=== PATIENT | female | born 1935 | race Caucasian/White ===

== ENCOUNTER 2016-04-20 13:21 | Emergency (ER) | payer MEDICARE ==
[~2016-04-20] VITALS: Ht 157.5 cm; Wt 62.3 kg
[~2016-04-20 13:21] MED LIST: ALLO300T2 PO; BIMA2.5D5 OD; CLOP75TA3 PO; FERR325C PO; FURO40TA4 PO; INSU100V7 SUBQ; LANS30CA PO; LEVO25TA5 PO; METO50TA3 PO; MULT1CAP33 PO; PRAV40TA PO; RES30 PO
--- NOTE | 2016-04-20 13:42 | ED.REPORT ---
HPI-General Illness Date of Service Apr 20, 2016 ED Provider: Julisa Dean MD Nursing Notes Stated Complaint: SOB Chief Complaint: Dysrhythmia/Cardiac Nursing Notes Reviewed: Yes Allergies: Coded Allergies: Argxdvw-Yvz-Pgm Reductase Inhibitor (Unverified Allergy, Unknown, 11/11/13) cilostazol (Unverified Allergy, Unknown, 11/11/13) rofecoxib (Verified Allergy, Unknown, 11/10/13) rosuvastatin (Verified Allergy, Unknown, 11/10/13) simvastatin (Unverified Allergy, Unknown, 11/11/13) Scheduled Allopurinol (Allopurinol) 300 Mg Tablet 300 MG PO DAILY Bimatoprost (Lumigan) 45 Drop/2.5 Ml Ophsoln 1 DROP OD HS Clopidogrel Bisulfate (Plavix) 75 Mg Tablet 75 MG PO DAILY Ferrous Sulfate (Iron) 325 Mg Capsule.er 325 MG PO DAILY Furosemide (Furosemide) 40 Mg Tablet 80 MG PO BID Lansoprazole (Lansoprazole) 30 Mg Capsule.dr 30 MG PO DAILY Levothyroxine (Levothyroxine) 25 Mcg Tablet 25 MCG PO AM Take on an empty stomach. Metoprolol Tartrate (Metoprolol Tartrate) 25 Mg Tablet 25 MG PO BID Multivitamin (Multivitamins) 1 Each Capsule 1 EACH PO DAILY Pravastatin (Pravastatin) 40 Mg Tablet 40 MG PO DAILY Scheduled PRN Temazepam (Temazepam) 30 Mg Cap 30 MG PO HS PRN PRN For Insomnia Miscellaneous Medications Tizanidine (Tizanidine) 2 Mg Tablet 1-2 MG PO General Time Seen by MD: 13:41 Chief Complaint Other (SOB) Hx Obtained From: Patient Arrived By: Walk-in Review of Systems Full Review of Systems Respiratory: Reports: Shortness of breath Complete sys rev & neg: except as marked. Physical Exam Vital Signs Vital Signs Date Time Temp Pulse Resp B/P Pulse Ox O2 Delivery O2 Flow Rate FiO2 04/20/16 13:51 36.7 65 24 177/72 95 Room Air Initial VS: Reviewed, Vital signs abnormal Interpretation & Diagnostics Lab Results Interpretation Result Diagram: 04/20/16 1419 04/20/16 1419 Test 04/20/16 14:19 White Blood Count 8.0th/mm3 (3.8-10.1) Red Blood Count 4.07mil/mm3 (3.90-5.20) Hemoglobin 12.7g/dL (12.0-15.6) Hematocrit 40.4% (35.0-46.0) Mean Corpuscular Volume 99.3fL (81-100) Mean Corpuscular Hemoglobin 31.2pg (27.0-35.0) Mean Corpuscular Hemoglobin Concent 31.4% (32.0-37.0) Red Cell Distribution Width 13.9% (12.3-15.4) Platelet Count 209bil/L (150-400) Neutrophils (%) (Auto) 64.5% (40-74) Lymphocytes (%) (Auto) 25.9% (14-46) Monocytes (%) (Auto) 7.2% (4-12) Eosinophils (%) (Auto) 2.0% (0-5) Basophils (%) (Auto) 0.2% (0-3) Sodium Level 139mEq/L (134-144) Potassium Level 3.8mEq/L (3.5-5.2) Chloride Level 98mEq/L (97-108) Carbon Dioxide Level 26mmol/L (18-29) Blood Urea Nitrogen 33mg/dL (8-27) Creatinine 1.05mg/dL (0.57-1.00) Estimat Glomerular Filtration Rate 72mL/min (>59) Glucose Level 186mg/dL (60-99) Calcium Level 9.6mg/dL (8.5-10.1) Magnesium Level 2.0mg/dL (1.6-2.6) Total Bilirubin 0.3mg/dL (0.0-1.2) Aspartate Amino Transf (AST/SGOT) 20U/L (0-50) Alanine Aminotransferase (ALT/SGPT) 10U/L (0-32) Alkaline Phosphatase 114U/L (25-165) Troponin T < 0.010ug/L (0.0-0.011) Pro-B-Type Natriuretic Peptide 3688pg/mL (0-738) Total Protein 8.5g/dL (6.4-8.4) Albumin 3.9g/dL (3.4-5.0) ECG Interpretation ECG Interpretation: Sinus rhythm rate 67 LVH Time: 14:55 Interpreted by: ED physician Re-Eval/Medical Decision Counseled Regarding: Diagnosis, Lab results Discharge & Departure Discharge Condition All VS Reviewed: Yes Condition: Stable Referrals: Wendy Vance MD (PCP) Sanjeev Attestation Portions of this note were transcribed by Davy Vanegas. I, Dr. Dean personally performed the history, physical exam and medical decision-making; I reviewed and confirmed the accuracy of the information in the transcribed note. Signed by Sanjeev Lawrence, 04/20/16 - [id number] copies to: Wendy Vance MD, Shawna L MD Apr 20, 2016 13:42 DAVY VANEGAS Apr 20, 2016 13:43
[2016-04-20 13:51] VITALS: BP 177/72; PULSE 65; RESP 24; O2SAT 95
[2016-04-20] MEDS ORDERED: METO25TA6 PO (14:22)
[2016-04-20] MEDS ORDERED: TIZA2TAB3 PO (14:22)
[2016-04-20 14:23] LABS: BASOPHILS % (AUTO) 0.2 % (0-3); MONOCYTES % (AUTO) 7.2 % (4-12); Mean Corpuscular Hemoglobin 31.2 pg (27.0-35.0); Mean Corpuscular Volume 99.3 fL (81-100); NEUTROPHILS % (AUTO) 64.5 % (40-74); Platelet Count 209 bil/L (150-400)
[2016-04-20 14:59] LABS: TROPONIN T < 0.010 ug/L (0.0-0.011)
--- NOTE | 2016-04-20 15:06 | ED.REPORT ---
HPI-Chest Pain 40 and Over Date of Service Apr 20, 2016 ED Provider: Steve Nuñez MD Patient is a 81 year old female with a history of diastolic congestive heart failure, coronary artery disease with prior myocardial infarction, CABG 4x, diabetes mellitus, chronic kidney disease, and hypertension who presents to the ED after she had a pre-syncopal episode and heart palpitations at 10pm last night. The patient states that she was getting ready for bed when she developing a racing heart beat, dizziness, double vision, and that she felt unsteady on her feet. She describes her dizziness as a weakness, with the room titling, as if she were about to pass out. She denies the room spinning. She admits to feeling increasingly weak prior to this episode with dyspnea on exertion. The patient denies noting an irregular heart beat and she did not formally take her pulse. Patient states that these symptoms lasted for some time and it took her longer than usual to fall asleep last night. She admits to waking up throughout the night, experiencing similar dizziness and double vision. She states that the double vision was side by side. Patient denies any lateralization of her weakness. Patient states that this morning she continued to feel weak and that she was unable to do her daily tasks. This worsened throughout the day, so she therefore went to Urgent Care. Patient reports having an episode several weeks ago of similar character with palpitations, dyspnea on exertion, and generalized weakness. Patient also reports having an ND 3 years ago, with her symptoms beginning with double vision. Her symptoms then progressed to generalized weakness, however she never had any chest pain. She also admits to a headache but denies diaphoresis, nausea, vomiting, fever, or abdominal pain. She admits to increased swelling in her legs, but states that she has been ambulating less recently. Patient is on Plavix for blood thinning medication. She denies a history of atrial fibrillation or an abnormal heart beat. The patient has an appointment with her heat and frost insulator helper, Dr. Cid, on 04/22. PCP: Dr. Vance Nursing Notes Stated Complaint: SOB Chief Complaint: Dysrhythmia/Cardiac Nursing Notes Reviewed: Yes Allergies: Coded Allergies: Dqnelwx-Pye-Pef Reductase Inhibitor (Unverified Allergy, Unknown, 11/11/13) cilostazol (Unverified Allergy, Unknown, 11/11/13) rofecoxib (Verified Allergy, Unknown, 11/10/13) rosuvastatin (Verified Allergy, Unknown, 11/10/13) simvastatin (Unverified Allergy, Unknown, 11/11/13) Scheduled Allopurinol (Allopurinol) 300 Mg Tablet 300 MG PO DAILY Bimatoprost (Lumigan) 45 Drop/2.5 Ml Ophsoln 1 DROP OD HS Clopidogrel Bisulfate (Plavix) 75 Mg Tablet 75 MG PO DAILY Ferrous Sulfate (Iron) 325 Mg Capsule.er 325 MG PO DAILY Furosemide (Furosemide) 40 Mg Tablet 80 MG PO BID Lansoprazole (Lansoprazole) 30 Mg Capsule.dr 30 MG PO DAILY Levothyroxine (Levothyroxine) 25 Mcg Tablet 25 MCG PO AM Take on an empty stomach. Metoprolol Tartrate (Metoprolol Tartrate) 25 Mg Tablet 25 MG PO BID Multivitamin (Multivitamins) 1 Each Capsule 1 EACH PO DAILY Pravastatin (Pravastatin) 40 Mg Tablet 40 MG PO DAILY Scheduled PRN Temazepam (Temazepam) 30 Mg Cap 30 MG PO HS PRN PRN For Insomnia Miscellaneous Medications Tizanidine (Tizanidine) 2 Mg Tablet 1-2 MG PO General Time Seen by MD: 15:01 Chief Complaint Other (presyncopal episode) Hx Obtained From: Patient Arrived By: Walk-in Sudden in Onset?: Yes Onset Occurred: 17 - 20 hours ago Symptom Duration: Since onset Severity: Current: No pain currently Severity: Maximum: No pain Recent Healthcare: No recent doctor visit, No recent hospitalization Similar Sx Previous: Yes Past Medical History Past Medical History Notes: PCP: Dr. Vance Hydrochloric Acid Operator: Dr. Cid Past Medical History 1. Coronary artery disease, with history of myocardial infarction and bypass grafting 2001. 2. Peripheral vascular disease, status post multiple stenting and angioplasty procedures. 3. Congestive heart failure, diastolic 4. Chronic kidney disease 5. Hypertension. 6. Chronically elevated troponin. 7. Hyperlipidemia. 8. Diabetes mellitus type 2, insulin requiring. 9. Gastroesophageal reflux disease with Schaefer's esophagus. 10. Glaucoma. 11. Carotid stenosis. 12. Gout. 13. Hypothyroidism. 14. Chronic insomnia, on chronic benzodiazepines. 15. Moderate to severe mitral regurgitation by echo February 2013. 16. Bilateral renal artery stenosis. 17. History of peptic ulcer disease. 18. Anemia. 19. prior DVT Reports: Coronary artery disease Past Surgical History glaucoma surgery. Reports: CABG, Cataract surgery, Hysterectomy Smoking History Former Smoker Social History Other Social History: Good social support, Local resident Ambulatory Status Independent Review of Systems Constitutional: Denies: Chills, Fever Respiratory: Reports: Dyspnea on exertion, Shortness of breath Cardiovascular: Reports: Dyspnea on exertion, Palpitations, Denies: Chest pain GI: Denies: Abdominal pain, Nausea, Vomiting Musculoskeletal: Reports: Extremity swelling Skin: Denies Diaphoresis, Denies Rash Neurologic: Reports: Dizziness, Weakness Complete sys rev & neg: except as marked. Eyes: Reports: Diplopia, Denies: Visual loss bilateral Physical Exam Initial Vital Signs Vital Signs (First) Date Time Temp Pulse Resp B/P Pulse Ox O2 Delivery O2 Flow Rate FiO2 04/20/16 13:51 36.7 65 24 177/72 95 Room Air Initial VS: Reviewed Head / Eyes: Atraumatic, Normocephalic, PERRL ENT: Conjunctiva normal, No scleral icterus Neck: Supple, Full range of motion Skin: Warm, Dry Neurologic: Alert, Oriented, Nonfocal Psychiatric: Mood/affect normal, Behavior normal, Normal thought content General/Constitutional: Awake, Alert, No acute distress Respiratory / Chest: Breath sounds NL, Breath sounds = bilat, No respiratory distress, No rales, No rhonchi, No wheezing Cardiovascular: Heart rate NL, Regular rhythm, Heart sounds NL, No gallop, No murmurs, No rubs midline thoracotomy scar Abdomen: Soft, Non-tender, BS normoactive Lower Extremity / Pelvis / MS: Non-tender, No deformity, Neurologic intact, Vascular intact trace edema bilateral lower extremities Interpretation & Diagnostics Lab Results Interpretation Result Diagram: 04/20/16 1419 04/20/16 1419 Test 04/20/16 14:19 White Blood Count 8.0th/mm3 (3.8-10.1) Red Blood Count 4.07mil/mm3 (3.90-5.20) Hemoglobin 12.7g/dL (12.0-15.6) Hematocrit 40.4% (35.0-46.0) Mean Corpuscular Volume 99.3fL (81-100) Mean Corpuscular Hemoglobin 31.2pg (27.0-35.0) Mean Corpuscular Hemoglobin Concent 31.4% (32.0-37.0) Red Cell Distribution Width 13.9% (12.3-15.4) Platelet Count 209bil/L (150-400) Neutrophils (%) (Auto) 64.5% (40-74) Lymphocytes (%) (Auto) 25.9% (14-46) Monocytes (%) (Auto) 7.2% (4-12) Eosinophils (%) (Auto) 2.0% (0-5) Basophils (%) (Auto) 0.2% (0-3) Sodium Level 139mEq/L (134-144) Potassium Level 3.8mEq/L (3.5-5.2) Chloride Level 98mEq/L (97-108) Carbon Dioxide Level 26mmol/L (18-29) Blood Urea Nitrogen 33mg/dL (8-27) Creatinine 1.05mg/dL (0.57-1.00) Estimat Glomerular Filtration Rate 72mL/min (>59) Glucose Level 186mg/dL (60-99) Calcium Level 9.6mg/dL (8.5-10.1) Magnesium Level 2.0mg/dL (1.6-2.6) Total Bilirubin 0.3mg/dL (0.0-1.2) Aspartate Amino Transf (AST/SGOT) 20U/L (0-50) Alanine Aminotransferase (ALT/SGPT) 10U/L (0-32) Alkaline Phosphatase 114U/L (25-165) Troponin T < 0.010ug/L (0.0-0.011) Pro-B-Type Natriuretic Peptide 3688pg/mL (0-738) Total Protein 8.5g/dL (6.4-8.4) Albumin 3.9g/dL (3.4-5.0) Thyroid Stimulating Hormone (TSH) 3.890uIU/mL (0.450-4.500) ECG Interpretation ECG Interpretation: Sinus rhythm, rate 67 Lateral ventricular hypertrophy lateral ST depression and T wave inversion Time: 15:08 Interpreted by: ED physician X-Ray Chest Interpretation Chest Xray Interpretation: IMPRESSION: No acute cardiopulmonary disease process. Dictated by: Ivon Garcia MD, PhD on 04/20/2016 at 15:17 Approved by: Ivon Garcia MD, PhD on 04/20/2016 at 15:17 View: Portable Interpretation / Wet Read by: Interpret - Radiologist Re-Eval/Medical Decision Med Decision/Clinical Course 81 year old female with palpitations last night. Today still feels weak, no chest pain has baseline ZUNIGA. VS reassuring. will not trend trop given prolonged time between symptoms and presentatiion. Ambulates using walker without difficulty. Has cardiology appointment coming up. Pro-BNP today is 3688, lower than values noted in 2014 Source of Hx: Old records Time of Eval: 16:15 Patient Status: Condition improved Re-Evaluation/Progress Note: Rechecked the patient. She reports feeling improved and is no longer dizzy. She admits to feeling weak when she stands up. Informed the patient of the results of her EKG, labs, and chest x-ray. Patient understands and agrees with the plan to be discharged home. Discharge instructions and follow-up with cardiology discussed. All questions were addressed. Return to the ED warnings given. Time of Eval: 17:50 Re-Evaluation/Progress Note: Patient's daughter now present in the ED. Updated her on the results of the work-up today and the follow-up plan. All questions were addressed. Counseled Regarding: Diagnosis, Lab results, Need for follow-up, When/why to return to ED Discharge & Departure Primary Impression: Heart palpitations Disposition: Home Discharge Condition All VS Reviewed: Yes Condition: Stable Patient Instructions: Palpitations (ED) Additional Instructions: Emergency department evaluation today included review, examination, labs, ECG and chest x-ray, review of past records. Today examination and vital signs are reassuring and heart rhythm is normal. We note some mild dehydration. Continue previous medications and get adequate fluids. Follow-up with Dr. Cid in 2 days as already scheduled.. Discuss this event with him at that time. Call 911 if you have recurrent symptoms. Do not wait. Referrals: Wendy Vance MD (PCP) Ney Cid MD Attestation Portions of this note were transcribed by Lia Mckeon. I, Dr. Nuñez personally performed the history, physical exam and medical decision-making; I reviewed and confirmed the accuracy of the information in the transcribed note. Signed by: Sanjeev Hester, 04/20/2016 [id number] copies to: Ney Cid MD; RajivWendy hernandez MD, Donald L MD Apr 20, 2016 15:06 Lia Mckeon Apr 20, 2016 15:27
--- NOTE | 2016-04-20 15:19 | DRSVH ---
PROCEDURE: X-RAY CHEST ONE VIEW, PORTABLE ([id number]) INDICATIONS: weakness and cough TECHNIQUE: One view of the chest was acquired. COMPARISON: [facility], , CHEST 1VW (PORTABLE), 03/09/2013, 8:35. [facility], CHEST 2VW, 03/13/2013, 8:02. [facility], CHEST 1VW (PORTABLE), 11/10/2013, 2 2:54. FINDINGS: Surgical changes and devices: Median sternotomy wires Lungs and pleura: No pleural effusions or pneumothorax. Lungs are clear. Mediastinum: Mediastinal contours appear normal. Heart size is normal. Bones and chest wall: No suspicious bony lesions. Overlying soft tissues appear unremarkable. IMPRESSION: No acute cardiopulmonary disease process. Dictated by: Ivon Garcia MD, PhD on 04/20/2016 at 15:17 Approved by: Ivon Garcia MD, PhD on 04/20/2016 at 15:17
[2016-04-20] MEDS ORDERED: 0.9% Sodium Chloride 500 ML IV ONE (15:30)
[2016-04-20 15:35] VITALS: BP_SYST 148; BP_SYST 179; BP_DIAS 74; BP_DIAS 94
[2016-04-20 15:40] VITALS: BP 179/94; PULSE 69; RESP 18; O2SAT 98
[2016-04-20 16:22] VITALS: BP 155/71; PULSE 67; RESP 19; O2SAT 95
[2016-04-20 16:51] VITALS: BP 162/71; PULSE 71; RESP 20; O2SAT 98
== END 2016-04-20 16:50 | disposition home or self-care (01) ==
LOC: SED 13:21 → EDBD 13:21 → SED 16:50
DX: R00.2 Palpitations (principal); I12.9 Hypertensive chronic kidney disease with stage 1 through stage 4 chronic kidney disease, or unspecified chronic kidney disease; N18.9 Chronic kidney disease, unspecified; E11.9 Type 2 diabetes mellitus without complications; I25.2 Old myocardial infarction; I25.10 Atherosclerotic heart disease of native coronary artery without angina pectoris; G47.09 Other insomnia; Z95.1 Presence of aortocoronary bypass graft; Z98.62 Peripheral vascular angioplasty status; Z87.891 Personal history of nicotine dependence; Z86.39 Personal history of other endocrine, nutritional and metabolic disease; Z86.79 Personal history of other diseases of the circulatory system; Z87.19 Personal history of other diseases of the digestive system; Z79.01 Long term (current) use of anticoagulants; Z88.8 Allergy status to other drugs, medicaments and biological substances; Z79.4 Long term (current) use of insulin
CPT/HCPCS: 36415; 71010; 80053; 83735; 83880; 84443; 84484; 85025; 93005; 99285; A4300; G0463; J7040

== ENCOUNTER 2016-10-20 10:52 | Inpatient (IN) | payer MEDICARE ==
[~2016-10-20] VITALS: Ht 157.5 cm; Wt 58.1 kg
[2016-10-20] VITALS (14 sets, daily range): BP systolic 59–130; BP diastolic 31–100; PULSE 70–83; RESP 16–24; O2SAT 93–99
[~2016-10-20 10:52] MED LIST changes: +BIMA2.5D5 BOTH_EYES; -BIMA2.5D5 OD; -INSU100V7 SUBQ; +METO25TA6 PO; -METO50TA3 PO; +TIZA2TAB3 PO
--- NOTE | 2016-10-20 11:02 | ED.REPORT ---
HPI-General Illness Date of Service Oct 20, 2016 ED Provider: Romeo Wood DO The patient is an 81 year old male with history of coronary artery disease s/p CABG, chronically elevated troponin, peripheral vascular disease s/p multiple stenting and angioplasty procedures, congestive heart failure, prior DVT, chronic kidney disease, carotid stenosis, bilateral renal artery stenosis, hypertension, hypothyroidism, hyperlipidemia, diabetes mellitus type II, GERD, and peptic ulcer disease, who presents to the emergency department by EMS complaining of chest pain that has been intermittent over the last few months. Her symptoms were worse this morning. Her pain radiated into her shoulder and she was too weak to walk. She denies nausea, vomiting, abdominal pain, fever, chills, cough or shortness of breath. She was seen by her circle cutting saw operator, Dr. Cid yesterday and was told her symptoms may be caused be low potassium. The patient reports a few episodes black stools last week but this has resolved. She has had similar symptoms in the past that were attributed to bleeding ulcers. She did not have any pain at that time. Nursing Notes Stated Complaint: CHEST PAIN Nursing Notes Reviewed: Yes Allergies: Coded Allergies: Rdwoemf-Sdm-Mcb Reductase Inhibitor (Unverified Allergy, Unknown, 10/20/16) cilostazol (Unverified Allergy, Unknown, 10/20/16) rofecoxib (Verified Allergy, Unknown, 10/20/16) rosuvastatin (Verified Allergy, Unknown, 10/20/16) simvastatin (Unverified Allergy, Unknown, 10/20/16) Scheduled Allopurinol (Allopurinol) 300 Mg Tablet 300 MG PO DAILY Bimatoprost (Lumigan) 45 Drop/2.5 Ml Ophsoln 1 DROP OD HS Clopidogrel Bisulfate (Plavix) 75 Mg Tablet 75 MG PO DAILY Ferrous Sulfate (Iron) 325 Mg Capsule.er 325 MG PO DAILY Furosemide (Furosemide) 40 Mg Tablet 80 MG PO BID Lansoprazole (Lansoprazole) 30 Mg Capsule.dr 30 MG PO DAILY Levothyroxine (Levothyroxine) 25 Mcg Tablet 25 MCG PO AM Take on an empty stomach. Metoprolol Tartrate (Metoprolol Tartrate) 25 Mg Tablet 25 MG PO BID Multivitamin (Multivitamins) 1 Each Capsule 1 EACH PO DAILY Pravastatin (Pravastatin) 40 Mg Tablet 40 MG PO DAILY Scheduled PRN Temazepam (Temazepam) 30 Mg Cap 30 MG PO HS PRN PRN For Insomnia Miscellaneous Medications Tizanidine (Tizanidine) 2 Mg Tablet 1-2 MG PO General Time Seen by MD: 11:01 Chief Complaint Chest pain Hx Obtained From: Patient, EMS Arrived By: Ambulance Sudden in Onset?: No Onset Occurred: More than a week ago... Symptom Duration: Intermittent Location: : Chest Quality: Painful Radiation: : Shoulder Severity: Current: Moderate Severity: Maximum: Severe Recent Healthcare: No recent hospitalization, Recent doctor visit Similar Sx Previous: Yes Past Medical History Past Medical History Notes: PCP: Dr. Vance Ip Litigation Associate: Dr. Cid Past Medical History 1. Coronary artery disease, with history of myocardial infarction and bypass grafting 2001. 2. Peripheral vascular disease, status post multiple stenting and angioplasty procedures. 3. Congestive heart failure, diastolic 4. Chronic kidney disease 5. Hypertension. 6. Chronically elevated troponin. 7. Hyperlipidemia. 8. Diabetes mellitus type 2, insulin requiring. 9. Gastroesophageal reflux disease with Schaefer's esophagus. 10. Glaucoma. 11. Carotid stenosis. 12. Gout. 13. Hypothyroidism. 14. Chronic insomnia, on chronic benzodiazepines. 15. Moderate to severe mitral regurgitation by echo February 2013. 16. Bilateral renal artery stenosis. 17. History of peptic ulcer disease. 18. Anemia. 19. prior DVT Past Surgical History Glaucoma surgery. Multiple stents and angioplasty for peripheral vascular disease Reports: CABG, Cataract surgery, Hysterectomy Family History Noncontributory Smoking History Former Smoker Social History Other Social History: Good social support, Local resident Ambulatory Status Independent Review of Systems Full Review of Systems Constitutional: Reports: Weakness - generalized, Denies: Chills, Fever Respiratory: Denies: Non-productive cough, Shortness of breath Cardiovascular: Reports: Chest pain GI: Reports: Bloody/tarry stool, Denies: Abdominal pain, Diarrhea, Nausea, Vomiting Neurologic: Reports: Weakness Complete sys rev & neg: except as marked. Physical Exam Vital Signs Vital Signs Date Time Temp Pulse Resp B/P Pulse Ox O2 Delivery O2 Flow Rate FiO2 10/20/16 12:57 74 16 92/47 98 Nasal Cannula 2 10/20/16 12:10 74 16 65/31 99 Nasal Cannula 2 10/20/16 11:34 76 17 73/32 97 Nasal Cannula 2 10/20/16 11:34 75 17 96/49 93 Room Air 10/20/16 11:06 36.2 78 17 98/45 97 Room Air Initial VS: Reviewed Head / Eyes: Atraumatic, Normocephalic, PERRL ENT: Mucous membranes moist, Conjunctiva normal, No scleral icterus Extremities: Vascular intact, Neuro intact, No swelling, No tenderness Skin: Warm, Dry, No cyanosis Neurologic: Alert, Oriented, Nonfocal Psychiatric: Mood/affect normal, Behavior normal, Normal thought content General/Constitutional: Awake, Alert Appearance / Presentation: Positive: Pale Neck: Atraumatic, Supple, No meningismus, Full range of motion, No adenopathy, No swelling, Non-tender, No midline vertebral tend, No JVD Respiratory / Chest: Atraumatic, Breath sounds NL, Breath sounds = bilat, No respiratory distress, No rales, No rhonchi, No wheezing, No retractions Cardiovascular: Heart rate NL, Regular rhythm Heart Sounds / Murmur: Positive: Systolic murmur present.. (II/, at the apex) Abdomen: Atraumatic, Soft, Non-tender, No guarding, No rebound, BS normoactive , No distention Lower Extremity / Pelvis / MS: Neurologic intact, Vascular intact, No edema Rectal for Blood: Positive: Blood - occult heme +, Negative: Melena present Brown stool Interpretation & Diagnostics Lab Results Interpretation Result Diagram: 10/20/16 1120 10/20/16 1120 Test 10/20/16 11:20 10/20/16 12:57 White Blood Count 12.8th/mm3 (3.8-10.1) Red Blood Count 2.73mil/mm3 (3.90-5.20) Hemoglobin 8.6g/dL (12.0-15.6) Hematocrit 27.6% (35.0-46.0) Mean Corpuscular Volume 101.1fL (81-100) Mean Corpuscular Hemoglobin 31.5pg (27.0-35.0) Mean Corpuscular Hemoglobin Concent 31.2% (32.0-37.0) Red Cell Distribution Width 15.5% (12.3-15.4) Platelet Count 219bil/L (150-400) Neutrophils (%) (Auto) 71.6% (40-74) Lymphocytes (%) (Auto) 20.4% (14-46) Monocytes (%) (Auto) 6.5% (4-12) Eosinophils (%) (Auto) 0.9% (0-5) Basophils (%) (Auto) 0.2% (0-3) Prothrombin Time 10.7sec (8.1-12.5) Prothromb Time International Ratio 1.00ratio Sodium Level 136mEq/L (134-144) Potassium Level 4.8mEq/L (3.5-5.2) Chloride Level 100mEq/L (97-108) Carbon Dioxide Level 22mmol/L (18-29) Blood Urea Nitrogen 49mg/dL (8-27) Creatinine 1.25mg/dL (0.57-1.00) Estimat Glomerular Filtration Rate 59mL/min (>59) Glucose Level 243mg/dL (60-99) Calcium Level 8.9mg/dL (8.5-10.1) Magnesium Level 2.0mg/dL (1.6-2.6) Total Bilirubin 0.2mg/dL (0.0-1.2) Aspartate Amino Transf (AST/SGOT) 16U/L (0-50) Alanine Aminotransferase (ALT/SGPT) 8U/L (0-32) Alkaline Phosphatase 93U/L (25-165) Troponin T 0.010ug/L (0.0-0.011) Pro-B-Type Natriuretic Peptide 3414pg/mL (0-738) Total Protein 7.0g/dL (6.4-8.4) Albumin 3.3g/dL (3.4-5.0) ECG Interpretation ECG Interpretation: Sinus rhythm with a rate of 78 LVH Time: 11:11 Interpreted by: ED physician X-Ray Chest Interpretation Chest Xray Interpretation: IMPRESSION: No radiographic evidence of acute cardiopulmonary pathology. Dictated by: Fito Umaña M.D. on 10/20/2016 at 11:50 Interpretation / Wet Read by: Interpret - Radiologist Re-Eval/Medical Decision Med Decision/Clinical Course Hypotensive likely multifactorial due to upper GI bleeding and symptomatic anemia, probable over diuresis, and also UTI. Patient was bolused 1 L of normal saline. She will be transfused 1 unit of PRBCs. 2 g Rocephin are given after blood cultures. She will be admitted to intensive care. Source of Hx: Old records, EMS Time of Eval: 12:22 Re-Evaluation/Progress Note: Discussed plan for admission. The patient wants to be a full code. She states, "If I were to be a vegetable, leave it up to the doctor." Consultation #1: Referral / Consult Name: Herberth Alonso MD Consulted With: Cardiology Call Returned at: 12:15 Electrochemist: Agrees with eval, Agrees with plan Note: He agrees with plan for transfusion and he recommends to decrease Plavix every other day. Consultation #2: Referral / Consult Name: Kaylie Khanna DO Consulted With: Hospitalist Call Returned at: 12:47 Electrochemist: Will see patient, Agrees with eval, Agrees with plan, Accepts admit Consultation #3: Referral / Consult Name: Mei Rudd MD Electrochemist: Agrees with eval, Agrees with plan Counseled Regarding: Diagnosis, Lab results, Need for admission Discharge & Departure Primary Impression: Upper GI bleed Additional Impressions: Symptomatic anemia Urinary tract infection Urinary tract infection type: site unspecified Disposition: ADMITTED TO HOSPITAL Discharge Condition All VS Reviewed: Yes Condition: Stable Referrals: Wendy Vance MD (PCP) Crit Care Except Billable Proc Time Spent: 30-74 minutes Services Performed: Patient management by me, Time spent at bedside, Reviewing test results Critical Care Notes: See MDM Scribe Attestation Portions of this note were transcribed by Flower Hammond. I, Dr. Wood personally performed the history, physical exam and medical decision-making; I reviewed and confirmed the accuracy of the information in the transcribed note. Signed by: Sanjeev Lou, 10/20/16 at 1330. copies to: Wendy Vance MD, Timothy S DO Oct 20, 2016 11:02 Flower Hammond Oct 20, 2016 11:06
[2016-10-20] MEDS ORDERED: Ondansetron 2 mg/mL 2 mL Inj ONE (11:19)
[2016-10-20 11:23] LABS: BASOPHILS % (AUTO) 0.2 % (0-3); EOSINOPHILS % (AUTO) 0.9 % (0-5); MONOCYTES % (AUTO) 6.5 % (4-12); Mean Corpuscular Hemoglobin 31.5 pg (27.0-35.0); Mean Corpuscular Volume 101.1 fL (81-100); NEUTROPHILS % (AUTO) 71.6 % (40-74); Platelet Count 219 bil/L (150-400)
[2016-10-20] MEDS ORDERED: 0.9% Sodium Chloride 500 ML IV ONE ×2 (11:40→18:35)
[2016-10-20] MEDS ORDERED: Pantoprazole 4 mg/mL 10 mL Inj IVPUSH ONE (11:40)
[2016-10-20] MEDS ORDERED: 0.9% Sodium Chloride 1,000 ML IV SCH (11:40)
[2016-10-20 11:47] LABS: TROPONIN T 0.01 ug/L (0.0-0.011)
--- NOTE | 2016-10-20 11:53 | DRSVH ---
PROCEDURE: X-RAY CHEST ONE VIEW, PORTABLE ([id number]) INDICATIONS: SHORTNESS OF BREATH TECHNIQUE: One view of the chest was acquired. COMPARISON: [facility], CR, XR CHEST 1VW (PORTABLE), 04/20/2016, 14:23. FINDINGS: Surgical changes and devices: Sternotomy with mediastinal postoperative changes. Lungs and pleura: No pleural effusions or pneumothorax. Interstitial pulmonary opacities greatest in the lung bases most consistent with scarring or atelectasis. No lobar consolidation. Mediastinum: Mediastinal contours appear normal. Heart size is normal. Right upper mediastinal fariba nt and Bones and chest wall: No suspicious bony lesions. Overlying soft tissues appear unremarkable. Vasc ular calcifications. IMPRESSION: No radiographic evidence of acute cardiopulmonary pathology. Dictated by: Fito Umaña M.D. on 10/20/2016 at 11:50 Approved by: Fito Umaña M.D. on 10/20/2016 at 11:51
[2016-10-20] MEDS ORDERED: Pantoprazole Inj 80 MG, Pharmacy To Mix 1 EA in 0.9% Sodium Chloride 80 ML IV ONE ×2 (12:20)
[2016-10-20] MEDS ORDERED: Ondansetron 2 mg/mL 2 mL Inj IVPUSH PRN (12:55)
[2016-10-20] MEDS ORDERED: cefTRIAXone Inj 2,000 MG in Dextrose 5% Minibag Plus 50 ML IV ONE (12:55)
[2016-10-20] MEDS ORDERED: Alum-Mag Hydrox-Simeth 30 mL Suspension PO PRN ×2 (12:55→13:45)
[2016-10-20 13:17] LABS: APPEARANCE,URINE CLOUDY (CLEAR,HAZY); COLOR,URINE STRAW (YELLOW); OCCULT BLOOD,URINE MODERATE (NEGATIVE); PH,URINE 5.5 (5.0-8.0); UROBILINOGEN,URINE NORMAL (NORMAL)
[2016-10-20] MEDS ORDERED: Polyethylene Glycol (PEG) 17 Gm Powder PO PRN (13:45)
[2016-10-20] MEDS ORDERED: METO25TA6 PO (14:44)
[2016-10-20] MEDS ORDERED: FRSM80T PO (14:44)
[2016-10-20] MEDS ORDERED: POTA-62 PO (14:46)
[2016-10-20] MEDS: Ondansetron 2 mg/mL 2 mL Inj IVPUSH PRN ×2 (15:01→18:24)
--- NOTE | 2016-10-20 16:54 | PCM.HPMED ---
Subjective Date of Service Oct 20, 2016 Primary Provider: Admitting Physician: Kaylie Khanna DO Primary Care Physician: Wendy Vance MD Attending Physician: Kaylie Khanna DO Chief Complaint: Chest Pain, Shortness of breath, dizziness History of Present Illness: Mrs. Priest is an 81 year old female with past medical history significant for CAD with 5 vessel CABG, HTN, HLD, DM2, CHF, PVD, CKD, GERD and PUD that presented to the Emergency Department on 10/20/2016 with complaints of worsening chest pain and dizziness. The patient states the chest pain has been intermittent for the past couple months but it got worse today and started radiating to her shoulder. She was globally weak, felt short of breath, and was dizzy. She also mentions having black tarry stools last week that have since seemed to be resolving over the last couple of days however today the black tarry stools have returned. She's been evaluated before for black tarry stools and was told she had bleeding ulcers. She is unsure of her medication regimen and does not take them as prescribed or even regularly sometimes. The patient does admit to the fact that she is supposed be taking 80 mg of Lasix daily and sometimes she will take 1-1/2-2 times the normal scheduled dose which she has been doing for the last few days. She denies any fever/chills, nausea/vomiting, abdominal pain, cough, shortness of breath, cori hematochezia or hematuria. Review of Systems: A comprehensive review of systems was conducted with the patient and found to be negative except as above in the History of Present Illness. Allergies Coded Allergies: Eeqltso-Hhn-Kvj Reductase Inhibitor (Verified Allergy, Mild, sore shoulders, 10/20/16) can tolerate pravastatin rosuvastatin (Verified Allergy, Mild, sore shoulders, 10/20/16) cilostazol (Unverified Allergy, Unknown, 10/20/16) rofecoxib (Verified Allergy, Unknown, 10/20/16) simvastatin (Unverified Allergy, Unknown, sore shoulders, 10/20/16) Home Medications Scheduled Allopurinol (Allopurinol) 300 Mg Tablet 300 MG PO DAILY Bimatoprost (Lumigan) 45 Drop/2.5 Ml Ophsoln 1 DROP OD HS Clopidogrel Bisulfate (Plavix) 75 Mg Tablet 75 MG PO DAILY Ferrous Sulfate (Iron) 325 Mg Capsule.er 325 MG PO DAILY Furosemide (Furosemide) 40 Mg Tablet 80 MG PO BID Lansoprazole (Lansoprazole) 30 Mg Capsule.dr 30 MG PO DAILY Levothyroxine (Levothyroxine) 25 Mcg Tablet 25 MCG PO AM Metoprolol Tartrate (Metoprolol Tartrate) 25 Mg Tablet 25 MG PO BID Multivitamin (Multivitamins) 1 Each Capsule 1 EACH PO DAILY Pravastatin (Pravastatin) 40 Mg Tablet 40 MG PO DAILY Scheduled PRN Temazepam (Temazepam) 30 Mg Cap 30 MG PO HS PRN PRN For Insomnia PMH Coronary artery disease, with history of myocardial infarction x2 and CABG in 2001. Peripheral vascular disease Congestive heart failure, diastolic Chronic kidney disease Hypertension. Chronically elevated troponin. Hyperlipidemia. Diabetes mellitus type 2, insulin requiring. GERD with PUD and Schaefer's esophagus. Glaucoma. Carotid stenosis. Gout. Hypothyroidism. Chronic insomnia Bilateral renal artery stenosis.. Anemia. Prior DVT Surgical History Glaucoma surgery Multiple stents and angioplasty for peripheral vascular disease CABG, 5 vessel in 2001 Family History Father: CAD with multiple [place] Mother: CAD Social History Hx Alcohol Use: Yes (1-2/week) Hx Substance Use: No Hx Tobacco Use: Yes (50 years of 1/2 to 1 ppd) Smoking Status: Former Smoker Living Arrangement: with Family Alone Exam Vital Signs Vital Sign - Last Date Time Temp Pulse Resp B/P Pulse Ox O2 Delivery O2 Flow Rate FiO2 10/20/16 15:08 73 17 81/46 96 Nasal Cannula 2 10/20/16 13:56 36.5 Exam General: Pale, elderly woman laying in bed in NAD. Appropriately interactive. HEENT: NCAT, PERRLA, EOMI. Pale conjunctiva. Mucous membranes pink but dry. Lips flaking. Neck: Supple with full ROM. No lymphadenopathy, no JVD. CV: RRR, with 3/6 systolic murmur, no rubs/gallops Pulm: CTA bilaterally without wheezing/rales/rhonchi. Normal effort without accessory muscle use. Abd: Soft, nontender, nondistended. Bowel sounds present. No rebound, guarding. Extremities: Distal pulses intact bilaterally. No cyanosis, clubbing, edema. Neuro: A&Ox3. CN 2-12 intact. Normal muscle strength, no focal deficits. Psych: Normal mood and affect. Lab and Diagnostics Result Diagram: 7/13/17 1120 10/20/16 1120 Microbiology Blood cultures pending Urine culture pending X-Rays, CTs and MRIs CXR 10/20 IMPRESSION: No radiographic evidence of acute cardiopulmonary pathology. Dictated by: Fito Umaña M.D. on 10/20/2016 at 11:50 Approved by: Fito Umaña M.D. on 10/20/2016 at 11:51 Assessment & Plan Mrs. Priest is an 81 year old female with past medical history significant for CAD with 5 vessel CABG, HTN, HLD, DM2, CHF, PVD, CKD, GERD and PUD that presented to the Emergency Department on 10/20/2016 with complaints of worsening chest pain and dizziness. The patient states the chest pain has been intermittent for the past couple months but it got worse today and started radiating to her shoulder. She was globally weak, felt short of breath, and was dizzy. She also mentions having black tarry stools last week that have since resolved. She's been evaluated before and was told she had bleeding ulcers. Acute blood loss Anemia secondary to GI bleed, present on admission. Ongoing. - H/H 8.6 and 22.6 on admission, MCV 101; admission in April 2016 she was not anemic - History significant for ongoing GI bleeds, GERD/PUD, recent melena - Patient received [address] Jeffers in the ED - B12 and folate ordered - GI consulted, appreciate their input - Plavix dose changed to every other day per Dr. Jeffers - Trend H/H in pediatric tubes - Consider further transfusion if she is symptomatic or Hgb < 7 Urinary Tract Infection, present on admission. Acute. Ongoing. - Patient globally weak, dysuric, WBC elevated - UA +nitrite, +Leuk esterase, +blood, packed WBC - Urine culture pending - Empiric Ceftriaxone started in ED, will continue Dehydration, present on admission. Acute. Ongoing. - Patient reports low oral intake as well as excessive diuretic use - Extreme skin tenting, dry membranes and lips on exam - Fluids as above - Replete electrolytes as necessary Hypotension, present on admission. Acute. Ongoing. - Likely due to dehydration, excessive diuretic use - Hold home Lasix and Metoprolol - Fluids as above - Watch fluid status due to systolic CHF with LVEF 35% Acute on Chronic Kidney Injury, present on admission. Ongoing. - Patient has had poor oral intake and ongoing increased diuretic use - BUN49, Creatinine 1.25 on admission; baseline ~1 in April 2016 - Patient received 1L NS in the ED, continue NS at 100mls/hr - Avoid nephrotoxic agents Chronic GERD with PUD and GI bleeds, present on admission. Ongoing. - Patient reports off/on history of GI bleeds, melena - Transfused 1 unit PRBC's in the ED - Protonix drip started - GI consulted, appreciate their input - Plavix changed to every other day dosing per Dr. Jeffers Diabetes mellitus type 2, insulin requiring, present on admission. Ongoing. - Patient reports she was diabetic but hasn't been on medications for awhile - Blood glucose 243 on admission - A1C ordered Systolic Congestive Heart Failure, present on admission. Chronic. Stable. - Patient saw Dr. Cid 10/19, was not taking her Lasix as prescribed - CXR negative for fluid overload - 1L NS plus maintenance fluid at 100mls/hr - Echo on 06/24 showed a LVEF 35% with severely dilated left and right atrium - Consider ordering updated Echo if problematic - Monitor for fluid overload Hypertension - Holding Metoprolol, Lasix Hyperlipidemia - Continue Pravastatin Glaucoma - Continue Bimatoprost Gout - Continue Allopurinol Hypothyroidism - Continue Levothyroxine Chronic insomnia - Continue Temazepam Acetaminophen for mild pain when necessary. Bowel regimen Senna and MiraLAX scheduled as necessary. Zofran when necessary for nausea and vomiting. SubQ heparin held for possible GI bleed. SCDs in place. Patient Status: The patient was admitted to the inpatient due to likely stay > 2 midnights due to the severity of presenting symptoms, multiple medical conditions and complex medical work up and treatment plan. GI Prophylaxis: Proton Pump Inhibitor VTE Mechanical Devices: Intermittant Pneumatic CD Resuscitation Status: CPR: Attempt Resuscitation Attending Statement The patient was seen and examined together with Dr. Romero on 10/20/16 and I have added additional information to the note above. Henrry Romero DO Oct 20, 2016 16:54 Kaylie Khanna DO Oct 21, 2016 12:16
--- NOTE | 2016-10-20 17:52 | NUR ---
P: Alteration in hemodynamics I: Pt admitted from ED. NS 100cc/hr infusing. Protonix gtt 10cc/hr.2L/NC with sats stable. PRBC's completed at arrival from ED and VSS done. Turns self in bed. Up to BSC with one assist. Voided Qs. One medium formed burgundy stool. Pt denies SOB and pain. NPO. Oriented to room. Call light and TV control. Pt knows to call to get up on BSC. E: Stable S:Alert and oriented. Uses call light appropriately. Frequent rounding.
--- NOTE | 2016-10-20 19:51 | NUR ---
IV RE START Pt declined IV restart when offered.
[2016-10-20] MEDS: cefTRIAXone Inj 2,000 MG in Dextrose 5% Minibag Plus 50 ML IV SCH (20:06)
[2016-10-20] MEDS: 0.9% Sodium Chloride 1,000 ML IV SCH (20:06)
[2016-10-20] MEDS ORDERED: Potassium Chloride 20 mEq SR Tablet PO SCH (20:30)
[2016-10-20] MEDS: Pantoprazole Inj 80 MG in 0.9% Sodium Chloride 80 ML IV SCH (21:05)
[2016-10-20] MEDS ORDERED: 0.9% Sodium Chloride 250 ML IV PRN (21:15)
[2016-10-21] VITALS (8 sets, daily range): BP systolic 95–132; BP diastolic 57–81; PULSE 78–110; RESP 18–20; O2SAT 94–100
[2016-10-21 02:49] LABS: BASOPHILS % (AUTO) 0.2 % (0-3); EOSINOPHILS % (AUTO) 1.2 % (0-5); MONOCYTES % (AUTO) 9.7 % (4-12); Mean Corpuscular Hemoglobin 29.5 pg (27.0-35.0); Mean Corpuscular Volume 91.3 fL (81-100); NEUTROPHILS % (AUTO) 63.4 % (40-74); Platelet Count 178 bil/L (150-400)
[2016-10-21] MEDS: 0.9% Sodium Chloride 1,000 ML IV SCH ×2 (03:49→20:13)
--- NOTE | 2016-10-21 05:44 | NUR ---
PRBCs/Sleep/NPO Pt received 1 Unit of PRBCs with one unit on hold down in the blood bank. Pt didn't sleep well last night. She states that she is dependant on her sleeping aid to sleep. MD made aware. Pt remains strict NPO at this time. Protonix gtt remains on at 10. Pt received 1L of NS at 80ml/hour throughout the majority of the night and is now saline locked per MD's instructions.
[2016-10-21] MEDS ORDERED: Lansoprazole 30 mg ODTablet PO SCH (07:30)
[2016-10-21] MEDS: Pantoprazole Inj 80 MG in 0.9% Sodium Chloride 80 ML IV SCH ×3 (07:57→20:14)
--- NOTE | 2016-10-21 11:41 | PCM.PNMED ---
Subjective Date of Service Oct 21, 2016 Subjective Overnight there were no acute events. Ms. Priest tells me that she did not sleep last evening but is otherwise feeling less weak than yesterday. She does report some black stools with accompanying bright red blood, denies any fever/chills, chest pain, palpitations, nausea/ vomiting. Exam Vital Signs Vital Sign - Last Date Time Temp Pulse Resp B/P Pulse Ox O2 Delivery O2 Flow Rate FiO2 10/21/16 11:04 36.6 97 20 129/57 97 Nasal Cannula 1.00 Intake and Output 10/20/16 10/20/16 10/21/16 Cumulative From/Thru 15:00 23:00 07:00 10/20/16 11:06 - 10/21/16 07:00 Intake Total 1600 ml 688 ml 1054 ml 3342 ml Output Total 450 ml 950 ml 2500 ml 3900 ml Balance 1150 ml -262 ml -1446 ml -558 ml Intake Oral 0 ml 0 ml IV Total 1600 ml 688 ml 754 ml 3042 ml Packed Cells 300 ml 300 ml Output Urine Total 450 ml 950 ml 1900 ml 3300 ml Stool Total 300 ml 300 ml Urine/Stool Mix 300 ml 300 ml # Voids 2 2 # Bowel Movements 1 1 Exam General: Frail elderly woman laying in bed in NAD. She appears less pale than yesterday. Appropriately interactive. HEENT: NCAT, PERRLA, EOMI. Conjunctival pallor resolving. Mucous membranes pink but still dry. Neck: Supple with full ROM. No lymphadenopathy, no JVD. CV: RRR, with 3/6 systolic murmur, no rubs/gallops Pulm: CTA bilaterally without wheezing/rales/rhonchi. Normal effort without accessory muscle use. Abd: Soft, nontender, nondistended. Bowel sounds present. No rebound, guarding. Extremities: Distal pulses intact bilaterally. No cyanosis, clubbing, edema. Neuro: A&Ox3. CN 2-12 intact. Normal muscle strength, no focal deficits. Psych: Normal mood and affect. IVs and Medications Medications Reviewed: Medications were reviewed in detail Lab and Diagnostics Result Diagram: 10/21/16 0832 10/21/16 0240 Microbiology Blood cultures pending Urine culture pending X-Rays, CTs and MRIs CXR 10/20 IMPRESSION: No radiographic evidence of acute cardiopulmonary pathology. Dictated by: Fito Umaña M.D. on 10/20/2016 at 11:50 Approved by: Fito Umaña M.D. on 10/20/2016 at 11:51 Assessment & Plan Mrs. Priest is an 81 year old female with past medical history significant for CAD with 5 vessel CABG, HTN, HLD, DM2, CHF, PVD, CKD, GERD and PUD that presented to the Emergency Department on 10/20/2016 with complaints of worsening chest pain and dizziness. The patient states the chest pain has been intermittent for the past couple months but it got worse today and started radiating to her shoulder. She was globally weak, felt short of breath, and was dizzy. She also mentions having black tarry stools last week that have since resolved. She's been evaluated before and was told she had bleeding ulcers. Acute Anemia, present on admission. Ongoing. - H/H 8.6 and 22.6 on admission, MCV 101; admission in April 2016 she was not anemic - H/H currently trending up - History significant for ongoing GI bleeds, GERD/PUD, recent melena - Patient received 1 unit PRBC's - B12 and folate pending - Plavix dose changed to every other day - Consider further transfusion if she is symptomatic or Hgb < 7 - Case discussed with GI (Dr. Stein, Dr. Buchanan), appreciate their expertise Urinary Tract Infection, present on admission. Acute. Improving. - UA +nitrite, +Leuk esterase, +blood, packed WBC - WBC normalized, no reported dysuria or hematuria - Urine culture reveals gram negative walker, sensitivities pending - Continue Ceftriaxone Dehydration, present on admission. Acute. Improving. - Patient reports low oral intake as well as excessive diuretic use - NS at 80ml/hr currently, watch for fluid overload - Replete electrolytes as necessary Hypotension, present on admission. Acute. Resolved. - Likely due to dehydration, excessive diuretic use - Continue to hold home Lasix and Metoprolol - Fluids as above - Watch fluid status due to systolic CHF with LVEF 35% Acute on Chronic Kidney Injury, present on admission. Ongoing. - Patient has had poor oral intake and ongoing diuretic use - BUN49, Creatinine 1.36; baseline ~1 in April 2016 - Fluids as above - Avoid nephrotoxic agents Chronic GERD with PUD and GI bleeds, present on admission. Ongoing. - Transfused 1 unit PRBC's in the ED - Continue Protonix drip - Plavix changed to every other day dosing - GI consulted as above Diabetes mellitus type 2, insulin requiring, present on admission. Ongoing. - Patient reported she was diabetic but hasn't been on medications for awhile - Blood glucose 183 today; monitor as she is NPO for now - A1C pending Systolic Congestive Heart Failure, present on admission. Chronic. Stable. - Patient saw Dr. Cid 10/19, was not taking her Lasix as prescribed - Fluids as above; monitor for overload - Echo in 06/24 showed a LVEF 35% with severely dilated left and right atrium Hypertension - Holding Metoprolol, Lasix Hyperlipidemia - Continue Pravastatin Glaucoma - Continue Bimatoprost Gout - Continue Allopurinol Hypothyroidism - Continue Levothyroxine Chronic insomnia - Continue Temazepam Acetaminophen for mild pain when necessary. Bowel regimen Senna and MiraLAX scheduled as necessary. Zofran when necessary for nausea and vomiting. SubQ heparin held for possible GI bleed. SCDs in place. Disposition: The patient will likely be here throughout the weekend depending on her continued improvement, complex work up, and overall medical stability. GI Prophylaxis: Proton Pump Inhibitor VTE Mechanical Devices: Intermittant Pneumatic CD Resuscitation Status: CPR: Attempt Resuscitation Attending Statement The patient was seen and examined together with Dr. Romero on 10/21/16 and I have added additional information to the note above. Henrry Romero DO Oct 21, 2016 11:41 Kaylie Khanna DO Oct 21, 2016 12:24 Hernry Romero DO Oct 21, 2016 11:41
--- NOTE | 2016-10-21 13:03 | NUR ---
P: Alteration in fluid balance. I: Pt still having burgundy stools, but H&H staying stable. EGD scheduled for 1644 today. Pt strict NPO. Status changed to PCU tele. Up to BSC with one assist and tolerating it well. NSR/ST. BP stable. Turns self. Protonix gtt infusing without redness or swelling at the site. Saline lock patent. Voiding qs. Daughter and pt updated on plan of care. 1L/NC with sats stable. Room air sat 90%. E: Stable S: Alert and oriented. Uses call light appropriately. Frequent rounding.
--- NOTE | 2016-10-21 13:30 | NUR ---
Social Work: Initial Assessment/Multidisciplinary Rounds D: Per EMR review, pt is an 81 year old female admitted for Upper GI Bleed, Symptamatic Anemia. Pt is [employer] with no LTC or VA benefits. PCP is Wendy Vance MD. NOK is Iris Dinero, dtr, . AD information declined from DIORAMIST. Readmit score is high, 3/8. Pt discussed in am rounds. GI is consulting. DIORAMIST met with the pt at bedside to discuss discharge plan; sw role explained, dc checklist providing and contact information provided. Pt lives at [facility], alone. Pt is I with ADLs, uses a FWW and is I with self care. pt continues to drive, has never had HH or skilled rehab. Pt occasionally hires help from [employer] for chores. Pt reports no concerns about discharge home and is eager to get home. Pt declined the need for supportive resources from HH or skilled rehab as discharge options. A: Pt who is I at baseline. P: Evolving; Anticipate discharge home via POV once medically stable; DIORAMIST to continue to follow to assess for discharge needs. DORIAN Rangel Addendum: 10/21/16 at 1340 by FOSTER MEDLEY Amended: Links added.
--- NOTE | 2016-10-21 14:05 | NUR ---
NUTRITION ASSESSMENT: ASSESS:81 YO female admitted with worsening chest pain and dizziness. The patient states the chest pain has been intermittent for the past couple months but it got worse day of admission and started radiating to her shoulder. She was globally weak, felt short of breath, and was dizzy. She also mentions having black tarry stools past week. Today she does report some black stools with accompanying bright red blood. GI consult pending. Pt. transferred from CCU to PCU this afternoon. PMHx:CAD, PVD, CHF, CKD, HTN, HLD, type 2 diabetes, GERD, Schaefer's esophagus, carotid stenosis, gout, hypothyroid, bilateral renal artery stenosis, anemia, DVT. DIET:NPO x 1 D. LABS: Reviewed. BUN 79, Cr 1.39, Glu 182, A1c pending, Alb 3.1. MEDICATIONS: Reviewed. Synthroid. NUTRITION FOCUSED PHYSICAL ASSESSMENT: GI symptoms / stool: BM x 1 (10/20).[place]: 19. Skin Integrity: No issues reported. ANTHROPOMETRICS: Current Wt: 61.8 kgBMI: 24.0 kg/m2. IBW: 50.0 kg (123.6% IBW) ESTIMATED NEEDS: Calories: 1545 - 1854 kcal (25 - 30 kcal / kg BW) Protein: 62 - 74 g protein (1.0 - 1.2 g / kg BW) NUTRITION DIAGNOSIS: 1)Altered GI function related to GI bleed, as evidenced by NPO status, pending GI consult. INTERVENTION: 1) No intervention at this time. MONITOR/EVALUATE: Diet advance / tolerance, PO intake, labs, GI/nutrition status. Follow up per moderate nutrition risk guidelines.
[2016-10-21] MEDS ORDERED: Ketamine 10 mg/mL 20 mL Inj ONE (14:38)
[2016-10-21] MEDS ORDERED: Propofol 10,000 mCg/mL 20 mL Inj ONE (14:38)
[2016-10-21] MEDS ORDERED: Glycopyrrolate 0.2 MG/ML 1mL Inj ONE (14:38)
--- NOTE | 2016-10-21 17:23 | NUR ---
P: Bloody stool. I: Report given to Mark in endo. Pt awaiting there arrival.
--- NOTE | 2016-10-21 18:18 | PCM.HPANE ---
Patient Data Date of Service: Oct 21, 2016 Surgeon Admitting Provider:Kaylie Khanna DO Attending Provider:Kaylie Khanna DO Primary Care Physician:Wendy Vance MD Other Provider: Reason for Visit Upper Gi Bleed,Symptamatic Anemia Ht/WT & BMI Height (Feet): 5 Height (Inches): 2.00 Weight (Kilograms): 61.800 Body Mass Index 25.00 Allergies Coded Allergies: Mmxhfyo-Vbx-Hyw Reductase Inhibitor (Verified Allergy, Mild, sore shoulders, 10/20/16) can tolerate pravastatin rosuvastatin (Verified Allergy, Mild, sore shoulders, 10/20/16) cilostazol (Unverified Allergy, Unknown, 10/20/16) rofecoxib (Verified Allergy, Unknown, 10/20/16) simvastatin (Unverified Allergy, Unknown, sore shoulders, 10/20/16) Past Anesthesia History Anesthesia History: Denies:: Anesthesia Reactions, Fam Anesthesia Reaction, Fam Malignant Hypertherm, Malignant Hyperthermia Diabetes History Hx Diabetes?: Yes Type of Diabetes: Type II Glycemic Control: Diet Controlled MRSA MRSA: No Medications Blood Thinner: Plavix Hypertension Medication: Yes Home Meds Incl Beta Qiana: Yes Previous Beta Qiana Dose >24: Dose Not Given, Contraindicated Beta Qiana Contraindicated: Pulse <70 bpm, Systolic BP <110 mmHg, Symptoms of CHF Present, Other (hypotension from GIB & dehydration) Reported Medications Potassium Chloride ER 20 Meq Tablet.er20 Meq PO BID Ref 0 TAKE WITH FOOD 10/20/16 Metoprolol Tartrate 25 Mg Vobnfa45 Mg PO QAM 30 Days Ref 0 10/20/16 Furosemide 80 Mg Nmz178 Mg PO DAILY 10/20/16 Tizanidine 2 Mg Tablet1-2 Mg PO DAILY PRN For Spasm 04/20/16 Metoprolol Tartrate 25 Mg Mgdmpk42 Mg PO HS 30 Days Ref 0 04/20/16 Temazepam 30 Mg Cap30 Mg PO HS PRN For Insomnia 30 Days Ref 0 11/11/13 Pravastatin 40 Mg Vlephf37 Mg PO DAILY 30 Days Ref 0 11/11/13 Clopidogrel Bisulfate (Plavix)75 Mg Czhgln55 Mg PO DAILY 30 Days Ref 0 11/11/13 Multivitamin (Multivitamins)1 Each Capsule1 Each PO DAILY 11/11/13 Bimatoprost (Lumigan)45 Drop/2.5 Ml Ophsoln1 Drop OD HS #1 BOTTLE each eye 11/11/13 Levothyroxine 25 Mcg Ylwipv99 Mcg PO AM 30 Days Ref 0 Take on an empty stomach. 11/11/13 Lansoprazole 30 Mg Capsule.dr30 Mg PO DAILY #30 CAPSULE Ref 0 11/11/13 Allopurinol 300 Mg Dwpbki650 Mg PO DAILY #30 TABLET Ref 0 11/11/13 Discontinued Reported Medications Ferrous Sulfate (Iron)325 Mg Capsule.er325 Mg PO DAILY 11/11/13 Furosemide 40 Mg Vralgd93 Mg PO BID 30 Days 11/11/13 History History of ENT Problems?: Yes HEENT History: Positive for:: Cataracts Denies:: Dysphagia Glaucoma Sinus Problem Denture Type: Full- Upper Full- Lower Teeth Condition: No Teeth Hx of Heart Problems?: Yes Cardiovascular History: Positive for:: Cardiac Surgery (05/2001) Congestive Heart Failure Coronary Artery Disease Edema Heart Murmur Hypertension Irregular Heartbeat Denies:: Chest Pain Pacemaker Thrombophlebitis Other Cardiac History: h/o DVT Hx of Respiratory Problem?: Yes Respiratory History: Positive for:: COPD Dyspnea Pneumonia Denies:: Asthma Chest Surgery Emphysema Hemoptysis Tuberculosis Hx Neurologic Problems?: Yes Neurological History: Positive for:: CVA (DURING CABG) Denies:: Alzheimer's Disease Dementia Dizziness Headaches Parkinson's Disease Seizures Hx of GI Problems?: Yes Gastrointestinal History: Positive for:: Gastroesphageal Reflux Gastrointestinal Bleeding Hx of Problems?: Yes Genitourinary History: Positive for:: Urinary Tract Infection Denies:: HX of Hemodialysis Kidney Stones HX of Peritoneal Dialysis: No Female Hx: Denies:: Currently Endometriosis Pelvic Inflammatory Problems with Breasts? Skin History: Denies:: History Skin Disorders? Pressure Ulcers Hx Musculoskeletal Problems?: Yes Musculoskeletal History: Positive for:: Back Injury (low back pain, occasionally) Musculoskeletal Trauma (RT LEG CAUGHT IN HEAVY DOOR 2010) Denies:: Joint Replacement Hx of Psycho/Social Problems?: No Psycho Social History: Positive for:: Anxiety (sometimes with health problems) Denies:: Bipolar Disorder Hx Depression Hx Surgeries?: Yes (See H&P) Hx Any Other Health Problems?: Yes Other History: Positive for:: Endocrine Disease Hospitalization (see H&P) Thyroid Disease Denies:: Cancer History Blood Transfusions: Positive for:: Accept Blood Products? Blood Transfusions (s/p 1U PRBC) Denies:: Blood Transfuse Reaction Hx Alcohol Use: Yes (1-2/week)Hx Substance Use: No Smoking Status: Former Smoker Have You Smoked inLast 12 mo: No (Quit many years ago) Stop/Bang Treated for Sleep Apnea?: No Do You Have a CPAP Machine?: No S-Snoring: Do You Snore Loudly: No T-Tired: feel tired, fatigued: No O-Obsered: Observed not breath: No P-Blood Pressure: treated: Yes B- Body Mass Index > 35 kg/m2: No A- Age over 50: Yes N- Neck Large Circumference: No G- Gender Male: No ALAN Total Score: 2 ALAN Risk Assessment: Low Risk, <3 Yes Risk Assessment Category Category 1A: Patient has history of documented sleep apnea, and HAS NOT received any narcotic, sedative or anesthesia administration during this stay. Category 1B: Patient has history of documented sleep apnea, and HAS received any narcotic , sedative or anesthesia administration during this stay Category 2: Patient has SUSPECTED Obstructive Sleep Apnea, and HAS received any narcotic , sedative or anesthesia administration during this stay. Category 3: Patient has SUSPECTED Obstructive Sleep Apnea and HAS NOT received narcotic, sedative or anesthesia administration during this stay. Category 4: Outpatient in Procedural Areas with known sleep apnea or who screen positive for High Risk via the STOP/BANG questionnaire. Exam Exam Vital Signs Vital Signs Date Time Temp Pulse Resp B/P Pulse Ox O2 Delivery O2 Flow Rate FiO2 10/21/16 15:40 36.6 78 18 132/69 100 Nasal Cannula 1.00 10/21/16 13:15 95 10/21/16 11:04 36.6 97 20 129/57 97 Nasal Cannula 1.00 General Appearance: Alert, Oriented X3, Cooperative, No Acute Distress HEENT/AIRWAY: MP 3, Neck Movement (FROM), Mouth Opening (3), Other (TMD3) Lungs: Diminished Heart: Normal S1, Normal S2, No Murmurs/Rubs/Gallops, Other (TACHYCARDIC) Meds/Labs/Diagnostics Admission Meds Current Medications Latanoprost 1 drop 1 drop HS BOTH_EYES Last administered on 10/20/16t 20:08; Start 10/20/16 at 21:00 Ceftriaxone Sodium 2000 mg/ Dextrose/Water 50 ml @ 100 mls/hr Q24H IV Last administered on 10/20/16 20:06; Start 10/20/16 at 18:20 Sodium Chloride 1,000 ml @ 80 mls/hr [id number] IV Last administered on 03:49; Start 10/20/16 at 18:40 Pantoprazole/ Sodium Chloride (Protonix Inj/ Normal Saline) 100 ml @ 10 mls/hr Q10H IV Last administered on 10/21/16 07:57; Start 10/20/16 at 20:45 Labs Test 10/20/16 11:20 10/20/16 12:57 10/21/16 02:40 10/21/16 08:32 Prothrombin Time 10.7sec (8.1-12.5) Prothromb Time International Ratio 1.00ratio Magnesium Level 2.0mg/dL (1.6-2.6) Pro-B-Type Natriuretic Peptide 3414pg/mL (0-738) Urine Color Straw (YELLOW) Urine Appearance Cloudy (CLEAR,HAZY) Urine pH 5.5 (5.0-8.0) Urine Specific [place] 1.010 (1.003-1.035) Urine Protein 30mg/dL (NEG,TRACE) Urine Glucose (UA) Negativemg/dL (NEGATIVE) Urine Ketones Negativemg/dL (NEGATIVE) Urine Occult Blood Moderate (NEGATIVE) Urine Nitrite Positive (NEGATIVE) Urine Bilirubin Negative (NEGATIVE) Urine Urobilinogen Normalmg/dL (NORMAL) Urine Leukocyte Esterase Large (NEGATIVE) Urine RBC 0-2/hpf (0-2) Urine WBC Packed/hpf (0-5) Urine Epithelial Cells Occasional/hpf (NONE-MOD) Urine Crystals None seen (NONE SEEN) Urine Bacteria Moderate/hpf (NONE-FEW) Urine Hyaline Casts None/lpf (NONE) Urine Granular Casts None seen (NONE SEEN) Urine Waxy Casts None seen (NONE SEEN) Urine Red Blood Cell Casts None seen (NONE SEEN) Urine White Blood Cell Casts None seen (NONE SEEN) Urine Mucus None seen (None Seen) Urine Trichomonas None seen (NONE SEEN) Urine Yeast None (NONE SEEN) Urinalysis Comment None Urine Culture Reflexed Indicated White Blood Count 8.6th/mm3 (3.8-10.1) Red Blood Count 3.12mil/mm3 (3.90-5.20) Mean Corpuscular Volume 91.3fL (81-100) Mean Corpuscular Hemoglobin 29.5pg (27.0-35.0) Mean Corpuscular Hemoglobin Concent 32.3% (32.0-37.0) Red Cell Distribution Width 19.3% (12.3-15.4) Platelet Count 178bil/L (150-400) Neutrophils (%) (Auto) 63.4% (40-74) Lymphocytes (%) (Auto) 25.0% (14-46) Monocytes (%) (Auto) 9.7% (4-12) Eosinophils (%) (Auto) 1.2% (0-5) Basophils (%) (Auto) 0.2% (0-3) Sodium Level 141mEq/L (134-144) Potassium Level 4.6mEq/L (3.5-5.2) Chloride Level 105mEq/L (97-108) Carbon Dioxide Level 24mmol/L (18-29) Blood Urea Nitrogen 79mg/dL (8-27) Creatinine 1.39mg/dL (0.57-1.00) Estimat Glomerular Filtration Rate 52mL/min (>59) Glucose Level 182mg/dL (60-99) Calcium Level 8.9mg/dL (8.5-10.1) Total Bilirubin 0.2mg/dL (0.0-1.2) Aspartate Amino Transf (AST/SGOT) 16U/L (0-50) Alanine Aminotransferase (ALT/SGPT) 7U/L (0-32) Alkaline Phosphatase 76U/L (25-165) Total Protein 6.7g/dL (6.4-8.4) Albumin 3.1g/dL (3.4-5.0) Hemoglobin 9.3g/dL (12.0-15.6) Hematocrit 29.0% (35.0-46.0) Test 10/21/16 12:25 10/21/16 16:30 Troponin T < 0.010ug/L (0.0-0.011) Hold [place] Top Tube Received (Received) Plan Impression Patient chart reviewed, patient interviewed and anesthestic plan with risks, benefits, and alternatives discussed, and informed consent obtained. NPO per Anesth. Guidelines: Yes ASA Physical Status: ASA4 Plus Emergency Anesthetic Plan: TIVA Bene/Risks/Altern/Consents: Yes HP Complete Prior to Induction: Yes Philip Muñoz MD Oct 21, 2016 18:18
--- NOTE | 2016-10-21 18:37 | PCM.ADCARE ---
Advance Care Planning Note Purpose of Encounter: Date of encounter 10/20/16 Plan: Purpose of encounter: Goals of care Parties in attendance: Patient, her daughter, Dr. Romero, Dr. Khanna Diagnosis: Acute blood loss anemia GI bleed Dehydration UTI Acute kidney injury Type II diabetes GERD Decisional capacity: Good Plan: The patient is aware of the current diagnosis and would like to continue to be full code. The patient understands that this means for chest compressions , intubation, pressors, and all measures involved with CPR. CODE STATUS: Full code Time spent with advanced care planning: Greater than 16 minutes Kaylie Khanna DO Oct 21, 2016 18:37
--- NOTE | 2016-10-21 19:30 | PCM.CHPMED ---
Subjective Date of Service: Oct 21, 2016 Provider requesting consult: Romeo Wood DO Primary Physician: Admitting Physician: Kaylie Khanna DO Primary Care Physician: Wendy Vance MD Attending Physician: Kaylie Khanna DO Chief Complaint: Chief Complaint: Melena History of Present Illness: 81-year-old female with history of peptic ulcer disease, GERD, coronary artery disease status post CABG 5 in 2001, and multiple PCI with angioplasty. Approximately 2 weeks ago she had some melena that had resolved. The day of admission she began feeling weak and shaky, and upon prompting from her daughter called 911. In the emergency department she was evaluated for chest pain, she is hypotensive. Since that time she has developed dark stools that are now mixed with red stool and have become mostly blood. She is quite dehydrated on admission and continues to feel dizzy with standing and shaky. She is weak. She does have some shortness of breath and ongoing over the last few months she has some nausea and generalized abdominal pain but no vomiting. She is not experiencing any chest pain. In 2003 she had peptic ulcer disease with bleeding ulcers that were cauterized. At that time she also had colonoscopy. She lives alone, she has a son in [place], she has one daughter that lives in [place] and one out of [facility]. Review of Systems: A comprehensive review of systems was conducted with the patient and found to be negative except as above in the History of Present Illness. PMH Past Medical History History of peptic ulcer disease in 2001 GERD Coronary artery disease with history of CO 2 and 5 vessel CABG in 2001 Peripheral vascular disease Congestive heart failure Chronic kidney disease Hypertension Hyperlipidemia Diabetes mellitus type II Glaucoma Carotid stenosis Hypothyroidism Chronic insomnia Bilateral renal artery stenosis Anemia Prior. DVT Surgical History EGD and colonoscopy by Dr. Thornton in 2003 Allergies: Coded Allergies: Aczuzdu-Ixu-Seb Reductase Inhibitor (Verified Allergy, Mild, sore shoulders, 10/20/16) can tolerate pravastatin rosuvastatin (Verified Allergy, Mild, sore shoulders, 10/20/16) cilostazol (Unverified Allergy, Unknown, 10/20/16) rofecoxib (Verified Allergy, Unknown, 10/20/16) simvastatin (Unverified Allergy, Unknown, sore shoulders, 10/20/16) Family History Family History Patient reports compliance with lansoprazole 30 mg daily Social History Hx Alcohol Use: Yes (1-2/week)Hx Substance Use: NoHx Tobacco Use: Yes (50 years of 1/2 to 1 ppd) Smoking Status: Former Smoker Living Arrangement: with Family Alone Exam Vital Signs Vital Sign - Last Date Time Temp Pulse Resp B/P Pulse Ox O2 Delivery O2 Flow Rate FiO2 10/21/16 13:15 95 10/21/16 11:04 36.6 20 129/57 97 Nasal Cannula 1.00 Intake and Output 10/20/16 10/20/16 10/21/16 Cumulative From/Thru 15:00 23:00 07:00 10/20/16 11:06 - 10/21/16 07:00 Intake Total 1600 ml 688 ml 1054 ml 3342 ml Output Total 450 ml 950 ml 2500 ml 3900 ml Balance 1150 ml -262 ml -1446 ml -558 ml Intake Oral 0 ml 0 ml IV Total 1600 ml 688 ml 754 ml 3042 ml Packed Cells 300 ml 300 ml Output Urine Total 450 ml 950 ml 1900 ml 3300 ml Stool Total 300 ml 300 ml Urine/Stool Mix 300 ml 300 ml # Voids 2 2 # Bowel Movements 1 1 General: Alert, Oriented X3 Head: Normal Eyes: PERRLA Mouth: Mucous Membranes Dry Neck: Supple, No Thyromegaly Chest & Lungs: Auscultation (clear bilaterally) Cardiovascular: Regular Rate/Rhythm, Murmur (3/6 systolic) Abdomen: Non-tender, Non-distended Extremities: No cyanosis/clubbing/edma bilat Neurological: Grossly Neurologically Intact Lab and Diagnostics Result Diagram: 10/21/16 0832 10/21/16 0240 Assessment & Plan Assessment 81-year-old female with history of peptic ulcer disease, GERD, coronary artery disease status post CABG 5 in 2001, and multiple PCI with angioplasty presents with dizziness, lightheadedness, and black stools progressively worsening to bloody stools since admission. Hemoglobin level dropped to 7.8 she received 1 unit of packed red blood cells. Her hemoglobin returned to 9.2 and has been stable since that time. Recommendations 1. EGD this afternoon revealed no source of bleeding. 2. Discontinue IV Protonix 3. Colonoscopy tomorrow scheduled for 10 AM. 4. Colyte prep Tonight at 9 PM, the other half at 5 AM. Patient may have clears until that time. 5. Patient should be kept nothing by mouth once she has completed her prep in the morning until colonoscopy. Thank you for this interesting consult, we will continue to follow. Problems: GI Prophylaxis: Proton Pump Inhibitor VTE Mechanical Devices: Intermittant Pneumatic CD Resuscitation Status: CPR: Attempt Resuscitation Attending Statement Patient seen and examined with Dr. Stein Agree with her assessment and plan as above copies to: Mei Rudd MD, Erika R DO Oct 21, 2016 15:23 Mei Rudd MD Oct 26, 2016 13:34
[2016-10-21] MEDS: cefTRIAXone Inj 2,000 MG in Dextrose 5% Minibag Plus 50 ML IV SCH (19:37)
[2016-10-21] MEDS ORDERED: PEG/Electrolytes 4,000 mL Solution PO ONE (21:00)
[2016-10-21] MEDS: Pantoprazole 40 mg ER24 Tablet PO SCH (21:05)
[2016-10-22] VITALS (9 sets, daily range): BP systolic 65–133; BP diastolic 45–75; PULSE 76–111; RESP 18–22; O2SAT 92–99
[2016-10-22 03:46] LABS: BASOPHILS % (AUTO) 0.3 % (0-3); EOSINOPHILS % (AUTO) 1.3 % (0-5); MONOCYTES % (AUTO) 7.4 % (4-12); Mean Corpuscular Hemoglobin 29.7 pg (27.0-35.0); Platelet Count 177 bil/L (150-400)
--- NOTE | 2016-10-22 06:11 | NUR ---
Bowel Prep / Tremors Pt initiated on bowel preparation at 2100 last HS; completed half and second half initiated this AM at 0500. Stools still dark at this time. NPO as of 0500 this AM. Pt reported sudden onset of "twitching" to R side of body at approx. 0300; stated she felt it was from the Flexeril. MD aware, consulted with pt, tremors decreased with therapeutic conversation. Pt reported feeling better after consulting with this RN and MD. States "I'm scared because I've got a cardiac history and my arteries aren't very good, so I'm afraid I might be having a stroke." Tremors subsided spontaneously, no further incident this shift. Pt reports feeling stressed and fatigued due to not sleeping in two days. VSS. Tele ST 100s-110s.
--- NOTE | 2016-10-22 07:43 | PCM.ANEP1 ---
Post Anesthesia PACU Phase 1 Assessment Date of Service: Oct 21, 2016 (2230) Vital Signs Vital Signs Date Time Temp Pulse Resp B/P Pulse Ox O2 Delivery O2 Flow Rate FiO2 10/22/16 06:01 111 10/22/16 03:25 36.5 104 22 133/70 99 Nasal Cannula 2.00 10/21/16 23:52 36.5 78 18 95/68 99 Nasal Cannula 2.00 Anesthetic Administered: TIVA Level of Alertness: Awake, talking CARL's with Equal Strength: Yes Pain: No Pain Scale Score: 0 Nausea or Vomiting: No CV Function & Hydration Stable: Yes Airway Device: none Oxygen Delivery: Nasal Cannula Lungs: Diminished Summary 10/21/16 23:52 36.5 78 18 95/68 99 Nasal Cannula 2.00 PACU Phase 2 Assessment Complications: No Follow up Care: N/A Patient Instructions Provided: N/A Philip Muñoz MD Oct 22, 2016 07:43
[2016-10-22] MEDS: 0.9% Sodium Chloride 1,000 ML IV SCH ×4 (08:10→22:56)
--- NOTE | 2016-10-22 09:38 | PCM.HPANE ---
Patient Data Surgeon Admitting Provider:Kaylie Khanna DO Attending Provider:Kaylie Khanna DO Primary Care Physician:Wendy Vance MD Other Provider: Reason for Visit Upper Gi Bleed,Symptamatic Anemia Ht/WT & BMI Height (Feet): 5 Height (Inches): 2.00 Weight (Kilograms): 61.800 Body Mass Index 25.00 Allergies Coded Allergies: Tbqqonf-Dtu-Hpm Reductase Inhibitor (Verified Allergy, Mild, sore shoulders, 10/20/16) can tolerate pravastatin rosuvastatin (Verified Allergy, Mild, sore shoulders, 10/20/16) cilostazol (Unverified Allergy, Unknown, 10/20/16) rofecoxib (Verified Allergy, Unknown, 10/20/16) simvastatin (Unverified Allergy, Unknown, sore shoulders, 10/20/16) Past Anesthesia History Anesthesia History: Denies:: Abnormal Airway, Anesthesia Reactions, Difficult Intubation, Fam Anesthesia Reaction, Fam Malignant Hypertherm, Malignant Hyperthermia Diabetes History Hx Diabetes?: Yes Type of Diabetes: Type II Glycemic Control: Diet Controlled MRSA MRSA: No Medications Blood Thinner: Plavix Hypertension Medication: Yes Home Meds Incl Beta Qiana: Yes Previous Beta Qiana Dose >24: Dose Not Given, Contraindicated Beta Qiana Contraindicated: Pulse <70 bpm, Systolic BP <110 mmHg, Symptoms of CHF Present, Other (hypotension from GIB & dehydration) Reported Medications Potassium Chloride ER 20 Meq Tablet.er20 Meq PO BID Ref 0 TAKE WITH FOOD 10/20/16 Metoprolol Tartrate 25 Mg Oyiyrv15 Mg PO QAM 30 Days Ref 0 10/20/16 Furosemide 80 Mg Ape308 Mg PO DAILY 10/20/16 Tizanidine 2 Mg Tablet1-2 Mg PO DAILY PRN For Spasm 04/20/16 Metoprolol Tartrate 25 Mg Fjiokj57 Mg PO HS 30 Days Ref 0 04/20/16 Temazepam 30 Mg Cap30 Mg PO HS PRN For Insomnia 30 Days Ref 0 11/11/13 Pravastatin 40 Mg Wqxgfl99 Mg PO DAILY 30 Days Ref 0 11/11/13 Clopidogrel Bisulfate (Plavix)75 Mg Cobcfc97 Mg PO DAILY 30 Days Ref 0 11/11/13 Multivitamin (Multivitamins)1 Each Capsule1 Each PO DAILY 11/11/13 Bimatoprost (Lumigan)45 Drop/2.5 Ml Ophsoln1 Drop OD HS #1 BOTTLE each eye 11/11/13 Levothyroxine 25 Mcg Xlqwcn77 Mcg PO AM 30 Days Ref 0 Take on an empty stomach. 11/11/13 Lansoprazole 30 Mg Capsule.dr30 Mg PO DAILY #30 CAPSULE Ref 0 11/11/13 Allopurinol 300 Mg Bjhqzb455 Mg PO DAILY #30 TABLET Ref 0 11/11/13 Discontinued Reported Medications Ferrous Sulfate (Iron)325 Mg Capsule.er325 Mg PO DAILY 11/11/13 Furosemide 40 Mg Qbchgg34 Mg PO BID 30 Days 11/11/13 History History of ENT Problems?: Yes HEENT History: Positive for:: Cataracts Denies:: Dysphagia Glaucoma Sinus Problem Denture Type: Full- Upper Full- Lower Teeth Condition: No Teeth Hx of Heart Problems?: Yes Cardiovascular History: Positive for:: Cardiac Surgery (05/2001) Congestive Heart Failure Coronary Artery Disease Edema Heart Murmur Hypertension Irregular Heartbeat Denies:: Chest Pain Pacemaker Thrombophlebitis Other Cardiac History: h/o DVT Hx of Respiratory Problem?: Yes Respiratory History: Positive for:: COPD Dyspnea Pneumonia Denies:: Asthma Chest Surgery Emphysema Hemoptysis Tuberculosis Hx Neurologic Problems?: Yes Neurological History: Positive for:: CVA (DURING CABG) Denies:: Alzheimer's Disease Dementia Dizziness Headaches Parkinson's Disease Seizures Hx of GI Problems?: Yes Hx of Problems?: Yes Genitourinary History: Positive for:: Urinary Tract Infection Denies:: HX of Hemodialysis Kidney Stones HX of Peritoneal Dialysis: No Female Hx: Denies:: Currently Endometriosis Pelvic Inflammatory Problems with Breasts? Skin History: Denies:: History Skin Disorders? Pressure Ulcers Hx Musculoskeletal Problems?: Yes Musculoskeletal History: Positive for:: Back Injury (low back pain, occasionally) Musculoskeletal Trauma (RT LEG CAUGHT IN HEAVY DOOR 2010) Denies:: Joint Replacement Hx of Psycho/Social Problems?: No Psycho Social History: Positive for:: Anxiety (sometimes with health problems) Denies:: Bipolar Disorder Hx Depression Hx Surgeries?: Yes (See H&P) Hx Any Other Health Problems?: Yes Other History: Positive for:: Endocrine Disease Hospitalization (see H&P) Thyroid Disease Denies:: Cancer History Blood Transfusions: Positive for:: Accept Blood Products? Blood Transfusions (s/p 1U PRBC) Denies:: Blood Transfuse Reaction Hx Diabetes: Yes Hx Alcohol Use: Yes (1-2/week)Hx Substance Use: No Smoking Status: Former Smoker Have You Smoked inLast 12 mo: No (Quit many years ago) Stop/Bang Treated for Sleep Apnea?: No Do You Have a CPAP Machine?: No S-Snoring: Do You Snore Loudly: No T-Tired: feel tired, fatigued: No O-Obsered: Observed not breath: No P-Blood Pressure: treated: Yes B- Body Mass Index > 35 kg/m2: No A- Age over 50: Yes N- Neck Large Circumference: No G- Gender Male: No ALAN Total Score: 2 ALAN Risk Assessment: Low Risk, <3 Yes Risk Assessment Category Category 1A: Patient has history of documented sleep apnea, and HAS NOT received any narcotic, sedative or anesthesia administration during this stay. Category 1B: Patient has history of documented sleep apnea, and HAS received any narcotic , sedative or anesthesia administration during this stay Category 2: Patient has SUSPECTED Obstructive Sleep Apnea, and HAS received any narcotic , sedative or anesthesia administration during this stay. Category 3: Patient has SUSPECTED Obstructive Sleep Apnea and HAS NOT received narcotic, sedative or anesthesia administration during this stay. Category 4: Outpatient in Procedural Areas with known sleep apnea or who screen positive for High Risk via the STOP/BANG questionnaire. Low Risk, <3 Yes Exam Exam Vital Signs Vital Signs Date Time Temp Pulse Resp B/P Pulse Ox O2 Delivery O2 Flow Rate FiO2 10/22/16 08:24 36.6 101 122/75 96 Nasal Cannula 2.00 10/22/16 07:43 Nasal Cannula 10/22/16 06:01 111 10/22/16 03:25 36.5 104 22 133/70 99 Nasal Cannula 2.00 General Appearance: Alert, Oriented X3 HEENT/AIRWAY: MP 3, Neck Movement (FROM), Mouth Opening (3), Other (TMD3) Lungs: Diminished Heart: Normal S1, Normal S2, No Murmurs/Rubs/Gallops, Other (TACHYCARDIC) Meds/Labs/Diagnostics Admission Meds Current Medications Clopidogrel Bisulfate (Plavix) 75 mg Q48 PO Last administered on 10/21/16 20: 13; Start 10/21/16 at 20:30 Polyethylene Glycol/ Electrolytes (Colyte) 4,000 ml ONCE ONCE PO Last administered on 7/15/17at 00:22; Start 10/21/16 at 21:00; Stop 10/21/16 at 21:01 ; Status DC Labs Test 10/20/16 11:20 10/20/16 12:57 10/21/16 02:40 10/21/16 12:25 Prothrombin Time 10.7sec (8.1-12.5) Prothromb Time International Ratio 1.00ratio Magnesium Level 2.0mg/dL (1.6-2.6) Pro-B-Type Natriuretic Peptide 3414pg/mL (0-738) Urine Color Straw (YELLOW) Urine Appearance Cloudy (CLEAR,HAZY) Urine pH 5.5 (5.0-8.0) Urine Specific [place] 1.010 (1.003-1.035) Urine Protein 30mg/dL (NEG,TRACE) Urine Glucose (UA) Negativemg/dL (NEGATIVE) Urine Ketones Negativemg/dL (NEGATIVE) Urine Occult Blood Moderate (NEGATIVE) Urine Nitrite Positive (NEGATIVE) Urine Bilirubin Negative (NEGATIVE) Urine Urobilinogen Normalmg/dL (NORMAL) Urine Leukocyte Esterase Large (NEGATIVE) Urine RBC 0-2/hpf (0-2) Urine WBC Packed/hpf (0-5) Urine Epithelial Cells Occasional/hpf (NONE-MOD) Urine Crystals None seen (NONE SEEN) Urine Bacteria Moderate/hpf (NONE-FEW) Urine Hyaline Casts None/lpf (NONE) Urine Granular Casts None seen (NONE SEEN) Urine Waxy Casts None seen (NONE SEEN) Urine Red Blood Cell Casts None seen (NONE SEEN) Urine White Blood Cell Casts None seen (NONE SEEN) Urine Mucus None seen (None Seen) Urine Trichomonas None seen (NONE SEEN) Urine Yeast None (NONE SEEN) Urinalysis Comment None Urine Culture Reflexed Indicated Troponin T < 0.010ug/L (0.0-0.011) Test 10/21/16 16:30 10/22/16 03:35 Hold [place] Top Tube Received (Received) White Blood Count 12.0th/mm3 (3.8-10.1) Red Blood Count 3.00mil/mm3 (3.90-5.20) Hemoglobin 8.9g/dL (12.0-15.6) Hematocrit 28.2% (35.0-46.0) Mean Corpuscular Volume 94.0fL (81-100) Mean Corpuscular Hemoglobin 29.7pg (27.0-35.0) Mean Corpuscular Hemoglobin Concent 31.6% (32.0-37.0) Red Cell Distribution Width 19.6% (12.3-15.4) Platelet Count 177bil/L (150-400) Neutrophils (%) (Auto) 69.0% (40-74) Lymphocytes (%) (Auto) 21.0% (14-46) Monocytes (%) (Auto) 7.4% (4-12) Eosinophils (%) (Auto) 1.3% (0-5) Basophils (%) (Auto) 0.3% (0-3) Sodium Level 143mEq/L (134-144) Potassium Level 4.1mEq/L (3.5-5.2) Chloride Level 106mEq/L (97-108) Carbon Dioxide Level 22mmol/L (18-29) Blood Urea Nitrogen 43mg/dL (8-27) Creatinine 1.24mg/dL (0.57-1.00) Estimat Glomerular Filtration Rate 59mL/min (>59) Glucose Level 141mg/dL (60-99) Calcium Level 8.6mg/dL (8.5-10.1) Total Bilirubin 0.2mg/dL (0.0-1.2) Aspartate Amino Transf (AST/SGOT) 24U/L (0-50) Alanine Aminotransferase (ALT/SGPT) 9U/L (0-32) Alkaline Phosphatase 76U/L (25-165) Total Protein 6.8g/dL (6.4-8.4) Albumin 3.2g/dL (3.4-5.0) Procalcitonin 0.20ng/mL (0.00-0.08) Plan Impression Patient chart reviewed, patient interviewed and anesthestic plan with risks, benefits, and alternatives discussed, and informed consent obtained. NPO per Anesth. Guidelines: Yes ASA Physical Status: ASA2 Mod Systemic Disease Anesthetic Plan: GA Bene/Risks/Altern/Consents: Yes HP Complete Prior to Induction: Yes Torres Fiore MD Oct 22, 2016 09:38
[2016-10-22] MEDS ORDERED: MetoCLOpramide 5 mg/mL 2 mL Inj IVPUSH PRN (10:00)
[2016-10-22] MEDS ORDERED: Ondansetron 2 mg/mL 2 mL Inj IVPUSH PRN (10:00)
[2016-10-22] MEDS ORDERED: Lactated Ringer's 1,000 ML IV SCH (10:00)
[2016-10-22] MEDS: Lactated Ringer's 1,000 ML IV ONE ×2 (10:03→10:22)
--- NOTE | 2016-10-22 10:53 | PCM.PNMED ---
Subjective Date of Service Oct 22, 2016 Subjective Overnight the patient reports not sleeping well due to the colon prep. Otherwise Ms. Priest has no complaints. She expressed understanding of the need for a lower GI scope. She states she was still having bloody stools but otherwise no fever/chills, nausea/vomiting, chest pain, increasing SOB, or bleeding elsewhere. Exam Vital Signs Vital Sign - Last Date Time Temp Pulse Resp B/P Pulse Ox O2 Delivery O2 Flow Rate FiO2 10/22/16 08:24 36.6 101 122/75 96 Nasal Cannula 2.00 10/22/16 03:25 22 Intake and Output 10/21/16 10/21/16 10/22/16 Cumulative From/Thru 15:00 23:00 07:00 10/20/16 11:06 - 10/22/16 06:10 Intake Total 112 ml 2038 ml 5492 ml Output Total 800 ml 3500 ml 8200 ml Balance -688 ml -1462 ml -2708 ml Intake Oral 0 ml 1250 ml 1250 ml IV Total 112 ml 788 ml 3942 ml Packed Cells 300 ml Output Urine Total 800 ml 900 ml 5000 ml Stool Total 2200 ml 2500 ml Urine/Stool Mix 400 ml 700 ml # Voids 2 # Bowel Movements 2 3 Exam General: Frail elderly woman laying in bed in NAD. Interacting appropriately. HEENT: NCAT, PERRLA, EOMI. Mucous membranes pink, moist. Neck: Supple with full ROM. No lymphadenopathy, no JVD. CV: RRR, with 3/6 systolic murmur, no rubs/gallops Pulm: CTA bilaterally without wheezing/rales/rhonchi. Normal effort without accessory muscle use. Abd: Soft, nontender, nondistended. Bowel sounds present. No rebound, guarding. Extremities: Distal pulses intact bilaterally. No cyanosis, clubbing, edema. Neuro: A&Ox3. CN 2-12 intact. Normal muscle strength, no focal deficits. Psych: Normal mood and affect. IVs and Medications Medications Reviewed: Medications were reviewed in detail Lab and Diagnostics Result Diagram: 10/22/1633410/22/16334 Microbiology URINE CULTURE 1. ESCHERICHIA COLI M.I.C Interp --------- ------ * AMOXICILLIN/CLAVULATE <=2 S * AMPICILLIN <=2 S * CEFAZOLIN (CEPHALOSPORIN) UTI 4 S * CEFEPIME <=1 S * CEFTRIAXONE <=1 S * CEFUROXIME SODIUM 4 S * CIPROFLOXACIN <=0.25 S * ERTAPENEM <=0.5 S * GENTAMICIN <=1 S * IMIPENEM <=1 S * LEVOFLOXACIN <=0.12 S * NITROFURANTOIN <=16 S * TETRACYCLINE <=1 S * TOBRAMYCIN <=1 S * TRIMETHOPRIM/SULFAMETHOXAZOLE <=20 S Blood cultures negative x48h X-Rays, CTs and MRIs CXR 10/20 IMPRESSION: No radiographic evidence of acute cardiopulmonary pathology. Dictated by: Fito Umaña M.D. on 10/20/2016 at 11:50 Approved by: Fito Umaña M.D. on 10/20/2016 at 11:51 Assessment & Plan Mrs. Priest is an 81 year old female with past medical history significant for CAD with 5 vessel CABG, HTN, HLD, DM2, CHF, PVD, CKD, GERD and PUD that presented to the Emergency Department on 10/20/2016 with complaints of worsening chest pain and dizziness. The patient states the chest pain has been intermittent for the past couple months but it got worse today and started radiating to her shoulder. She was globally weak, felt short of breath, and was dizzy. She also mentions having black tarry stools last week that have since resolved. She's been evaluated before and was told she had bleeding ulcers. Acute Anemia, present on admission. Ongoing. - History significant for ongoing GI bleeds, GERD/PUD, recent melena - Patient received 1 unit PRBC's - H/H dropped from 9.3/29 to 8.9/28.2 - B12 and folate still pending (MCV was > 100 on admission) - Holding home iron at this time - Plavix dose changed to every other day - Consider further transfusion if she is symptomatic or Hgb < 8 - Colonoscopy scheduled 10/22 at 1000 Urinary Tract Infection, present on admission. Acute. Improving. - UA +nitrite, +Leuk esterase, +blood, packed WBC - WBC normalized, no reported dysuria or hematuria - Urine culture results as above; stapleton sensitive E. coli - Continue Ceftriaxone with plan to transition to oral when discharged Dehydration, present on admission. Acute. Improving. - Patient reports low oral intake as well as excessive diuretic use - NS at 80ml/hr currently; will reassess post-colonoscopy to encourage PO intake - Replete electrolytes as necessary Hypotension, present on admission. Acute. Resolved. - Likely due to dehydration, excessive diuretic use - Will restart home Metoprolol as pressures are stable and HR is increasing - Continue to hold home Lasix - Fluids as above - Watch fluid status due to systolic CHF with LVEF 35% Acute on Chronic Kidney Injury, present on admission. Improving. - Renal function continues to improve with BUN 43, Creatinine 1.24; baseline ~1 in April 2016 - Fluids as above - Avoid nephrotoxic agents Chronic GERD with PUD and GI bleeds, present on admission. Ongoing. - Transfused 1 unit PRBC's in the ED; transfusion parameters as above - Protonix drip stopped per GI (Dr. Buchanan/Dr. Stein) recommendations - Plavix changed to every other day dosing - EGD 10/21 was unremarkable Diabetes mellitus type 2, insulin requiring, present on admission. Ongoing. - Patient reported she was diabetic but hasn't been on medications for awhile - Blood glucose 141 today; monitor as she has been NPO for the EGD and colonoscopy - A1C still pending Systolic Congestive Heart Failure, present on admission. Chronic. Stable. - Echo in 06/24 showed a LVEF 35% with severely dilated left and right atrium - Fluids as above; monitor for overload - Metoprolol restarted as above Hypertension - Holding Lasix at this time - Metoprolol restarted as above Hyperlipidemia - Continue Pravastatin Glaucoma - Continue Bimatoprost Gout - Continue Allopurinol Hypothyroidism - Continue Levothyroxine Chronic insomnia - Continue Temazepam Acetaminophen for mild pain when necessary. Bowel regimen Senna and MiraLAX scheduled as necessary. Zofran when necessary for nausea and vomiting. SubQ heparin held for possible GI bleed. SCDs in place. Disposition: The patient will likely be here throughout the weekend depending on her continued improvement, complex work up, and overall medical stability. GI Prophylaxis: Proton Pump Inhibitor VTE Mechanical Devices: Intermittant Pneumatic CD Resuscitation Status: CPR: Attempt Resuscitation Attending Statement The patient was seen and examined together with Dr. Romero on 10/22/2016 and I have added additional information to the note above. Henrry Romero DO Oct 22, 2016 10:53 Kaylie Khanna DO Oct 22, 2016 13:30
--- NOTE | 2016-10-22 11:09 | PCM.ANEP1 ---
Post Anesthesia PACU Phase 1 Assessment Vital Signs Vital Signs Date Time Temp Pulse Resp B/P Pulse Ox O2 Delivery O2 Flow Rate FiO2 10/22/16 08:24 36.6 101 122/75 96 Nasal Cannula 2.00 10/22/16 07:43 Nasal Cannula 10/22/16 06:01 111 10/22/16 03:25 36.5 104 22 133/70 99 Nasal Cannula 2.00 Anesthetic Administered: GA, TIVA Level of Alertness: Awake, talking CARL's with Equal Strength: Yes Pain: No Pain Scale Score: 0 Nausea or Vomiting: No CV Function & Hydration Stable: Yes Airway Device: none Oxygen Delivery: Nasal Cannula Lungs: Normal Air Movement PACU Phase 2 Assessment Complications: No Follow up Care: No Patient Instructions Provided: N/A Torres Fiore MD Oct 22, 2016 11:09
--- NOTE | 2016-10-22 11:25 | ENDO ---
[address] [address] ENDOSCOPY PROCEDURE PATIENT: MONTEZ WAKEFIELD : 1935 MR#: [id number] ADMIT: 10/20/2016 JOB ID: [id number] DATE: 10/22/2016 PROCEDURE: Colonoscopy. INDICATION: Rectal bleeding. Please see Dr. Julio Cesar Fiore anesthesia report for details regarding ASA classification, Mallampati score and medications. INSTRUMENT USED: PCF H 180 AL. PREPARATION QUALITY: Was good. PROCEDURE DETAILS: After informed consent was obtained, the patient was brought into the GI suite, where she was placed on oxygen via nasal cannula and monitored with continuous pulse oximeter, telemetry and blood pressure monitoring. A time-out was performed. Then, she was placed in the left lateral decubitus position and medications were administered for sedation. Digital rectal examination was performed, which was unremarkable. The colonoscope was then inserted into the rectum and advanced under direct visualization to the terminal ileum which was identified by the presence of the ileocecal valve and villous appearing mucosa of the terminal ileum. Once the terminal ileum was reached, the colonoscope was withdrawn back into the rectum as the mucosa and lumen were examined. In the rectum, retroflexion was performed. Following retroflexion, remaining air in the rectum was suctioned, and the procedure was completed. FINDINGS: 1. Normal appearing terminal ileum. No old or fresh blood was seen in the terminal ileum. 2. Scattered diverticula were seen throughout the entire colon. 3. No old or fresh blood was seen in the colon. 4. Retroflexed views in the rectum were unremarkable. IMPRESSION: Zhu diverticulosis. Otherwise normal examination from rectum to terminal ileum. RECOMMENDATIONS: 1. Continue to follow clinically for bleeding. 2. Follow hemoglobin and hematocrit. 3. Start clear liquid diet. 4. Could consider restarting anticoagulation if over the next 48 hours there is no further melena or rectal bleeding. COMPLICATIONS: None. ESTIMATED BLOOD LOSS: 0.
[2016-10-22] MEDS: Pantoprazole 40 mg ER24 Tablet PO SCH ×2 (11:37→17:06)
[2016-10-22] MEDS ORDERED: Propofol 10,000 mCg/mL 20 mL Inj ONE (13:41)
[2016-10-22] MEDS ORDERED: EPHEDrine/NS 5 mg/mL 5 mL Syringe ONE (13:41)
--- NOTE | 2016-10-22 14:24 | NUR ---
Bowel Prep/Colonoscopy/Diet/Tremors Pt completed bowel prep at 0800. She was transported to Endoscopy at 1030 for colonoscopy. Per endo RN report, pt tolerated procedure well. No active bleeds were revealed. Pt transported back to room at 1130 and advanced to clear liquids. Pt tolerated clear liquids well with no signs/symptoms of nausea/vomiting. Pt upgraded diet as tolerated to general and was able to eat some of her lunch with no s/s of nausea/vomiting. Pt continues to have some tremors, but states they are reduced from before her procedure. Care continues
[2016-10-22 15:43] LABS: Vitamin B12 621 pg/mL (211-946)
--- NOTE | 2016-10-22 16:43 | NUR ---
Social Work: Multidisciplinary Rounds Pt discussed in am rounds. Sw status remains unchanged. Anticipate discharge home when ready. LEGAL RECRUITER to continue to follow to assess for needs DORIAN Rangel
--- NOTE | 2016-10-22 16:43 | NUR ---
[facility] Signed
[2016-10-22] MEDS: cefTRIAXone Inj 2,000 MG in Dextrose 5% Minibag Plus 50 ML IV SCH (18:38)
[2016-10-22] MEDS: Albuterol-Ipratropium 3 mL Inhalation Solution NEB PRN (22:44)
[2016-10-23] VITALS (14 sets, daily range): BP systolic 86–132; BP diastolic 41–70; PULSE 71–125; RESP 18–30; O2SAT 91–98
[2016-10-23] MEDS: Albuterol 2.5 mg/3 mL Inhalation Solution NEB PRN (01:25)
[2016-10-23] MEDS ORDERED: Furosemide 10 mg/mL 2 mL Inj IVPUSH ONE ×3 (01:50→19:30)
[2016-10-23 03:55] LABS: BASOPHILS % (AUTO) 0.1 % (0-3); EOSINOPHILS % (AUTO) 0.1 % (0-5); MONOCYTES % (AUTO) 3.9 % (4-12); Mean Corpuscular Hemoglobin 29.9 pg (27.0-35.0); Mean Corpuscular Volume 96.2 fL (81-100); NEUTROPHILS % (AUTO) 88.6 % (40-74); Platelet Count 187 bil/L (150-400)
[2016-10-23] MEDS: 0.9% Sodium Chloride 1,000 ML IV SCH ×3 (05:51→12:19)
--- NOTE | 2016-10-23 06:19 | NUR ---
Hypotension / Respiratory Upon attempting to take vital signs at HS, BP could not be accurately assessed with vitals machine. Manual blood pressure cuff auscultation revealed systolic BP in 50s. Doppler retrieved and utilized, demonstrated SBP of 62. Pt asymptomatic, though states she feels weak. MD rdz, consulted with pt; orders for STAT H/H obtained and one time 250ml wide open bolus given and administered. Upon reassessment, SBP increased to approx. 72, with slight increase in coarse crackles all throughout anterior and posterior lungs. Order for additional 250ml bolus given; after approx. 200mls of infusion, pt reported respiratory distress, stating her chest felt tight and she was not able to breathe adequately. Bolus stopped, lungs wheezy with a marked increase in coarse crackles to all lung swenson. Pt SpO2 84-85% on 2L NC; oxygen increased to 5L NC with increase in SpO2 to approx. 91%. RT consulted; nebulizer treatment recommended and oxygen switched to oxymask; able to wean to 3L with SpO2 94-97% due to mouth breathing. MD rdz, orders for nebulizer given and administered with significant relief upon reassessment. Approx. 1hr post nebulizer treatment, pt reports sudden onset wheezes and ongoing respiratory distress; states she is unable to lie down without feeling dyspneic and sitting up provides only minimal relief. aware; STAT CXR obtained and orders to monitor until results from 0100 H/H draw returned. Upon return of labs, H/H stable, blood pressure spontaneously increased to 108 SBP, and orders for 20mg IVP lasix given. VSS upon reassessments, tele SR 80s.
--- NOTE | 2016-10-23 08:39 | DRSVH ---
PROCEDURE: X-RAY CHEST ONE VIEW, PORTABLE ([id number]) INDICATIONS: Shortness of breath TECHNIQUE: One view of the chest was acquired. COMPARISON: [facility], CR, XR CHEST 1VW (PORTABLE), 10/20/2016, 11:21. FINDINGS: Surgical changes and devices: Sternal wires are present. Lungs and pleura: Marked interval progression of bilateral pulmonary opacities within the right hemit horax and predominantly a consolidative opacity within the left base. Increased pulmonary vascularity is present. Mediastinum: Mediastinal contours appear normal. Heart size is normal. Bones and chest wall: No suspicious bony lesions. Overlying soft tissues appear unremarkable. IMPRESSION: Marked interval increase in bilateral pulmonary opacities appearing consolidation within the left base. Findings are suggestive of pneumonia with underlying areas of edema and/or atelectasis are likely also present. Dictated by: Fatuma Sharma M.D. on 10/23/2016 at 8:35 Approved by: Fatuma Sharma M.D. on 10/23/2016 at 8:37
[2016-10-23] MEDS: Pantoprazole 40 mg ER24 Tablet PO SCH ×2 (08:52→16:52)
[2016-10-23] MEDS: Ondansetron 2 mg/mL 2 mL Inj IVPUSH PRN (12:18)
--- NOTE | 2016-10-23 15:15 | NUR ---
Hypotension: P: @ 1420 patient became nauseated, BP 71/44 (50) I: Patient appeared pale, cyanotic and weak. SpO2 dropped to high 70's on 3L NC. No significant changes to telemetry per satellite project site monitor. Patient reported 10/10 muscle spasm pain to her neck. Patient was in chair and was assisted back to bed at this time. MD was notified. Assessed patient and patient was placed in trendelenburg position. Reglan 10mg IVP was administered for nausea. E: patient states she is now feeling better current BP 88/54 (57). Nausea has resolved. Continues to report muscle spasms to neck and legs. Will keep patient bedrest for safety. Patient continues to be closely monitored.
--- NOTE | 2016-10-23 16:14 | DRSVH ---
PROCEDURE: X-RAY CHEST ONE VIEW, PORTABLE ([id number]) INDICATIONS: shortness of breath TECHNIQUE: One view of the chest was acquired. COMPARISON: [facility], CR, XR CHEST 1VW (PORTABLE), 10/23/2016, 0:33. FINDINGS: Surgical changes and devices: Sternal wires. Lungs and pleura: Persistent bilateral pulmonary increased vascularity and patchy areas of more focal prominence are again identified most notably in the left base. Minimal bilateral pleural effusions a re present. Overall there has been no significant appreciable interval change. Mediastinum: Mediastinal contours appear normal. Heart size is normal. Bones and chest wall: No suspicious bony lesions. Overlying soft tissues appear unremarkable. IMPRESSION: Persistent widespread pulmonary edema with potential areas of superimposed atelectasis an d/or pneumonia with minimal effusions. No appreciable interval change. Dictated by: Fatuma Sharma M.D. on 10/23/2016 at 16:11 Approved by: Fatuma Sharma M.D. on 10/23/2016 at 16:12
--- NOTE | 2016-10-23 16:27 | NUR ---
Social Work: Multidisciplinary Rounds Pt discussed in am rounds. Pt is not medically stable for discharge at this time. Sw status remains unchanged; anticipate discharge home. Per MD pt will not require HH at discharge. [employer] to continue to follow to assess for needs. Genesis Conklin MSW
[2016-10-23] MEDS: cefTRIAXone Inj 2,000 MG in Dextrose 5% Minibag Plus 50 ML IV SCH (18:35)
--- NOTE | 2016-10-23 18:41 | NUR ---
Bowels: Patient had 2 small bowel movements, green/grown in color. No signs of GI bleed.
--- NOTE | 2016-10-23 18:50 | PCM.PNMED ---
Subjective Date of Service Oct 23, 2016 Subjective Overnight events: none. Otherwise Ms. Priest has no complaints. She reports feeling slightly short of breath, but denies fever/chills, nausea/vomiting, chest pain, increasing SOB, or bleeding elsewhere. Exam Vital Signs Vital Sign - Last Date Time Temp Pulse Resp B/P Pulse Ox O2 Delivery O2 Flow Rate FiO2 10/23/16 12:44 83 10/23/16 11:56 37.0 20 91/51 98 Nasal Cannula 4.00 Intake and Output 10/22/16 10/22/16 10/23/16 Cumulative From/Thru 15:00 23:00 07:00 10/20/16 11:06 - 10/23/16 06:36 Intake Total 200 ml 985 ml 899 ml 7576 ml Output Total 175 ml 800 ml 9175 ml Balance 200 ml 810 ml 99 ml -1599 ml Intake Oral 750 ml 200 ml 2200 ml IV Total 200 ml 235 ml 699 ml 5076 ml Packed Cells 300 ml Output Urine Total 175 ml 800 ml 5975 ml Stool Total 2500 ml Urine/Stool Mix 700 ml # Voids 1 3 # Bowel Movements 3 0 6 Exam General: Frail elderly woman laying in bed in NAD. Interacting appropriately. HEENT: NCAT, PERRLA, EOMI. Mucous membranes pink, moist. Neck: Supple with full ROM. No lymphadenopathy, no JVD. CV: RRR, with 3/6 systolic murmur, no rubs/gallops Pulm: +crackles in the bases bilaterally without wheezing/rales/rhonchi. Normal effort without accessory muscle use. Abd: Soft, nontender, nondistended. Bowel sounds present. No rebound, guarding. Extremities: Distal pulses intact bilaterally. No cyanosis, clubbing, edema. Neuro: A&Ox3. CN 2-12 intact. Normal muscle strength, no focal deficits. Psych: Normal mood and affect. IVs and Medications Medications Reviewed: Medications were reviewed in detail Lab and Diagnostics Result Diagram: 10/23/1633410/23/16334 Microbiology URINE CULTURE 1. ESCHERICHIA COLI M.I.C Interp --------- ------ * AMOXICILLIN/CLAVULATE <=2 S * AMPICILLIN <=2 S * CEFAZOLIN (CEPHALOSPORIN) UTI 4 S * CEFEPIME <=1 S * CEFTRIAXONE <=1 S * CEFUROXIME SODIUM 4 S * CIPROFLOXACIN <=0.25 S * ERTAPENEM <=0.5 S * GENTAMICIN <=1 S * IMIPENEM <=1 S * LEVOFLOXACIN <=0.12 S * NITROFURANTOIN <=16 S * TETRACYCLINE <=1 S * TOBRAMYCIN <=1 S * TRIMETHOPRIM/SULFAMETHOXAZOLE <=20 S Blood cultures negative x48h X-Rays, CTs and MRIs CXR 10/20 IMPRESSION: No radiographic evidence of acute cardiopulmonary pathology. Dictated by: Fito Umaña M.D. on 10/20/2016 at 11:50 Approved by: Fito Umaña M.D. on 10/20/2016 at 11:51 X-RAY CHEST ONE VIEW, PORTABLE IMPRESSION: Persistent widespread pulmonary edema with potential areas of superimposed atelectasis and/or pneumonia with minimal effusions. No appreciable interval change. Approved by: Fatuma Sharma M.D. on 10/23/2016 at 16:12 Additional Diagnostics Colonoscopy. IMPRESSION: Stapleton diverticulosis. Otherwise normal examination from rectum to terminal ileum. Mei Rudd MD 10/22/16 1028 Assessment & Plan Mrs. Priest is an 81 year old female with past medical history significant for CAD with 5 vessel CABG, HTN, HLD, DM2, CHF, PVD, CKD, GERD and PUD who was admitted for intermittent chest pain and black tarry stools. Acute Respiratory failure, not present on admission. Active. - 2nd to Pulmonary Edema and fluid overload - Not on Home O2. - Currently requiring 2-4L for sats of 92-95%. - CXR as above. - Patients BP is tenuous averaging 90's/50's however this is patient's baseline , giving IV lasix cautiously. Acute Anemia, present on admission. Stable. - History significant for ongoing GI bleeds, GERD/PUD, recent melena. - B12 and folate wnl. - Holding home iron at this time. - Plavix dose changed to every other day. - Consider further transfusion if she is symptomatic or Hgb < 8. - Colonoscopy 10/22 Start Clear liquid diet. Urinary Tract Infection, present on admission. Acute. Improving. - UA +nitrite, +Leuk esterase, +blood, packed WBC - WBC normalized, no reported dysuria or hematuria - Urine culture results as above; stapleton sensitive E. coli - Continue Ceftriaxone with plan to transition to oral when discharged Dehydration, present on admission. Acute. Improving. - Patient reports low oral intake as well as excessive diuretic use - NS at 80ml/hr currently; will reassess post-colonoscopy to encourage PO intake - Replete electrolytes as necessary Hypotension, present on admission. Acute. Resolved. - Likely due to dehydration, excessive diuretic use - Will restart home Metoprolol as pressures are stable and HR is increasing - Restart Lasix usage cautiously - Watch fluid status due to systolic CHF with LVEF 35% Acute on Chronic Kidney Injury, present on admission. Improving. - Renal function continues to improve with BUN 43, Creatinine 1.24; baseline ~1 in April 2016 - Fluids as above - Avoid nephrotoxic agents Chronic GERD with PUD and GI bleeds, present on admission. Ongoing. - Transfused 1 unit PRBC's in the ED; transfusion parameters as above - Protonix drip stopped per GI (Dr. Buchanan/Dr. Stein) recommendations - Plavix changed to every other day dosing - EGD 10/21 was unremarkable Diabetes mellitus type 2, insulin requiring, present on admission. Ongoing. - Patient reported she was diabetic but hasn't been on medications for awhile - Blood glucose 141 today; monitor as she has been NPO for the EGD and colonoscopy - A1C 7.0 Systolic Congestive Heart Failure, present on admission. Chronic. Stable. - Echo in 06/24 showed a LVEF 35% with severely dilated left and right atrium - Insert mcgowan cath - 40mg IV lasix one time dose - Metoprolol restarted as above Hypertension - Metoprolol restarted as above Hyperlipidemia - Continue Pravastatin Glaucoma - Continue Bimatoprost Gout - Continue Allopurinol Hypothyroidism - Continue Levothyroxine Chronic insomnia - Continue Temazepam Acetaminophen for mild pain when necessary. Bowel regimen Senna and MiraLAX scheduled as necessary. Zofran when necessary for nausea and vomiting. SubQ heparin held for possible GI bleed. SCDs in place. Disposition: The patient will likely be here throughout the weekend depending on her continued improvement, complex work up, and overall medical stability. Pain Evaluation: Adequate Pain Control GI Prophylaxis: Proton Pump Inhibitor VTE Mechanical Devices: Intermittant Pneumatic CD Resuscitation Status: CPR: Attempt Resuscitation Attending Statement The patient was seen and examined together with Dr. Nichols on 10/23/16 and I have added additional information to the note above. NORM NICHOLS DO Oct 23, 2016 14:43 Kaylie Khanna DO Oct 23, 2016 22:21 NORM NICHOLS DO Oct 23, 2016 14:43 Kaylie Khanna DO Oct 23, 2016 22:21
--- NOTE | 2016-10-23 19:01 | PCM.PNMED ---
Subjective Date of Service Oct 23, 2016 Subjective patient denies bowel movements since colonoscopy tolerating diet denies abdominal pain, nausea or vomiting events of this morning noted Exam Vital Signs Vital Sign - Last Date Time Temp Pulse Resp B/P Pulse Ox O2 Delivery O2 Flow Rate FiO2 10/23/16 16:42 Supplement Oxygen 10/23/16 16:09 36.8 89 25 95/54 93 3.00 Intake and Output 10/22/16 10/22/16 10/23/16 Cumulative From/Thru 15:00 23:00 07:00 10/20/16 11:06 - 10/23/16 06:36 Intake Total 200 ml 985 ml 899 ml 7576 ml Output Total 175 ml 800 ml 9175 ml Balance 200 ml 810 ml 99 ml -1599 ml Intake Oral 750 ml 200 ml 2200 ml IV Total 200 ml 235 ml 699 ml 5076 ml Packed Cells 300 ml Output Urine Total 175 ml 800 ml 5975 ml Stool Total 2500 ml Urine/Stool Mix 700 ml # Voids 1 3 # Bowel Movements 3 0 6 Exam Gen- oriented and appropriate, sitting in bedside chair Heent- mild pallor, PERRLA resp-crackles in bilateral bases cvs- RRR abdomen-benign Lab and Diagnostics Result Diagram: 10/23/16 0335 10/23/16 033 Microbiology URINE CULTURE 1. ESCHERICHIA COLI M.I.C Interp --------- ------ * AMOXICILLIN/CLAVULATE <=2 S * AMPICILLIN <=2 S * CEFAZOLIN (CEPHALOSPORIN) UTI 4 S * CEFEPIME <=1 S * CEFTRIAXONE <=1 S * CEFUROXIME SODIUM 4 S * CIPROFLOXACIN <=0.25 S * ERTAPENEM <=0.5 S * GENTAMICIN <=1 S * IMIPENEM <=1 S * LEVOFLOXACIN <=0.12 S * NITROFURANTOIN <=16 S * TETRACYCLINE <=1 S * TOBRAMYCIN <=1 S * TRIMETHOPRIM/SULFAMETHOXAZOLE <=20 S Blood cultures negative x48h X-Rays, CTs and MRIs CXR 10/20 IMPRESSION: No radiographic evidence of acute cardiopulmonary pathology. Dictated by: Fito Umaña M.D. on 10/20/2016 at 11:50 Approved by: Fito Umaña M.D. on 10/20/2016 at 11:51 Assessment & Plan Acute anemia/GI bleed -no etiology seen on EGD for bleeding, colonoscopy revealed stapleton diverticulosis right sided diverticulosis could present as melena. if rebleeding would recommend tagged RBC scan -recommend following H/H -advance diet and if no further bleeding and H/H stable could consider discharging home -would recommend close follow up if antiplatelet agents are going to be restarted daily GI Prophylaxis: Proton Pump Inhibitor VTE Mechanical Devices: Intermittant Pneumatic CD Resuscitation Status: CPR: Attempt Resuscitation Mei Rudd MD Oct 23, 2016 19:01
[2016-10-23] MEDS ORDERED: Furosemide 10 mg/mL 4 mL Inj IVPUSH ONE (19:45)
[2016-10-24] VITALS (11 sets, daily range): BP systolic 102–128; BP diastolic 54–67; PULSE 102–115; RESP 16–25; O2SAT 91–100
[2016-10-24] MEDS: Albuterol-Ipratropium 3 mL Inhalation Solution NEB PRN (03:11)
[2016-10-24] MEDS ORDERED: Furosemide 10 mg/mL 2 mL Inj IVPUSH ONE (04:15)
[2016-10-24 06:00] LABS: BASOPHILS % (AUTO) 0.1 % (0-3); EOSINOPHILS % (AUTO) 0.7 % (0-5); MONOCYTES % (AUTO) 7.7 % (4-12); Mean Corpuscular Hemoglobin 30.1 pg (27.0-35.0); Mean Corpuscular Volume 96.1 fL (81-100); Platelet Count 179 bil/L (150-400)
[2016-10-24] MEDS: Pantoprazole 40 mg ER24 Tablet PO SCH ×2 (07:54→16:45)
--- NOTE | 2016-10-24 08:00 | NUR ---
Respiratory/VTach SBP 100s most of night, tolerated 40mg IV Lasix at start of shift, mcgowan placed per orders. Breathing seemed improved until later in shift when pt sound more course and wheezy, overall appearing more labored. Pt denied SOB but look like she could not lay down comfortably, Neb treatment done which pt stated was helpful. notified and came to assess pt. Order for 20mg Lasix given. Pt currently on 4.5 L, was on oxymask overnight but did well on NC while awake. ecological technical officer reported 12 beats VTach, pt denied symptoms other than some SOB. Stated she was actually sleeping well at the time. notified.
[2016-10-24] MEDS ORDERED: Furosemide 10 mg/mL 4 mL Inj IVPUSH ONE ×2 (09:45→15:05)
--- NOTE | 2016-10-24 10:48 | NUR ---
Social Work: Multidisciplinary Rounds Pt was discussed in AM Rounds, per MD pt is not medically ready for discharge at this time. Pt still experiencing SOB. PT evaluation is pending. SW to follow up with pt post PT evaluation pending recommendations and MD orders. SW to continue to follow. DORIAN Carrion
--- NOTE | 2016-10-24 13:19 | NUR ---
Evaluation completed. Please go to "Notes" then click on "Assessments and Notes" (bottom left corner of screen). Then select appropriate discipline tab on top of screen.
--- NOTE | 2016-10-24 13:28 | PCM.PNMED ---
Subjective Date of Service Oct 24, 2016 Subjective Overnight there were no acute events. Ms. Priest is feeling better this morning, reporting that she is breathing better and feeling somewhat stronger. She denies any chest pain, palpitations, productive cough, abdominal pain, fever/chills. Exam Vital Signs Vital Sign - Last Date Time Temp Pulse Resp B/P Pulse Ox O2 Delivery O2 Flow Rate FiO2 10/24/16 10:45 105 10/24/16 08:08 16 98 Nasal Cannula 5.00 10/24/16 07:27 36.9 114/55 Intake and Output 10/23/16 10/23/16 10/24/16 Cumulative From/Thru 15:00 23:00 07:00 10/20/16 11:06 - 10/24/16 06:08 Intake Total 800 ml 400 ml 8776 ml Output Total 1000 ml 1000 ml 65992 ml Balance -200 ml -600 ml -2399 ml Intake Oral 800 ml 400 ml 3400 ml IV Total 0 ml 5076 ml Packed Cells 300 ml Output Urine Total 1000 ml 1000 ml 7975 ml Stool Total 2500 ml Urine/Stool Mix 700 ml # Voids 3 6 # Bowel Movements 2 8 Exam General: Elderly woman laying in bed in NAD. Interacting appropriately. HEENT: NCAT, PERRLA, EOMI. Mucous membranes pink, moist. Neck: Supple with full ROM. No lymphadenopathy, no JVD. CV: RRR, with 3/6 systolic murmur, no rubs/gallops Pulm: Coarse breath sounds throughout but no overt crackles/wheezing. Normal effort without accessory muscle use. Abd: Soft, nontender, nondistended. Bowel sounds present. No rebound, guarding. Extremities: Distal pulses intact bilaterally. No cyanosis, clubbing, edema. Neuro: A&Ox3. CN 2-12 intact. Normal muscle strength, no focal deficits. Psych: Normal mood and affect. IVs and Medications Medications Reviewed: Medications were reviewed in detail Lab and Diagnostics Result Diagram: 10/24/1643910/24/16439 Microbiology URINE CULTURE 1. ESCHERICHIA COLI M.I.C Interp --------- ------ * AMOXICILLIN/CLAVULATE <=2 S * AMPICILLIN <=2 S * CEFAZOLIN (CEPHALOSPORIN) UTI 4 S * CEFEPIME <=1 S * CEFTRIAXONE <=1 S * CEFUROXIME SODIUM 4 S * CIPROFLOXACIN <=0.25 S * ERTAPENEM <=0.5 S * GENTAMICIN <=1 S * IMIPENEM <=1 S * LEVOFLOXACIN <=0.12 S * NITROFURANTOIN <=16 S * TETRACYCLINE <=1 S * TOBRAMYCIN <=1 S * TRIMETHOPRIM/SULFAMETHOXAZOLE <=20 S Blood cultures negative x48h X-Rays, CTs and MRIs CXR 10/20 IMPRESSION: No radiographic evidence of acute cardiopulmonary pathology. Dictated by: Fito Umaña M.D. on 10/20/2016 at 11:50 Approved by: Fito Umaña M.D. on 10/20/2016 at 11:51 X-RAY CHEST ONE VIEW, PORTABLE IMPRESSION: Persistent widespread pulmonary edema with potential areas of superimposed atelectasis and/or pneumonia with minimal effusions. No appreciable interval change. Approved by: Fatuma Sharma M.D. on 10/23/2016 at 16:12 Additional Diagnostics Colonoscopy. IMPRESSION: Stapleton diverticulosis. Otherwise normal examination from rectum to terminal ileum. Mei Rudd MD 10/22/16 1028 Assessment & Plan Mrs. Priest is an 81 year old female with past medical history significant for CAD with 5 vessel CABG, HTN, HLD, DM2, CHF, PVD, CKD, GERD and PUD that presented to the Emergency Department on 10/20/2016 with complaints of worsening chest pain and dizziness. The patient states the chest pain has been intermittent for the past couple months but it got worse today and started radiating to her shoulder. She was globally weak, felt short of breath, and was dizzy. She also mentions having black tarry stools last week that have since resolved. She's been evaluated before and was told she had bleeding ulcers. Acute Hypoxic Respiratory failure, not present on admission. Improving. - Likely secondary to Pulmonary Edema and fluid overload - Not on Home O2 - Currently requiring 2-4L for sats of 92-95%. - Repeat CXR to assess fluid status - Lasix IV 40mg x 1, will give another if her pressures maintain Acute on chronic systolic Congestive Heart Failure, present on admission. Chronic. Stable. - Echo in 06/24 showed a LVEF 35% with severely dilated left and right atrium - Bellamy DC'd - IV Lasix 40mg x1, will do another if pressures premit - Metoprolol reheld as pressures were not stable Acute Anemia, present on admission. Stable. - History significant for ongoing GI bleeds, GERD/PUD, recent melena. - B12/Folate normal - Holding home iron at this time. - continue Plavix q48 hours - Stable H/H at this time, tarry/bloody stools have ceased - Consider further transfusion if she is symptomatic or Hgb < 8 Urinary Tract Infection, present on admission. Acute. Resolved. - UA +nitrite, +Leuk esterase, +blood, packed WBC - WBC normalized, no reported dysuria or hematuria - Urine culture results as above; stapleton sensitive E. coli - Continue Ceftriaxone for 1 more day (5d total) Dehydration, present on admission. Acute. Improving. - Patient reports low oral intake as well as excessive diuretic use - Replete electrolytes as necessary - Fluids stopped as patient became fluid overloaded Hypotension, present on admission. Acute. Resolved. - Likely due to dehydration, excessive diuretic use - Hold home Metoprolol while we diurese - Hold home Lasix - Watch fluid status due to systolic CHF with LVEF 35% Acute on Chronic Kidney Injury, present on admission. Stable. - Renal function is stable with BUN 28, Creatinine 1.26; baseline ~1 in April 2016 - Stopped fluids as above - Avoid nephrotoxic agents Chronic GERD with PUD and GI bleeds, present on admission. Resolved. - Transfused 1 unit PRBC's in the ED; transfusion parameters as above - Plavix as above - EGD and colonoscopy were not definitive Diabetes mellitus type 2, insulin requiring, present on admission. Ongoing. - Patient reported she was diabetic but hasn't been on medications for awhile - A1C 7 - Blood glucose hovering around 180-220 now that patient is not NPO - Will add medium dose correctional at this time for better control Hypertension - Metoprolol reheld as above Hyperlipidemia - Continue Pravastatin Glaucoma - Continue Bimatoprost Gout - Continue Allopurinol Hypothyroidism - Continue Levothyroxine Chronic insomnia - Continue Temazepam Acetaminophen for mild pain when necessary. Bowel regimen Senna and MiraLAX scheduled as necessary. Zofran when necessary for nausea and vomiting. SubQ heparin held for possible GI bleed. SCDs in place. Disposition: The patient will likely be here 1-2 more days depending on the stability of her bleeding and continued improvement of her respiratory status GI Prophylaxis: Proton Pump Inhibitor VTE Mechanical Devices: Intermittant Pneumatic CD Resuscitation Status: CPR: Attempt Resuscitation Attending Statement The patient was seen and examined together with Dr. Romero on 10/24/2016 and I agree with the history, exam and plan as outlined in the note above. . Henrry Romero DO Oct 24, 2016 11:36 Александр Howard MD Oct 29, 2016 16:55
[2016-10-24] MEDS ORDERED: Glucose 40% Oral Gel 15 Gm Tube PO PRN (14:25)
--- NOTE | 2016-10-24 16:21 | DRSVH ---
PROCEDURE: X-RAY CHEST ONE VIEW ([id number]) INDICATIONS: fluid overload, pulm edema, sob TECHNIQUE: One view of the chest was acquired. COMPARISON: [facility], CR, XR CHEST 1VW (PORTABLE), 10/23/2016, 14:39. FINDINGS: Surgical changes and devices: Median sternotomy wires. Lungs and pleura: Trace bilateral pleural fluid collections noted. Patchy opacities in the lungs bila terally. Interstitial prominence noted suspicious of pulmonary edema.. Mediastinum: Mediastinal contours appear normal. Heart size is normal. Bones and chest wall: No suspicious bony lesions. Overlying soft tissues appear unremarkable. IMPRESSION: 1. Patchy airspace opacities in lungs bilaterally suspicious for pneumonia. 2. Pulmonary edema. Dictated by: Ivon Garcia MD, PhD on 10/24/2016 at 16:17 Approved by: Ivon Garcia MD, PhD on 10/24/2016 at 16:19
--- NOTE | 2016-10-24 16:38 | NUR ---
Urinary pt given lasix as ordered by md. noted minimal effective urinary output after dosing. MD informed. pt bladder scanned. MD informed of bladder scan volume. pt voided after scan, voided about 300ml. Further informed MD of situation. Instructed to continue to try to empty bladder. hold mcgowan insertion at this time. continue to monitor.
[2016-10-24] MEDS: Insulin LISPRO 300 Unit/3 mL Inj SUBQ SCH ×2 (18:16→21:32)
[2016-10-24] MEDS: cefTRIAXone Inj 2,000 MG in Dextrose 5% Minibag Plus 50 ML IV SCH (18:16)
--- NOTE | 2016-10-24 18:54 | PCM.PNMED ---
Subjective Date of Service Oct 24, 2016 Subjective Patient has not tachycardia overnight and has had decreased appetite. She has had a bowel movement without any black or bloody. She has been having some nausea but no vomiting. She has shortness of breath that has improved this morning. Exam Vital Signs Vital Sign - Last Date Time Temp Pulse Resp B/P Pulse Ox O2 Delivery O2 Flow Rate FiO2 10/24/16 08:08 102 16 98 Nasal Cannula 5.00 10/24/16 07:27 36.9 114/55 Intake and Output 10/23/16 10/23/16 10/24/16 Cumulative From/Thru 15:00 23:00 07:00 10/20/16 11:06 - 10/24/16 06:08 Intake Total 800 ml 400 ml 8776 ml Output Total 1000 ml 1000 ml 28362 ml Balance -200 ml -600 ml -2399 ml Intake Oral 800 ml 400 ml 3400 ml IV Total 0 ml 5076 ml Packed Cells 300 ml Output Urine Total 1000 ml 1000 ml 7975 ml Stool Total 2500 ml Urine/Stool Mix 700 ml # Voids 3 6 # Bowel Movements 2 8 Exam General: No acute distress, elderly, appropriately interactive HEENT: Normocephalic, atraumatic. External ears without defect. Anicteric sclerae, moist conjunctivae, and no lid lag. Oropharynx free of erythema and cobble stoning with moist mucosa. Neck: Supple with full range of motion. No lymphadenopathy or thyromegaly. Cardiovascular: Regular rate and rhythm III/ with no rubs, or gallops appreciated Pulmonary: Clear to auscultation bilaterally with no crackles, wheezes, or rhonchi. Normal respiratory effort with no use of accessory muscles. Abdomen: Bowel tones present. Soft, nontender, nondistended. No hepatosplenomegaly or masses appreciated. Extremities: No clubbing, cyanosis, edema, or lymphadenopathy appreciated. Skin: Normal temperature, turgor, and texture; no rash, ulcers, or subcutaneous nodules appreciated. Neurological: Cranial nerves grossly intact. Psychiatric: Normal mood and affect. Alert and oriented to person, place, and time. Lab and Diagnostics Result Diagram: 10/24/16 0440 10/24/16 0440 Microbiology URINE CULTURE ESCHERICHIA COLI that is stapleton sensitive Blood cultures negative x48h X-Rays, CTs and MRIs CXR 10/20 IMPRESSION: No radiographic evidence of acute cardiopulmonary pathology. Dictated by: Fito Umaña M.D. on 10/20/2016 at 11:50 Approved by: Fito Umaña M.D. on 10/20/2016 at 11:51 X-RAY CHEST ONE VIEW, PORTABLE IMPRESSION: Persistent widespread pulmonary edema with potential areas of superimposed atelectasis and/or pneumonia with minimal effusions. No appreciable interval change. Approved by: Fatuma Sharma M.D. on 10/23/2016 at 16:12 X-RAY CHEST ONE VIEW IMPRESSION: 1. Patchy airspace opacities in lungs bilaterally suspicious for pneumonia. 2. Pulmonary edema. Dictated by: Ivon Garcia MD, PhD on 10/24/2016 at 16:17 Additional Diagnostics Colonoscopy. IMPRESSION: Stapleton diverticulosis. Otherwise normal examination from rectum to terminal ileum. Mei Rudd MD 10/22/16 1028 Assessment & Plan Mrs. Priest is an 81 year old female with past medical history significant for CAD with 5 vessel CABG, HTN, HLD, DM2, CHF, PVD, CKD, GERD and PUD that presented to the Emergency Department on 10/20/2016 with complaints of worsening chest pain and dizziness. The patient states the chest pain has been intermittent for the past couple months but it got worse today and started radiating to her shoulder. She was globally weak, felt short of breath, and was dizzy. She also mentions having black tarry stools last week that have since resolved. She's been evaluated before and was told she had bleeding ulcers. Acute anemia/GI bleed -no etiology seen on EGD for bleeding, colonoscopy revealed stapleton diverticulosis right sided diverticulosis could present as melena. If rebleeding would recommend tagged RBC scan -recommend following H/H while in hospital. -advance diet and if no further bleeding and H/H stable consider discharging home once medically stable -would recommend close follow up if antiplatelet agents are going to be restarted. We will sign off at this time, if patient overt signs of bleeding again or if you have further questions please let us know. Pain Evaluation: Adequate Pain Control GI Prophylaxis: Proton Pump Inhibitor VTE Mechanical Devices: Intermittant Pneumatic CD Resuscitation Status: CPR: Attempt Resuscitation Attending Statement Patient seen and examined with Dr. Stein Agree with her note and plan as above We will sign off if she should have recurrence of her bleeding please do not hesitate to contact us copies to: Mei Rudd MD; Wendy Vance MD, Erika R DO Oct 24, 2016 08:46 Mei Rudd MD Oct 26, 2016 13:37
[2016-10-25] VITALS (13 sets, daily range): BP systolic 90–117; BP diastolic 50–64; PULSE 67–116; RESP 16–20; O2SAT 93–96
[2016-10-25 02:40] LABS: BASOPHILS % (AUTO) 0.2 % (0-3); EOSINOPHILS % (AUTO) 1.3 % (0-5); MONOCYTES % (AUTO) 7.7 % (4-12); Mean Corpuscular Hemoglobin 30.2 pg (27.0-35.0); Mean Corpuscular Volume 93.3 fL (81-100); NEUTROPHILS % (AUTO) 81.3 % (40-74); Platelet Count 162 bil/L (150-400)
[2016-10-25] MEDS ORDERED: Magnesium Sulf 2 Gm/50mL Water 2 GM in IV Premix 1 EACH IV ONE (06:35)
[2016-10-25] MEDS ORDERED: Potassium Chloride Inj 30 MEQ in Dextrose 5% 500 ML IV ONE (06:35)
[2016-10-25] MEDS ORDERED: Potassium Chloride 20 mEq SR Tablet PO ONE (06:35)
[2016-10-25] MEDS: Pantoprazole 40 mg ER24 Tablet PO SCH ×2 (07:56→16:52)
[2016-10-25] MEDS: Insulin LISPRO 300 Unit/3 mL Inj SUBQ SCH ×4 (08:02→22:00)
--- NOTE | 2016-10-25 08:09 | NUR ---
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 BP stable, see vitals. Embossing Clerk reported 7 seconds of SVT in 160s, pt denied symptoms, MD notified. Potassium slightly low and Mag not checked. notified and ordered Mag lab, no potassium replacement order given at that time. Pt urinating in BSC, PVR checked twice and was under 300mL both times, pt denied any bladder discomfort.
[2016-10-25] MEDS ORDERED: Furosemide 10 mg/mL 4 mL Inj IVPUSH ONE (08:10)
[2016-10-25] MEDS ORDERED: 0.9% Sodium Chloride 250 ML IV PRN (11:05)
[2016-10-25] MEDS: Amoxicillin-Clav 875-125 mg Tablet PO SCH ×2 (15:00→20:37)
--- NOTE | 2016-10-25 15:28 | PCM.PNMED ---
Subjective Date of Service Oct 25, 2016 Subjective Overnight there were no acute events. Ms. Priest says that her breathing is better but she still gets short of breath when exerting herself. She denies any fevers/chills, nausea/vomiting, fatigue, chest pain or further episodes of bleeding. Exam Vital Signs Vital Sign - Last Date Time Temp Pulse Resp B/P Pulse Ox O2 Delivery O2 Flow Rate FiO2 10/25/16 13:28 36.7 67 16 98/60 10/25/16 12:00 96 Nasal Cannula 4.00 Intake and Output 10/24/16 10/24/16 10/25/16 Cumulative From/Thru 15:00 23:00 07:00 10/20/16 11:06 - 10/25/16 06:56 Intake Total 90 ml 400 ml 380 ml 9646 ml Output Total 750 ml 1350 ml 1100 ml 08984 ml Balance -660 ml -950 ml -720 ml -4729 ml Intake Oral 400 ml 300 ml 4100 ml IV Total 90 ml 80 ml 5246 ml Packed Cells 300 ml Output Urine Total 750 ml 1350 ml 1100 ml 90802 ml Stool Total 2500 ml Urine/Stool Mix 700 ml # Voids 7 7 20 # Bowel Movements 1 9 Exam General: Elderly woman laying in bed in NAD. Interacting appropriately. HEENT: NCAT, PERRLA, EOMI. Mucous membranes pink, moist. Neck: Supple with full ROM. No lymphadenopathy, no JVD. CV: RRR, with 3/6 systolic murmur, no rubs/gallops Pulm: Breath sounds continue to be coarse without crackles/wheezing. Normal effort without accessory muscle use. Abd: Soft, nontender, nondistended. Bowel sounds present. No rebound, guarding. Extremities: Distal pulses intact bilaterally. No cyanosis, clubbing, edema. Neuro: A&Ox3. CN 2-12 intact. Normal muscle strength, no focal deficits. Psych: Normal mood and affect. IVs and Medications Medications Reviewed: Medications were reviewed in detail Lab and Diagnostics Result Diagram: 10/25/1622410/25/16224 Microbiology URINE CULTURE ESCHERICHIA COLI that is stapleton sensitive Blood cultures negative x48h X-Rays, CTs and MRIs CXR 10/24 IMPRESSION: 1. Patchy airspace opacities in lungs bilaterally suspicious for pneumonia. 2. Pulmonary edema. Dictated by: Ivon Garcia MD, PhD on 10/24/2016 at 16:17 Approved by: Ivon Garcia MD, PhD on 10/24/2016 at 16:19 CXR 10/20 IMPRESSION: No radiographic evidence of acute cardiopulmonary pathology. Dictated by: Ftio Umaña M.D. on 10/20/2016 at 11:50 Approved by: Fito Umaña M.D. on 10/20/2016 at 11:51 X-RAY CHEST ONE VIEW, PORTABLE IMPRESSION: Persistent widespread pulmonary edema with potential areas of superimposed atelectasis and/or pneumonia with minimal effusions. No appreciable interval change. Approved by: Fatuma Sharma M.D. on 10/23/2016 at 16:12 X-RAY CHEST ONE VIEW IMPRESSION: 1. Patchy airspace opacities in lungs bilaterally suspicious for pneumonia. 2. Pulmonary edema. Dictated by: Ivon Garcia MD, PhD on 10/24/2016 at 16:17 Additional Diagnostics Colonoscopy. IMPRESSION: Stapleton diverticulosis. Otherwise normal examination from rectum to terminal ileum. Mei Rudd MD 10/22/16 1028 Assessment & Plan Mrs. Priest is an 81 year old female with past medical history significant for CAD with 5 vessel CABG, HTN, HLD, DM2, CHF, PVD, CKD, GERD and PUD that presented to the Emergency Department on 10/20/2016 with complaints of worsening chest pain and dizziness. The patient states the chest pain has been intermittent for the past couple months but it got worse today and started radiating to her shoulder. She was globally weak, felt short of breath, and was dizzy. She also mentions having black tarry stools last week that have since resolved. She's been evaluated before and was told she had bleeding ulcers. Acute Hypoxic Respiratory failure, not present on admission. Improving. - Likely secondary to Pulmonary Edema and fluid overload - Not on Home O2 - Currently requiring 2-4L for sats of 92-95%. - Repeat CXR as above - Gave 40mg IV Lasix followed by 40mg PO Torsemide to encourage further diuresis - Consider transitioning to her home Lasix dose, 80mg twice daily when oxygen requirement is less Acute on chronic Systolic Congestive Heart Failure, present on admission. Stable. - Echo in 06/24 showed a LVEF 35% with severely dilated left and right atrium - Metoprolol reheld as pressures were not stable - Continue diuresis; IV Lasix followed by Torsemide as above Acute Anemia, present on admission. Stable. - History significant for ongoing GI bleeds, GERD/PUD, recent melena. - B12/Folate normal - Consider restarting home iron - continue Plavix q48 hours - Stable H/H at this time, tarry/bloody stools have ceased - Transfused 1 unit PRBC's as her Hgb < 8 Acute on Chronic Kidney Injury, present on admission. Stable. - Renal function is stable with BUN 23, Creatinine around her baseline now at 1.07 - Avoid nephrotoxic agents Acute cystitis, present on admission. Resolved. - UA +nitrite, +Leuk esterase, +blood, packed WBC - WBC normalized, no reported dysuria or hematuria - Urine culture results as above; stapleton sensitive E. coli - Ceftriaxone transitioned to Augmentin 875 PO BID Dehydration, present on admission. Acute. Resolved. - Patient reports low oral intake as well as excessive diuretic use - Replete electrolytes as necessary Hypotension, present on admission. Acute. Resolved. - Likely due to dehydration, excessive diuretic use - Hold home Metoprolol while we diurese - Watch fluid status due to systolic CHF with LVEF 35% Chronic GERD with PUD and GI bleeds, present on admission. Resolved. - Transfused 1 unit PRBC's in the ED; transfusion parameters as above - Plavix as above - EGD and colonoscopy did not show active bleed Diabetes mellitus type 2, insulin requiring, present on admission. Ongoing. - Patient reported she was diabetic but hasn't been on medications for awhile - A1C 7 - Blood glucose hovering on the high end of normal; continue to watch as her appetite is coming back - Will add medium dose correctional at this time for better control Hypertension - Metoprolol reheld as above Hyperlipidemia - Continue Pravastatin Glaucoma - Continue Bimatoprost Gout - Continue Allopurinol Hypothyroidism - Continue Levothyroxine Chronic insomnia - Continue Temazepam Acetaminophen for mild pain when necessary. Bowel regimen Senna and MiraLAX scheduled as necessary. Zofran when necessary for nausea and vomiting. SubQ heparin continues to be held. SCDs in place. Disposition: The patient will likely be here 1-2 more days depending on the stability of her H/H and continued improvement of her respiratory status GI Prophylaxis: Proton Pump Inhibitor VTE Mechanical Devices: Intermittant Pneumatic CD Resuscitation Status: CPR: Attempt Resuscitation Attending Statement The patient was seen and examined together with Dr. Romero on 10/25/2016 and I agree with the history, exam and plan as outlined in the note above. . Henrry Romero DO Oct 25, 2016 15:28 Александр Howard MD Oct 29, 2016 16:57
--- NOTE | 2016-10-25 16:19 | NUR ---
Social work Note: Multidisciplinary Rounds Pt was discussed in AM rounds, per MD pt is not medically ready for discharge at this time. PT is recommending SNF. SW requested MD order, MD order not placed at this time. PT to continue to evaluate pt for needs and recommendations. SW to follow up with pt regarding D/C Plan pending order. DORIAN Carrion
--- NOTE | 2016-10-25 17:14 | NUR ---
Mentation Patient alert but confused and disoriented at times, forgetting where she is and referring to me as "mother". Patient VSS, cooperative with care, uses call light appropriately for help with cares.
--- NOTE | 2016-10-25 17:17 | NUR ---
Blood Patient had low Hgb of 7.7. One unit PRBCs ordered and given. Patient tolerated blood well, no adverse effects noted. VSS. Patient resting call light within reach.
[2016-10-26] VITALS (7 sets, daily range): BP systolic 9–135; BP diastolic 53–76; PULSE 80–102; RESP 16–20; O2SAT 90–96
--- NOTE | 2016-10-26 01:26 | NUR ---
Mentation/mcgowan Pt voided 300, with post void residual of 400ml. Mcgowan placed per orders and patient tolerated this well. Has been somewhat confused this evening. Thinks she is at home, and has been on the call light several times an hour thinking the staff are workmen in her home. When she takes off her oxygen, sats drop to low-mid-80's. On 4 liters nasal cannula, sats are in mid-90's. Pt is on continuous pulse oximetry. Given melatonin and tylenol and will monitor effectiveness.
[2016-10-26 04:59] LABS: BASOPHILS % (AUTO) 0.2 % (0-3); MONOCYTES % (AUTO) 7.4 % (4-12); Mean Corpuscular Hemoglobin 29.8 pg (27.0-35.0); Mean Corpuscular Volume 92.8 fL (81-100); NEUTROPHILS % (AUTO) 77.1 % (40-74); Platelet Count 168 bil/L (150-400)
[2016-10-26] MEDS: Amoxicillin-Clav 875-125 mg Tablet PO SCH ×2 (09:22→20:28)
[2016-10-26] MEDS: Pantoprazole 40 mg ER24 Tablet PO SCH ×2 (09:22→17:43)
[2016-10-26] MEDS: Insulin LISPRO 300 Unit/3 mL Inj SUBQ SCH ×4 (09:26→20:38)
--- NOTE | 2016-10-26 09:34 | NUR ---
Mentation/O2 Pt AOx3, states feeling better this am. Pt SPO2 90% 3 L NC, pt states feeling SOB. Educated pt to keep NC in nose. Care continues.
--- NOTE | 2016-10-26 10:38 | NUR ---
Ambulation Pt ambulated to sink and back to bed, pt stated SOB, SPO2 83%. Increased pt O2 to 4L SPO2 90%. Pt sitting at side of bed. Educated pt to use call light for OOB, pt acknowledged and understood. Care continues.
--- NOTE | 2016-10-26 11:09 | DRSVH ---
PROCEDURE: X-RAY CHEST ONE VIEW ([id number]) INDICATIONS: shortness of breath, edema TECHNIQUE: One view of the chest was acquired. COMPARISON: [facility], CR, XR CHEST 1VW, 10/24/2016, 15:20. FINDINGS: Surgical changes and devices: Sternotomy with mediastinal postoperative changes. Lungs and pleura: Interstitial pulmonary opacities throughout both lungs with relative sparing of the apices. Mild/moderate left pleural effusion. Mediastinum: Enlarged cardiac mediastinal silhouette. Enlarged pulmonary venous vascularity. Bones and chest wall: No suspicious bony lesions. Overlying soft tissues appear unremarkable. Vasc ular calcifications. IMPRESSION: Persistent bilateral pulmonary opacities with mild/moderate left-sided pleural effusion. Findings may represent infection and/or fluid imbalance. Dictated by: Fito Umaña M.D. on 10/26/2016 at 9:54 Approved by: Fito Umaña M.D. on 10/26/2016 at 9:56
--- NOTE | 2016-10-26 11:53 | NUR ---
Palliative care note D/A: Palliative care referral kindly received 10/26/[address] Howard. Pt is a 81 yof who resides at [facility] where she lives alone. Her PCP is Roxanna Vance. She is admitted with a history of CAD, peripheral vascular disease and chronic kidney disease. Pt noted upon admission that she will sometimes give a stronger dose of her medications, unclear if there are concerns about her understanding. She has a dtr who [facility] [phone] or [phone]. She has a son Livan Priest who lives in [facility] and can be reached at [phone]. She has an addt'l dtr in [place], name and phone number unknown. P: Palliative care to follow. Karine DELGADO, CCM
--- NOTE | 2016-10-26 12:04 | NUR ---
Discharge Pt discharged at approximately 1155 to home with . Pt given educational material for [employer], highlighted followup care with [facility] for allergy testing for possible allergic reaction to nitrates in hot dogs per . IV DC with catheter intact. Pt acknowledged and understood all information. Escorted by NAHUN in wheelchair to door. Addendum: 10/26/16 at 1636 by ROSALIO JUAREZ RN WRONG PATIENT
--- NOTE | 2016-10-26 12:59 | NUR ---
NUTRITION FOLLOW-UP: ASSESS: 81 YO female admitted with worsening chest pain and dizziness. She has been experiencing some AMS but this has been better today. She is on a Diabetic Diet with variable PO of bites-100%, likely based on mentation. Wt has been stable throughout stay. PMHx: CAD, PVD, CHF, CKD, HTN, HLD, type 2 diabetes, GERD, Schaefer's esophagus, carotid stenosis, gout, hypothyroid, bilateral renal artery stenosis, anemia, DVT. DIET: Diabetic, PO 0-100% LABS: Reviewed. 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 Synthroid. GI: BMx1 10/26/16 Skin: no major issues ANTHROPOMETRICS: Current Wt: 61 kg BMI: 24.6 kg/m2. IBW: 50.0 kg (123.6% IBW) ESTIMATED NEEDS: Calories:1545 - 1854 kcal (25 - 30 kcal / kg BW) Protein: 65 - 75 g protein (1.0 - 1.2 g / kg BW) NUTRITION DIAGNOSIS: 1) Altered GI function related to GI bleed, as evidenced by NPO status, pending GI consult.--IMPROVING 2) Variable PO intake related to AMS as evidence by PO varying from 0-100% INTERVENTION: 1) Will add Glucerna on L tray to supplement PO intake MONITOR/EVALUATE: Diet tolerance, PO intake, labs, GI/nutrition status. Follow up per moderate nutrition risk guidelines.
--- NOTE | 2016-10-26 13:17 | NUR ---
Lunch Pt working with Physical Therapy, select lunch tray outside room, lunch tray removed by aid. Ordered lunch tray did not arrive. This RN ordered new lunch tray for pt. Pt up to chair for lunch. Care continues.
--- NOTE | 2016-10-26 15:48 | PCM.CONPAL ---
Date of Service Oct 26, 2016 Date of Hospital Admission: Oct 20, 2016 at 13:17 Date of Palliative Consult: Oct 26, 2016 Requesting Provider: Александр Howard MD Reason Palliative Care Consult: Goals of Care Discussion Hospital Unit @time of consult: Progressive Care Palliative Care Recommendation 81-year-old female with multiple chronic medical problems, admitted with acute on chronic anemia, progressive weakness, dyspnea, etc. Palliative medicine consulted to assist patient in determination of goals of care. Summary of palliative recommendations: -Symptom management (Pain/other)- comfortable and in no significant distress at this time. Continued management per medical team -DPOA/Advanced Directives/POLST- patient thinks that her daughter Iris is her medical power of graphic production artist. She notes that Iris's is her financial POA. She has never completed an advanced directive or living will and refuses to do so- she says that if such a thing becomes necessary, either she will decide what to do or her family members can decide after consulting with the physician. She said in 2001 when she had her heart attack, stroke, emergency bypass surgery, etc. everybody told her family that she would never survive- she did, however, and so shewants to have all possible resuscitation efforts made for the time being. -Family/emotional support- good support from her children. She notes that her daughter Hilda who lives in [place] would be willing to come and live with her to help her [id number], but she (the patient) has lived alone for long time and is quite sure that she is ready for that Patient Goals: 1. Patient wants to be told the truth about her illness, even if it is unpleasant. 2. Patient would like to be told prognosis when it can be predicted, to better guide treatment decisions. 3. Patient would choose quality of life over quantity of life, and defines quality as living independently and comfortably Additional Medical Diagnoses with primary management by Hospitalist team include : Acute Hypoxic Respiratory failure, not present on admission. Improving. Acute Anemia, present on admission. Stable. Urinary Tract Infection, present on admission. Acute. Resolved. Dehydration, present on admission. Acute. Resolved. Hypotension, present on admission. Acute. Resolved. Acute on Chronic Kidney Injury, present on admission. Stable. Chronic GERD with PUD and GI bleeds, present on admission. Resolved. Diabetes mellitus type 2, insulin requiring, present on admission. Ongoing. Systolic Congestive Heart Failure, present on admission. Chronic. Stable. Hypertension Hyperlipidemia Glaucoma Gout Hypothyroidism Chronic insomnia Problems: End of Life Preferences Full code Goals of Care Recovery and return home Disposition Home versus SNF Resuscitation Status Resuscitation Status: CPR: Attempt Resuscitation POLST Updates/Changes Previous POLST?: No . Advanced Care Planning Address: Durable Power of Completion Supervisor Symptom management: Dyspnea Pt History History of Present Illness Per admission H&P: Mrs. Priest is an 81 year old female with past medical history significant for CAD with 5 vessel CABG, HTN, HLD, DM2, CHF, PVD, CKD, GERD and PUD that presented to the Emergency Department on 10/20/2016 with complaints of worsening chest pain and dizziness. The patient states the chest pain has been intermittent for the past couple months but it got worse today and started radiating to her shoulder. She was globally weak, felt short of breath, and was dizzy. She also mentions having black tarry stools last week that have since seemed to be resolving over the last couple of days however today the black tarry stools have returned. She's been evaluated before for black tarry stools and was told she had bleeding ulcers. She is unsure of her medication regimen and does not take them as prescribed or even regularly sometimes. The patient does admit to the fact that she is supposed be taking 80 mg of Lasix daily and sometimes she will take 1-1/2-2 times the normal scheduled dose which she has been doing for the last few days. Since admission, she has been extensively evaluatedwithout evidence of active GI bleeding. Medications have been adjusted for her chronic cardiac and pulmonary conditions. She is receiving antibiotics for UTI. She continues to be quite weak, requiring nasal cannula oxygen and may require SNF placement. Palliative medicine was consulted to assist patient in determining goals of care. Prior to visiting, reviewed her records in the EMR in detail for both this admission as well as her previous admissions over the last several years. On my arrival, she is resting in bed. She is unhappy because she is tied down by so many monitor and IV lines. She is alert and appropriate and oriented. She says that she is feeling well enough that she like to get out of the hospital soon- she does realize that she is not as strong as she needs to be though and is willing to consider temporary SNF placement if needed. She lives alone at [facility] where she is quite independent. She still drives, walks around with the assistance of a FWW, still does light housekeeping ( though she has someone come in twice a month to do more heavy housekeeping and cleaning). She says she does not socialize much anymore because most of her friends have . She used to enjoy bingobut says there are not any good games available anymore. She does enjoy reading. She has a son Livan who lives in [place] ([phone])and a daughter Iris in [place] ([phone]) who are her primary contacts.she also has another daughter, Hilda, who lives in [place] and who she says has expressed willingness to come and live with the patient if she would need more ongoing care. Interestingly, she notes that her symptoms began developing after her last visit at the rodding anode worker's office ( Dr. Cid) and she wonders if medication changes undertaken at that time have contributed to her problems. She says that in 2001 she had a heart attack and a stroke and had to undergo emergency heart surgery- her family was told that she would never survive but she did and has done well since. She overall feels that her quality of life is good and she does not think that she is nearing end-of-life. Past Medical History Significant PMH Noted: Coronary artery disease, with history of myocardial infarction x2 and CABG in 2001. Peripheral vascular disease Congestive heart failure, diastolic Chronic kidney disease Hypertension. Chronically elevated troponin. Hyperlipidemia. Diabetes mellitus type 2, insulin requiring. GERD with PUD and Schaefer's esophagus. Glaucoma. Carotid stenosis. Gout. Hypothyroidism. Chronic insomnia Bilateral renal artery stenosis.. Anemia. Prior DVT Surgical History Glaucoma surgery Multiple stents and angioplasty for peripheral vascular disease CABG, 5 vessel in 2001 Social History Occupation: Retired, Social Support: Good support from her children Living Situation: Lives at [facility]; independent with ADLs; still drives occasionally; uses a front wheel walker most of the time Has been driving less as she has become concerned about her occasional dizziness and progressive dyspnea Her daughter Hilda presently lives in [place] has suggested she would be willing to come here and move in with the patient, but the patient is unsure if she is ready to have someone 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 with 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 [facility] SUBQ Last administered on 10/26/16 12:44; Admin Dose 3 UNIT; Start 10/24/16 at 17:30 Sodium Chloride 250 ml @ 10 mls/hr Q24H PRN IV; Start 10/25/16 at 11:05 Amoxicillin/ Clavulanate Potassium 1 tab BID PO Last administered on 10/26/16 09:22; Admin Dose 1 TAB; Start 10/25/16 at 15:00 Quetiapine Fumarate 25 mg HS PO Last administered on 10/25/16 20:54; Admin Dose 25 MG; Start 10/25/16 at 21:00 Torsemide 40 mg DAILY PO Last administered on 10/26/16 12:45; Admin Dose 40 MG ; Start 10/26/16 at 09:45 Scheduled Allopurinol (Allopurinol) 300 Mg Tablet 300 MG PO DAILY Bimatoprost (Lumigan) 45 Drop/2.5 Ml Ophsoln 1 DROP OD HS each eye Clopidogrel Bisulfate (Plavix) 75 Mg Tablet 75 MG PO DAILY Furosemide (Furosemide) 80 Mg Tab 160 MG PO DAILY Lansoprazole (Lansoprazole) 30 Mg Capsule.dr 30 MG PO DAILY Levothyroxine (Levothyroxine) 25 Mcg Tablet 25 MCG PO AM Take on an empty stomach. Metoprolol Tartrate (Metoprolol Tartrate) 25 Mg Tablet 25 MG PO HS Metoprolol Tartrate (Metoprolol Tartrate) 25 Mg Tablet 50 MG PO QAM Multivitamin (Multivitamins) 1 Each Capsule 1 EACH PO DAILY Potassium Chloride ER (Potassium Chloride ER) 20 Meq Tablet.er 20 MEQ PO BID TAKE WITH FOOD Pravastatin (Pravastatin) 40 Mg Tablet 40 MG PO DAILY Scheduled PRN Temazepam (Temazepam) 30 Mg Cap 30 MG PO HS PRN PRN For Insomnia Tizanidine (Tizanidine) 2 Mg Tablet 1-2 MG PO DAILY PRN PRN For Spasm Current Treatments Oxygen: Yes Antibiotics: Yes Telemetry: Yes Objective Findings Exam Vital Sign - Last Date Time Temp Pulse Resp B/P Pulse Ox O2 Delivery O2 Flow Rate FiO2 10/26/16 13:35 Nasal Cannula 4.00 10/26/16 12:22 36.6 80 18 9/58 94 Intake and Output 10/25/16 10/25/16 10/26/16 Cumulative From/Thru 15:00 23:00 07:00 10/20/16 11:06 - 10/26/16 06:07 Intake Total 970 ml 200 ml 86754 ml Output Total 300 ml 900 ml 60053 ml Balance 670 ml -700 ml -4759 ml Intake Oral 500 ml 200 ml 4800 ml IV Total 470 ml 5716 ml Packed Cells 300 ml Output Urine Total 300 ml 900 ml 95119 ml Stool Total 2500 ml Urine/Stool Mix 700 ml # Voids 20 # Bowel Movements 1 1 11 Objective Pleasant elderly lady resting in bed. Oriented and appropriate. Vital signs noted. Telemetry shows atrial fibrillation with variable ventricular response. Skin is pale, warm and dry. Head and neck exam without acute focal findings. Lungs with bibasilar crackles posteriorly and more prominent bilateral anterior crackles. Heart sounds rapid and regular. Abdomen soft and nontender ; no peritoneal signs. Extremities with +2 pitting edema bilaterally. Neurologic grossly intact throughout. Lab/Diagnostics Lab and Imaging results reviewed in detail in EMR. Time spent Total time 60 minutes; >50% face to face with patient, providing counselling regarding plans and recommendations, and in care coordination with her medical teams. of the above total time, 10 minutes counseling for advanced care planning with the patient, reviewing her documentation and wishes regarding end-of-life care Nitin Jay MD Oct 26, 2016 15:48
--- NOTE | 2016-10-26 16:10 | NUR ---
Social Work Note/Continued Discharge Planning/Multidisciplinary Rounds Data& Assessment: Pt was discussed in AM rounds today, per MD, MD is hopeful pt will be able to return home to senior apartments with home health services. Pt walked 30 ft with PT today. SW received Home Health Order, but MD and PT to see how pt ambulates tomorrow. SW met with pt at bedside to check in and assess for any unmet needs. Pt is open to home health services if needed but she is interested to see how she does with PT tomorrow when she is feeling better. SW to continue to follow to r.o Home health vs. SNF. Pt is not medically ready for discharge at this time. SW to continue to follow. Plan: Anticipated discharge home via POV with home health vs. SNF pending MD orders and insurance authorization. SW to continue to follow to r.o Home health vs. SNF. DORIAN Carrion
[2016-10-26] MEDS ORDERED: Potassium Chloride 20 mEq SR Tablet PO ONE (16:25)
[2016-10-26] MEDS ORDERED: Magnesium Sulf 2 Gm/50mL Water 2 GM in IV Premix 1 EACH IV ONE (16:25)
--- NOTE | 2016-10-26 16:25 | PCM.PNMED ---
Subjective Date of Service Oct 26, 2016 Subjective Overnight Alive got confused, believing she was at home and that construction workers were working around her house. This morning she reports feeling somewhat better but scared due to the episode of confusion last night. She feels stronger and thinks she is breathing better. She denies any fever/chills, nausea/vomiting, chest pain, palpitations, abdominal pain. Exam Vital Signs Vital Sign - Last Date Time Temp Pulse Resp B/P Pulse Ox O2 Delivery O2 Flow Rate FiO2 10/26/16 13:35 Nasal Cannula 4.00 10/26/16 12:22 36.6 80 18 9/58 94 Intake and Output 10/25/16 10/25/16 10/26/16 Cumulative From/Thru 15:00 23:00 07:00 10/20/16 11:06 - 10/26/16 06:07 Intake Total 970 ml 200 ml 86011 ml Output Total 300 ml 900 ml 33916 ml Balance 670 ml -700 ml -4759 ml Intake Oral 500 ml 200 ml 4800 ml IV Total 470 ml 5716 ml Packed Cells 300 ml Output Urine Total 300 ml 900 ml 80921 ml Stool Total 2500 ml Urine/Stool Mix 700 ml # Voids 20 # Bowel Movements 1 1 11 Exam General: Elderly woman laying in bed in NAD. Interacting appropriately. HEENT: NCAT, PERRLA, EOMI. Mucous membranes pink, moist. Neck: Supple with full ROM. No lymphadenopathy, moderate JVD CV: RRR, with 3/6 systolic murmur, no rubs/gallops Pulm: Breath sounds continue to be coarse at the bases without crackles/ wheezing. Normal effort without accessory muscle use. Abd: Soft, nontender, nondistended. Bowel sounds present. No rebound, guarding. Extremities: Distal pulses intact bilaterally. No cyanosis, clubbing, edema. Neuro: A&Ox3. CN 2-12 intact. Normal muscle strength, no focal deficits. Psych: Normal mood and affect. IVs and Medications Medications Reviewed: Medications were reviewed in detail Lab and Diagnostics Result Diagram: 10/26/16 0440 10/26/16 0440 Microbiology URINE CULTURE ESCHERICHIA COLI that is stapleton sensitive Blood cultures negative x48h X-Rays, CTs and MRIs CXR 10/26 IMPRESSION: Persistent bilateral pulmonary opacities with mild/moderate left- sided pleural effusion. Findings may represent infection and/or fluid imbalance. Dictated by: Fito Umaña M.D. on 10/26/2016 at 9:54 Approved by: Fito Umaña M.D. on 10/26/2016 at 9:56 CXR 10/24 IMPRESSION: 1. Patchy airspace opacities in lungs bilaterally suspicious for pneumonia. 2. Pulmonary edema. Dictated by: Ivon Garcia MD, PhD on 10/24/2016 at 16:17 Approved by: Ivon Garcia MD, PhD on 10/24/2016 at 16:19 CXR 10/20 IMPRESSION: No radiographic evidence of acute cardiopulmonary pathology. Dictated by: Fito Umaña M.D. on 10/20/2016 at 11:50 Approved by: Fito Umaña M.D. on 10/20/2016 at 11:51 X-RAY CHEST ONE VIEW, PORTABLE IMPRESSION: Persistent widespread pulmonary edema with potential areas of superimposed atelectasis and/or pneumonia with minimal effusions. No appreciable interval change. Approved by: Fatuma Sharma M.D. on 10/23/2016 at 16:12 X-RAY CHEST ONE VIEW IMPRESSION: 1. Patchy airspace opacities in lungs bilaterally suspicious for pneumonia. 2. Pulmonary edema. Dictated by: Ivon Garcia MD, PhD on 10/24/2016 at 16:17 Additional Diagnostics Colonoscopy. IMPRESSION: Stapleton diverticulosis. Otherwise normal examination from rectum to terminal ileum. Mei Rudd MD 10/22/16 1028 Assessment & Plan Mrs. Priest is an 81 year old female with past medical history significant for CAD with 5 vessel CABG, HTN, HLD, DM2, CHF, PVD, CKD, GERD and PUD that presented to the Emergency Department on 10/20/2016 with complaints of worsening chest pain and dizziness. The patient states the chest pain has been intermittent for the past couple months but it got worse today and started radiating to her shoulder. She was globally weak, felt short of breath, and was dizzy. She also mentions having black tarry stools last week that have since resolved. She's been evaluated before and was told she had bleeding ulcers. Acute Hypoxic Respiratory failure, not present on admission. Improving. - Likely secondary to Pulmonary Edema and fluid overload - Not on Home O2 but currently on oxygen at ~3L and titrating down as able - Torsemide 40mg PO daily - Consider increasing Torsemide dose if responding appropriately Acute on chronic Systolic Congestive Heart Failure, present on admission. Stable. - Echo in 06/24 showed a LVEF 35% with severely dilated left and right atrium - Metoprolol reheld as pressures were not stable - Continue diuresis; IV Lasix followed by Torsemide as above - Palliative consulted for goals of care conversation Chronic Anemia, present on admission. Stable. - History significant for ongoing GI bleeds, GERD/PUD, recent melena. - Restart daily plavix rather than q48 - Stable H/H at this time, no further tarry/bloody stools Acute cystitis, present on admission. Resolved. - UA +nitrite, +Leuk esterase, +blood, packed WBC - WBC normalized, no reported dysuria or hematuria - Urine culture results as above; stapleton sensitive E. coli - Ceftriaxone transitioned to Augmentin 875 PO BID Dehydration, present on admission. Acute. Resolved. - Patient reports low oral intake as well as excessive diuretic use - Replete electrolytes as necessary Hypotension, present on admission. Acute. Resolved. - Likely due to dehydration, excessive diuretic use - Hold home Metoprolol while we diurese - Watch fluid status due to systolic CHF with LVEF 35% Acute on Chronic Kidney Injury, present on admission. Stable. - Renal function bumped with BUN 31, Creatinine around her baseline now at 1.32 - Avoid nephrotoxic agents Chronic GERD with PUD and GI bleeds, present on admission. Resolved. - Transfused 1 unit PRBC's in the ED; transfusion parameters as above - Plavix as above - EGD and colonoscopy did not show active bleed Diabetes mellitus type 2, insulin requiring, present on admission. Ongoing. - Patient reported she was diabetic but hasn't been on medications for awhile - A1C 7 - Blood glucose hovering on the high end of normal; continue to watch as her appetite is coming back - Will add medium dose correctional at this time for better control Hypertension - Metoprolol reheld as above Hyperlipidemia - Continue Pravastatin Glaucoma - Continue Bimatoprost Gout - Continue Allopurinol Hypothyroidism - Continue Levothyroxine Chronic insomnia - Continue Temazepam Acetaminophen for mild pain when necessary. Bowel regimen Senna and MiraLAX scheduled as necessary. Zofran when necessary for nausea and vomiting. SubQ heparin continues to be held. SCDs in place. Disposition: The patient will likely be here 1-2 more days depending on the stability of her H/H and continued improvement of her respiratory status GI Prophylaxis: Proton Pump Inhibitor VTE Mechanical Devices: Intermittant Pneumatic CD Resuscitation Status: CPR: Attempt Resuscitation Attending Statement The patient was seen and examined together with Dr. Romero on 10/26/2016 and I agree with the history, exam and plan as outlined in the note above. . Henrry Romero DO Oct 26, 2016 15:16 Александр Howard MD Oct 29, 2016 17:00
[2016-10-26] MEDS: Potassium Chloride 20 mEq/15 mL 15mL Oral Soln PO SCH (17:45)
--- NOTE | 2016-10-26 18:32 | NUR ---
SPO2 Pt up to chair from 1000 to 1830. Pt continues to increase and decrease SPO2 while sitting and moving. Pt currently on 3 L NC SPO2 94%. Pt denies SOB. Pt sitting up to chair eating dinner. Care continues.
[2016-10-27] VITALS (7 sets, daily range): BP systolic 102–125; BP diastolic 63–77; PULSE 90–103; RESP 18–22; O2SAT 91–96
[2016-10-27 02:43] LABS: BASOPHILS % (AUTO) 0.3 % (0-3); EOSINOPHILS % (AUTO) 2.7 % (0-5); MONOCYTES % (AUTO) 8.5 % (4-12); Mean Corpuscular Hemoglobin 30.2 pg (27.0-35.0); Mean Corpuscular Volume 93.1 fL (81-100); NEUTROPHILS % (AUTO) 79.2 % (40-74); Platelet Count 228 bil/L (150-400)
--- NOTE | 2016-10-27 06:27 | NUR ---
Confusion Pt rotated 90 degrees to the side with legs outside of bed. Confused, denies pain. VSS, reorientated, and oxygen turned up to 5L via NC to keep SP02 at 93%.
[2016-10-27] MEDS: Potassium Chloride 20 mEq/15 mL 15mL Oral Soln PO SCH ×4 (08:14→17:58)
[2016-10-27] MEDS: Insulin LISPRO 300 Unit/3 mL Inj SUBQ SCH ×4 (08:14→20:55)
[2016-10-27] MEDS: Pantoprazole 40 mg ER24 Tablet PO SCH ×2 (08:14→17:58)
[2016-10-27] MEDS: Amoxicillin-Clav 875-125 mg Tablet PO SCH (08:15)
--- NOTE | 2016-10-27 10:23 | DRSVH ---
PROCEDURE: X-RAY CHEST, TWO VIEWS ([id number]) INDICATIONS: shortness of breath, new o2 req TECHNIQUE: 2 views of the chest were acquired. COMPARISON: [facility], , CHEST 2VW, 03/13/2013, 8:02. FINDINGS: Surgical changes and devices: Sternotomy with mediastinal postoperative changes. Lungs and pleura: Mild/moderate left-sided pleural effusion with dense left basilar volume loss. Trac e right-sided pleural effusion. Diffuse interstitial pulmonary opacities throughout the remaining tori gs. Hyperinflation consistent with edema. Mediastinum: Enlarged cardiac mediastinal silhouette. Bones and chest wall: No suspicious bony abnormalities. Soft tissues appear unremarkable. Vascular calcifications. Stable mid thoracic vertebral body compression fracture. IMPRESSION: Enlarged cardiac mediastinal silhouette with interstitial pulmonary opacities and pleural effusions left greater than right may represent congestive heart failure exacerbation. Superimposed infection is possible. Recommend radiographic followup to resolution to exclude underlying mass lesio n. If findings do not resolve chest CT with contrast will be needed. Dictated by: Fito Umaña M.D. on 10/27/2016 at 10:17 Approved by: Fito Umaña M.D. on 10/27/2016 at 10:21
--- NOTE | 2016-10-27 10:42 | PCM.PNMED ---
Subjective Date of Service Oct 27, 2016 Subjective Overnight Nyla got slightly confused again and refused to interact with her nurse or aids. Ms. Priest says she remembers being confused and thinks it is because she was moved to a new room and did not know anyone familiar. She is still having issues breathing but otherwise denies any chest pain, palpitations, fever/chills , nausea/vomiting, increased edema. Exam Vital Signs Vital Sign - Last Date Time Temp Pulse Resp B/P Pulse Ox O2 Delivery O2 Flow Rate FiO2 10/27/16 07:57 36.8 95 21 121/77 93 Nasal Cannula 4.00 Intake and Output 10/26/16 10/26/16 10/27/16 Cumulative From/Thru 15:00 23:00 07:00 10/20/16 11:06 - 10/27/16 06:23 Intake Total 1300 ml 400 ml 87984 ml Output Total 1600 ml 400 ml 16789 ml Balance -300 ml 0 ml -5059 ml Intake Oral 1300 ml 400 ml 6500 ml IV Total 5716 ml Packed Cells 300 ml Output Urine Total 1600 ml 400 ml 26720 ml Stool Total 2500 ml Urine/Stool Mix 700 ml # Voids 20 # Bowel Movements 1 12 Exam General: Elderly woman laying in bed in NAD. Interacting appropriately. HEENT: NCAT, PERRLA, EOMI. Mucous membranes pink, moist. Neck: Supple with full ROM. No lymphadenopathy, moderate JVD CV: RRR, with 3/6 systolic murmur, no rubs/gallops Pulm: Breath sounds continue to be coarse at the bases without overt crackles/ wheezing. Normal effort without accessory muscle use. Abd: Soft, nontender, nondistended. Bowel sounds present. No rebound, guarding. Extremities: Distal pulses intact bilaterally. No cyanosis, clubbing, edema. Neuro: A&Ox3. CN 2-12 intact. Normal muscle strength, no focal deficits. Psych: Normal mood and affect. IVs and Medications Medications Reviewed: Medications were reviewed in detail Lab and Diagnostics Result Diagram: 10/27/16 0230 10/27/16 0230 Microbiology URINE CULTURE ESCHERICHIA COLI that is stapleton sensitive Blood cultures negative x48h X-Rays, CTs and MRIs CXR 10/27 IMPRESSION: Enlarged cardiac mediastinal silhouette with interstitial pulmonary opacities and pleural effusions left greater than right may represent congestive heart failure exacerbation. Superimposed infection is possible. Recommend radiographic followup to resolution to exclude underlying mass lesion. If findings do not resolve chest CT with contrast will be needed. Dictated by: Fito Umaña M.D. on 10/27/2016 at 10:17 Approved by: Fito Umaña M.D. on 10/27/2016 at 10:21 CXR 10/26 IMPRESSION: Persistent bilateral pulmonary opacities with mild/moderate left- sided pleural effusion. Findings may represent infection and/or fluid imbalance. Dictated by: Fito Umaña M.D. on 10/26/2016 at 9:54 Approved by: Fito Umaña M.D. on 10/26/2016 at 9:56 CXR 10/24 IMPRESSION: 1. Patchy airspace opacities in lungs bilaterally suspicious for pneumonia. 2. Pulmonary edema. Dictated by: Ivon Garcia MD, PhD on 10/24/2016 at 16:17 Approved by: Ivon Garcia MD, PhD on 10/24/2016 at 16:19 CXR 10/20 IMPRESSION: No radiographic evidence of acute cardiopulmonary pathology. Dictated by: Fito Umaña M.D. on 10/20/2016 at 11:50 Approved by: Fito Umaña M.D. on 10/20/2016 at 11:51 X-RAY CHEST ONE VIEW, PORTABLE IMPRESSION: Persistent widespread pulmonary edema with potential areas of superimposed atelectasis and/or pneumonia with minimal effusions. No appreciable interval change. Approved by: Fatuma Sharma M.D. on 10/23/2016 at 16:12 X-RAY CHEST ONE VIEW IMPRESSION: 1. Patchy airspace opacities in lungs bilaterally suspicious for pneumonia. 2. Pulmonary edema. Dictated by: Ivon Garcia MD, PhD on 10/24/2016 at 16:17 Additional Diagnostics Colonoscopy. IMPRESSION: Stapleton diverticulosis. Otherwise normal examination from rectum to terminal ileum. Mei Rudd MD 10/22/16 1028 Assessment & Plan Mrs. Priest is an 81 year old female with past medical history significant for CAD with 5 vessel CABG, HTN, HLD, DM2, CHF, PVD, CKD, GERD and PUD that presented to the Emergency Department on 10/20/2016 with complaints of worsening chest pain and dizziness. The patient states the chest pain has been intermittent for the past couple months but it got worse today and started radiating to her shoulder. She was globally weak, felt short of breath, and was dizzy. She also mentions having black tarry stools last week that have since resolved. She's been evaluated before and was told she had bleeding ulcers. Acute Hypoxic Respiratory failure, not present on admission. Improving. - Likely secondary to Pulmonary Edema and fluid overload - Not on Home O2 at baseline and has needed increasing amounts this morning ( from 3L to 4-4.5L) - Lasix and Torsemide held due to bump in kidney function - CXR as above - Cardiology (Dr. Centeno) consulted as her diuresis was started as an outpatient with Dr. Cid increasing her diuretic and we are not making progress Acute on chronic Systolic Congestive Heart Failure, present on admission. Stable. - Echo in 06/24 showed a LVEF 35% with severely dilated left and right atrium - Metoprolol restarted due to BP stability - Hold diuresis as her kidney function has slightly declined - Palliative consulted for goals of care conversation Acute on Chronic Kidney Injury, present on admission. Stable. - Renal function bumped with BUN 32, Creatinine around her baseline now at 1.36 - Avoid nephrotoxic agents - Hold diuresis for Cardiology recommendations Acute Anemia, present on admission. Stable. - History significant for ongoing GI bleeds, GERD/PUD, recent melena. - Restart daily plavix rather than q48 - Stable H/H at this time, no further tarry/bloody stools Acute cystitis, present on admission. Resolved. - UA +nitrite, +Leuk esterase, +blood, packed WBC - WBC normalized, no reported dysuria or hematuria - Urine culture results as above; stapleton sensitive E. coli - Continue Augmentin 875 PO BID Dehydration, present on admission. Acute. Resolved. - Patient reports low oral intake as well as excessive diuretic use - Replete electrolytes as necessary Hypotension, present on admission. Acute. Resolved. - Likely due to dehydration, excessive diuretic use - Restarted Metoprolol as above - Watch fluid status due to systolic CHF with LVEF 35% Chronic GERD with PUD and GI bleeds, present on admission. Resolved. - Transfused 1 unit PRBC's in the ED; transfusion parameters as above - Plavix as above - EGD and colonoscopy did not show active bleed Diabetes mellitus type 2, insulin requiring, present on admission. Ongoing. - Patient reported she was diabetic but hasn't been on medications for awhile - A1C 7 - Blood glucose hovering on the high end of normal; continue to watch as her appetite is coming back Hypertension - Metoprolol restarted as above Hyperlipidemia - Continue Pravastatin Glaucoma - Continue Bimatoprost Gout - Continue Allopurinol Hypothyroidism - Continue Levothyroxine Chronic insomnia - Continue Temazepam Acetaminophen for mild pain when necessary. Bowel regimen Senna and MiraLAX scheduled as necessary. Zofran when necessary for nausea and vomiting. SubQ heparin continues to be held. SCDs in place. Disposition: The patient will likely be here 1-2 more days depending on the continued stability of her H/H and continued improvement of her respiratory status GI Prophylaxis: Proton Pump Inhibitor VTE Mechanical Devices: Intermittant Pneumatic CD Resuscitation Status: CPR: Attempt Resuscitation Attending Statement The patient was seen and examined together with Dr. Romero on 10/27/2016 and I agree with the history, exam and plan as outlined in the note above. . Henrry Romero DO Oct 27, 2016 10:42 Александр Howard MD Oct 29, 2016 17:06
--- NOTE | 2016-10-27 12:15 | PCM.CHPCAR ---
Consult Subjective Date of service Oct 27, 2016 Date of admit Oct 20, 2016 at 13:17 Provider Requesting Consult Primary Care Physician Primary Care Physician: Wendy Vance MD Chief Complaint dyspnea, UGI bleeding History of Present Illness 81-year-old woman history of peripheral artery disease, coronary artery disease , and systolic heart failure from ischemic cardiomyopathy, hypertension, hyperlipidemia, and diabetes admitted with acute GI bleed. As part of her resuscitation, she received fluids and blood products. EGD and colonoscopy did not show any active bleeding. Over the course of her hospitalization, she has continued to feel dyspneic despite diuresis, which by the way was reduced from her home dose. Over the past 2 days, patient has received furosemide IV 40 mg 3 times and has had reasonable urine output but has developed an acute kidney injury. Cardiology consult at for heart failure management. On history today, patient states that she continues to have dyspnea but it is better than when she came in. She is quite frail and gets around very short distances with walker. He also reports having some lightheadedness with exertion but denies syncope or chest pain. She reports no recurrence of her melena since admission. Review of Systems Review of Systems Per history of present illness and otherwise unremarkable PMH Past Medical History # HFrEF suspected ischemic cardiomyopathy with EF 35% on Echo 06/2016 # CAD with suspected prior HI # Peripheral artery disease in both iliac and femoral arteries along with subclavian vessels # Diabetes # HTN # HLD Bedside Blood Glucose: 190 Scheduled Allopurinol (Allopurinol) 300 Mg Tablet 300 MG PO DAILY (Reported) Bimatoprost (Lumigan) 45 Drop/2.5 Ml Ophsoln 1 DROP OD HS (Reported) each eye Clopidogrel Bisulfate (Plavix) 75 Mg Tablet 75 MG PO DAILY (Reported) Furosemide (Furosemide) 80 Mg Tab 160 MG PO DAILY (Reported) Lansoprazole (Lansoprazole) 30 Mg Capsule.dr 30 MG PO DAILY (Reported) Levothyroxine (Levothyroxine) 25 Mcg Tablet 25 MCG PO AM (Reported) Take on an empty stomach. Metoprolol Tartrate (Metoprolol Tartrate) 25 Mg Tablet 25 MG PO HS (Reported) Metoprolol Tartrate (Metoprolol Tartrate) 25 Mg Tablet 50 MG PO QAM (Reported) Multivitamin (Multivitamins) 1 Each Capsule 1 EACH PO DAILY (Reported) Potassium Chloride ER (Potassium Chloride ER) 20 Meq Tablet.er 20 MEQ PO BID ( Reported) TAKE WITH FOOD Pravastatin (Pravastatin) 40 Mg Tablet 40 MG PO DAILY (Reported) Scheduled PRN Temazepam (Temazepam) 30 Mg Cap 30 MG PO HS PRN PRN For Insomnia (Reported) Tizanidine (Tizanidine) 2 Mg Tablet 1-2 MG PO DAILY PRN PRN For Spasm (Reported ) Discontinued Medications Ferrous Sulfate (Iron) 325 Mg Capsule.er 325 MG PO DAILY (Reported) Furosemide (Furosemide) 40 Mg Tablet 80 MG PO BID (Reported) Current Inpatient Medications Current Medications Amoxicillin/ Clavulanate Potassium 1 tab BID PO Last administered on 10/27/16 08:15; Admin Dose 1 TAB; Start 10/25/16 at 15:00 Quetiapine Fumarate 25 mg HS PO Last administered on 10/25/16 20:54; Admin Dose 25 MG; Start 10/25/16 at 21:00; Stop 10/26/16 at 17:15; Status DC Torsemide 40 mg DAILY PO Last administered on 10/27/16 08:15; Admin Dose 40 MG ; Start 10/26/16 at 09:45; Stop 10/27/16 at 10:46; Status DC Potassium Chloride 20 meq TIDWM PO Last administered on 10/27/16 08:14; Admin Dose 20 MEQ; Start 10/26/16 at 17:30 Quetiapine Fumarate 25 mg DAILY PRN PO Last administered on 10/27/16 02:08; Admin Dose 25 MG; Start 10/26/16 at 17:15 Clopidogrel Bisulfate 75 mg DAILY PO Last administered on 10/27/16 08:14; Admin Dose 75 MG; Start 10/27/16 at 08:30 Allergies: Coded Allergies: Mmkdecg-Djf-Mzm Reductase Inhibitor (Verified Allergy, Mild, sore shoulders, 10/20/16) can tolerate pravastatin rosuvastatin (Verified Allergy, Mild, sore shoulders, 10/20/16) cilostazol (Unverified Allergy, Unknown, 10/20/16) rofecoxib (Verified Allergy, Unknown, 10/20/16) simvastatin (Unverified Allergy, Unknown, sore shoulders, 10/20/16) Family History Family History Kids are healthy. No family history of early heart disease. Social History Hx Alcohol Use: Yes (1-2/week)Hx Substance Use: NoHx Tobacco Use: Yes (50 years of 1/2 to 1 ppd) Smoking Status: Former Smoker Living Arrangement: with Family Alone Exam Vital Signs Vital Sign - Last Date Time Temp Pulse Resp B/P Pulse Ox O2 Delivery O2 Flow Rate FiO2 10/27/16 07:57 36.8 95 21 121/77 93 Nasal Cannula 4.00 Intake and Output 10/26/16 10/26/16 10/27/16 Cumulative From/Thru 15:00 23:00 07:00 10/20/16 11:06 - 10/27/16 06:23 Intake Total 1300 ml 400 ml 28366 ml Output Total 1600 ml 400 ml 10857 ml Balance -300 ml 0 ml -5059 ml Intake Oral 1300 ml 400 ml 6500 ml IV Total 5716 ml Packed Cells 300 ml Output Urine Total 1600 ml 400 ml 56726 ml Stool Total 2500 ml Urine/Stool Mix 700 ml # Voids 20 # Bowel Movements 1 12 Objective General appearance: No apparent distress, frail, elderly, pleasant, cooperative HEET: Normocephalic atraumatic, no scleral icterus, tongue midline, mucous membranes moist Neck: supple Cardiovascular: RRR, normal S1 and soft S2, no murmur, rubs, or gallops, JVP elevated at 12 cm of water Respiratory: Fair aeration, coarse bilaterally, 3-4 word conversational dyspnea Abdomen: Soft, nontender, nondistended, + bowel sounds Neuro: Alert, no facial droop, tongue midline, no gross motor deficits Psych: flat affect Skin: no rashes on face, neck, and lower extremities Lab and Diagnostics Result Diagram: 10/27/16 0230 10/27/16 0230 X-Rays, CTs and MRIs Chest x-ray today shows pulmonary edema and bilateral pleural effusions 12-lead ECG EKG on admission shows sinus rhythm with LVH strain pattern Assessment & Plan Assessment 81-year-old woman history of peripheral artery disease, coronary artery disease , and systolic heart failure from ischemic cardiomyopathy, hypertension, hyperlipidemia, and diabetes admitted with acute GI bleed. Cardiology consulted for heart failure management. # Dyspnea on exertion from acute on chronic systolic heart failure: Based on patient's clinical history, physical exam, and chest x-ray findings, patient clearly has hypervolemia from acute on chronic systolic heart failure. She feels better with diuresis but continues to be hypervolemic. Her NYHA class is 4, ACC stage C. Recommendations as below: - Switch from metoprolol tartrate to metoprolol succinate 75 mg at bedtime - Given furosemide 40 mg IV twice daily to be goal net negtative at -1.5 L - Give hydralazine 25 mg by mouth 3 times a day for afterload reduction, hold if SBP < 100 - BRANDON inhibitor or ARBs when running baseline # CAD/PAD: stable. No symptoms of acute ischemia. Troponins negative on admission. Continue to monitor. # Hypertension: Management as above # Hyperlipidemia: she has statin intolerance. Given cardiomyopathy, patient is unlikely to benefit from statin therapy even though she had ischemic heart disease (MONROE trial). I will defer management to primary transportation supervisor as outpatient. # Diabetes: Patient having [id number] hyperglycemia in the hospital. We will defer management to primary team. Pain Evaluation: Adequate Pain Control VTE Mechanical Devices: Intermittant Pneumatic CD Resuscitation Status: CPR: Attempt Resuscitation Cornelio Centeno MD Oct 27, 2016 12:15
--- NOTE | 2016-10-27 15:02 | PCM.PALLBR ---
Palliative Care Recommendation 81-year-old female with multiple chronic medical problems, admitted with acute on chronic anemia, progressive weakness, dyspnea, etc. Palliative medicine consulted to assist patient in determination of goals of care. As patient is stable at this time and has clearly expressed her care wishes (as documented below) palliative medicine will sign off at this time. Please contact us if we may be of further assistance. Summary of palliative recommendations: -Symptom management (Pain/other)- comfortable and in no significant distress at this time. Continued management per medical team -DPOA/Advanced Directives/POLST- patient thinks that her daughter Iris is her medical power of trial attorney. She notes that Iris's is her financial POA. She has never completed an advanced directive or living will and refuses to do so- she says that if such a thing becomes necessary, either she will decide what to do or her family members can decide after consulting with the physician. She said in 2001 when she had her heart attack, stroke, emergency bypass surgery, etc. everybody told her family that she would never survive- she did, however, and so shewants to have all possible resuscitation efforts made for the time being. -Family/emotional support- good support from her children. She notes that her daughter Hilda who lives in [place] would be willing to come and live with her to help her [id number], but she (the patient) has lived alone for long time and is quite sure that she is ready for that Patient Goals: 1. Patient wants to be told the truth about her illness, even if it is unpleasant. 2. Patient would like to be told prognosis when it can be predicted, to better guide treatment decisions. 3. Patient would choose quality of life over quantity of life, and defines quality as living independently and comfortably Additional Medical Diagnoses with primary management by Hospitalist team include : Acute Hypoxic Respiratory failure, not present on admission. Improving. Acute Anemia, present on admission. Stable. Urinary Tract Infection, present on admission. Acute. Resolved. Dehydration, present on admission. Acute. Resolved. Hypotension, present on admission. Acute. Resolved. Acute on Chronic Kidney Injury, present on admission. Stable. Chronic GERD with PUD and GI bleeds, present on admission. Resolved. Diabetes mellitus type 2, insulin requiring, present on admission. Ongoing. Systolic Congestive Heart Failure, present on admission. Chronic. Stable. Hypertension Hyperlipidemia Glaucoma Gout Hypothyroidism Chronic insomnia Problems: End of Life Preferences Full code Goals of Care Recovery and return home Disposition Home versus SNF Resuscitation Status Resuscitation Status: CPR: Attempt Resuscitation POLST Updates/Changes Previous POLST?: No . Pain: None Symptom management: Dyspnea Total time 25 minutes; >50% face to face with patient , providing counselling regarding plans and recommendations, and in care coordination with her medical teams. Palliative Brief Note Date of Service Oct 27, 2016 . Returned to reevaluate patient. Prior to positioning, reviewed her updated records in the EMR. Spoke with bedside nurse reported that patient had some confusion earlier but now seemed to be stabilized. Also spoke later with members of her hospitalist team and reviewed plans with them. Cardiology consultation results/recommendations reviewed. When I arrived, patient was called up on her side sleeping but awakened easily. She admitted that she had felt funny earlier in the morning but felt better now. Occasional nonproductive cough. She said she hoped she might go home today or tomorrow. Denied any significant pain. On exam, frail elderly woman lying in bed. Vital signs noted. Skin is pale, warm and dry. Head and neck exam without acute findings. Lungs with persistent dependent crackles but no wheezes. Heart sounds regular. Abdomen soft and nontender. Ankles with +1 pitting edema. Laboratory studies reviewed in detail. Nitin Jay MD Oct 27, 2016 15:02
--- NOTE | 2016-10-27 16:02 | NUR ---
Social Work: Multidisciplinary Rounds Pt discussed in am rounds; sw status remains unchanged. Anticipate discharge to SNF when medically stable. CUSHION GUM APPLICATOR attempted to meet with the patient today however was unable to do so due to high census. CUSHION GUM APPLICATOR will attempt to see patient tomorrow to follow up with SNF preference. DORIAN Rangel
[2016-10-27] MEDS: Furosemide 10 mg/mL 4 mL Inj IVPUSH SCH (17:58)
--- NOTE | 2016-10-27 19:43 | NUR ---
Change in Mentation 0734 - Paged Dr. Romero as she was very confused, was trying to get out of bed on her own, and wasn't verbally responding to questions. personal service workers said she had become confused around 0600. 744 - Dr. Romero came by and he was given a verbal update on her condition. He went into to assess her and although she was still somewhat confused she was able to talk with him. She continued to improve since then and became A&Ox4, while only making an occasional confused comment. 830 - Spoke to Dr. Jay and gave him an update on her care. 929 - Discussed her care with Dr. George, Dr. Howard, and the rest of the multidisciplinary care team during morning rounds. 944 - She left [facility] 2003 to get a two-view x-ray. She returned about 1000. Care continues.
[2016-10-27] MEDS ORDERED: MeTOProlol XL 25 mg ER24 Tablet PO SCH (21:00)
[2016-10-28] VITALS (7 sets, daily range): BP systolic 116–135; BP diastolic 57–76; PULSE 71–99; RESP 20–27; O2SAT 90–97
--- NOTE | 2016-10-28 04:10 | NUR ---
Confusion Pt making statements about plane crashes, strangers in her room, and walking to her kitchen. Able to reorientate, pt accepting reorientation.
[2016-10-28 08:03] LABS: BASOPHILS % (AUTO) 0.3 % (0-3); EOSINOPHILS % (AUTO) 3.4 % (0-5); MONOCYTES % (AUTO) 9.3 % (4-12); Mean Corpuscular Hemoglobin 29.9 pg (27.0-35.0); Mean Corpuscular Volume 93.9 fL (81-100); NEUTROPHILS % (AUTO) 70.6 % (40-74); Platelet Count 227 bil/L (150-400)
[2016-10-28] MEDS: Albuterol-Ipratropium 3 mL Inhalation Solution NEB PRN (08:39)
[2016-10-28] MEDS: Insulin LISPRO 300 Unit/3 mL Inj SUBQ SCH ×4 (08:44→22:00)
[2016-10-28] MEDS: Furosemide 10 mg/mL 4 mL Inj IVPUSH SCH ×2 (08:44→16:06)
[2016-10-28] MEDS: Pantoprazole 40 mg ER24 Tablet PO SCH ×2 (08:44→16:06)
[2016-10-28] MEDS: Potassium Chloride 20 mEq/15 mL 15mL Oral Soln PO SCH (08:45)
[2016-10-28] MEDS: Albuterol 2.5 mg/3 mL Inhalation Solution NEB PRN (08:52)
[2016-10-28] MEDS: Potassium Chloride 20 mEq SR Tablet PO SCH ×3 (09:33→18:27)
--- NOTE | 2016-10-28 11:31 | PCM.PNCARD ---
Subjective Date of service Oct 28, 2016 Chief Complaint Shortness of breath/GI bleed History of Present Illness This is a pleasant 81-year-old female with history of ischemic heart myopathy. The patient was started on IV diuretics and has made a moderate improvement in regards with a urine output. However her weight has been steady. She does not notice a significant improvement of her breathing. When asked her to move up a little but higher in the bed she was dyspneic. She appears to be quite comfortable laying flat on her back though. Constitutional: Reports: Weakness, Denies: Fever Eyes: Denies: Blurred Vision Cardiovascular: Reports: SOB on Exertion, Denies: Chest Pain, SOB while laying flat Respiratory: Reports: SOB with Exertion, Shortness of Breath, Denies: Wake up SOB Gastrointestinal: Reports: Black tarry stools, Blood in stool (red), Denies: Abdominal Pain Musculoskeletal: Reports: Back Pain Neurological: Reports: Confusion Endocrine: Reports: Blood Glucose Review Exam Vital Signs Vital Sign - Last Date Time Temp Pulse Resp B/P Pulse Ox O2 Delivery O2 Flow Rate FiO2 10/28/16 11:07 80 10/28/16 08:52 22 97 Nasal Cannula 4.00 10/28/16 08:29 36.5 122/68 Intake and Output 10/27/16 10/27/16 10/28/16 Cumulative From/Thru 15:00 23:00 07:00 10/20/16 11:06 - 10/28/16 04:08 Intake Total 55234 ml Output Total 250 ml 81997 ml Balance -250 ml -5309 ml Intake Oral 6500 ml IV Total 5716 ml Packed Cells 300 ml Output Urine Total 250 ml 69362 ml Stool Total 2500 ml Urine/Stool Mix 700 ml # Voids 4 24 # Bowel Movements 2 14 Additional Information: GENERAL: Well-appearing, well-nourished and in no acute distress. HEAD: Atraumatic, normocephalic. EYES: Pupils equal round and reactive to light, extraocular movements intact, sclera anicteric, conjunctiva are normal. ENT: TMs normal, nares patent, oropharynx clear without exudates. Moist mucous membranes. NECK: JVP is severely elevated LUNGS: Diffuse crackles HEART: Regular rate and rhythm without murmurs, rubs or gallops. ABDOMEN: Soft, nontender, normoactive bowel sounds. No guarding, no rebound. No masses appreciated. EXTREMITIES: Normal range of motion, no pitting or edema. No clubbing or cyanosis. NEUROLOGICAL: Cranial nerves II through XII grossly intact. Normal speech PSYCH: Normal mood, normal affect. SKIN: Warm, Dry, normal turgor, no rashes or lesions noted. Lab and Diagnostics Result Diagram: 10/28/16 0755 10/28/16 0755 Assessment & Plan Problems: (1) Combined systolic and diastolic congestive heart failure, NYHA class 4 Plan: Patient continues to be volume overloaded after more aggressive IV diuretics. Given this I think she will need to have dobutamine or some form of other inotropic support to promote more diuresing. Her lab work shows that she is developing some degree of prerenal azotemia even though her examination and other studies indicate that she still fluid overloaded. Will start off at 2.5 mcg/kg/m and then consider titrating to 5 mcg/kg/m if she is able to tolerate it. I have lowered her metoprolol succinate to 25 mg once a day since she still has congestive heart failure. Have added additional afterload reducing agent such as Isordil and we will continue with hydralazine. At one point we can consider switching her to an BRANDON inhibitor or Entresto. I will continue to monitor this patient closely over the weekend to see how she responds. Status: Acute ICD Code: I50.40 (2) Upper GI bleed Status: Acute ICD Code: K92.2 (3) Ischemic cardiomyopathy Status: Acute ICD Code: I25.5 Pain Evaluation: Adequate Pain Control GI Prophylaxis: Proton Pump Inhibitor VTE Mechanical Devices: Intermittant Pneumatic CD Resuscitation Status: CPR: Attempt Resuscitation Time spent 30 minutes Fei Holder MD Oct 28, 2016 11:31
[2016-10-28] MEDS: DOBUTamine 500 mg/250 D5W 500,000 MCG in IV Premix 1 EACH IV SCH (12:14)
--- NOTE | 2016-10-28 14:15 | PCM.PNMED ---
Subjective Date of Service Oct 28, 2016 Subjective Overnight the patient got slightly confused but was easily redirected. Ms. Priest continues to feel much the same. Her breathing is not improving and she gets SOB during conversation. She denies any fever/chills, nausea/vomiting, chest pain, abdominal pain. Exam Vital Signs Vital Sign - Last Date Time Temp Pulse Resp B/P Pulse Ox O2 Delivery O2 Flow Rate FiO2 10/28/16 12:58 Nasal Cannula 4.00 10/28/16 12:13 85 21 129/69 94 10/28/16 08:29 36.5 Intake and Output 10/27/16 10/27/16 10/28/16 Cumulative From/Thru 15:00 23:00 07:00 10/20/16 11:06 - 10/28/16 04:08 Intake Total 24907 ml Output Total 250 ml 37653 ml Balance -250 ml -5309 ml Intake Oral 6500 ml IV Total 5716 ml Packed Cells 300 ml Output Urine Total 250 ml 71421 ml Stool Total 2500 ml Urine/Stool Mix 700 ml # Voids 4 24 # Bowel Movements 2 14 Exam General: Elderly woman laying in bed in NAD. Interacting appropriately. HEENT: NCAT, PERRLA, EOMI. Mucous membranes pink, moist. Neck: Supple with full ROM. No lymphadenopathy, still has moderate JVD CV: RRR, with 3/6 systolic murmur, no rubs/gallops Pulm: Breath sounds continue to be coarse at the bases without overt crackles/ wheezing. Normal effort without accessory muscle use. Abd: Soft, nontender, nondistended. Bowel sounds present. No rebound, guarding. Extremities: Distal pulses intact bilaterally. No cyanosis, clubbing, edema. Neuro: A&Ox3. CN 2-12 intact. Normal muscle strength, no focal deficits. Psych: Anxious IVs and Medications Medications Reviewed: Medications were reviewed in detail Lab and Diagnostics Result Diagram: 10/28/16 0755 10/28/16 0755 Microbiology URINE CULTURE ESCHERICHIA COLI that is stapleton sensitive Blood cultures negative x48h X-Rays, CTs and MRIs CXR 10/27 IMPRESSION: Enlarged cardiac mediastinal silhouette with interstitial pulmonary opacities and pleural effusions left greater than right may represent congestive heart failure exacerbation. Superimposed infection is possible. Recommend radiographic followup to resolution to exclude underlying mass lesion. If findings do not resolve chest CT with contrast will be needed. Dictated by: Fito Umaña M.D. on 10/27/2016 at 10:17 Approved by: Fito Umaña M.D. on 10/27/2016 at 10:21 CXR 10/26 IMPRESSION: Persistent bilateral pulmonary opacities with mild/moderate left- sided pleural effusion. Findings may represent infection and/or fluid imbalance. Dictated by: Fito Umaña M.D. on 10/26/2016 at 9:54 Approved by: Fito Umaña M.D. on 10/26/2016 at 9:56 CXR 10/24 IMPRESSION: 1. Patchy airspace opacities in lungs bilaterally suspicious for pneumonia. 2. Pulmonary edema. Dictated by: Ivon Garcia MD, PhD on 10/24/2016 at 16:17 Approved by: Ivon Garcia MD, PhD on 10/24/2016 at 16:19 CXR 10/20 IMPRESSION: No radiographic evidence of acute cardiopulmonary pathology. Dictated by: Fito Umaña M.D. on 10/20/2016 at 11:50 Approved by: Fito Umaña M.D. on 10/20/2016 at 11:51 X-RAY CHEST ONE VIEW, PORTABLE IMPRESSION: Persistent widespread pulmonary edema with potential areas of superimposed atelectasis and/or pneumonia with minimal effusions. No appreciable interval change. Approved by: Fatuma Sharma M.D. on 10/23/2016 at 16:12 X-RAY CHEST ONE VIEW IMPRESSION: 1. Patchy airspace opacities in lungs bilaterally suspicious for pneumonia. 2. Pulmonary edema. Dictated by: Ivon Garcia MD, PhD on 10/24/2016 at 16:17 Additional Diagnostics Colonoscopy. IMPRESSION: Stapleton diverticulosis. Otherwise normal examination from rectum to terminal ileum. Mei Rudd MD 10/22/16 1028 Assessment & Plan Mrs. Priest is an 81 year old female with past medical history significant for CAD with 5 vessel CABG, HTN, HLD, DM2, CHF, PVD, CKD, GERD and PUD that presented to the Emergency Department on 10/20/2016 with complaints of worsening chest pain and dizziness. The patient states the chest pain has been intermittent for the past couple months but it got worse today and started radiating to her shoulder. She was globally weak, felt short of breath, and was dizzy. She also mentions having black tarry stools last week that have since resolved. She's been evaluated before and was told she had bleeding ulcers. Acute Hypoxic Respiratory failure, not present on admission. Ongoing. - Likely secondary to Pulmonary Edema and fluid overload - Not on Home O2 at baseline and has needed increasing amounts this morning ( from 3L to 4-4.5L) - Cardiology recommendations per Dr. Holder: Dobutamine drip 2.5mcg with titration to 5 if tolerable (through 20g peripheral; consider PICC if half-way) Metoprolol Succinate decreased to 25mg Continue Hydralazine 25mg TID Consider Isordil Acute on chronic Systolic Congestive Heart Failure, present on admission. Stable. - Echo in 06/24 showed a LVEF 35% with severely dilated left and right atrium - Metoprolol adjusted as above - Palliative consulted for goals of care conversation, she would like to continue living alone as her goal - Cardiology recommendations as above Acute on Chronic Kidney Injury, present on admission. Stable. - Creatinine stable ~1.3 - Avoid nephrotoxic agents - Cardiology recommendations above will likely improve renal perfusion Delirium, not present on admission, acute. Ongoing. - Patient has been confused at nights, likely due to sundowning as patient clears during waking hours - [facility] care, no lab draws prior to 6am to allow patient to sleep - Will schedule melatonin; seroquel PRN if patient is unable to be redirected Acute Anemia, present on admission. Stable. - History significant for ongoing GI bleeds, GERD/PUD, recent melena. - Stable H/H at this time, trend daily in pediatric tubes Acute cystitis, present on admission. Resolved. - UA +nitrite, +Leuk esterase, +blood, packed WBC - Urine culture results as above; stapleton sensitive E. coli - Discontinue Amoxicillin at this time Dehydration, present on admission. Acute. Resolved. - Patient reports low oral intake as well as excessive diuretic use - Replete electrolytes as necessary Hypotension, present on admission. Acute. Resolved. - Likely due to dehydration, excessive diuretic use - Metoprolol decreased as above - Watch fluid status due to systolic CHF with LVEF 35% Chronic GERD with PUD and GI bleeds, present on admission. Resolved. - Plavix returned to daily use instead of q48h - EGD and colonoscopy did not show active bleed Diabetes mellitus type 2, insulin requiring, present on admission. Ongoing. - Patient reported she was diabetic but hasn't been on medications for awhile - A1C 7 - Blood glucose has been difficult to manage as her appetite has been highly variable; continue to monitor Hypertension - Metoprolol as above Hyperlipidemia - Continue Pravastatin Glaucoma - Continue Bimatoprost Gout - Continue Allopurinol Hypothyroidism - Continue Levothyroxine Chronic insomnia - Continue Temazepam Acetaminophen for mild pain when necessary. Bowel regimen Senna and MiraLAX scheduled as necessary. Zofran when necessary for nausea and vomiting. SubQ heparin continues to be held. SCDs in place. Disposition: The patient will likely be here throughout the weekend depending on her continued response to diuresis and the medicine changes put in place by Cardiology as well as her overall stability. GI Prophylaxis: Proton Pump Inhibitor VTE Mechanical Devices: Intermittant Pneumatic CD Resuscitation Status: CPR: Attempt Resuscitation Henrry Romero DO Oct 28, 2016 14:15 Александр Howard MD Oct 29, 2016 17:07
--- NOTE | 2016-10-28 14:53 | NUR ---
Social Work: Continued Discharge Planning/Multidisciplinary Rounds D: Pt discussed in am rounds. Pt is not medically stable for discharge at this time. Pt's d/c needs are unknown at this time as pt does not appear to be improving. PT continues to recommend SNF for the patient, however pt may require hospice information if clinical course does not improve. Pt ambulating 30 feet with PT today, MAURO, currently on 4L02. FIELD TRAINER attempted to meet with the patient at bedside. Pt is resting comfortably at this time. Further discussion about dcp will be had once pt's clinical course and d/c needs are more apparent. Pt has [employer] Medicare and will require SNF authorization. A: Pt who may require skilled rehab for discharge P: Evolving; sharebroker to continue to follow to assess for d/c needs. Anticipate possible SNF discharge pending [employer] Auth. DORIAN Rangel
[2016-10-28] MEDS ORDERED: Sodium Chloride LOK Flush 10 mL Syringe IVFLUSH PRN ×2 (17:25)
--- NOTE | 2016-10-28 19:27 | NUR ---
Dobutamine 0820 - Called Respiratory Therapist Madhav to get her some nebulizer treatments as she was wheezing, short of breath, and couldn't stop coughing. She was given a couple of nebulizer treatments and was able to breath much better afterwards. Called Pharmacist Gianni and asked if her liquid Potassium could be changed to tablet form per patient preference. It was changed and was administered to her. 0930 - Discussed her care with Dr. George, Dr. Howard, and the rest of the multidisciplinary care team during morning rounds. Discussed possibly transferring her to another floor as she seemed to be doing well. Also, pointed out that her blood glucose checks had been running in the high 100s and low 200s and that she may need her correctional insulin increased. They said they would look into all this. 1115 - Spoke to Dr. Holder who said he changed a few of her medications and wanted her to be started on a Dobutamine IV drip at 2.5 mcg/kg/min. He said he would stop by later and may have her drip increased to 5 mcg/kg/min. 1133 - She only had a [address] which was not the right size for the Dobutamine drip protocol. Attempted to place a 20 gauge IV, but was unsuccessful. Called IV therapy who was able to place one. Her drip was started around 1225 after getting her set up on an MP30 monitor and obtaining vitals. 1326 - Per Insulation Power Unit Tender she had 5 beats of V-tach. Notified Dr. Romero about 1328. She was asymptomatic at that time. 1431 - Paged Dr. Holder as she was having more ventricular beats. Also, notified him about the 5 beats of V-tach. He said to keep her at her current rate and to not increase it tonight. Call if she became symptomatic and to continue the current diuresing regimen. Notified the Charge Nurse Desiree Langley RN on the plan of care. She has continued to have a few PVCs the rest of the day, but is doing well otherwise. Care continues.
[2016-10-28] MEDS: MeTOProlol XL 25 mg ER24 Tablet PO SCH (19:57)
[2016-10-29] VITALS (10 sets, daily range): BP systolic 111–130; BP diastolic 52–70; PULSE 91–104; RESP 17–33; O2SAT 92–96
[2016-10-29 03:00] LABS: BASOPHILS % (AUTO) 0.2 % (0-3); EOSINOPHILS % (AUTO) 2.7 % (0-5); MONOCYTES % (AUTO) 9.5 % (4-12); Mean Corpuscular Hemoglobin 29.5 pg (27.0-35.0); NEUTROPHILS % (AUTO) 70.5 % (40-74); Platelet Count 252 bil/L (150-400)
[2016-10-29 03:17] LABS: Magnesium 1.9 mg/dL (1.6-2.6)
--- NOTE | 2016-10-29 06:12 | NUR ---
Tele/Dobutamine/Rest Patient continues to be in sinus rhythm with occasional PVCs. Dobutamine gtt unchanged at 2.5 mcg/kg/hour. Patient sleeping well overnight. Continue to monitor.
[2016-10-29] MEDS: Albuterol-Ipratropium 3 mL Inhalation Solution NEB PRN (07:06)
[2016-10-29] MEDS: Furosemide 10 mg/mL 4 mL Inj IVPUSH SCH ×2 (08:24→16:51)
[2016-10-29] MEDS: Pantoprazole 40 mg ER24 Tablet PO SCH ×2 (08:25→16:51)
[2016-10-29] MEDS: Potassium Chloride 20 mEq SR Tablet PO SCH ×3 (08:25→17:53)
[2016-10-29] MEDS: Insulin LISPRO 300 Unit/3 mL Inj SUBQ SCH ×4 (08:41→21:57)
[2016-10-29] MEDS: DOBUTamine 500 mg/250 D5W 500,000 MCG in IV Premix 1 EACH IV SCH (11:36)
--- NOTE | 2016-10-29 15:50 | NUR ---
ROXANE signed. Deanne Neely SIGNALING PROJECT ENGINEER
--- NOTE | 2016-10-29 16:34 | PCM.PNMED ---
Subjective Date of Service Oct 29, 2016 Subjective Overnight the patient had another episode of confusion but is easily redirected. Ms. Priest is feeling better but she still has episodes of desaturations where she can't catch her breath. She denies fever/chills, chest pain, palpitations, nausea/vomiting. Exam Vital Signs Vital Sign - Last Date Time Temp Pulse Resp B/P Pulse Ox O2 Delivery O2 Flow Rate FiO2 10/29/16 12:56 Nasal Cannula 4.00 10/29/16 11:55 37.0 96 17 120/59 95 Intake and Output 10/28/16 10/28/16 10/29/16 Cumulative From/Thru 15:00 23:00 07:00 10/20/16 11:06 - 10/29/16 06:17 Intake Total 305 ml 22 ml 293 ml 42716 ml Output Total 1150 ml 65595 ml Balance 305 ml 22 ml -857 ml -5839 ml Intake Oral 300 ml 240 ml 7040 ml IV Total 5 ml 22 ml 53 ml 5796 ml Packed Cells 300 ml Output Urine Total 1150 ml 44913 ml Stool Total 2500 ml Urine/Stool Mix 700 ml # Voids 4 28 # Bowel Movements 2 2 18 Exam General: Elderly woman laying in bed in NAD. Interacting appropriately. HEENT: NCAT, PERRLA, EOMI. Mucous membranes pink, moist. Neck: Supple with full ROM. No lymphadenopathy, still has moderate JVD CV: RRR, with 3/6 systolic murmur, no rubs/gallops Pulm: Breath sounds continue to be coarse at the bases without overt crackles/ wheezing. Normal effort without accessory muscle use. Abd: Soft, nontender, nondistended. Bowel sounds present. No rebound, guarding. Extremities: Distal pulses intact bilaterally. No cyanosis, clubbing, edema. Neuro: A&Ox3. CN 2-12 intact. Normal muscle strength, no focal deficits. Psych: Anxious IVs and Medications Medications Reviewed: Medications were reviewed in detail Lab and Diagnostics Result Diagram: 10/29/1621410/29/16214 Microbiology URINE CULTURE ESCHERICHIA COLI that is stapleton sensitive Blood cultures negative x48h X-Rays, CTs and MRIs CXR 10/27 IMPRESSION: Enlarged cardiac mediastinal silhouette with interstitial pulmonary opacities and pleural effusions left greater than right may represent congestive heart failure exacerbation. Superimposed infection is possible. Recommend radiographic followup to resolution to exclude underlying mass lesion. If findings do not resolve chest CT with contrast will be needed. Dictated by: Fito Umaña M.D. on 10/27/2016 at 10:17 Approved by: Fito Umaña M.D. on 10/27/2016 at 10:21 CXR 10/26 IMPRESSION: Persistent bilateral pulmonary opacities with mild/moderate left- sided pleural effusion. Findings may represent infection and/or fluid imbalance. Dictated by: Fito Umaña M.D. on 10/26/2016 at 9:54 Approved by: Fito Umaña M.D. on 10/26/2016 at 9:56 CXR 10/24 IMPRESSION: 1. Patchy airspace opacities in lungs bilaterally suspicious for pneumonia. 2. Pulmonary edema. Dictated by: Ivon Garcia MD, PhD on 10/24/2016 at 16:17 Approved by: Ivon Garcia MD, PhD on 10/24/2016 at 16:19 CXR 10/20 IMPRESSION: No radiographic evidence of acute cardiopulmonary pathology. Dictated by: Fito Umaña M.D. on 10/20/2016 at 11:50 Approved by: Fito Umaña M.D. on 10/20/2016 at 11:51 X-RAY CHEST ONE VIEW, PORTABLE IMPRESSION: Persistent widespread pulmonary edema with potential areas of superimposed atelectasis and/or pneumonia with minimal effusions. No appreciable interval change. Approved by: Fatuma Sharma M.D. on 10/23/2016 at 16:12 X-RAY CHEST ONE VIEW IMPRESSION: 1. Patchy airspace opacities in lungs bilaterally suspicious for pneumonia. 2. Pulmonary edema. Dictated by: Ivon Garcia MD, PhD on 10/24/2016 at 16:17 Additional Diagnostics Colonoscopy. IMPRESSION: Stapleton diverticulosis. Otherwise normal examination from rectum to terminal ileum. Mei Rudd MD 10/22/16 1028 Assessment & Plan Mrs. Priest is an 81 year old female with past medical history significant for CAD with 5 vessel CABG, HTN, HLD, DM2, CHF, PVD, CKD, GERD and PUD that presented to the Emergency Department on 10/20/2016 with complaints of worsening chest pain and dizziness. The patient states the chest pain has been intermittent for the past couple months but it got worse today and started radiating to her shoulder. She was globally weak, felt short of breath, and was dizzy. She also mentions having black tarry stools last week that have since resolved. She's been evaluated before and was told she had bleeding ulcers. Acute Hypoxic Respiratory failure, not present on admission. Ongoing. - Likely secondary to Pulmonary Edema and fluid overload - Not on Home O2 at baseline and is still desaturating on 4L with exertion - Discussed the case with Dr. Holder again today; he will continue her Dobutamine at 2.5mcg due to effectiveness and reassess 10/30 AM Acute on chronic Systolic Congestive Heart Failure, present on admission. Stable. - Echo in 06/24 showed a LVEF 35% with severely dilated left and right atrium - Continue Metoprolol succinate 25mg daily - Palliative consulted for goals of care conversation, she would like to continue living alone as her goal Acute on Chronic Kidney Injury, present on admission. Improving. - Creatinine slightly improved, fell to 1.24 - Avoid nephrotoxic agents - Continue Dobutamine as above Delirium, not present on admission, acute. Ongoing. - Patient has been confused at nights but is easily redirected, likely due to sundowning as patient clears during waking hours - [facility]ustered care, no lab draws prior to 6am to allow patient to sleep - Will schedule melatonin; seroquel PRN if patient is unable to be redirected Acute Anemia, present on admission. Stable. - History significant for ongoing GI bleeds, GERD/PUD, recent melena. - Hgb fell to 8.8 from 9.3; no signs of ongoing bleeding - Continue to trend in pediatric tubes Acute cystitis, present on admission. Resolved. - UA +nitrite, +Leuk esterase, +blood, packed WBC on admission - Urine culture results as above; stapleton sensitive E. coli - Patient received a course Ceftriaxone transitioned to Amoxicillin based on cultures - Patient asymptomatic at this time; continue to monitor for ample urine output Dehydration, present on admission. Acute. Resolved. - Patient reports low oral intake as well as excessive diuretic use - Replete electrolytes as necessary Hypotension, present on admission. Acute. Resolved. - Likely due to dehydration, excessive diuretic use Chronic GERD with PUD and GI bleeds, present on admission. Resolved. - EGD and colonoscopy did not show active bleed - Continue Protonix 40mg BID Diabetes mellitus type 2, insulin requiring, present on admission. Ongoing. - Patient reported she was diabetic but hasn't been on medications for awhile - A1C 7 - Blood glucose on high edge of acceptable; watch as her appetite returns Hypertension - Metoprolol as above Hyperlipidemia - Continue Pravastatin Glaucoma - Continue Bimatoprost Gout - Continue Allopurinol Hypothyroidism - Continue Levothyroxine Chronic insomnia - Melatonin scheduled Acetaminophen for mild pain when necessary. Bowel regimen Senna and MiraLAX scheduled as necessary. Zofran when necessary for nausea and vomiting. SubQ heparin started. SCDs in place. Disposition: The patient will likely be here throughout the weekend depending on her continued response to diuresis, complexity of treatment plan, and overall medical stability. GI Prophylaxis: Proton Pump Inhibitor VTE Prophylaxis: Sub-Q Heparin (Unfractionated) VTE Mechanical Devices: Intermittant Pneumatic CD Resuscitation Status: CPR: Attempt Resuscitation Henrry Romero DO Oct 29, 2016 13:41 Александр Howard MD Oct 29, 2016 17:08
--- NOTE | 2016-10-29 19:28 | NUR ---
Diuresis Pt receiving IV lasix pushes and on dobutamine gtt at 2.5mcg/kg/hr, Pt reported breathing to improve as the am progressed, Pt urinating frequently with a UOP of ~2000mL and PO intake of ~1600mL this shift.
[2016-10-29] MEDS: MeTOProlol XL 25 mg ER24 Tablet PO SCH (19:48)
[2016-10-29] MEDS: Heparin 5,000 Unit/mL Inj SUBQ SCH (19:49)
[2016-10-30] VITALS (11 sets, daily range): BP systolic 97–118; BP diastolic 49–60; PULSE 82–115; RESP 17–24; O2SAT 89–98
[2016-10-30 02:40] LABS: BASOPHILS % (AUTO) 0.2 % (0-3); EOSINOPHILS % (AUTO) 2.9 % (0-5); MONOCYTES % (AUTO) 9.8 % (4-12); Mean Corpuscular Volume 95.6 fL (81-100); NEUTROPHILS % (AUTO) 69.7 % (40-74); Platelet Count 256 bil/L (150-400)
--- NOTE | 2016-10-30 06:07 | NUR ---
Diuresis Patient continues on dobutamine gtt at 2.5 mcg/kg/hour. Two runs (6 and 9 beats) of v-tach noted on the monitor. Patient up several times to the bedside commode with 750ml total urine output overnight.
[2016-10-30] MEDS: Heparin 5,000 Unit/mL Inj SUBQ SCH ×2 (08:06→19:56)
[2016-10-30] MEDS: Furosemide 10 mg/mL 4 mL Inj IVPUSH SCH ×2 (08:06→17:58)
[2016-10-30] MEDS: Pantoprazole 40 mg ER24 Tablet PO SCH ×2 (08:06→17:58)
[2016-10-30] MEDS: Potassium Chloride 20 mEq SR Tablet PO SCH ×3 (08:06→17:58)
[2016-10-30] MEDS: Insulin LISPRO 300 Unit/3 mL Inj SUBQ SCH ×4 (08:21→22:00)
--- NOTE | 2016-10-30 08:47 | PCM.PNCARD ---
Subjective Date of service Oct 29, 2016 Chief Complaint Shortness of breath/GI bleed History of Present Illness This is a pleasant 81-year-old female with history of ischemic heart myopathy. The patient was started on IV diuretics and has made a moderate improvement in regards with a urine output. However her weight has been steady. She does not notice a significant improvement of her breathing. When asked her to move up a little but higher in the bed she was dyspneic. She appears to be quite comfortable laying flat on her back though. I started her on Dobutamine 2.5 mcg/ kg/min and she did develop some ventricular arrhythmia so I haven't increased it since yesterday. She is making more urine though. Her renal function looks better but she has dropped her H/H/ since yesterday. Constitutional: Reports: Weakness Cardiovascular: Denies: Chest Pain, Irregular Heart Rate, Palpitations Respiratory: Reports: SOB with Exertion Genitourinary: Denies: Hematuria Neurological: Reports: Confusion, Difficulty Walking Endocrine: Reports: Urinating Frequently Exam Vital Signs Vital Sign - Last Date Time Temp Pulse Resp B/P Pulse Ox O2 Delivery O2 Flow Rate FiO2 10/29/16 08:53 100 10/29/16 08:18 36.5 22 125/52 92 Nasal Cannula 4.00 Intake and Output 10/28/16 10/28/16 10/29/16 Cumulative From/Thru 15:00 23:00 07:00 10/20/16 11:06 - 10/29/16 06:17 Intake Total 305 ml 22 ml 293 ml 88098 ml Output Total 1150 ml 42773 ml Balance 305 ml 22 ml -857 ml -5839 ml Intake Oral 300 ml 240 ml 7040 ml IV Total 5 ml 22 ml 53 ml 5796 ml Packed Cells 300 ml Output Urine Total 1150 ml 63924 ml Stool Total 2500 ml Urine/Stool Mix 700 ml # Voids 4 28 # Bowel Movements 2 2 18 General: Pleasant Cooperative Skin: Warm & dry to touch Head: Normocephalic Neck: JVP elevated Chest: Rales Cardiac: Regular rhythm Occasional premature beats Extremities: Warm Neurological: Alert & oriented Lab and Diagnostics Labs CBC Test 10/29/16 02:15 White Blood Count 8.2th/mm3 (3.8-10.1) Red Blood Count 2.98mil/mm3 (3.90-5.20) Hemoglobin 8.8g/dL (12.0-15.6) Hematocrit 28.3% (35.0-46.0) Mean Corpuscular Volume 95.0fL (81-100) Mean Corpuscular Hemoglobin 29.5pg (27.0-35.0) Mean Corpuscular Hemoglobin Concent 31.1% (32.0-37.0) Red Cell Distribution Width 17.3% (12.3-15.4) Platelet Count 252bil/L (150-400) Neutrophils (%) (Auto) 70.5% (40-74) Lymphocytes (%) (Auto) 16.7% (14-46) Monocytes (%) (Auto) 9.5% (4-12) Eosinophils (%) (Auto) 2.7% (0-5) Basophils (%) (Auto) 0.2% (0-3) CMP Test 10/20/16 11:20 10/21/16 02:40 10/21/16 12:25 10/21/16 16:30 Pro-B-Type Natriuretic Peptide 3414pg/mL Hemoglobin A1c 7.0% Vitamin B12 Level 621pg/mL Folate > 19.9ng/mL Troponin T < 0.010ug/L Hold [place] Top Tube Received Test 10/22/16 03:35 10/29/16 02:15 Procalcitonin 0.20ng/mL Hold [place] Top Tube Received Sodium Level 135mEq/L Potassium Level 4.9mEq/L Chloride Level 93mEq/L Carbon Dioxide Level 28mmol/L Blood Urea Nitrogen 32mg/dL Creatinine 1.24mg/dL Estimat Glomerular Filtration Rate 59mL/min Glucose Level 182mg/dL Calcium Level 8.6mg/dL Magnesium Level 1.9mg/dL Total Bilirubin 0.4mg/dL Aspartate Amino Transf (AST/SGOT) 24U/L Alanine Aminotransferase (ALT/SGPT) 20U/L Alkaline Phosphatase 90U/L Total Protein 6.2g/dL Albumin 3.0g/dL Result Diagram: 10/29/1621410/29/16214 Assessment & Plan Problems: (1) Combined systolic and diastolic congestive heart failure, NYHA class 4 Plan: Patient continues to be volume overloaded after more aggressive IV diuretics. Given this I started on her dobutamine and she has some minimal improvement but appears to be making more urine this morning. I would simply leave her on Dobutamine for another 24 hours and see what kind of response she has . Her lab work shows less prerenal azotemia which would indicate she has more renal perfusion secondary to increase cardiac output.I have lowered her metoprolol succinate to 25 mg once a day since she still has congestive heart failure. I have added additional afterload reducing agent such as Isordil and we will continue with hydralazine. At one point we can consider switching her to an BRANDON inhibitor or Entresto. I will continue to monitor this patient closely over the weekend to see how she responds. Status: Acute ICD Code: I50.40 (2) Upper GI bleed Status: Acute ICD Code: K92.2 (3) Ischemic cardiomyopathy Status: Acute ICD Code: I25.5 Pain Evaluation: Adequate Pain Control GI Prophylaxis: Proton Pump Inhibitor VTE Mechanical Devices: Intermittant Pneumatic CD Resuscitation Status: CPR: Attempt Resuscitation Time spent 20 minutes Fie Holder MD Oct 29, 2016 09:27
[2016-10-30] MEDS ORDERED: Magnesium Sulf 2 Gm/50mL Water 2 GM in IV Premix 1 EACH IV ONE (11:00)
--- NOTE | 2016-10-30 11:44 | PCM.PNCARD ---
Subjective Date of service Oct 30, 2016 Chief Complaint Shortness of breath/GI bleed History of Present Illness Over the past 24 hours the patient has had fairly good urine output that is picked up since starting on dobutamine. Patient is currently complaining of finger cramping in both hands. Her magnesium is a little bit on the low side but still within normal limits. She says that her breathing has improved quite a bit since yesterday morning. The patient will require physical therapy either today or tomorrow. Hopefully by tomorrow we can consider switching her to oral Lasix and stop her dobutamine infusion. Constitutional: Reports: Weakness, Denies: Fever Cardiovascular: Denies: Chest Pain, SOB while laying flat Gastrointestinal: Denies: Abdominal Pain, Vomiting Genitourinary: Reports: Change in Frequency, Denies: Hematuria Musculoskeletal: Reports: Other (finger cramping bilaterally) Neurological: Reports: Confusion Exam Vital Signs Vital Sign - Last Date Time Temp Pulse Resp B/P Pulse Ox O2 Delivery O2 Flow Rate FiO2 10/30/16 09:15 92 10/30/16 08:15 93 Nasal Cannula 2.00 10/30/16 08:01 36.9 22 118/55 Intake and Output 10/29/16 10/29/16 10/30/16 Cumulative From/Thru 15:00 23:00 07:00 10/20/16 11:06 - 10/30/16 06:06 Intake Total 1645 ml 365 ml 44822 ml Output Total 2000 ml 750 ml 99735 ml Balance -355 ml -385 ml -6579 ml Intake Oral 1590 ml 300 ml 8930 ml IV Total 55 ml 65 ml 5916 ml Packed Cells 300 ml Output Urine Total 2000 ml 750 ml 54101 ml Stool Total 2500 ml Urine/Stool Mix 700 ml # Voids 28 # Bowel Movements 3 0 21 General: Pleasant Cooperative Skin: Warm & dry to touch Neck: JVP elevated Chest: Rales (decrease since yesterday.) Cardiac: Regular rhythm Extremities: Warm Neurological: Alert & oriented Psychological: Reduced memory Lab and Diagnostics Result Diagram: 10/30/16 0200 10/30/16 0200 Assessment & Plan Problems: (1) Combined systolic and diastolic congestive heart failure, NYHA class 4 Plan: Patient has finally made some improvement in regards with her breathing and her weight. I will continue dobutamine for another 24 hours and then we will consider titrating it off and start her on oral Lasix. We also may consider starting her on low-dose spironolactone for additional diuretic therapy. The patient will most likely will have underlying renal sufficiency with more aggressive diuretic therapy but given the severity of her congestive heart failure, I think we should be willing to compromise some renal function in order to improve his cardiac status. Once she is more euvolemic then I would increase her metoprolol succinate back up to 50 mg once a day and consider adding spironolactone 12.5 mg once a day and switch her furosemide from Lasix to Torsemide 40 mg BID. She will need a referral to CHF clinic which I have made. I have messaged Dr. Cid's MA to schedule a close follow up as well. I would also continue with Isordil 20 mg/Hydralazine 25 mg TID as well. Please do not switch Isordil (isosorbide dinitrate) for Imdur (isosorbide mononitrate) since Imdur is not FDA approved for CHF. Status: Acute ICD Code: I50.40 (2) Upper GI bleed Status: Resolved ICD Code: K92.2 (3) Ischemic cardiomyopathy Status: Chronic ICD Code: I25.5 Pain Evaluation: Adequate Pain Control GI Prophylaxis: Proton Pump Inhibitor VTE Prophylaxis: Sub-Q Heparin (Unfractionated) VTE Mechanical Devices: Intermittant Pneumatic CD Resuscitation Status: CPR: Attempt Resuscitation Time spent 30 minutes Fei Holder MD Oct 30, 2016 11:44
[2016-10-30] MEDS: DOBUTamine 500 mg/250 D5W 500,000 MCG in IV Premix 1 EACH IV SCH (13:11)
--- NOTE | 2016-10-30 16:03 | NUR ---
O2 Pt's SPO2 sats in the upper 90s on 4L via nasal cannula, Pt's O2 decreased to 2L at this time with SPO2 sats in the low 90s, Pt denied increase in SOB. Later in the shift, Pt trialed on RA, SPO2 sats 89-91% and Pt reported feeling weak, Pt placed back on 2L via nasal cannula and Pt's sats returned to the low 90s.
--- NOTE | 2016-10-30 16:34 | NUR ---
Social Work- Multidisciplinary Rounds Pt discussed in rounds. Pt's oxygen needs continue to be 2L NC. Pt is likely to remain here for 1-2 more days. SW will follow for SNF vs. HH needs at discharge. SW unable to see pt today due to high census. SW will continue to follow. DORIAN Bautista
--- NOTE | 2016-10-30 18:00 | NUR ---
Mentation pt had episode this afternoon of complete confusion, unaware of name and location. pt reoriented easily. cooperative. pt appeared concerned regarding situation. assurance given and accepted well. pt mentation cleared quickly. pt reported continued concern about confusion episode. care continues.
--- NOTE | 2016-10-30 18:56 | PCM.PNMED ---
Subjective Date of Service Oct 30, 2016 Subjective Overnight Events. No acute events overnight. Patient is resting in bed comfortably and in no acute distress. The patient reports feeling better than the day prior. The patient denies headache, dizziness, sore throat, cough, chest pain, abdominal pain, nausea, vomiting, constipation, and diarrhea. The patient is voiding and eliminating without difficulty. The patient is ambulating well and requiring 2 L. Exam Vital Signs Vital Sign - Last Date Time Temp Pulse Resp B/P Pulse Ox O2 Delivery O2 Flow Rate FiO2 10/30/16 05:36 82 10/30/16 03:44 36.8 19 97/50 98 Nasal Cannula 4.00 Intake and Output 10/29/16 10/29/16 10/30/16 Cumulative From/Thru 15:00 23:00 07:00 10/20/16 11:06 - 10/30/16 06:06 Intake Total 1645 ml 365 ml 31193 ml Output Total 2000 ml 750 ml 50039 ml Balance -355 ml -385 ml -6579 ml Intake Oral 1590 ml 300 ml 8930 ml IV Total 55 ml 65 ml 5916 ml Packed Cells 300 ml Output Urine Total 2000 ml 750 ml 57498 ml Stool Total 2500 ml Urine/Stool Mix 700 ml # Voids 28 # Bowel Movements 3 0 21 Exam General: No acute distress, well-developed, well-nourished, appropriately interactive HEENT: Normocephalic, atraumatic. External ears without defect. Pupils equal, round, and reactive to light and accommodation. Anicteric sclerae, moist conjunctivae, and no lid lag. Oropharynx free of erythema and cobble stoning with moist mucosa. Neck: Supple with full range of motion. No jugular venous distension. No bruits. No lymphadenopathy or thyromegaly. Cardiovascular: Regular rate and rhythm with no murmurs, rubs, or gallops appreciated Pulmonary: Clear to auscultation bilaterally with no crackles, wheezes, or rhonchi. Normal respiratory effort with no use of accessory muscles. Abdomen: Bowel tones present. Soft, nontender, nondistended. No hepatosplenomegaly or masses appreciated. Extremities: No clubbing, cyanosis, edema, or lymphadenopathy appreciated. Skin: Normal temperature, turgor, and texture; no rash, ulcers, or subcutaneous nodules appreciated. Neurological: Cranial nerves grossly intact. Normal muscle strength, tone, and bulk. Reflexes, coordination, and sensory function within normal limits. No known gait impairment. Psychiatric: Normal mood and affect. Alert and oriented to person, place, and time. IVs and Medications Medications Reviewed: Medications were reviewed in detail Lab and Diagnostics Result Diagram: 10/30/16 0200 10/30/16 0200 Microbiology URINE CULTURE ESCHERICHIA COLI that is stapleton sensitive Blood cultures negative x48h X-Rays, CTs and MRIs CXR 10/27 IMPRESSION: Enlarged cardiac mediastinal silhouette with interstitial pulmonary opacities and pleural effusions left greater than right may represent congestive heart failure exacerbation. Superimposed infection is possible. Recommend radiographic followup to resolution to exclude underlying mass lesion. If findings do not resolve chest CT with contrast will be needed. Dictated by: Fito Umaña M.D. on 10/27/2016 at 10:17 Approved by: Fito Umaña M.D. on 10/27/2016 at 10:21 CXR 10/26 IMPRESSION: Persistent bilateral pulmonary opacities with mild/moderate left- sided pleural effusion. Findings may represent infection and/or fluid imbalance. Dictated by: Fito Umaña M.D. on 10/26/2016 at 9:54 Approved by: Fito Umaña M.D. on 10/26/2016 at 9:56 CXR 10/24 IMPRESSION: 1. Patchy airspace opacities in lungs bilaterally suspicious for pneumonia. 2. Pulmonary edema. Dictated by: Ivon Garcia MD, PhD on 10/24/2016 at 16:17 Approved by: Ivon Garcia MD, PhD on 10/24/2016 at 16:19 CXR 10/20 IMPRESSION: No radiographic evidence of acute cardiopulmonary pathology. Dictated by: Fito Umaña M.D. on 10/20/2016 at 11:50 Approved by: Fito Umaña M.D. on 10/20/2016 at 11:51 X-RAY CHEST ONE VIEW, PORTABLE IMPRESSION: Persistent widespread pulmonary edema with potential areas of superimposed atelectasis and/or pneumonia with minimal effusions. No appreciable interval change. Approved by: Fatuma Sharma M.D. on 10/23/2016 at 16:12 X-RAY CHEST ONE VIEW IMPRESSION: 1. Patchy airspace opacities in lungs bilaterally suspicious for pneumonia. 2. Pulmonary edema. Dictated by: Ivon Garcia MD, PhD on 10/24/2016 at 16:17 Additional Diagnostics Colonoscopy. IMPRESSION: Stapleton diverticulosis. Otherwise normal examination from rectum to terminal ileum. Mei Rudd MD 10/22/16 1022 Assessment & Plan Mrs. Priest is an 81 year old female with past medical history significant for CAD with 5 vessel CABG, HTN, HLD, DM2, CHF, PVD, CKD, GERD and PUD that presented to the Emergency Department on 10/20/2016 with complaints of worsening chest pain and dizziness. The patient states the chest pain has been intermittent for the past couple months but it got worse today and started radiating to her shoulder. She was globally weak, felt short of breath, and was dizzy. She also mentions having black tarry stools last week that have since resolved. She's been evaluated before and was told she had bleeding ulcers. Acute Hypoxic Respiratory failure, not present on admission. Improving. - Likely secondary to Pulmonary Edema and fluid overload - Not on Home O2 at baseline and is still desaturating on 2L with exertion . - Discussed the case with Dr. Holder again today; he will continue her Dobutamine at 2.5mcg due to effectiveness and reassess 7 AM Acute on chronic Systolic Congestive Heart Failure, present on admission. Stable. - Echo in 06/24 showed a LVEF 35% with severely dilated left and right atrium - Continue Metoprolol succinate 25mg daily - Palliative consulted for goals of care conversation, she would like to continue living alone as her goal Acute on Chronic Kidney Injury, present on admission. Improving. - Creatinine slightly improved, fell to 1.24 - Avoid nephrotoxic agents - Continue Dobutamine as above Delirium, not present on admission, acute. Ongoing. - Patient has been confused at nights but is easily redirected, likely due to owning as patient clears during waking hours - Clustered care, no lab draws prior to 6am to allow patient to sleep - Will schedule melatonin; seroquel PRN if patient is unable to be redirected Acute Anemia, present on admission. Stable. - History significant for ongoing GI bleeds, GERD/PUD, recent melena. - Hgb fell to 8.8 from 9.3; no signs of ongoing bleeding - Continue to trend in pediatric tubes Acute cystitis, present on admission. Resolved. - UA +nitrite, +Leuk esterase, +blood, packed WBC on admission - Urine culture results as above; stapleton sensitive E. coli - Patient received a course Ceftriaxone transitioned to Amoxicillin based on cultures - Patient asymptomatic at this time; continue to monitor for ample urine output Dehydration, present on admission. Acute. Resolved. - Patient reports low oral intake as well as excessive diuretic use - Replete electrolytes as necessary Hypotension, present on admission. Acute. Resolved. - Likely due to dehydration, excessive diuretic use Chronic GERD with PUD and GI bleeds, present on admission. Resolved. - EGD and colonoscopy did not show active bleed - Continue Protonix 40mg BID Diabetes mellitus type 2, insulin requiring, present on admission. Ongoing. - Patient reported she was diabetic but hasn't been on medications for awhile - A1C 7 - Blood glucose on high edge of acceptable; watch as her appetite returns Hypertension - Metoprolol as above Hyperlipidemia - Continue Pravastatin Glaucoma - Continue Bimatoprost Gout - Continue Allopurinol Hypothyroidism - Continue Levothyroxine Chronic insomnia - Melatonin scheduled Acetaminophen for mild pain when necessary. Bowel regimen Senna and MiraLAX scheduled as necessary. Zofran when necessary for nausea and vomiting. SubQ heparin started. SCDs in place. Disposition: The patient will likely be here throughout the weekend depending on her continued response to diuresis, complexity of treatment plan, and overall medical stability. Pain Evaluation: Adequate Pain Control GI Prophylaxis: Proton Pump Inhibitor VTE Prophylaxis: Sub-Q Heparin (Unfractionated) VTE Mechanical Devices: Intermittant Pneumatic CD Resuscitation Status: CPR: Attempt Resuscitation Attending Statement The patient was seen and examined together with Dr. Nichols on 10/30/2016 and I agree with the history, exam and plan as outlined in the note above. . NORM NICHOLS DO Oct 30, 2016 07:24 Александр Howard MD Nov 01, 2016 09:58
[2016-10-30] MEDS: MeTOProlol XL 25 mg ER24 Tablet PO SCH (19:55)
[2016-10-31] VITALS (23 sets, daily range): BP systolic 75–123; BP diastolic 41–77; PULSE 72–119; RESP 14–25; O2SAT 93–98
--- NOTE | 2016-10-31 05:11 | NUR ---
Mentation Patient woke from sleep confused. Unable to identify place, time, or situation. Attempted to reorient patient; patient able to retain that she is in a hospital, but then asked "if the baby has been born yet?" Again attempted to reorient patient with minimal success. Reassured patient that she is in a safe place and that her needs are being looked after. Patient calm and cooperative with care. Continue to monitor.
--- NOTE | 2016-10-31 08:18 | NUR ---
NUTRITION FOLLOW-UP: ASSESS: 81 YO F admitted with worsening chest pain and dizziness. Respiratory failure improving per notes. Pt continues to be confused at times per notes. Pt is on a carb consistent diet with fair PO intake. PO may be variable based on mental status. PMHx: CAD, PVD, CHF, CKD, HTN, HLD, type 2 diabetes, GERD, Schaefer's esophagus, carotid stenosis, gout, hypothyroid, bilateral renal artery stenosis, anemia, DVT. DIET: Consistent Carb, PO 25-75% LABS: Reviewed. (10/30): Cr 1.31, Glu 171, Alb 3.0 MEDICATIONS: Reviewed. Pressor, Lasix, Reglan. GI: BM X 5 (10/29) SKIN: no major issues ANTHROPOMETRICS: Current Wt: 59.8 kg, BMI: 24.1 kg/m2, IBW: 50.0 kg (123.6% IBW) ESTIMATED NEEDS: Calories: 1381-6032 kcal/day (25-30 kcal/kg BW) Protein: 65-75 g/day (1.0-1.2 g/kg BW) NUTRITION DIAGNOSIS: 1) Altered GI function related to GI bleed, as evidenced by NPO status, pending GI consult.--IMPROVING 2) Variable PO intake related to AMS as evidence by PO varying from 0-100%---PERSISTS. INTERVENTION: 1) Continue current diet and supplements as ordered. MONITOR/EVALUATE: Diet tolerance, PO intake, labs, GI/nutrition status. Follow per moderate nutrition risk guidelines.
[2016-10-31] MEDS: Pantoprazole 40 mg ER24 Tablet PO SCH ×2 (08:24→17:45)
[2016-10-31] MEDS: Potassium Chloride 20 mEq SR Tablet PO SCH ×2 (08:25→17:19)
[2016-10-31] MEDS: Heparin 5,000 Unit/mL Inj SUBQ SCH ×2 (08:29→20:16)
[2016-10-31] MEDS: Insulin LISPRO 300 Unit/3 mL Inj SUBQ SCH ×4 (08:36→20:28)
[2016-10-31] MEDS: Furosemide 10 mg/mL 4 mL Inj IVPUSH SCH (08:39)
--- NOTE | 2016-10-31 10:41 | NUR ---
Social Work Note: Multidisciplinary Rounds Pt was discussed in AM rounds today, per MD pt is not medically ready for discharge at this time but is medically improving. Pt currently on drip. Pt consistently ambulating 25-30ft with PT daily, PT continues to recommend SNF. Per MD in morning rounds, they would like to see how pt does in the next 1-2 days and discuss pt discharge care plan with pt prior to putting in SW order for SNF vs. HH. SW to continue to follow for MD orders. Anticipated discharge home with home health vs. SNF pending MD orders. DORIAN Carrion
[2016-10-31] MEDS: DOBUTamine 500 mg/250 D5W 500,000 MCG in IV Premix 1 EACH IV SCH (10:55)
[2016-10-31 13:25] LABS: BASOPHILS % (AUTO) 0.5 % (0-3); EOSINOPHILS % (AUTO) 1.1 % (0-5); MONOCYTES % (AUTO) 6.8 % (4-12); Mean Corpuscular Hemoglobin 29.3 pg (27.0-35.0); Mean Corpuscular Volume 95.8 fL (81-100); NEUTROPHILS % (AUTO) 69.6 % (40-74); Platelet Count 259 bil/L (150-400)
--- NOTE | 2016-10-31 14:02 | PCM.PNMED ---
Subjective Date of Service Oct 31, 2016 Subjective No acute events overnight. Patient seen and examined at bedside. Laying comfortably in bed. Patient makes out of place statements like "did the bottling room worker bring me my medications yet.", However this only lasts for short time and later she is alert and oriented to person, place, and year. Denies any SOB, CP, ABD pain, or headache. ROS negative unless otherwise noted above. Exam Vital Signs Vital Sign - Last Date Time Temp Pulse Resp B/P Pulse Ox O2 Delivery O2 Flow Rate FiO2 10/31/16 13:00 72 109/62 10/31/16 12:07 36.6 22 94 Nasal Cannula 1.50 Intake and Output 10/30/16 10/30/16 10/31/16 Cumulative From/Thru 15:00 23:00 07:00 10/20/16 11:06 - 10/31/16 05:28 Intake Total 112 ml 502 ml 25927 ml Output Total 950 ml 54558 ml Balance 112 ml -448 ml -6915 ml Intake Oral 450 ml 9380 ml IV Total 112 ml 52 ml 6080 ml Packed Cells 300 ml Output Urine Total 950 ml 97893 ml Stool Total 2500 ml Urine/Stool Mix 700 ml # Voids 28 # Bowel Movements 21 Exam Constitutional: Alert and Awake. No acute distress. Heart: Regular Rate and Rhythm, no murmurs. No edema. Lungs: Clear to auscultation bilaterally ABD: Soft, NT, bowel sounds present Skin: warm, dry, pale Neuro: CN II-XII intact, no focal deficits noted. Psych: Appropriate mood and affect. IVs and Medications IV Fluids 2 units PRBCs transfused. Medications Reviewed: Medications were reviewed in detail Medications Dobutamine HCl/Dextrose 500,000 mcg 4.57mls/hr - day 4 Lab and Diagnostics Item Value Date Time Red Blood Count 2.39 mil/mm3 L 10/31/16 1315 Mean Corpuscular Volume 95.8 fL 10/31/16 1315 Mean Corpuscular Hemoglobin 29.3 pg 10/31/16 1315 Mean Corpuscular Hemoglobin Concent 30.6 % L 10/31/16 1315 Red Cell Distribution Width 16.9 % H 10/31/16 1315 Neutrophils (%) (Auto) 69.6 % 10/31/16 1315 Lymphocytes (%) (Auto) 21.2 % 10/31/16 1315 Monocytes (%) (Auto) 6.8 % 10/31/16 1315 Eosinophils (%) (Auto) 1.1 % 10/31/16 1315 Basophils (%) (Auto) 0.5 % 10/31/16 1315 Sodium Level 136 mEq/L 10/31/16 1315 Estimat Glomerular Filtration Rate 52 mL/min 10/31/16 1315 Calcium Level 8.8 mg/dL 10/31/16 1315 Total Bilirubin 0.3 mg/dL 10/31/16 1315 Aspartate Amino Transf (AST/SGOT) 17 U/L 10/31/16 1315 Alanine Aminotransferase (ALT/SGPT) 14 U/L 10/31/16 1315 Alkaline Phosphatase 72 U/L 10/31/16 1315 Total Protein 5.9 g/dL L 10/31/16 1315 Albumin 2.8 g/dL L 10/31/16 1315 Result Diagram: 10/31/16 1315 10/30/16 0200 Microbiology URINE CULTURE ESCHERICHIA COLI that is stapelton sensitive Blood cultures negative x48h X-Rays, CTs and MRIs CXR 10/27 IMPRESSION: Enlarged cardiac mediastinal silhouette with interstitial pulmonary opacities and pleural effusions left greater than right may represent congestive heart failure exacerbation. Superimposed infection is possible. Recommend radiographic followup to resolution to exclude underlying mass lesion. If findings do not resolve chest CT with contrast will be needed. Dictated by: Fito Umaña M.D. on 10/27/2016 at 10:17 Approved by: Fito Umaña M.D. on 10/27/2016 at 10:21 CXR 10/26 IMPRESSION: Persistent bilateral pulmonary opacities with mild/moderate left- sided pleural effusion. Findings may represent infection and/or fluid imbalance. Dictated by: Fito Umaña M.D. on 10/26/2016 at 9:54 Approved by: Fito Umaña M.D. on 10/26/2016 at 9:56 CXR 10/24 IMPRESSION: 1. Patchy airspace opacities in lungs bilaterally suspicious for pneumonia. 2. Pulmonary edema. Dictated by: Ivon Garcia MD, PhD on 10/24/2016 at 16:17 Approved by: Ivon Garcia MD, PhD on 10/24/2016 at 16:19 CXR 10/20 IMPRESSION: No radiographic evidence of acute cardiopulmonary pathology. Dictated by: Fito Umaña M.D. on 10/20/2016 at 11:50 Approved by: Fito Umaña M.D. on 10/20/2016 at 11:51 X-RAY CHEST ONE VIEW, PORTABLE IMPRESSION: Persistent widespread pulmonary edema with potential areas of superimposed atelectasis and/or pneumonia with minimal effusions. No appreciable interval change. Approved by: Fatuma Sharma M.D. on 10/23/2016 at 16:12 X-RAY CHEST ONE VIEW IMPRESSION: 1. Patchy airspace opacities in lungs bilaterally suspicious for pneumonia. 2. Pulmonary edema. Dictated by: Ivon Garcia MD, PhD on 10/24/2016 at 16:17 Additional Diagnostics Colonoscopy. IMPRESSION: Stapleton diverticulosis. Otherwise normal examination from rectum to terminal ileum. Mei Rudd MD 10/22/16 1028 Assessment & Plan Mrs. Priest is an 81 year old female with past medical history significant for CAD with 5 vessel CABG, HTN, HLD, DM2, CHF, PVD, CKD, GERD and PUD that presented to the Emergency Department on 10/20/2016 with complaints of worsening chest pain and dizziness. The patient states the chest pain has been intermittent for the past couple months but it got worse today and started radiating to her shoulder. She was globally weak, felt short of breath, and was dizzy. She also mentions having black tarry stools last week that have since resolved. She's been evaluated before and was told she had bleeding ulcers. Acute Hypoxic Respiratory failure, not present on admission. Improving. - Likely secondary to Pulmonary Edema and fluid overload - Not on Home O2 at baseline and is still desaturating on 2L with exertion . - Discussed the case with Dr. Holder again today; while patient requiring transfusions, will keep on Dobutamine drip with plan to transition to PO meds once tolerated. He plans for close follow up in CHF clinic following dispo. Acute on chronic Systolic Congestive Heart Failure, present on admission. Stable. - Echo in 06/24 showed a LVEF 35% with severely dilated left and right atrium - Continue Metoprolol succinate 25mg daily - Palliative consulted for goals of care conversation, she is open to transitioning to a SNF would prefer to stay home as long as possible. Acute on Chronic Kidney Injury, present on admission. Improving. - Creatinine slightly improved, fell to 1.24 - Avoid nephrotoxic agents - Continue Dobutamine as above Delirium, not present on admission, acute. Ongoing. - Patient has been confused at nights but is easily redirected, likely due to sundowning as patient clears during waking hours - [facility] care, no lab draws prior to 6am to allow patient to sleep - Will schedule melatonin; seroquel PRN if patient is unable to be redirected Acute Blood Loss Anemia, present on admission. Stable. - History significant for ongoing GI bleeds, GERD/PUD, recent melena. - Patient became weak and pale; stat CBC showed Hgb 7.0 - will discuss with Dr. Holder whether to transfuse or not; nurse noted overt blood in most recent bowel movement - consulting GI - Transfusing 2U PRBCs with Lasix 40mg dosed in between each unit of blood. - Continue to trend in pediatric tubes - AM CBC and CMP Acute cystitis, present on admission. Resolved. - Urine culture results; stapleton sensitive E. coli - Continue Amoxicillin 500mg BID - Abx day 4 - Patient asymptomatic at this time; continue to monitor for ample urine output Dehydration, present on admission. Acute. Resolved. - Patient reports low oral intake as well as excessive diuretic use - Replete electrolytes as necessary Hypotension, present on admission. Acute. Resolved. - Likely due to dehydration, excessive diuretic use Chronic GERD with PUD and GI bleeds, present on admission. Ongoing. - EGD and colonoscopy did not show active bleed - Continue Protonix 40mg BID - Pt had bloody bowel movement today. Discussed with Dr. Rudd in GI, suggested tagged RBC scan, will plan for tomorrow morning scan. Diabetes mellitus type 2, insulin requiring, present on admission. Ongoing. - Patient reported she was diabetic but hasn't been on medications for awhile - A1C 7 - Blood glucose on high edge of acceptable; watch as her appetite returns Hypertension - Hold blood pressure medications as blood pressure dropped to 79/50 - Continue to monitor overnight, avoid IVF as patient has CHF with LVEF of 35% Hyperlipidemia - Continue Pravastatin Glaucoma - Continue Bimatoprost Gout - Continue Allopurinol Hypothyroidism - Continue Levothyroxine Chronic insomnia - Melatonin scheduled Acetaminophen for mild pain when necessary. Bowel regimen Senna and MiraLAX scheduled as necessary. Zofran when necessary for nausea and vomiting. SubQ heparin started. SCDs in place. Disposition: Given the need for transfusions and further GI workup, likely patient will be discharged closer to the end of the week. Patient reports that her daughter is coming out from [facility] to help take care of her at home. GI Prophylaxis: Proton Pump Inhibitor VTE Prophylaxis: Sub-Q Heparin (Unfractionated) VTE Mechanical Devices: Intermittant Pneumatic CD Resuscitation Status: CPR: Attempt Resuscitation Attending Statement The patient was seen and examined together with Dr. Joshi on 10/31/2016 and I have added additional information to the note above. Heriberto Joshi DO Oct 31, 2016 14:02 Kaylie Khanna DO Nov 03, 2016 17:44
[2016-10-31] MEDS ORDERED: 0.9% Sodium Chloride 250 ML IV ONE (14:15)
--- NOTE | 2016-10-31 17:21 | PCM.PNMED ---
Subjective Date of Service Oct 31, 2016 Subjective aske to see Itzel today for episode of melena with associated drop in H/H. She states she was not aware she had melena, she was notified by the nurse. No complaints of abdominal pain, no vomiting, has nausea when she takes her medications but not with food. Exam Vital Signs Vital Sign - Last Date Time Temp Pulse Resp B/P Pulse Ox O2 Delivery O2 Flow Rate FiO2 10/31/16 15:00 99/51 10/31/16 13:00 72 10/31/16 12:07 36.6 22 94 Nasal Cannula 1.50 Intake and Output 10/30/16 10/30/16 10/31/16 Cumulative From/Thru 15:00 23:00 07:00 10/20/16 11:06 - 10/31/16 05:28 Intake Total 112 ml 502 ml 95551 ml Output Total 950 ml 31658 ml Balance 112 ml -448 ml -6915 ml Intake Oral 450 ml 9380 ml IV Total 112 ml 52 ml 6080 ml Packed Cells 300 ml Output Urine Total 950 ml 90998 ml Stool Total 2500 ml Urine/Stool Mix 700 ml # Voids 28 # Bowel Movements 21 Exam Gen - no apparent distress, appropriate HEENT- pallor Rep- crackles in bases CVS-RRR abdomen- benign Lab and Diagnostics Result Diagram: 10/31/16 1315 10/31/16 1315 Microbiology URINE CULTURE ESCHERICHIA COLI that is stapleton sensitive Blood cultures negative x48h X-Rays, CTs and MRIs CXR 10/27 IMPRESSION: Enlarged cardiac mediastinal silhouette with interstitial pulmonary opacities and pleural effusions left greater than right may represent congestive heart failure exacerbation. Superimposed infection is possible. Recommend radiographic followup to resolution to exclude underlying mass lesion. If findings do not resolve chest CT with contrast will be needed. Dictated by: Fito Umaña M.D. on 10/27/2016 at 10:17 Approved by: Fito Umaña M.D. on 10/27/2016 at 10:21 CXR 10/26 IMPRESSION: Persistent bilateral pulmonary opacities with mild/moderate left- sided pleural effusion. Findings may represent infection and/or fluid imbalance. Dictated by: Fito Umaña M.D. on 10/26/2016 at 9:54 Approved by: Fito Umaña M.D. on 10/26/2016 at 9:56 CXR 10/24 IMPRESSION: 1. Patchy airspace opacities in lungs bilaterally suspicious for pneumonia. 2. Pulmonary edema. Dictated by: Ivon Garcia MD, PhD on 10/24/2016 at 16:17 Approved by: Ivon Garcia MD, PhD on 10/24/2016 at 16:19 CXR 10/20 IMPRESSION: No radiographic evidence of acute cardiopulmonary pathology. Dictated by: Fito Umaña M.D. on 10/20/2016 at 11:50 Approved by: Fito Umaña M.D. on 10/20/2016 at 11:51 X-RAY CHEST ONE VIEW, PORTABLE IMPRESSION: Persistent widespread pulmonary edema with potential areas of superimposed atelectasis and/or pneumonia with minimal effusions. No appreciable interval change. Approved by: Fatuma Sharma M.D. on 10/23/2016 at 16:12 X-RAY CHEST ONE VIEW IMPRESSION: 1. Patchy airspace opacities in lungs bilaterally suspicious for pneumonia. 2. Pulmonary edema. Dictated by: Ivon Garcia MD, PhD on 10/24/2016 at 16:17 Additional Diagnostics Colonoscopy. IMPRESSION: Stapleton diverticulosis. Otherwise normal examination from rectum to terminal ileum. Mei Rudd MD 10/22/16 1028 Assessment & Plan Melena with associated drop in H/H - transfuse blood products as needed -recommend Tagged RBC scan and if positive consult interventional radiology for angiogram with embolization. -if tagged RBC scan negative , then will plan for capsule endoscopy as inpatient GI Prophylaxis: Proton Pump Inhibitor VTE Prophylaxis: Sub-Q Heparin (Unfractionated) VTE Mechanical Devices: Intermittant Pneumatic CD Resuscitation Status: CPR: Attempt Resuscitation Mei Rudd MD Oct 31, 2016 17:21 - Not on Home O2 at baseline and is still desaturating on 2L with exertion . - Discussed the case with Dr. Holder again today; while patient requiring transfusions, will keep on Dobutamine drip with plan to transition to PO meds once tolerated. He plans for close follow up in CHF clinic following dispo. Acute on chronic Systolic Congestive Heart Failure, present on admission. Stable. - Echo in 06/24 showed a LVEF 35% with severely dilated left and right atrium - Continue Metoprolol succinate 25mg daily - Palliative consulted for goals of care conversation, she is open to transitioning to a SNF. Acute on Chronic Kidney Injury, present on admission. Improving. - Creatinine slightly improved, fell to 1.24 - Avoid nephrotoxic agents - Continue Dobutamine as above Delirium, not present on admission, acute. Ongoing. - Patient has been confused at nights but is easily redirected, likely due to owning as patient clears during waking hours - [facility]ust[facility] care, no lab draws prior to 6am to allow patient to sleep - Will schedule melatonin; seroquel PRN if patient is unable to be redirected Acute Anemia, present on admission. Stable. - History significant for ongoing GI bleeds, GERD/PUD, recent melena. - Patient became weak and pale; stat CBC showed Hgb 7.0 - will discuss with Dr. Holder whether to transfuse or not; nurse noted overt blood in most recent bowel movement - consulting GI - Transfusing 2U PRBCs with Lasix 40mg dosed in between each unit of blood. - Continue to trend in pediatric tubes Acute cystitis, present on admission. Resolved. - UA +nitrite, +Leuk esterase, +blood, packed WBC on admission - Urine culture results as above; stapleton sensitive E. coli - Continue Amoxicillin 500mg BID - Abx day 4 - Patient asymptomatic at this time; continue to monitor for ample urine output Dehydration, present on admission. Acute. Resolved. - Patient reports low oral intake as well as excessive diuretic use - Replete electrolytes as necessary Hypotension, present on admission. Acute. Resolved. - Likely due to dehydration, excessive diuretic use Chronic GERD with PUD and GI bleeds, present on admission. Ongoing. - EGD and colonoscopy did not show active bleed - Continue Protonix 40mg BID - Pt had bloody bowel movement today. Dr. Rudd called, suggested tagged RBC scan, will plan for tomorrow morning scan. Diabetes mellitus type 2, insulin requiring, present on admission. Ongoing. - Patient reported she was diabetic but hasn't been on medications for awhile - A1C 7 - Blood glucose on high edge of acceptable; watch as her appetite returns Hypertension - Hold blood pressure medications as blood pressure dropped to 79/50 Hyperlipidemia - Continue Pravastatin Glaucoma - Continue Bimatoprost Gout - Continue Allopurinol Hypothyroidism - Continue Levothyroxine Chronic insomnia - Melatonin scheduled Acetaminophen for mild pain when necessary. Bowel regimen Senna and MiraLAX scheduled as necessary. Zofran when necessary for nausea and vomiting. SubQ heparin started. SCDs in place. Disposition: Given the need for transfusions and further GI workup, likely patient will be discharged closer to the end of the week. Patient reports that her daughter is coming out from [facility] to help take care of her at home. GI Prophylaxis: Proton Pump Inhibitor VTE Prophylaxis: Sub-Q Heparin (Unfractionated) VTE Mechanical Devices: Intermittant Pneumatic CD Resuscitation Status: CPR: Attempt Resuscitation Mei Rudd MD Oct 31, 2016 17:21
--- NOTE | 2016-10-31 17:34 | PCM.PNCARD ---
Subjective Date of service Oct 31, 2016 Chief Complaint Shortness of breath/GI bleed History of Present Illness This morning so the patient she was doing rather well. Her breathing has improved. The plan was to taper off her dobutamine this early afternoon and switch her to oral torsemide in addition to spironolactone. Unfortunately recently the patient had a bowel movement which had melena. A repeat CBC showed a significant drop of her hemoglobin. Case was discussed with the hospitalist and we both agree the patient should be transfused 2 units of pack red blood cells. Myocardia perspective issues doing rather well and appeared to be quite euvolemic. Constitutional: Reports: Weakness Cardiovascular: Denies: Chest Pain, Irregular Heart Rate Respiratory: Denies: SOB with Exertion, Wake up SOB Gastrointestinal: Reports: Black tarry stools, Denies: Abdominal Pain Neurological: Reports: Confusion Exam Vital Signs Vital Sign - Last Date Time Temp Pulse Resp B/P Pulse Ox O2 Delivery O2 Flow Rate FiO2 10/31/16 15:00 99/51 10/31/16 13:00 72 10/31/16 12:07 36.6 22 94 Nasal Cannula 1.50 Intake and Output 10/30/16 10/30/16 10/31/16 Cumulative From/Thru 15:00 23:00 07:00 10/20/16 11:06 - 10/31/16 05:28 Intake Total 112 ml 502 ml 86484 ml Output Total 950 ml 55950 ml Balance 112 ml -448 ml -6915 ml Intake Oral 450 ml 9380 ml IV Total 112 ml 52 ml 6080 ml Packed Cells 300 ml Output Urine Total 950 ml 93908 ml Stool Total 2500 ml Urine/Stool Mix 700 ml # Voids 28 # Bowel Movements 21 Additional Information: GENERAL: Well-appearing, well-nourished and in no acute distress. HEAD: Atraumatic, normocephalic. EYES: Pupils equal round and reactive to light, extraocular movements intact, sclera anicteric, conjunctiva are normal. ENT: TMs normal, nares patent, oropharynx clear without exudates. Moist mucous membranes. NECK: Normal range of motion, supple without lymphadenopathy or overt JVD. LUNGS: Breath sounds clear except for very mild by basilar rales HEART: Regular rate and rhythm ABDOMEN: Soft, nontender, normoactive bowel sounds. No guarding, no rebound. No masses appreciated. EXTREMITIES: Normal range of motion, no pitting or edema. No clubbing or cyanosis. NEUROLOGICAL: Cranial nerves II through XII grossly intact. Normal speech, normal gait. PSYCH: Normal mood, normal affect. Lab and Diagnostics Result Diagram: 10/31/16 1315 10/31/16 1315 Assessment & Plan Problems: (1) Combined systolic and diastolic congestive heart failure, NYHA class 4 Plan: Patient appeared to be near euvolemic state. At this time with her recurrent GI bleed we will continue with dobutamine a little bit longer and give one-time dose of IV Lasix between 2 units of packed blood cells. When she has completed transfusion then later on tonight we will taper off her dobutamine. By tomorrow I would certainly consider putting her back on oral diuretics to try to prevent a repeat acute CHF. Her blood pressure remains low then consider holding her metoprolol, hydralazine, and Isordil. Once her blood pressure has improved slowly reintroduce her metoprolol and then subsequent hydralazine/Isordil. I would also stop her Plavix until the source of bleed is known. For now cardiology will follow from a distance but if you need any further assistance with her care my associate Dr. Fabio Milligan will be on- call for the cardiology service the rest of the week. Status: Acute ICD Code: I50.40 (2) Upper GI bleed Status: Resolved ICD Code: K92.2 (3) Ischemic cardiomyopathy Status: Chronic ICD Code: I25.5 Pain Evaluation: Adequate Pain Control GI Prophylaxis: Proton Pump Inhibitor VTE Prophylaxis: Sub-Q Heparin (Unfractionated) VTE Mechanical Devices: Intermittant Pneumatic CD Resuscitation Status: CPR: Attempt Resuscitation Time spent 20 minutes Fei Holder MD Oct 31, 2016 17:34
--- NOTE | 2016-10-31 19:40 | NUR ---
Hypotension 929 Discussed her care with Dr. Khanna, Dr. Alves, and the rest of the multidisciplinary care team during morning rounds. Notified them that she was still experiencing confusion. 944 Dr. Joshi said that he was just assessing her and she was complaining of nausea and asked that she get some Zofran. Assessed her and she said she was feeling much better and declined any medication. Dr. Joshi notified in passing. 954 Dr. Holder stopped by to assess her and said to stop her Dobutamine drip at 1400, that he would change around some of her cardiac medications, he would like her to follow up with the CHF clinic after discharge, and get home health assistance at home. [address] Joshi as her blood pressure was 83/46, she was looking pale, and was complaining of dizziness. Dr. Joshi did not call back and so Dr. Alves was contacted. He said he would order an H/H check. Her blood pressure was in the 70s/40s by that point. [address] Joshi and notified him that his blood pressures were in the 80s/40s now. He said he would contact Dr. Holder. 1327 Dr. Joshi talked to Dr. Holder who said to hold all his BP lower medications, dont give any fluid boluses, and to still stop the Dobutamin drip at 1400. 1408 Her H/H results came back at 10/29.9. Spoke to Dr. Joshi who said to give two units of Packed Red Blood Cells (PRBCs), but to give the 40 mg of IV Lasix in between. Noted she had a black, loose bowel movement. Dr. Joshi said to get a guaiac which was obtained. She had another black stool later in the day. 1420 Discontinued her Dobutamine drip. 1510 Called the Blood bank to check on the progress of her blood. They said the type and cross still needed to be obtained. Called lab who said they were on her way. 1526 Nuclear Medicine called and wondered if the test could be performed today. Spoke to Dr. Alves and Dr. Joshi who said she needed her PRBCs tonight and that the test could be performed tomorrow. Called Nuclear Medicine back and left a phone message. 1642 Dr. Rudd stopped by to see her and was given a verbal report. 1712 Called the Blood bank who said they were still working on getting her 2 units of PRBCs ready. 1720 Held her by mouth dose of potassium this evening as her potassium was 5.1 at the [address] Alves stopped by for safety rounds and was updated on her care/condition. [address] Joshi about her IV Lasix as it had been discontinued from her eMAR. He consulted with his Physician team and said her blood pressure was not expected to rise significantly with the 2 units of PRBCs so she did not need to receive the Lasix. 1814 The Blood bank called to say her blood was ready. manager emergency department notified so it could be started. Care continues.
--- NOTE | 2016-10-31 21:44 | ENDO ---
[address] [address] ENDOSCOPY PROCEDURE PATIENT: MONTEZ WAKEFIELD : 1935 MR#: [id number] ADMIT: 10/20/2016 JOB ID: [id number] DATE OF SERVICE: 10/21/2016 PROCEDURE: Esophagogastroduodenoscopy. INDICATIONS: Anemia with melena. Please see Dr. Muñoz's anesthesia report for details regarding ASA classification, Mallampati score, and medications. INSTRUMENT USED: GIF H 180 J. PROCEDURE DETAILS: After informed consent was obtained, the patient was brought into the GI suite where she was placed on oxygen via nasal cannula and monitored with continuous pulse oximeter, telemetry, and blood pressure monitoring. A time-out was performed. Then, she was placed in the left lateral decubitus position and medications were administered for sedation. A bite block was placed. The standard EGD scope was inserted through the bite block and advanced under direct visualization to the second portion of the duodenum. FINDINGS: 1. Normal-appearing duodenal bulb, first and second portion. Mild bile-stained mucosa was noted throughout the exam portion of duodenum. 2. Normal-appearing pylorus, antrum and gastric body. 3. Retroflexed views in the gastric body revealed a normal-appearing cardia and fundus. 4. No old or fresh blood was seen in the examined portions of the duodenum or stomach. 5. Normal-appearing GE junction with a regular Z-line. 6. Normal-appearing esophagus. IMPRESSION: Normal esophagogastroduodenoscopy exam to second portion of duodenum. No findings to explain anemia and melena. RECOMMENDATIONS: 1. Prep for colonoscopy. 2. Follow H and H closely. COMPLICATIONS: None. ESTIMATED BLOOD LOSS: 0. MTDD
[2016-11-01] VITALS (17 sets, daily range): BP systolic 91–161; BP diastolic 53–73; PULSE 89–111; RESP 15–23; O2SAT 92–95
[2016-11-01 04:10] LABS: BASOPHILS % (AUTO) 0.4 % (0-3); MONOCYTES % (AUTO) 7.8 % (4-12); Mean Corpuscular Hemoglobin 31.1 pg (27.0-35.0); Mean Corpuscular Volume 93.9 fL (81-100); NEUTROPHILS % (AUTO) 70.8 % (40-74); Platelet Count 247 bil/L (150-400)
--- NOTE | 2016-11-01 06:00 | NUR ---
GI / Blood Products 2 units PRBCs administered to pt throughout shift supervisor, beginning at approx. 2010 and ending at 0300 for two units total. No adverse incidents throughout transfusions. Ongoing black/burgundy loose stools throughout shift. VSS, tele SR/ST 90s-100s. Pt SBA to BSC, tolerating well. Unable to rest throughout shift. AOx3, though intermittent confusion, with statements such as ""I can't believe I'm still here after coming in an hour ago." at HS. [place] alarm in place for safety, but no impulsivity noted this shift.
[2016-11-01] MEDS: Pantoprazole 40 mg ER24 Tablet PO SCH ×2 (07:58→18:23)
[2016-11-01] MEDS: Potassium Chloride 20 mEq SR Tablet PO SCH ×2 (07:59→18:23)
[2016-11-01] MEDS: Heparin 5,000 Unit/mL Inj SUBQ SCH (08:09)
[2016-11-01] MEDS: Insulin LISPRO 300 Unit/3 mL Inj SUBQ SCH ×4 (08:15→21:04)
--- NOTE | 2016-11-01 09:14 | PCM.PNMED ---
Subjective Date of Service Nov 01, 2016 Subjective Gastroenterology Progress Note Patient is sitting at bedside eating breakfast this morning. She denies any nausea, vomiting, or pain. Overnight she had several dark tarry stools with some red blood mixed in as well reported by both patient and nursing staff. Tagged RBC scan scheduled for this afternoon. Exam Vital Signs Vital Sign - Last Date Time Temp Pulse Resp B/P Pulse Ox O2 Delivery O2 Flow Rate FiO2 11/01/16 08:19 Supplement Oxygen 11/01/16 08:16 37.4 93 20 117/65 95 1.50 Intake and Output 10/31/16 10/31/16 11/01/16 Cumulative From/Thru 15:00 23:00 07:00 10/20/16 11:06 - 11/01/16 06:58 Intake Total 43 ml 530 ml 1130 ml 90023 ml Output Total 1050 ml 1100 ml 63716 ml Balance 43 ml -520 ml 30 ml -7362 ml Intake Oral 530 ml 300 ml 25077 ml IV Total 43 ml 130 ml 6253 ml Packed Cells 700 ml 1000 ml Output Urine Total 1050 ml 200 ml 54430 ml Stool Total 400 ml 2900 ml Urine/Stool Mix 500 ml 1200 ml # Voids 2 30 # Bowel Movements 2 23 Exam General - no apparent distress, appropriate HEENT- Moist oral mucosa Respiratory - Faint crackles in bases right greater than left. No accessory muscle use. Cardiac - Regular rate and rhythm. Abdomen - Normoactive bowel tones, soft, nondistended. Extremities - Trace lower extremity edema. Neuro - Cranial nerves II-XII grossly intact. Psych - Alert and Oriented x 3 Lab and Diagnostics Result Diagram: 11/01/16 0330 11/01/16 0330 Microbiology URINE CULTURE ESCHERICHIA COLI that is stapleton sensitive Blood cultures negative x48h X-Rays, CTs and MRIs CXR 10/27 IMPRESSION: Enlarged cardiac mediastinal silhouette with interstitial pulmonary opacities and pleural effusions left greater than right may represent congestive heart failure exacerbation. Superimposed infection is possible. Recommend radiographic followup to resolution to exclude underlying mass lesion. If findings do not resolve chest CT with contrast will be needed. Dictated by: Fito Umaña M.D. on 10/27/2016 at 10:17 Approved by: Fito Umaña M.D. on 10/27/2016 at 10:21 CXR 10/26 IMPRESSION: Persistent bilateral pulmonary opacities with mild/moderate left- sided pleural effusion. Findings may represent infection and/or fluid imbalance. Dictated by: Fito Umaña M.D. on 10/26/2016 at 9:54 Approved by: Fito Umaña M.D. on 10/26/2016 at 9:56 CXR 10/24 IMPRESSION: 1. Patchy airspace opacities in lungs bilaterally suspicious for pneumonia. 2. Pulmonary edema. Dictated by: Ivon Garcia MD, PhD on 10/24/2016 at 16:17 Approved by: Ivon Garcia MD, PhD on 10/24/2016 at 16:19 CXR 10/20 IMPRESSION: No radiographic evidence of acute cardiopulmonary pathology. Dictated by: Fito Umaña M.D. on 10/20/2016 at 11:50 Approved by: Fito Umaña M.D. on 10/20/2016 at 11:51 X-RAY CHEST ONE VIEW, PORTABLE IMPRESSION: Persistent widespread pulmonary edema with potential areas of superimposed atelectasis and/or pneumonia with minimal effusions. No appreciable interval change. Approved by: Fatuma Sharma M.D. on 10/23/2016 at 16:12 X-RAY CHEST ONE VIEW IMPRESSION: 1. Patchy airspace opacities in lungs bilaterally suspicious for pneumonia. 2. Pulmonary edema. Dictated by: Ivon Garcia MD, PhD on 10/24/2016 at 16:17 Additional Diagnostics Colonoscopy. IMPRESSION: Stapleton diverticulosis. Otherwise normal examination from rectum to terminal ileum. Mei Rudd MD 10/22/16 1028 Assessment & Plan Nyla Priest is an 81 year old female with past medical history significant for CAD with 5 vessel CABG, HTN, HLD, DM2, CHF, PVD, CKD, GERD and PUD who has now developed black tarry stools. Melena with associated drop in H/H - Overnight patient recieved 2 units PRBCs and H/H improved appropriately on morning labs. - Continue to closely monitor H/H. - Tagged RBC scan planned for today. Recommend consulting interventional radiology for angiogram with embolization if positive. - If Tagged RBC scan is negative we will then plan for capsule endoscopy as inpatient. Thank you for involving us in the patient's care. GI Prophylaxis: Proton Pump Inhibitor VTE Prophylaxis: Sub-Q Heparin (Unfractionated) VTE Mechanical Devices: Intermittant Pneumatic CD Resuscitation Status: CPR: Attempt Resuscitation Attending Statement pt seen and examined, agree with Dr Ochoa's note above. tagged rbc scan negative recommend capsule endoscopy. discussed with patient and her daughter Iris and they are agreeable to proceed with capsule endoscopy tomorrow. Risk and benefits discussed in detail and consent obtained. recommend holding heparinn, follow cbc and transfuse blood products as needed. Dr Bedolla will be covering the service tomorrow, please contact him with any questions or concerns should they arise tomorrow. I will return on to resume care. HEATHER OCHOA DO Nov 01, 2016 09:14 Mei Rudd MD Nov 01, 2016 18:22
--- NOTE | 2016-11-01 14:46 | PCM.PNMED ---
Subjective Date of Service Nov 01, 2016 Subjective Nursing reports patient had another episode of dark stools overnight. 2 units of PRBCs transfused overnight. Night team reported patient had a short run of ventricular tachycardia during the night while being transfused, but spontaneously converted back to normal sinus rhythm. No further interventions were needed at that time. Blood pressure and heart rate responded well to transfusion. vitals @ 0800 were pulse: 93 and blood pressure 117/65. Patient sitting up in bed when I spoke with her. Patient complains of fatigue. Denies any chest pain, shortness of breath, Headache, N/V/D,or abdominal pain. ROS reviewed and negative unless otherwise noted above. Exam Vital Signs Vital Sign - Last Date Time Temp Pulse Resp B/P Pulse Ox O2 Delivery O2 Flow Rate FiO2 11/01/16 12:39 36.6 98 134/65 93 Nasal Cannula 1.00 11/01/16 08:16 20 Intake and Output 10/31/16 10/31/16 11/01/16 Cumulative From/Thru 15:00 23:00 07:00 10/20/16 11:06 - 11/01/16 06:58 Intake Total 43 ml 530 ml 1130 ml 73801 ml Output Total 1050 ml 1100 ml 08289 ml Balance 43 ml -520 ml 30 ml -7362 ml Intake Oral 530 ml 300 ml 23398 ml IV Total 43 ml 130 ml 6253 ml Packed Cells 700 ml 1000 ml Output Urine Total 1050 ml 200 ml 48588 ml Stool Total 400 ml 2900 ml Urine/Stool Mix 500 ml 1200 ml # Voids 2 30 # Bowel Movements 2 23 Exam Constitutional: Alert and oriented x3. Conversive. Frail appearing, but in no acute distress Head: Normocephalic and atraumatic Eyes: pupils equal round and reactive. EOMI Heart: Regular rate. 2/6 systolic murmur on the right sternal chest border radiating into the carotids. No peripheral edema. capillary refill <2 seconds Lungs: clear to auscultation, no wheeze, rhonchi, or rales ABD: soft, and nontender. bowel sounds present throughout Musculoskeletal: Moves all four extremities appropriately, transitioning from bed to wheelchair Skin; pale, warm, dry Neuro: CN II-XII intact, no focal deficits Psych: appropriate mood and affect. IVs and Medications IV Fluids 2 Units of PRBCs Medications Reviewed: Medications were reviewed in detail Lab and Diagnostics Item Value Date Time Red Blood Count 3.28 mil/mm3 L 11/01/16 033 Mean Corpuscular Volume 93.9 fL 11/01/16329 Mean Corpuscular Hemoglobin 31.1 pg 11/01/16329 Mean Corpuscular Hemoglobin Concent 33.1 % 11/01/16 033 Red Cell Distribution Width 15.8 % H 11/01/16 033 Neutrophils (%) (Auto) 70.8 % 11/01/16 033 Lymphocytes (%) (Auto) 18.4 % 11/01/16 033 Monocytes (%) (Auto) 7.8 % 11/01/16 033 Eosinophils (%) (Auto) 2.0 % 11/01/16 033 Basophils (%) (Auto) 0.4 % 11/01/16 033 Procalcitonin 0.45 ng/mL H 11/01/16 033 Albumin 3.1 g/dL L 11/01/16 033 Total Protein 6.2 g/dL L 11/01/16 033 Alkaline Phosphatase 78 U/L 11/01/16 0330 Alanine Aminotransferase (ALT/SGPT) 15 U/L 11/01/16 0330 Aspartate Amino Transf (AST/SGOT) 23 U/L 11/01/16 033 Total Bilirubin 0.7 mg/dL 11/01/16 033 Calcium Level 8.5 mg/dL 11/01/16 033 Estimat Glomerular Filtration Rate 53 mL/min 11/01/16 033 Result Diagram: 11/01/16 03311/01/16 033 Microbiology URINE CULTURE ESCHERICHIA COLI that is stapleton sensitive Blood cultures negative x48h X-Rays, CTs and MRIs CXR 10/27 IMPRESSION: Enlarged cardiac mediastinal silhouette with interstitial pulmonary opacities and pleural effusions left greater than right may represent congestive heart failure exacerbation. Superimposed infection is possible. Recommend radiographic followup to resolution to exclude underlying mass lesion. If findings do not resolve chest CT with contrast will be needed. Dictated by: Fito Umaña M.D. on 10/27/2016 at 10:17 Approved by: Fito Umaña M.D. on 10/27/2016 at 10:21 CXR 10/26 IMPRESSION: Persistent bilateral pulmonary opacities with mild/moderate left- sided pleural effusion. Findings may represent infection and/or fluid imbalance. Dictated by: Fito Umaña M.D. on 10/26/2016 at 9:54 Approved by: Fito Umaña M.D. on 10/26/2016 at 9:56 CXR 10/24 IMPRESSION: 1. Patchy airspace opacities in lungs bilaterally suspicious for pneumonia. 2. Pulmonary edema. Dictated by: Ivon Garcia MD, PhD on 10/24/2016 at 16:17 Approved by: Ivon Garcia MD, PhD on 10/24/2016 at 16:19 CXR 10/20 IMPRESSION: No radiographic evidence of acute cardiopulmonary pathology. Dictated by: Fito Umaña M.D. on 10/20/2016 at 11:50 Approved by: Fito Umaña M.D. on 10/20/2016 at 11:51 X-RAY CHEST ONE VIEW, PORTABLE IMPRESSION: Persistent widespread pulmonary edema with potential areas of superimposed atelectasis and/or pneumonia with minimal effusions. No appreciable interval change. Approved by: Fatuma Sharma M.D. on 10/23/2016 at 16:12 X-RAY CHEST ONE VIEW IMPRESSION: 1. Patchy airspace opacities in lungs bilaterally suspicious for pneumonia. 2. Pulmonary edema. Dictated by: Ivon Garcia MD, PhD on 10/24/2016 at 16:17 Additional Diagnostics Colonoscopy. IMPRESSION: Stapleton diverticulosis. Otherwise normal examination from rectum to terminal ileum. Mei Rudd MD 10/22/16 1028 Assessment & Plan Nyla Priest is an 81 year old female with past medical history significant for CAD with 5 vessel CABG, HTN, HLD, DM2, CHF, PVD, CKD, GERD and PUD who has now developed black tarry stools. Melena with associated drop in H/H - Overnight patient recieved 2 units PRBCs and H/H improved appropriately on morning labs. - Continue to closely monitor H/H. - Tagged RBC scan planned for today. Recommend consulting interventional radiology for angiogram with embolization if positive. - If Tagged RBC scan is negative we will then plan for capsule endoscopy as inpatient. Acute Hypoxic Respiratory failure, not present on admission. Improving. - Likely secondary to Pulmonary Edema and fluid overload - Reduce O2 to .5L NC. Desaturation was likely from acute drop in H/H. - Discussed the case with Dr. Holder again today; while patient requiring transfusions, will keep on Dobutamine drip with plan to transition to PO meds once tolerated. He plans for close follow up in CHF clinic following dispo. Acute on chronic Systolic Congestive Heart Failure, present on admission. Stable. - Echo in 06/24 showed a LVEF 35% with severely dilated left and right atrium - Continue Metoprolol succinate 25mg daily, hold if patient becomes hypotensive. - Palliative consulted for goals of care conversation, she is open to transitioning to a SNF. - Dr. Holder following. Acute on Chronic Kidney Injury, present on admission. Improving. - Creatinine slightly improved, fell to 1.24 - Avoid nephrotoxic agents - Continue Dobutamine as above Delirium, not present on admission, acute. Ongoing. - Patient has been confused at nights but is easily redirected, likely due to owning as patient clears during waking hours - [facility] care, no lab draws prior to 6am to allow patient to sleep - Will schedule melatonin; seroquel PRN if patient is unable to be redirected Acute Blood Loss Anemia, present on admission. Stable. - History significant for ongoing GI bleeds, GERD/PUD, recent melena. - Patient became weak and pale; stat CBC showed Hgb 7.0. Patient transfused and 11/01 Hgb was 10. - Transfused 2U PRBCs. (06/03) Patient tolerated well. - Continue to trend in pediatric tubes - AM CBC and CMP Acute cystitis, present on admission. Resolved. - Urine culture results; stapleton sensitive E. coli - Stop Amoxicillin 500mg BID - (11/01) - Patient asymptomatic at this time; continue to monitor for ample urine output Dehydration, present on admission. Acute. Resolved. - Patient reports low oral intake as well as excessive diuretic use - Replete electrolytes as necessary Hypotension, present on admission. Acute. Resolved. - Likely due to dehydration, excessive diuretic use Chronic GERD with PUD and GI bleeds, present on admission. Ongoing. - EGD and colonoscopy did not show active bleed - Continue Protonix 40mg BID - Pt had bloody bowel movement today. - Discussed with Dr. Rudd following. Awaiting tRBC scan. Diabetes mellitus type 2, insulin requiring, present on admission. Ongoing. - Patient reported she was diabetic but hasn't been on medications for awhile - A1C 7 - Blood glucose on high edge of acceptable; watch as her appetite returns Hypertension - Hold blood pressure medications until after tRBCs scan and if patient still hypotensive. - Continue to monitor overnight, avoid IVF as patient has CHF with LVEF of 35% Hyperlipidemia - Continue Pravastatin Glaucoma - Continue Bimatoprost Gout - Continue Allopurinol Hypothyroidism - Continue Levothyroxine Chronic insomnia - Melatonin scheduled Thank you for involving us in the patient's care. GI Prophylaxis: Proton Pump Inhibitor VTE Prophylaxis: Sub-Q Heparin (Unfractionated) VTE Mechanical Devices: Intermittant Pneumatic CD Resuscitation Status: CPR: Attempt Resuscitation Attending Statement The patient was seen and examined together with Dr. Joshi on 11/01/16 and I agree with the history, exam and plan as outlined in the note above. Heriberto Joshi DO Nov 01, 2016 14:46 Kaylie Khanna DO Nov 04, 2016 18:15
--- NOTE | 2016-11-01 15:03 | DRSVH ---
PROCEDURE: NM ACUTE GASTROINTESTINAL BLOOD LOSS (51776) RADIOPHARMACEUTICAL: 23.6 mCi Tc-99m in vitro labeled autologous red cells IV. INDICATIONS: OVERT GI BLEED REQUIRING TRANSFUSION TECHNIQUE: Following intravenous administration of Tc-99m in vitro labeled autologous red cells, sequential ante rior abdominal images were obtained of the abdomen. COMPARISON: None. FINDINGS: There is no extravasation of labeled red cells in the abdomen or pelvis to suggest active gastrointestinal bleeding. IMPRESSION: This is a negative scan for active bleeding at this time. No abnormal scintigraphic foci are seen. No appearing or disappearing foci of scintigraphic activity. Dictated by: Yusuf Hoskins M.D. on 11/01/2016 at 14:46 Approved by: Yusuf Hoskins M.D. on 11/01/2016 at 15:01
[2016-11-01] MEDS ORDERED: PEG/Electrolytes 4,000 mL Solution PO ONE ×2 (18:10→21:00)
--- NOTE | 2016-11-01 19:07 | NUR ---
Multidisciplinary Communication 0815 - Spoke to Dr. Joshi about her diet as she was NPO. He said she could eat food. 919 - She was taken via wheelchair to Nuclear medicine for her tagged RBC scan. 929 - Discussed her care with Dr. Khanna, Dr. Alves, and the rest of the multidisciplinary care team during morning rounds. Informed them that she had two episodes that morning of 3 PVCs in a row per [employer]. No new orders. 1050 - She returned to [facility] and Uvaldo gave report. He said she had trouble holding still and may need medication for future tests to help her relax. Decreased her O2 to 0.5L via nasal cannula per Dr. Khanna request. She tolerated it well and her SpO2 remained 88-95%. About 1300 - She sat up at the edge of the bed and did some exercises on her own. 1530 - Physical Therapy saw her and said she walked about 30 feet and did well on her 0.5L of O2. Her blood pressure seemed to drop once she laid back down in bed (see vitals charting). PT notified Dr. Khanna. 1541 - Dr. Khanna ordered a stat Troponin as she said she was concerned about her heart. 1650 - Her Troponin was 0. 055. Notified Dr. Khanna. No new orders. 1700 - Dr. Rudd stopped by and said the tagged RBC scan was negative. He said she would be eligible for a capsule endoscopy. Per the patient's request he called the daughter, Iris, and got her telephone consent with this nurse to have the procedure competed tomorrow. 1714 - The consent was signed by this nurse. Dr. Rudd came back later and signed it as well. Dr. Alves came by for safety rounds and was updated on her care. 1800 - Dr. Rudd spoke to this nurse and said that she would have bowel prep tonight starting at 2100, be on clear liquid diet starting now, be NPO at 0500 in the morning, and then to call Endoscopy tomorrow in the morning when she would be available to swallow the camera. Their extension is [phone]. Care continues.
[2016-11-02] VITALS (12 sets, daily range): BP systolic 87–126; BP diastolic 54–80; PULSE 87–117; RESP 15–22; O2SAT 90–94
[2016-11-02 02:17] LABS: BASOPHILS % (AUTO) 0.3 % (0-3); MONOCYTES % (AUTO) 7.7 % (4-12); Mean Corpuscular Hemoglobin 31.1 pg (27.0-35.0); Mean Corpuscular Volume 95.4 fL (81-100); NEUTROPHILS % (AUTO) 70.8 % (40-74); Platelet Count 252 bil/L (150-400)
--- NOTE | 2016-11-02 05:52 | NUR ---
Bowel Prep 2 liters of Colyte prep initiated at 2100 per MD order; pt finished at approx. 2300. Bowel movements throughout shift gradually lightened to a greenish-clear fluid this AM with occasional dark flecks. VSS throughout shift, tele SR 90s. Pt able to rest intermittently. At HS, received phone call from pt's daughter; request made to consult with MD regarding sleeping aid for pt, as patient has not been able to rest effectively during hospital stay per report from daughter and patient. MD paged, no orders changed or sleep aid administered throughout this shift due to bowel prep initiation and increase in fall risk associated with administering sleep aids while pt would be ambulating to BSC. Per MD, sleep aid recommended for tomorrow's HS for improvement in sleep hygiene.
--- NOTE | 2016-11-02 06:21 | PCM.PNMED ---
Subjective Date of Service Nov 02, 2016 Subjective Nursing reports bowel prep started at 2100. No acute events overnight. Patient NPO starting at 0600 today (11/02) for a scheduled pill endoscopy Exam Vital Signs Vital Sign - Last Date Time Temp Pulse Resp B/P Pulse Ox O2 Delivery O2 Flow Rate FiO2 11/02/16 06:01 87 11/02/16 02:04 36.7 17 119/61 93 Nasal Cannula 0.50 Intake and Output 11/01/16 11/01/16 11/02/16 Cumulative From/Thru 15:00 23:00 07:00 10/20/16 11:06 - 11/02/16 05:52 Intake Total 880 ml 2400 ml 25970 ml Output Total 950 ml 1300 ml 50314 ml Balance -70 ml 1100 ml -6332 ml Intake Oral 880 ml 2400 ml 59666 ml IV Total 6253 ml Packed Cells 1000 ml Output Urine Total 400 ml 55287 ml Stool Total 900 ml 3800 ml Urine/Stool Mix 950 ml 2150 ml # Voids 30 # Bowel Movements 2 25 Exam Constitutional: Awake and Alert. Conversive and cooperative. Frail appearing but, in no acute Distress. Head: Normocephalic and Atraumatic Eyes. Pupils equal round and reactive. EOMI Heart: Regular Rate and rhythm. 2/6 systolic murmur on the right sternal border radiating into the carotids. No peripheral edema Lungs: clear to auscultation bilaterally. No wheeze, rales, or rhonchi. ABD. Soft and nontender. Bowel sounds present throughout. Musculoskeletal: Moves all four extremities appropriately. Able to transition from seated to standing and walk to bedside chair. Neuro: CN II-XII intact. No focal deficits. Psych: appropriate mood and affect. Confused sometimes, but overall alert and oriented x3. IVs and Medications Medications Reviewed: Medications were reviewed in detail Lab and Diagnostics Item Value Date Time Red Blood Count 3.25 mil/mm3 L 11/02/16204 Mean Corpuscular Volume 95.4 fL 11/02/16204 Mean Corpuscular Hemoglobin 31.1 pg 11/02/16204 Mean Corpuscular Hemoglobin Concent 32.6 % 11/02/16204 Red Cell Distribution Width 16.2 % H 11/02/16204 Neutrophils (%) (Auto) 70.8 % 11/02/16 020 Lymphocytes (%) (Auto) 17.8 % 11/02/16 020 Monocytes (%) (Auto) 7.7 % 11/02/16 020 Eosinophils (%) (Auto) 3.0 % 11/02/16 020 Basophils (%) (Auto) 0.3 % 11/02/16204 Estimat Glomerular Filtration Rate 52 mL/min 11/02/16204 Calcium Level 8.6 mg/dL 11/02/16204 Total Bilirubin 0.6 mg/dL 11/02/16 020 Aspartate Amino Transf (AST/SGOT) 43 U/L 11/02/16204 Alanine Aminotransferase (ALT/SGPT) 24 U/L 11/02/16204 Alkaline Phosphatase 78 U/L 11/02/16204 Troponin T 0.055 ug/L *H 11/01/16 1552 Troponin T 0.049 ug/L *H 11/01/16 2033 Total Protein 6.7 g/dL 11/02/16204 Albumin 3.3 g/dL L 11/02/16204 Procalcitonin 0.32 ng/mL H 11/02/16204 Result Diagram: 11/02/1620411/02/16204 Microbiology URINE CULTURE ESCHERICHIA COLI that is stapleton sensitive Blood cultures negative x48h X-Rays, CTs and MRIs CXR 10/27 IMPRESSION: Enlarged cardiac mediastinal silhouette with interstitial pulmonary opacities and pleural effusions left greater than right may represent congestive heart failure exacerbation. Superimposed infection is possible. Recommend radiographic followup to resolution to exclude underlying mass lesion. If findings do not resolve chest CT with contrast will be needed. Dictated by: Fito Umaña M.D. on 10/27/2016 at 10:17 Approved by: Fito Umaña M.D. on 10/27/2016 at 10:21 CXR 10/26 IMPRESSION: Persistent bilateral pulmonary opacities with mild/moderate left- sided pleural effusion. Findings may represent infection and/or fluid imbalance. Dictated by: Fito Umaña M.D. on 10/26/2016 at 9:54 Approved by: Fito Umaña M.D. on 10/26/2016 at 9:56 CXR 10/24 IMPRESSION: 1. Patchy airspace opacities in lungs bilaterally suspicious for pneumonia. 2. Pulmonary edema. Dictated by: Ivon Garcia MD, PhD on 10/24/2016 at 16:17 Approved by: Ivon Garcia MD, PhD on 10/24/2016 at 16:19 CXR 10/20 IMPRESSION: No radiographic evidence of acute cardiopulmonary pathology. Dictated by: Fito Umaña M.D. on 10/20/2016 at 11:50 Approved by: Fito Umaña M.D. on 10/20/2016 at 11:51 X-RAY CHEST ONE VIEW, PORTABLE IMPRESSION: Persistent widespread pulmonary edema with potential areas of superimposed atelectasis and/or pneumonia with minimal effusions. No appreciable interval change. Approved by: Fatuma Sharma M.D. on 10/23/2016 at 16:12 X-RAY CHEST ONE VIEW IMPRESSION: 1. Patchy airspace opacities in lungs bilaterally suspicious for pneumonia. 2. Pulmonary edema. Dictated by: Ivon Garcia MD, PhD on 10/24/2016 at 16:17 Additional Diagnostics Colonoscopy. IMPRESSION: Stapleton diverticulosis. Otherwise normal examination from rectum to terminal ileum. Mei Rudd MD 10/22/16 1028 Assessment & Plan Nyla Priest is an 81 year old female with past medical history significant for CAD with 5 vessel CABG, HTN, HLD, DM2, CHF, PVD, CKD, GERD and PUD who has now developed black tarry stools. Melena with associated drop in H/H - H/H stable today. Total units of blood given since admission = 3. - Continue to closely monitor H/H. - Tagged RBC scan revealed no bleed. Capsule endoscopy initiated @0830 (11/02) and is ongoing, awaiting report. - GI following Acute Hypoxic Respiratory failure, not present on admission. Improving. - Likely secondary to Pulmonary Edema and fluid overload - Continue O2 at 0.5L NC. O2 saturation has been stable. - Hold Dobutamine drip with plan to transition to PO meds once tolerated. He plans for close follow up in CHF clinic following dispo. Will discuss with Dr. Holder regarding outpatient care tomorrow morning. Acute on chronic Systolic Congestive Heart Failure, present on admission. Stable. - Echo on 06/24 showed a LVEF 35% with severely dilated left and right atrium - Continue Metoprolol succinate 25mg daily, hold if patient becomes hypotensive. - Palliative consulted for goals of care conversation, she is open to transitioning to a SNF. - Dr. Holder following. Acute on Chronic Kidney Injury, present on admission. Improving. - Creatinine stable. Will repeat with AM CMP. - Avoid nephrotoxic agents - Hold Dobutamine as above Delirium, not present on admission, acute. Ongoing. - Patient has been confused at nights but is easily redirected, likely due to as patient clears during waking hours - [facility] care, no lab draws prior to 6am to allow patient to sleep - Will schedule melatonin; seroquel PRN if patient is unable to be redirected Acute Blood Loss Anemia, present on admission. Stable. - History significant for ongoing GI bleeds, GERD/PUD, recent melena. - Patient transfused on (11/01). H/H stable. - Continue to trend in pediatric tubes - AM CBC and CMP Acute cystitis, present on admission. Resolved. - Urine culture results; stapleton sensitive E. coli - Stopped Amoxicillin 500mg BID - (11/01) - Patient asymptomatic at this time; continue to monitor for ample urine output Dehydration, present on admission. Acute. Resolved. - Patient reports low oral intake as well as excessive diuretic use - Replete electrolytes as necessary Hypotension, present on admission. Acute. Resolved. - Likely due to dehydration, excessive diuretic use Chronic GERD with PUD and GI bleeds, present on admission. Ongoing. - EGD and colonoscopy did not show active bleed - Continue Protonix 40mg BID - Discussed with Dr. Rudd following. Awaiting pill cam report. Diabetes mellitus type 2, insulin requiring, present on admission. Ongoing. - Patient reported she was diabetic but hasn't been on medications for awhile - A1C 7 - Blood glucose on high edge of acceptable; watch as her appetite returns Hypertension - Continue to monitor overnight, avoid IVF as patient has CHF with LVEF of 35% Hyperlipidemia - Continue Pravastatin Glaucoma - Continue Bimatoprost Gout - Continue Allopurinol Hypothyroidism - Continue Levothyroxine Chronic insomnia - Melatonin scheduled Patient is stable. We are currently awaiting report for the pill cam study. Will likely d/c in the next day or two with close followup for GI and Cardiology. GI Prophylaxis: Proton Pump Inhibitor VTE Prophylaxis: Sub-Q Heparin (Unfractionated) VTE Mechanical Devices: Intermittant Pneumatic CD Resuscitation Status: CPR: Attempt Resuscitation Attending Statement The patient was seen and examined together with Dr. Joshi on 11/02/16 and I have added additional information to the note above. Heriberto Joshi DO Nov 02, 2016 06:21 Kaylie Khanna DO Nov 05, 2016 12:57
[2016-11-02] MEDS: Potassium Chloride 20 mEq SR Tablet PO SCH ×2 (07:32→17:49)
[2016-11-02] MEDS: Pantoprazole 40 mg ER24 Tablet PO SCH ×2 (07:34→17:49)
[2016-11-02] MEDS: Insulin LISPRO 300 Unit/3 mL Inj SUBQ SCH ×4 (07:39→21:34)
--- NOTE | 2016-11-02 11:01 | PCM.PNMED ---
Subjective Date of Service Nov 02, 2016 Subjective Gastroenterology Progress Note No acute events overnight. Patient sitting at bedside with apparatus for PillCam in place. PillCam was initiated this morning around 0815. Patient is currently NPO but tolerated oral intake yesterday without nausea or vomiting. She denies any ongoing bright red per rectum overnight and this morning. No abdominal pain, chest pain, or shortness of breath. Exam Vital Signs Vital Sign - Last Date Time Temp Pulse Resp B/P Pulse Ox O2 Delivery O2 Flow Rate FiO2 11/02/16 10:32 92 Room Air 11/02/16 08:54 98 11/02/16 07:57 36.7 18 87/55 0.50 Intake and Output 11/01/16 11/01/16 11/02/16 Cumulative From/Thru 15:00 23:00 07:00 10/20/16 11:06 - 11/02/16 05:52 Intake Total 880 ml 2400 ml 65470 ml Output Total 950 ml 1300 ml 14729 ml Balance -70 ml 1100 ml -6332 ml Intake Oral 880 ml 2400 ml 31654 ml IV Total 6253 ml Packed Cells 1000 ml Output Urine Total 400 ml 70227 ml Stool Total 900 ml 3800 ml Urine/Stool Mix 950 ml 2150 ml # Voids 30 # Bowel Movements 2 25 Exam General - No acute distress, appropriate HEENT- Moist oral mucosa Respiratory - Faint crackles in bases right greater than left. No accessory muscle use. Cardiac - Regular rate and rhythm. Abdomen - Normoactive bowel tones, soft, nondistended. Extremities - Trace lower extremity edema. Neuro - Cranial nerves II-XII grossly intact. Psych - Alert and Oriented x 3 Lab and Diagnostics Result Diagram: 11/02/16 0205 11/02/16 0205 Microbiology URINE CULTURE ESCHERICHIA COLI that is stapleton sensitive Blood cultures negative x48h X-Rays, CTs and MRIs CXR 10/27 IMPRESSION: Enlarged cardiac mediastinal silhouette with interstitial pulmonary opacities and pleural effusions left greater than right may represent congestive heart failure exacerbation. Superimposed infection is possible. Recommend radiographic followup to resolution to exclude underlying mass lesion. If findings do not resolve chest CT with contrast will be needed. Dictated by: Fito Umaña M.D. on 10/27/2016 at 10:17 Approved by: Fito Umaña M.D. on 10/27/2016 at 10:21 CXR 10/26 IMPRESSION: Persistent bilateral pulmonary opacities with mild/moderate left- sided pleural effusion. Findings may represent infection and/or fluid imbalance. Dictated by: Fito Umaña M.D. on 10/26/2016 at 9:54 Approved by: Fito Umaña M.D. on 10/26/2016 at 9:56 CXR 10/24 IMPRESSION: 1. Patchy airspace opacities in lungs bilaterally suspicious for pneumonia. 2. Pulmonary edema. Dictated by: Ivon Garcia MD, PhD on 10/24/2016 at 16:17 Approved by: Ivon Garcia MD, PhD on 10/24/2016 at 16:19 CXR 10/20 IMPRESSION: No radiographic evidence of acute cardiopulmonary pathology. Dictated by: Fito Umaña M.D. on 10/20/2016 at 11:50 Approved by: Fito Umaña M.D. on 10/20/2016 at 11:51 X-RAY CHEST ONE VIEW, PORTABLE IMPRESSION: Persistent widespread pulmonary edema with potential areas of superimposed atelectasis and/or pneumonia with minimal effusions. No appreciable interval change. Approved by: Fatuma Sharma M.D. on 10/23/2016 at 16:12 X-RAY CHEST ONE VIEW IMPRESSION: 1. Patchy airspace opacities in lungs bilaterally suspicious for pneumonia. 2. Pulmonary edema. Dictated by: Ivon Garcia MD, PhD on 10/24/2016 at 16:17 Additional Diagnostics Colonoscopy. IMPRESSION: Stapleton diverticulosis. Otherwise normal examination from rectum to terminal ileum. Mei Rudd MD 10/22/16 1028 Assessment & Plan Nyla Priest is an 81 year old female with past medical history significant for CAD with 5 vessel CABG, HTN, HLD, DM2, CHF, PVD, CKD, GERD and PUD who has now developed black tarry stools. GI was consulted for melena with associated drop in hemoglobin and hematocrit. Patient has underwent endoscopy which was unremarkable. Tagged RBC scan was completed yesterday and was negative. Patient is currently undergoing capsule endoscopy which started around 0815 and should complete around 0415. Recommendations - H&H is stable. Continue to monitor and transfuse as necessary. - Complete capsule endoscopy today. - Patient currently with no signs of overt bleeding. From a GI standpoint patient can be discharged after capsule endoscopy completed. - Follow up in 1 week in GI clinic to review results of capsule endoscopy. Thank you for involving us in the patient's care. We will continue to follow. GI Prophylaxis: Proton Pump Inhibitor VTE Prophylaxis: Sub-Q Heparin (Unfractionated) VTE Mechanical Devices: Intermittant Pneumatic CD Resuscitation Status: CPR: Attempt Resuscitation HEATHER OCHOA DO Nov 02, 2016 11:01 HEATHER OCHOA DO Nov 02, 2016 11:01
--- NOTE | 2016-11-02 16:25 | NUR ---
Social Work Note: Continued Discharge Planning Data& Assessment: Pt was discussed in AM rounds today, per MD pt is not medically ready to discharge at this time. Pt is progressing with PT and cleared to go home with home health services. HH order has been obtained. SW attempted to meet with pt at bedside for HH preferences but pt was sleeping and not rousable after working with PT. SW to follow up with pt regarding preferences. Plan: Anticipated discharge home with home health when medically ready. SW to follow up with pt regarding preferences. DORIAN Carrion
--- NOTE | 2016-11-02 19:03 | NUR ---
Capsule study/O2 Christina in GI contacted after Pt seen this am who came over to administer capsule with primary RN. Pt NPO with exception of am medications and a small amount of water prior to ingestion. Per instructions, Pt allowed to have clears 2 hours after ingestions and a light lunch. Pt tolerated test well and blue indicator light was blinking whenever rounding on Pt. Pt's SPO2 sats in the low 90s on 0.5L via nasal cannula, spoke with MD and MD verbalized that SPO2 sats over 88% would be acceptable, Pt's O2 removed, SPO2 sats 89-92% on RA and Pt denied an increase in SOB, Pt left on RA.
[2016-11-03] VITALS (11 sets, daily range): BP systolic 90–117; BP diastolic 45–69; PULSE 55–114; RESP 18–28; O2SAT 90–94
--- NOTE | 2016-11-03 00:14 | NUR ---
neuro: pt. significantly more confused/disoriented at night, worse after given sleeping med for insomnia, pt. redirected back to bed, bed alarm on for safety. pt. reoriented to time and place Addendum: 11/03/16 at 0308 by MITZI SHEPHERD RN pt's mentation more clear at 3am.
[2016-11-03 03:41] LABS: Mean Corpuscular Hemoglobin 30.1 pg (27.0-35.0); Mean Corpuscular Volume 96.3 fL (81-100)
[2016-11-03] MEDS: Insulin LISPRO 300 Unit/3 mL Inj SUBQ SCH ×4 (09:19→22:00)
[2016-11-03] MEDS: Pantoprazole 40 mg ER24 Tablet PO SCH ×2 (09:21→17:00)
[2016-11-03] MEDS: Potassium Chloride 20 mEq SR Tablet PO SCH ×2 (09:22→17:00)
--- NOTE | 2016-11-03 13:08 | PCM.PNMED ---
Subjective Date of Service Nov 03, 2016 Subjective Gastroenterology Progress Note No acute events overnight. PillCam completed yesterday evening. Patient has had no overt signs of bleeding over the last 24 hours including no melena, hematemesis, or bright red blood per rectum. She is tolerating oral intake without nausea or vomiting. No other complaints. Exam Vital Signs Vital Sign - Last Date Time Temp Pulse Resp B/P Pulse Ox O2 Delivery O2 Flow Rate FiO2 11/03/16 12:04 36.2 94 18 90/45 94 Room Air 11/02/16 23:27 0.50 Intake and Output 11/02/16 11/02/16 11/03/16 Cumulative From/Thru 15:00 23:00 07:00 10/20/16 11:06 - 11/03/16 06:31 Intake Total 840 ml 200 ml 73970 ml Output Total 550 ml 301 ml 80977 ml Balance 290 ml -101 ml -6143 ml Intake Oral 840 ml 200 ml 08940 ml IV Total 6253 ml Packed Cells 1000 ml Output Urine Total 550 ml 300 ml 94873 ml Stool Total 1 ml 3801 ml Urine/Stool Mix 2150 ml # Voids 1 31 # Bowel Movements 2 27 Exam General - No acute distress, appropriate HEENT- Moist oral mucosa Respiratory - Faint crackles in bases right greater than left. No accessory muscle use. Cardiac - Regular rate and rhythm. Abdomen - Normoactive bowel tones, soft, nondistended. Extremities - Trace lower extremity edema. Neuro - Cranial nerves II-XII grossly intact. Psych - Alert and Oriented x 3 Lab and Diagnostics Result Diagram: 11/03/16 0310 11/03/16 0310 Microbiology URINE CULTURE ESCHERICHIA COLI that is stapleton sensitive Blood cultures negative x48h X-Rays, CTs and MRIs CXR 10/27 IMPRESSION: Enlarged cardiac mediastinal silhouette with interstitial pulmonary opacities and pleural effusions left greater than right may represent congestive heart failure exacerbation. Superimposed infection is possible. Recommend radiographic followup to resolution to exclude underlying mass lesion. If findings do not resolve chest CT with contrast will be needed. Dictated by: Fito Umaña M.D. on 10/27/2016 at 10:17 Approved by: Fito Umaña M.D. on 10/27/2016 at 10:21 CXR 10/26 IMPRESSION: Persistent bilateral pulmonary opacities with mild/moderate left- sided pleural effusion. Findings may represent infection and/or fluid imbalance. Dictated by: Fito Umaña M.D. on 10/26/2016 at 9:54 Approved by: Fito Umaña M.D. on 10/26/2016 at 9:56 CXR 10/24 IMPRESSION: 1. Patchy airspace opacities in lungs bilaterally suspicious for pneumonia. 2. Pulmonary edema. Dictated by: Ivon Garcia MD, PhD on 10/24/2016 at 16:17 Approved by: Ivon Garcia MD, PhD on 10/24/2016 at 16:19 CXR 10/20 IMPRESSION: No radiographic evidence of acute cardiopulmonary pathology. Dictated by: Fito Umaña M.D. on 10/20/2016 at 11:50 Approved by: Fito Umaña M.D. on 10/20/2016 at 11:51 X-RAY CHEST ONE VIEW, PORTABLE IMPRESSION: Persistent widespread pulmonary edema with potential areas of superimposed atelectasis and/or pneumonia with minimal effusions. No appreciable interval change. Approved by: Fatuma Sharma M.D. on 10/23/2016 at 16:12 X-RAY CHEST ONE VIEW IMPRESSION: 1. Patchy airspace opacities in lungs bilaterally suspicious for pneumonia. 2. Pulmonary edema. Dictated by: Ivon Garcia MD, PhD on 10/24/2016 at 16:17 Additional Diagnostics Colonoscopy. IMPRESSION: Stapleton diverticulosis. Otherwise normal examination from rectum to terminal ileum. Mei Rudd MD 10/22/16 1028 Assessment & Plan Nyla Priest is an 81 year old female with past medical history significant for CAD with 5 vessel CABG, HTN, HLD, DM2, CHF, PVD, CKD, GERD and PUD who has now developed black tarry stools. GI was consulted for melena with associated drop in hemoglobin and hematocrit. Patient has underwent endoscopy which was unremarkable. Tagged RBC scan was completed yesterday and was negative. Capsule endoscopy completed yesterday evening. Results to be read later this afternoon. Recommendations - H&H is stable. Continue to monitor and transfuse as necessary. - Patient currently with no signs of overt bleeding. - Endoscopy completed yesterday evening. Results to be interpreted later this afternoon. Thank you for involving us in the patient's care. We will continue to follow. GI Prophylaxis: Proton Pump Inhibitor VTE Prophylaxis: Sub-Q Heparin (Unfractionated) VTE Mechanical Devices: Intermittant Pneumatic CD Resuscitation Status: CPR: Attempt Resuscitation Attending Statement Patient seen and examined agree with Dr Ochoa's note above Prelim pill cam read by tomorrow evening ok to discharge to home in AM if H/H stable and no overt bleeding she can follow up in GI clinic my office will contact her with Pill Cam results and further plans. HEATHER OCHOA DO Nov 03, 2016 13:08 Mei Rudd MD Nov 03, 2016 22:13
--- NOTE | 2016-11-03 13:45 | PCM.PNMED ---
Subjective Date of Service Nov 03, 2016 Subjective Nurse reports confusion during the night. Given Seroquel 25mg PO. Patient became disoriented and started having visual hallucinations. Pill camera study completed overnight, we are awaiting read from GI team. This morning @08:00, patient was sitting at the bedside with the nurse, not oriented to place (stating she was currently in the ambulance, but did not know why), but oriented to self and the date. She stated she could see "ripples in the letters". She denies any pain at that time. Two hours later, patient was rechecked by medical team and patient could properly identify Dr. Khanna, she was oriented to [facility], and she knew she was here because of a GI bleed. She had no sxs at that time. Denied CP, SOB, ABD pain, or N/V/D. Exam Vital Signs Vital Sign - Last Date Time Temp Pulse Resp B/P Pulse Ox O2 Delivery O2 Flow Rate FiO2 11/03/16 12:04 36.2 94 18 90/45 94 Room Air 11/02/16 23:27 0.50 Intake and Output 11/02/16 11/02/16 11/03/16 Cumulative From/Thru 15:00 23:00 07:00 10/20/16 11:06 - 11/03/16 06:31 Intake Total 840 ml 200 ml 83997 ml Output Total 550 ml 301 ml 56644 ml Balance 290 ml -101 ml -6143 ml Intake Oral 840 ml 200 ml 50773 ml IV Total 6253 ml Packed Cells 1000 ml Output Urine Total 550 ml 300 ml 88377 ml Stool Total 1 ml 3801 ml Urine/Stool Mix 2150 ml # Voids 1 31 # Bowel Movements 2 27 Exam Constitutional: Alert and Awake. Patient is intermittently confused during the day, but is in no acute distress. Head: normocephalic and atraumatic. Eyes. EOMI, no scleral icterus, pale conjunctiva. Heart: regular rate and rhythm. 2/6 systolic murmur over the right sternal border that radiates into the carotids. No peripheral edema. ABD: soft, nontender, bowel sounds present throughout. Musculoskeletal: moves all four extremities. Able to walk with the aid of a walker. Skin: warm, dry, pale Neuro: CN II-XII intact. No focal deficits. Psych: Patient will intermittently go through stages of confusion with visual hallucinations. While patient is alert and oriented x4, she is pleasant to speak with and agreeable to plan. IVs and Medications Medications Reviewed: Medications were reviewed in detail Lab and Diagnostics Item Value Date Time Red Blood Count 3.22 mil/mm3 L 11/03/16309 Mean Corpuscular Volume 96.3 fL 11/03/16309 Mean Corpuscular Hemoglobin 30.1 pg 11/03/16309 Mean Corpuscular Hemoglobin Concent 31.3 % L 11/03/16309 Red Cell Distribution Width 16.4 % H 11/03/16309 Estimat Glomerular Filtration Rate 48 mL/min 11/03/16309 Calcium Level 8.9 mg/dL 11/03/16309 Total Bilirubin 0.5 mg/dL 11/03/16309 Aspartate Amino Transf (AST/SGOT) 31 U/L 11/03/16 031 Alanine Aminotransferase (ALT/SGPT) 22 U/L 11/03/16309 Alkaline Phosphatase 82 U/L 11/03/16309 Total Protein 6.9 g/dL 11/03/16309 Albumin 3.3 g/dL L 11/03/16 031 Result Diagram: 11/03/16 03111/03/16309 Microbiology URINE CULTURE ESCHERICHIA COLI that is stapleton sensitive Blood cultures negative x48h X-Rays, CTs and MRIs CXR 10/27 IMPRESSION: Enlarged cardiac mediastinal silhouette with interstitial pulmonary opacities and pleural effusions left greater than right may represent congestive heart failure exacerbation. Superimposed infection is possible. Recommend radiographic followup to resolution to exclude underlying mass lesion. If findings do not resolve chest CT with contrast will be needed. Dictated by: Fito Umaña M.D. on 10/27/2016 at 10:17 Approved by: Fito Umaña M.D. on 10/27/2016 at 10:21 CXR 10/26 IMPRESSION: Persistent bilateral pulmonary opacities with mild/moderate left- sided pleural effusion. Findings may represent infection and/or fluid imbalance. Dictated by: Fito Umaña M.D. on 10/26/2016 at 9:54 Approved by: Fito Umaña M.D. on 10/26/2016 at 9:56 CXR 7/17 IMPRESSION: 1. Patchy airspace opacities in lungs bilaterally suspicious for pneumonia. 2. Pulmonary edema. Dictated by: Ivon Garcia MD, PhD on 10/24/2016 at 16:17 Approved by: Ivon Garcia MD, PhD on 10/24/2016 at 16:19 CXR 10/20 IMPRESSION: No radiographic evidence of acute cardiopulmonary pathology. Dictated by: Fito Umaña M.D. on 10/20/2016 at 11:50 Approved by: Fito Umaña M.D. on 10/20/2016 at 11:51 X-RAY CHEST ONE VIEW, PORTABLE IMPRESSION: Persistent widespread pulmonary edema with potential areas of superimposed atelectasis and/or pneumonia with minimal effusions. No appreciable interval change. Approved by: Fatuma Sharma M.D. on 10/23/2016 at 16:12 X-RAY CHEST ONE VIEW IMPRESSION: 1. Patchy airspace opacities in lungs bilaterally suspicious for pneumonia. 2. Pulmonary edema. Dictated by: Ivon Garcia MD, PhD on 10/24/2016 at 16:17 Additional Diagnostics Colonoscopy. IMPRESSION: Stapleton diverticulosis. Otherwise normal examination from rectum to terminal ileum. Mei Rudd MD 10/22/16 1028 Assessment & Plan Assessment & Plan Nyla Priest is an 81 year old female with past medical history significant for CAD with 5 vessel CABG, HTN, HLD, DM2, CHF, PVD, CKD, GERD and PUD who has now developed black tarry stools. Patient has underwent endoscopy which was unremarkable. Tagged RBC scan was completed yesterday and was negative. Capsule endoscopy completed yesterday evening. Results to be read later this afternoon. Melena with associated drop in H/H, present on admission. - H/H currently stable but trending down today. Total units of blood given since admission = 3. - Tagged RBC scan revealed no bleed. Capsule endoscopy initiated @0830 (11/02) and is ongoing, awaiting report, likely results will be available tomorrow. - GI following Acute Hypoxic Respiratory failure, not present on admission. Improving. - Likely secondary to Pulmonary Edema and fluid overload - Continue O2 at .5L NC. O2 saturation has been stable. - Stopped Dobutamine drip Dr. Holder plans for close follow up in CHF clinic following dispo. Acute on chronic Systolic Congestive Heart Failure, present on admission. Stable. - Echo in 06/24 showed a LVEF 35% with severely dilated left and right atrium - Continue Metoprolol succinate 25mg daily, hold if patient becomes hypotensive. - Palliative following. Discussion with patient and son regarding plan for home care following discharge. Son states that he will stay with patient once she gets home, and that he has a sister from [place] that will come stay to help out for a few days. - Dr. Holder following. Acute on Chronic Kidney Injury, present on admission. Improving. - Creatinine stable. Will repeat with AM CMP. - Avoid nephrotoxic agents Acute Blood Loss Anemia, present on admission. Stable. - History significant for ongoing GI bleeds, GERD/PUD, recent melena. - Patient transfused on (11/01). H/H stable. 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 Not present on admission. Stable. - Hold Seroquel, patient became agitated and more disoriented after evening dose. - Tomazepam 7.5mg PO PRN for insomnia ordered. - Continue Melatonin 5mg PO HS Acute cystitis, present on admission. Resolved. - Urine culture results; stapleton sensitive E. coli - Stopped Amoxicillin 500mg BID - (11/01) - Patient asymptomatic at this time; continue to monitor for ample urine output Dehydration, present on admission. Acute. Resolved. - Patient reports low oral intake as well as excessive diuretic use - Replete electrolytes as necessary Hypotension, present on admission. Acute. Resolved. - Likely due to dehydration, excessive diuretic use Chronic GERD with PUD and GI bleeds, present on admission. Ongoing. - EGD and colonoscopy did not show active bleed - Continue Protonix 40mg BID - Discussed with Dr. Rudd following. Awaiting pill cam report, likely to be ready tomorrow. Diabetes mellitus type 2, insulin requiring, present on admission. Ongoing. - Patient reported she was diabetic but hasn't been on medications for awhile - A1C 7 - Blood glucose on high edge of acceptable; watch as her appetite returns Hypertension - Continue to monitor overnight, avoid IVF as patient has CHF with LVEF of 35% Hyperlipidemia - Continue Pravastatin Glaucoma - Continue Bimatoprost Gout - Continue Allopurinol Hypothyroidism - Continue Levothyroxine Chronic insomnia - Melatonin scheduled Disposition: Patient is stable. We are currently awaiting report for the pill cam study. Will likely d/c in the tomorrow pending results of the pill cam study with close followup for GI and Cardiology. GI Prophylaxis: Proton Pump Inhibitor VTE Prophylaxis: Sub-Q Heparin (Unfractionated) VTE Mechanical Devices: Intermittant Pneumatic CD Resuscitation Status: CPR: Attempt Resuscitation GI Prophylaxis: Proton Pump Inhibitor VTE Prophylaxis: Sub-Q Heparin (Unfractionated) VTE Mechanical Devices: Intermittant Pneumatic CD Resuscitation Status: CPR: Attempt Resuscitation Attending Statement The patient was seen and examined together with Dr. Joshi on 11/03/16 and I have added additional information to the note above. Heriberto Joshi DO Nov 03, 2016 13:45 Kaylie Khanna DO Nov 03, 2016 20:36 Heriberto Joshi DO Nov 03, 2016 13:45
--- NOTE | 2016-11-03 16:12 | NUR ---
D/c from PT; Safe to cont amb with nsg w/4WW SBA and monitoring O2 needs.
--- NOTE | 2016-11-03 17:51 | PCM.ADCARE ---
Advance Care Planning Note Plan: Purpose of encounter: Goals of care Parties in attendance: The patient, her son LivanDr. Adi Dr. Barnes Diagnosis: Acute blood loss anemia Acute respiratory failure with hypoxia Acute on chronic systolic heart failure Acute kidney injury Type II diabetes Decisional capacity: Good Plan: The patient is aware of the current diagnosis and would like to continue to be full code. The patient understands that this means for chest compressions , intubation, pressors, and all measures involved with CPR. A full discussion was held with the patient and her son in regards to her goals of care. At this time the patient would like to go home and would like to do that safely. The patient understands that she may have to go to a SNF or a assisted or assisted living at some point however she would prefer to be able to go home. In order to do this safely at this time is recommended that the patient does have home health services along with a feeling member who can watch her daily until she recovers from what is most likely hospital psychosis. The patient has some waxing and waning periods where she for only minutes at a time will not remember where she is or make comments not pertinent to the topic at hand. The patient is aware that this could also be early signs of dementia. The son states that he understands and is in agreement with the plan and is more than willing to take his mother to appointments and even spend the night with her as necessary. At this time the son will most likely take the patient to her home and his sister will fly out from [place] to come and stay with the patient. The patient is also aware that she is bleeding and at this time we do not have a source. The patient will need to have close follow-up with GI and her primary care physician's once discharged. Hopefully tomorrow after receiving the results of the camera study we will have a source of bleeding and then can make final decisions as to a treatment plan at that time. Until then the patient is aware that she will need to have regular hemoglobin and hematocrit checks with possible transfusions. The patient states that she understands and is okay with this and at this time she is open to having endoscopies but is uncertain if she would like to have a surgery at her age. Until we know more as to the source of bleeding which cannot make any decisions at this time. The patient states that she understands and will be compliant with taking her medications, following up at her outpatient appointments, and taking into consideration all of the options showed a source of bleeding be discovered. CODE STATUS: Full code Time spent with advanced care planning: Greater than 35 minutes Kaylie Khanna DO Nov 03, 2016 17:51
--- NOTE | 2016-11-03 18:13 | NUR ---
Mentation Pt disoriented, restless, and anxious at beginning of the shift in between brief episodes of sleeping. Per NOC RN, Pt had only slept ~1 hour last night and had appeared to become more restless after receiving PRN seroquel dose than prior to the dose. MD made aware today and PRN temazepam added to Pt's eMAR, will notify oncoming NOC RN.
--- NOTE | 2016-11-03 23:30 | NUR ---
PCC transfer/admit Received report from Michael Cain RN @ 22:45 for patient transfer for overnight obs, arrived arrived floor 23:10 via bed w/Michael & Carmelina GARNICA, w/belongings and personal walker,DX was GIB w/failed attempts @ finding source to date, awaiting results on capsule camera, H&H stable per report will d/c home while waiting for results.Patient orientated to floor and situation, upon VS check hypotensive initially SBP 70's L arm but rechecked via R arm and 96/47, also O2 saturation 86% RA , placed on 2L to acquire 93-94% sat. Patient voiced a little anxiety about D/C but reassured MD would be by in AM and F/U on situation and condition and also would have home F/U which was reassuring.
--- NOTE | 2016-11-03 23:30 | NUR ---
Transfer of Care Pt transferred to [facility] via bed with all belongings, report given to Oswaldo Aj RN.
[2016-11-04] VITALS (8 sets, daily range): BP systolic 99–153; BP diastolic 61–83; PULSE 70–101; RESP 17–20; O2SAT 89–98
--- NOTE | 2016-11-04 06:44 | NUR ---
Restless/sleep Since transfer to floor patient frequently calling want to sit at bed edge, eat some oatmeal, take a walk , maybe slept 1/2hr. woke up initially confused hallucinating "oxygen people in the room"!
[2016-11-04 07:59] LABS: Mean Corpuscular Hemoglobin 30.6 pg (27.0-35.0); Mean Corpuscular Volume 96.9 fL (81-100)
[2016-11-04] MEDS: Insulin LISPRO 300 Unit/3 mL Inj SUBQ SCH ×4 (08:00→21:49)
[2016-11-04] MEDS: Pantoprazole 40 mg ER24 Tablet PO SCH ×2 (08:19→16:50)
[2016-11-04] MEDS: Potassium Chloride 20 mEq SR Tablet PO SCH ×2 (08:19→16:50)
--- NOTE | 2016-11-04 09:31 | NUR ---
Evaluation completed. Please go to "Notes" then click on "Assessments and Notes" (bottom left corner of screen). Then select appropriate discipline tab on top of screen.
--- NOTE | 2016-11-04 10:42 | PCM.PNMED ---
Subjective Date of Service Nov 04, 2016 Subjective Gastroenterology Progress Note No acute events overnight. Patient has had no overt signs of bleeding over the last 48 hours including no melena, hematemesis, or bright red blood per rectum. She is tolerating oral intake without nausea or vomiting. No other complaints. Exam Vital Signs Vital Sign - Last Date Time Temp Pulse Resp B/P Pulse Ox O2 Delivery O2 Flow Rate FiO2 11/04/16 08:00 98 11/04/16 07:30 Supplement Oxygen 11/04/16 07:30 36.8 20 134/76 89 11/03/16 23:40 2.00 Intake and Output 11/03/16 11/03/16 11/04/16 Cumulative From/Thru 15:00 23:00 07:00 10/20/16 11:06 - 11/03/16 23:42 Intake Total 1160 ml 72274 ml Output Total 1800 ml 98482 ml Balance -640 ml -6783 ml Intake Oral 1160 ml 82620 ml IV Total 6253 ml Packed Cells 1000 ml Output Urine Total 1800 ml 97248 ml Stool Total 3801 ml Urine/Stool Mix 2150 ml # Voids 31 # Bowel Movements 0 27 Exam General - No acute distress, appropriate HEENT- Moist oral mucosa Respiratory - Faint crackles in bases right greater than left. No accessory muscle use. Cardiac - Regular rate and rhythm. Abdomen - Normoactive bowel tones, soft, nondistended. Extremities - Trace lower extremity edema. Neuro - Cranial nerves II-XII grossly intact. Psych - Alert and Oriented x 3 Lab and Diagnostics Result Diagram: 11/04/16 0757 11/04/16 0757 Microbiology URINE CULTURE ESCHERICHIA COLI that is stapleton sensitive Blood cultures negative x48h X-Rays, CTs and MRIs CXR 10/27 IMPRESSION: Enlarged cardiac mediastinal silhouette with interstitial pulmonary opacities and pleural effusions left greater than right may represent congestive heart failure exacerbation. Superimposed infection is possible. Recommend radiographic followup to resolution to exclude underlying mass lesion. If findings do not resolve chest CT with contrast will be needed. Dictated by: Fito Umaña M.D. on 10/27/2016 at 10:17 Approved by: Fito Umaña M.D. on 10/27/2016 at 10:21 CXR 10/26 IMPRESSION: Persistent bilateral pulmonary opacities with mild/moderate left- sided pleural effusion. Findings may represent infection and/or fluid imbalance. Dictated by: Fito Umaña M.D. on 10/26/2016 at 9:54 Approved by: Fito Umaña M.D. on 10/26/2016 at 9:56 CXR 10/24 IMPRESSION: 1. Patchy airspace opacities in lungs bilaterally suspicious for pneumonia. 2. Pulmonary edema. Dictated by: Ivon Garcia MD, PhD on 10/24/2016 at 16:17 Approved by: Ivon Garcia MD, PhD on 10/24/2016 at 16:19 CXR 10/20 IMPRESSION: No radiographic evidence of acute cardiopulmonary pathology. Dictated by: Fito Umaña M.D. on 10/20/2016 at 11:50 Approved by: Fito Umaña M.D. on 10/20/2016 at 11:51 X-RAY CHEST ONE VIEW, PORTABLE IMPRESSION: Persistent widespread pulmonary edema with potential areas of superimposed atelectasis and/or pneumonia with minimal effusions. No appreciable interval change. Approved by: Fautma Sharma M.D. on 10/23/2016 at 16:12 X-RAY CHEST ONE VIEW IMPRESSION: 1. Patchy airspace opacities in lungs bilaterally suspicious for pneumonia. 2. Pulmonary edema. Dictated by: Ivon Garcia MD, PhD on 10/24/2016 at 16:17 Additional Diagnostics Colonoscopy. IMPRESSION: Stapleton diverticulosis. Otherwise normal examination from rectum to terminal ileum. Mei Rudd MD 10/22/16 1028 Assessment & Plan Nyla Priest is an 81 year old female with past medical history significant for CAD with 5 vessel CABG, HTN, HLD, DM2, CHF, PVD, CKD, GERD and PUD who has now developed black tarry stools. GI was consulted for melena with associated drop in hemoglobin and hematocrit. Patient has underwent endoscopy which was unremarkable. Tagged RBC scan was completed yesterday and was negative. Capsule endoscopy completed and revealed blood in the stomach. Recommendations - H&H is stable. Continue to monitor and transfuse as necessary. - Patient currently with no signs of overt bleeding. - Endoscopy completed and revealed blood in the stomach. - Repeat EGD scheduled for [address] Carey. - Further treatment and recommendations pending EGD. Possible need for colonoscopy if nothing seen on EGD tomorrow. - Diet: Clear liquids. Thank you for involving us in the patient's care. We will continue to follow. GI Prophylaxis: Proton Pump Inhibitor VTE Prophylaxis: Sub-Q Heparin (Unfractionated) VTE Mechanical Devices: Intermittant Pneumatic CD Resuscitation Status: CPR: Attempt Resuscitation Attending Statement pt seen and examined agree with resident note above plan as above as capsule shows blood in the stomach. HEATHER OCHOA DO Nov 04, 2016 10:42 Mei Rudd MD Nov 13, 2016 12:23
--- NOTE | 2016-11-04 11:51 | NUR ---
Family update: Pt patient request called holley Sorto, and updated on pt status. Reported she will stay another night, for endoscopy in am.
--- NOTE | 2016-11-04 13:06 | NUR ---
Social Work: Readiness for Discharge/Multidiscipinary Rounds D: Pt discussed in am rounds. Pt is not yet medically stable for discharge as anticipated. Pt will require EGD tomorrow. Pt still anticipated to discharge home with home health for RN, PT. WELDER ASSEMBLER met with the patient at bedside to review discharge plan and recommendations from the MD and PT teams for Home health. Pt agrees with this plan. HH CHOICE LIST PROVIDED- her preference is for [facility]. HH Orders placed by MD; WELDER ASSEMBLER acnknowledges order and has placed a referral with Rob Palmer with [facility] for RN, PT. F2F completed and provided to Rob. Pt states that her son, Livan will likely transport her home. The patient's daughters are also coming to stay with the patient post-discharge to provide additional support to her during her transition home. A: Pt who is I at baseline but will require some HH due to decreased mobility. P: Anticipate pt to discharge home via POV and [facility] for Rn, PT. WELDER ASSEMBLER to continue to follow to assess for unmet d/c needs. DORIAN Rangel
--- NOTE | 2016-11-04 16:59 | NUR ---
NUTRITION FOLLOW-UP: ASSESS: 81 YO F admitted with worsening chest pain and dizziness. Respiratory failure improving per notes. GI consulted and endoscopy revealed blood in stomach, pt to undergo EGD, ? need for colonoscopy per MD notes. Pt continues to be confused at times per notes. Pt is on a carb consistent diet with fair po intake. PMHx: CAD, PVD, CHF, CKD, HTN, HLD, type 2 diabetes, GERD, Schaefer's esophagus, carotid stenosis, gout, hypothyroid, bilateral renal artery stenosis, anemia, DVT. DIET: Consistent Carb, PO 25-100% LABS: Reviewed.Alb 3.3 MEDICATIONS: Reviewed. Pressor, Lasix, Reglan. GI: BM X 4 11/02 SKIN: no major issues ANTHROPOMETRICS: Current Wt: 58.8 kg, BMI: 23.7kg/m2, IBW: 50.0 kg (123.6% IBW) ESTIMATED NEEDS: Calories: 9484-1292 kcal/day (25-30 kcal/kg BW) Protein: 65-75 g/day (1.0-1.2 g/kg BW) NUTRITION DIAGNOSIS: 1) Altered GI function related to GI bleed, as evidenced by NPO status, pending GI consult.--IMPROVING 2) Variable PO intake related to AMS as evidence by PO varying from 0-100%---IMPROVING. PO 50% or > x 2-3 days, noted no n/v with po intake per MD notes. INTERVENTION: 1) Continue current diet and supplements as ordered. MONITOR/EVALUATE: Diet tolerance, PO intake, labs, GI/nutrition status. Follow per moderate nutrition risk guidelines.
--- NOTE | 2016-11-04 17:32 | PCM.PNMED ---
Subjective Date of Service Nov 04, 2016 Subjective Nursing reports no acute events overnight. [place] [facility] [place] Patient seen and examined sitting in bedside chair eating breakfast. C/o fatigue and shortness of breath after walking with the nurse. Denies any CP, ABD pain, N/V/D. ROS reviewed and is otherwise negative. Exam Vital Signs Vital Sign - Last Date Time Temp Pulse Resp B/P Pulse Ox O2 Delivery O2 Flow Rate FiO2 11/04/16 08:00 98 11/04/16 07:30 Supplement Oxygen 11/04/16 07:30 36.8 20 134/76 89 11/03/16 23:40 2.00 Intake and Output 11/03/16 11/03/16 11/04/16 Cumulative From/Thru 15:00 23:00 07:00 10/20/16 11:06 - 11/03/16 23:42 Intake Total 1160 ml 10788 ml Output Total 1800 ml 15661 ml Balance -640 ml -6783 ml Intake Oral 1160 ml 47206 ml IV Total 6253 ml Packed Cells 1000 ml Output Urine Total 1800 ml 93796 ml Stool Total 3801 ml Urine/Stool Mix 2150 ml # Voids 31 # Bowel Movements 0 27 Exam Constitutional: Awake, Alert and in No acute distress Eyes: no scleral icterus. [place] conjunctiva. EOMI Heart: regular rate and rhythm. Grade 2/6 systolic murmur on the right upper sternal border radiating to the carotids. No peripheral edema. Lungs: Clear to Auscultation. No wheeze, rales, or rhonchi ABD: soft, nontender. bowel sounds present throughout Musculoskeletal: moves all four extremities appropriately, walks with assistance. Skin: warm, dry, pale Neuro: CN II-XII intact. No focal deficits. Psych: appropriate mood and affect. Alert and oriented x3. IVs and Medications Medications Reviewed: Medications were reviewed in detail Lab and Diagnostics Item Value Date Time Estimat Glomerular Filtration Rate 52 mL/min 11/04/16 075 Calcium Level 8.8 mg/dL 11/04/16 075 Red Blood Count 3.24 mil/mm3 L 11/04/16 075 Mean Corpuscular Volume 96.9 fL 11/04/16 075 Mean Corpuscular Hemoglobin 30.6 pg 11/04/16756 Mean Corpuscular Hemoglobin Concent 31.5 % L 11/04/16 0757 Red Cell Distribution Width 16.6 % H 11/04/16 0757 Result Diagram: 11/04/1675611/04/16756 Microbiology URINE CULTURE ESCHERICHIA COLI that is [place] sensitive Blood cultures negative x48h X-Rays, CTs and MRIs CXR 10/27 IMPRESSION: Enlarged cardiac mediastinal silhouette with interstitial pulmonary opacities and pleural effusions left greater than right may represent congestive heart failure exacerbation. Superimposed infection is possible. Recommend radiographic followup to resolution to exclude underlying mass lesion. If findings do not resolve chest CT with contrast will be needed. Dictated by: Fito Umaña M.D. on 10/27/2016 at 10:17 Approved by: Fito Umaña M.D. on 10/27/2016 at 10:21 CXR 10/26 IMPRESSION: Persistent bilateral pulmonary opacities with mild/moderate left- sided pleural effusion. Findings may represent infection and/or fluid imbalance. Dictated by: Fito Umaña M.D. on 10/26/2016 at 9:54 Approved by: Fito Umaña M.D. on 10/26/2016 at 9:56 CXR 10/24 IMPRESSION: 1. Patchy airspace opacities in lungs bilaterally suspicious for pneumonia. 2. Pulmonary edema. Dictated by: Ivon Garcia MD, PhD on 10/24/2016 at 16:17 Approved by: Ivon Garcia MD, PhD on 10/24/2016 at 16:19 CXR 10/20 IMPRESSION: No radiographic evidence of acute cardiopulmonary pathology. Dictated by: Fito Umaña M.D. on 10/20/2016 at 11:50 Approved by: Fito Umaña M.D. on 10/20/2016 at 11:51 X-RAY CHEST ONE VIEW, PORTABLE IMPRESSION: Persistent widespread pulmonary edema with potential areas of superimposed atelectasis and/or pneumonia with minimal effusions. No appreciable interval change. Approved by: Fatuma Sharma M.D. on 10/23/2016 at 16:12 X-RAY CHEST ONE VIEW IMPRESSION: 1. Patchy airspace opacities in lungs bilaterally suspicious for pneumonia. 2. Pulmonary edema. Dictated by: Ivon Garcia MD, PhD on 10/24/2016 at 16:17 Additional Diagnostics Colonoscopy. IMPRESSION: [place] diverticulosis. Otherwise normal examination from rectum to terminal ileum. Mei Rudd MD 10/22/16 1028 Assessment & Plan Nyla Priest is an 81 year old female with past medical history significant for CAD with 5 vessel CABG, HTN, HLD, DM2, CHF, PVD, CKD, GERD and PUD who has now developed black tarry stools. GI was consulted for melena with associated drop in hemoglobin and hematocrit. Patient has underwent endoscopy which was unremarkable. Tagged RBC scan was completed and was negative. Capsule endoscopy completed and revealed blood in the stomach. Plan for EGD 11/05. Melena with associated drop in H/H, present on admission. - H/H currently stable trending up today. Total units of blood given since admission = 3. - Tagged RBC scan revealed no bleed. Capsule endoscopy revealed blood in the stomach. Plan for EGD by Dr. Carey 11/05. @0900 - Diet, Clear liquids. NPO after midnight. Acute Hypoxic Respiratory failure, not present on admission. Improving. - Likely secondary to Pulmonary Edema and fluid overload - Continue O2 at 1L NC. O2 saturation has been stable. Plan for patient to go home with Home Oxygen. RT has been notified. - Stopped Dobutamine drip Dr. Holder plans for close follow up in CHF clinic following dispo. Acute on chronic Systolic Congestive Heart Failure, present on admission. Stable. - Echo on 06/24 showed a LVEF 35% with severely dilated left and right atrium - Continue Metoprolol succinate 25mg daily, hold if patient becomes hypotensive. - Palliative following. Discussion with patient and son regarding plan for home care following discharge. Son states that he will stay with patient once she gets home, and that he has a sister from [place] that will come stay to help out for a few days. - Dr. Holder following. Acute on Chronic Kidney Injury, present on admission. Improving. - Creatinine stable at 1.39. Will repeat with AM CMP. - Avoid nephrotoxic agents Acute Blood Loss Anemia, present on admission. Stable. - History significant for ongoing GI bleeds, GERD/PUD, recent melena. - Patient transfused on (11/01). H/H stable. 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 Not present on admission. Stable. - Hold Seroquel, patient became agitated and more disoriented after evening dose. - Tomazepam 7.5mg PO PRN for insomnia ordered. Patient had some mild confusion overnight. Confusion may be signs of sundowning as she regains her baseline mental status throughout the day. - Continue Melatonin 5mg PO HS Acute cystitis, present on admission. Resolved. - Urine culture results; [place]leton sensitive E. coli - Stopped Amoxicillin 500mg BID - (11/01) - Patient asymptomatic at this time; continue to monitor for ample urine output Dehydration, present on admission. Acute. Resolved. - Patient reports low oral intake as well as excessive diuretic use - Replete electrolytes as necessary Hypotension, present on admission. Acute. Resolved. - Likely due to dehydration, excessive diuretic use Chronic GERD with PUD and GI bleeds, present on admission. Ongoing. - EGD and colonoscopy did not show active bleed - Continue Protonix 40mg BID - Discussed with Dr. Rudd following. Awaiting pill cam report, likely to be ready tomorrow. Diabetes mellitus type 2, insulin requiring, present on admission. Ongoing. - Patient reported she was diabetic but hasn't been on medications for awhile - A1C 7 - Blood glucose on high edge of acceptable; watch as her appetite returns Hypertension - Continue to monitor overnight, avoid IVF as patient has CHF with LVEF of 35% Hyperlipidemia - Continue Pravastatin Glaucoma - Continue Bimatoprost Gout - Continue Allopurinol Hypothyroidism - Continue Levothyroxine Chronic insomnia - Melatonin scheduled Disposition: Patient is stable. Patient will undergo EGD tomorrow morning. Length of stay undetermined pending the results of the EGD. The patient at this time is scheduled upon discharge to be discharged home with home health. The patient does have significant support from her children and it is her wishes to go home with home health as opposed to going to a SNF upon discharge. GI Prophylaxis: Proton Pump Inhibitor VTE Prophylaxis: Sub-Q Heparin (Unfractionated) VTE Mechanical Devices: Intermittant Pneumatic CD Resuscitation Status: CPR: Attempt Resuscitation GI Prophylaxis: Proton Pump Inhibitor VTE Prophylaxis: Sub-Q Heparin (Unfractionated) VTE Mechanical Devices: Intermittant Pneumatic CD Resuscitation Status: CPR: Attempt Resuscitation GI Prophylaxis: Proton Pump Inhibitor VTE Prophylaxis: Sub-Q Heparin (Unfractionated) VTE Mechanical Devices: Intermittant Pneumatic CD Resuscitation Status: CPR: Attempt Resuscitation Attending Statement The patient was seen and examined together with Dr. Joshi on 11/04/2016 and I have added additional information to the note above. Heriberto Joshi DO Nov 04, 2016 17:32 Kaylie Khanna DO Nov 04, 2016 18:29
--- NOTE | 2016-11-04 18:48 | NUR ---
mobility/resp pt 1 person SBA with own 4 wheel walker. had SOB this am on RA. 1 liter applied and no further SOB except with ambulation pt able to ambulate w/SBA down rangel 150 ft. with oxygen.
[2016-11-05] VITALS (14 sets, daily range): BP systolic 113–148; BP diastolic 63–82; PULSE 80–99; RESP 13–20; O2SAT 90–99
--- NOTE | 2016-11-05 06:20 | NUR ---
Shift Note assumed pt care at 1900, noted pt a/o x4, on 02 at 2l, mild sob with exertion, had 3 small BM, no melena tonight, at 0300 noted pt with short episode of confusion stating " I'm here to apply for a job", redirectable, denies pain/discomfort, at 0400 pt moved from room 239-2 to 248-2, call light in reach at all times, bed alarm on for safety.
[2016-11-05 06:21] LABS: Mean Corpuscular Hemoglobin 30.1 pg (27.0-35.0); Mean Corpuscular Volume 96.6 fL (81-100)
[2016-11-05] MEDS: Insulin LISPRO 300 Unit/3 mL Inj SUBQ SCH ×4 (08:00→22:00)
--- NOTE | 2016-11-05 09:40 | PCM.HPANE ---
Patient Data Date of Service: Nov 05, 2016 Surgeon Admitting Provider:Kaylie Khanna DO Attending Provider:Kaylie Khanna DO Primary Care Physician:Wendy Vance MD Other Provider: Reason for Visit Upper Gi Bleed,Symptamatic Anemia Ht/WT & BMI Height (Feet): 5 Height (Inches): 2.00 Weight (Kilograms): 58.800 Body Mass Index 25.00 Allergies Coded Allergies: Pudzyyr-Rxk-Cfy Reductase Inhibitor (Verified Allergy, Mild, sore shoulders, 10/20/16) can tolerate pravastatin rosuvastatin (Verified Allergy, Mild, sore shoulders, 10/20/16) cilostazol (Unverified Allergy, Unknown, 10/20/16) rofecoxib (Verified Allergy, Unknown, 10/20/16) simvastatin (Unverified Allergy, Unknown, sore shoulders, 10/20/16) Past Anesthesia History Anesthesia History: Denies:: Abnormal Airway, Anesthesia Reactions, Difficult Intubation, Fam Anesthesia Reaction, Fam Malignant Hypertherm, Malignant Hyperthermia Diabetes History Hx Diabetes?: Yes Type of Diabetes: Type II Glycemic Control: Diet Controlled Current Bedside Blood Glucose: 186 MRSA MRSA: No Medications Blood Thinner: Plavix Hypertension Medication: Yes Home Meds Incl Beta Qiana: Yes Previous Beta Qiana Dose >24: Dose Not Given, Contraindicated Beta Qiana Contraindicated: Pulse <70 bpm, Systolic BP <110 mmHg, Symptoms of CHF Present, Other (hypotension from GIB & dehydration) Reported Medications Potassium Chloride ER 20 Meq Tablet.er20 Meq PO BID Ref 0 TAKE WITH FOOD 10/20/16 Metoprolol Tartrate 25 Mg Zfmqoz35 Mg PO QAM 30 Days Ref 0 10/20/16 Furosemide 80 Mg Rhl790 Mg PO DAILY 10/20/16 Tizanidine 2 Mg Tablet1-2 Mg PO DAILY PRN For Spasm 04/20/16 Metoprolol Tartrate 25 Mg Ivzlhd99 Mg PO HS 30 Days Ref 0 04/20/16 Temazepam 30 Mg Cap30 Mg PO HS PRN For Insomnia 30 Days Ref 0 11/11/13 Pravastatin 40 Mg Ayjnep43 Mg PO DAILY 30 Days Ref 0 11/11/13 Clopidogrel Bisulfate (Plavix)75 Mg Tywxyj98 Mg PO DAILY 30 Days Ref 0 11/11/13 Multivitamin (Multivitamins)1 Each Capsule1 Each PO DAILY 11/11/13 Bimatoprost (Lumigan)45 Drop/2.5 Ml Ophsoln1 Drop OD HS #1 BOTTLE each eye 11/11/13 Levothyroxine 25 Mcg Jzyklh47 Mcg PO AM 30 Days Ref 0 Take on an empty stomach. 11/11/13 Lansoprazole 30 Mg Capsule.dr30 Mg PO DAILY #30 CAPSULE Ref 0 11/11/13 Allopurinol 300 Mg Trlqme741 Mg PO DAILY #30 TABLET Ref 0 11/11/13 History History of ENT Problems?: Yes HEENT History: Positive for:: Cataracts Denies:: Abnormal Airway Difficult Intubation Dysphagia Glaucoma Sinus Problem Denture Type: Full- Upper Full- Lower Teeth Condition: No Teeth Hx of Heart Problems?: Yes Cardiovascular History: Positive for:: Cardiac Surgery (05/2001) Congestive Heart Failure Coronary Artery Disease Edema Heart Murmur Hypertension Irregular Heartbeat Denies:: Chest Pain Pacemaker Thrombophlebitis Other Cardiac History: h/o DVT Hx of Respiratory Problem?: Yes Respiratory History: Positive for:: COPD Dyspnea Pneumonia Denies:: Asthma Chest Surgery Emphysema Hemoptysis Tuberculosis Hx Neurologic Problems?: Yes Neurological History: Positive for:: CVA (DURING CABG) Denies:: Alzheimer's Disease Dementia Dizziness Headaches Parkinson's Disease Seizures Hx of GI Problems?: Yes Hx of Problems?: Yes Genitourinary History: Positive for:: Urinary Tract Infection Denies:: HX of Hemodialysis Kidney Stones HX of Peritoneal Dialysis: No Female Hx: Denies:: Currently Endometriosis Pelvic Inflammatory Problems with Breasts? Skin History: Denies:: History Skin Disorders? Pressure Ulcers Hx Musculoskeletal Problems?: Yes Musculoskeletal History: Positive for:: Back Injury (low back pain, occasionally) Musculoskeletal Trauma (RT LEG CAUGHT IN HEAVY DOOR 2010) Denies:: Joint Replacement Hx of Psycho/Social Problems?: No Psycho Social History: Positive for:: Anxiety (sometimes with health problems) Denies:: Bipolar Disorder Hx Depression Hx Surgeries?: Yes (See H&P) Hx Any Other Health Problems?: Yes Other History: Positive for:: Endocrine Disease Hospitalization (see H&P) Thyroid Disease Denies:: Cancer History Blood Transfusions: Positive for:: Accept Blood Products? Blood Transfusions (s/p 1U PRBC) Denies:: Blood Transfuse Reaction Hx Diabetes: YesBedside Blood Glucose: 186 Hx Alcohol Use: Yes (1-2/week)Hx Substance Use: No Smoking Status: Former Smoker Have You Smoked inLast 12 mo: No (Quit many years ago) Stop/Bang Treated for Sleep Apnea?: No Do You Have a CPAP Machine?: No S-Snoring: Do You Snore Loudly: No T-Tired: feel tired, fatigued: No O-Obsered: Observed not breath: No P-Blood Pressure: treated: Yes B- Body Mass Index > 35 kg/m2: No A- Age over 50: Yes N- Neck Large Circumference: No G- Gender Male: No ALAN Total Score: 2 ALAN Risk Assessment: Low Risk, <3 Yes Risk Assessment Category Category 1A: Patient has history of documented sleep apnea, and HAS NOT received any narcotic, sedative or anesthesia administration during this stay. Category 1B: Patient has history of documented sleep apnea, and HAS received any narcotic , sedative or anesthesia administration during this stay Category 2: Patient has SUSPECTED Obstructive Sleep Apnea, and HAS received any narcotic , sedative or anesthesia administration during this stay. Category 3: Patient has SUSPECTED Obstructive Sleep Apnea and HAS NOT received narcotic, sedative or anesthesia administration during this stay. Category 4: Outpatient in Procedural Areas with known sleep apnea or who screen positive for High Risk via the STOP/BANG questionnaire. Low Risk, <3 Yes Exam Exam Vital Signs Vital Signs Date Time Temp Pulse Resp B/P Pulse Ox O2 Delivery O2 Flow Rate FiO2 11/05/16 05:34 99 11/05/16 05:20 36.9 93 18 120/74 95 Nasal Cannula 2.00 11/05/16 05:03 80 20 90 Room Air 11/05/16 04:28 Supplement Oxygen General Appearance: Alert, Oriented X3 HEENT/AIRWAY: MP 3, Neck Movement (FROM), Mouth Opening (3), Other (TMD3) Lungs: Normal Air Movement Heart: Normal S1, Normal S2, No Murmurs/Rubs/Gallops, Other (TACHYCARDIC) Meds/Labs/Diagnostics Bedside Blood Glucose: 186 Labs Test 10/20/16 11:20 10/20/16 12:57 10/21/16 02:40 10/21/16 16:30 Prothrombin Time 10.7sec (8.1-12.5) Prothromb Time International Ratio 1.00ratio Pro-B-Type Natriuretic Peptide 3414pg/mL (0-738) Urine Color Straw (YELLOW) Urine Appearance Cloudy (CLEAR,HAZY) Urine pH 5.5 (5.0-8.0) Urine Specific [place] 1.010 (1.003-1.035) Urine Protein 30mg/dL (NEG,TRACE) Urine Glucose (UA) Negativemg/dL (NEGATIVE) Urine Ketones Negativemg/dL (NEGATIVE) Urine Occult Blood Moderate (NEGATIVE) Urine Nitrite Positive (NEGATIVE) Urine Bilirubin Negative (NEGATIVE) Urine Urobilinogen Normalmg/dL (NORMAL) Urine Leukocyte Esterase Large (NEGATIVE) Urine RBC 0-2/hpf (0-2) Urine WBC Packed/hpf (0-5) Urine Epithelial Cells Occasional/hpf (NONE-MOD) Urine Crystals None seen (NONE SEEN) Urine Bacteria Moderate/hpf (NONE-FEW) Urine Hyaline Casts None/lpf (NONE) Urine Granular Casts None seen (NONE SEEN) Urine Waxy Casts None seen (NONE SEEN) Urine Red Blood Cell Casts None seen (NONE SEEN) Urine White Blood Cell Casts None seen (NONE SEEN) Urine Mucus None seen (None Seen) Urine Trichomonas None seen (NONE SEEN) Urine Yeast None (NONE SEEN) Urinalysis Comment None Urine Culture Reflexed Indicated Hemoglobin A1c 7.0% (4.8-5.6) Vitamin B12 Level 621pg/mL (211-946) Folate > 19.9ng/mL (>3.0) Hold [place] Top Tube Received (Received) Test 10/22/16 03:35 10/29/16 02:15 11/01/16 20:33 11/02/16 02:05 Hold [place] Top Tube Received (Received) Magnesium Level 1.9mg/dL (1.6-2.6) Troponin T 0.049ug/L (0.0-0.011) Neutrophils (%) (Auto) 70.8% (40-74) Lymphocytes (%) (Auto) 17.8% (14-46) Monocytes (%) (Auto) 7.7% (4-12) Eosinophils (%) (Auto) 3.0% (0-5) Basophils (%) (Auto) 0.3% (0-3) Procalcitonin 0.32ng/mL (0.00-0.08) Test 11/05/16 06:00 White Blood Count 7.3th/mm3 (3.8-10.1) Red Blood Count 3.19mil/mm3 (3.90-5.20) Hemoglobin 9.6g/dL (12.0-15.6) Hematocrit 30.8% (35.0-46.0) Mean Corpuscular Volume 96.6fL (81-100) Mean Corpuscular Hemoglobin 30.1pg (27.0-35.0) Mean Corpuscular Hemoglobin Concent 31.2% (32.0-37.0) Red Cell Distribution Width 16.2% (12.3-15.4) Platelet Count 283bil/L (150-400) Sodium Level 134mEq/L (134-144) Potassium Level 4.8mEq/L (3.5-5.2) Chloride Level 96mEq/L (97-108) Carbon Dioxide Level 26mmol/L (18-29) Blood Urea Nitrogen 25mg/dL (8-27) Creatinine 1.31mg/dL (0.57-1.00) Estimat Glomerular Filtration Rate 56mL/min (>59) Glucose Level 153mg/dL (60-99) Calcium Level 8.8mg/dL (8.5-10.1) Total Bilirubin 0.6mg/dL (0.0-1.2) Aspartate Amino Transf (AST/SGOT) 21U/L (0-50) Alanine Aminotransferase (ALT/SGPT) 15U/L (0-32) Alkaline Phosphatase 81U/L (25-165) Total Protein 7.2g/dL (6.4-8.4) Albumin 3.3g/dL (3.4-5.0) Plan Impression Patient chart reviewed, patient interviewed and anesthestic plan with risks, benefits, and alternatives discussed, and informed consent obtained. NPO per Anesth. Guidelines: Yes ASA Physical Status: ASA3 Plus Emergency Anesthetic Support Modalities: Hemodynamic Monitoring Anesthetic Plan: GA Bene/Risks/Altern/Consents: Yes HP Complete Prior to Induction: Yes Ronald Womack DO Nov 05, 2016 09:40
[2016-11-05] MEDS ORDERED: Lactated Ringer's 1,000 ML IV ONE (09:56)
--- NOTE | 2016-11-05 10:05 | PCM.ANEP1 ---
Post Anesthesia PACU Phase 1 Assessment Date of Service: Nov 05, 2016 Vital Signs Vital Signs Date Time Temp Pulse Resp B/P Pulse Ox O2 Delivery O2 Flow Rate FiO2 11/05/16 05:34 99 11/05/16 05:20 36.9 93 18 120/74 95 Nasal Cannula 2.00 11/05/16 05:03 80 20 90 Room Air 11/05/16 04:28 Supplement Oxygen Anesthetic Administered: GA, TIVA Level of Alertness: Awake, talking CARL's with Equal Strength: Yes Pain: No Pain Scale Score: 5 Nausea or Vomiting: No CV Function & Hydration Stable: Yes Airway Device: none Oxygen Delivery: Nasal Cannula Lungs: Normal Air Movement PACU Phase 2 Assessment Complications: No Patient Instructions Provided: N/A Ronald Womack DO Nov 05, 2016 10:05
--- NOTE | 2016-11-05 11:07 | ENDO ---
[address] [address] ENDOSCOPY PROCEDURE PATIENT: MONTEZ WAKEFIELD : 1935 MR#: [id number] ADMIT: 10/20/2016 JOB ID: [id number] DATE: 11/05/2016 TYPE OF OPERATION: Esophagogastroduodenoscopy. PREOPERATIVE DIAGNOSIS(ES): Gastrointestinal bleed, abnormal capsule endoscopy. POSTOPERATIVE DIAGNOSIS(ES): Normal upper endoscopy. ANESTHESIA: Monitored anesthesia care. COMPLICATIONS: None. BLOOD LOSS: Minimal. DESCRIPTION OF PROCEDURE: After risks and benefits were explained to the patient, informed consent was obtained. After anesthesia administered, an upper endoscope was inserted into the mouth intubating to the esophagus, stomach, second portion of duodenum. Mucosa carefully examined. After the procedure was done, the scope withdrawn and procedure terminated. FINDINGS: Upon inspection of the esophagus, the esophagus was normal without masses, ulcers, lesions. Z-line located 40 cm from incisors. Upon entering stomach, stomach was normal without masses, ulcers or lesions. Retroflexion was normal. Duodenal bulb, first and second portion were normal. There was no evidence of bleeding or evidence of overt signs of bleeding throughout the upper endoscopy. IMPRESSIONS: Normal upper endoscopy, without evidence of overt signs of bleeding. RECOMMENDATIONS: 1. Clear liquid diet today. 2. GoLYTELY prep starting at 5 p.m. for colonoscopy scheduled with anesthesia tomorrow at 9 a.m.
[2016-11-05] MEDS: Pantoprazole 40 mg ER24 Tablet PO SCH ×2 (12:43→17:07)
[2016-11-05] MEDS: Potassium Chloride 20 mEq SR Tablet PO SCH ×2 (12:43→17:07)
--- NOTE | 2016-11-05 12:53 | PCM.PNMED ---
Subjective Date of Service Nov 05, 2016 Subjective Nursing reports that patient did not sleep very well overnight as patient's roommate kept her awake. Otherwise no acute events overnight. Patient seen and examined laying in bed. Has no complaints at this time. Denies CP, SOB, ABD pain, or N/V/D. Pt NPO for scheduled EGD this morning. ROS negative unless otherwise noted above. Exam Vital Signs Vital Sign - Last Date Time Temp Pulse Resp B/P Pulse Ox O2 Delivery O2 Flow Rate FiO2 11/05/16 10:04 89 13 115/71 99 Nasal Cannula 2 11/05/16 05:20 36.9 Intake and Output 11/04/16 11/04/16 11/05/16 Cumulative From/Thru 15:00 23:00 07:00 10/20/16 11:06 - 11/05/16 06:09 Intake Total 1200 ml 250 ml 32419 ml Output Total 58303 ml Balance 1200 ml 250 ml -5333 ml Intake Oral 1200 ml 250 ml 94806 ml IV Total 6253 ml Packed Cells 1000 ml Output Urine Total 83411 ml Stool Total 3801 ml Urine/Stool Mix 2150 ml # Voids 4 5 40 # Bowel Movements Exam Constitutional: Awake, Alert and Oriented x3. No acute distress. Head: atraumatic and normocephalic Eyes: no scleral icterus. EOMI. Pale conjunctiva. Heart: Regular rate and rhythm. 2/6 systolic murmur on the right upper sternal border that radiates into the carotid. No peripheral edema. Lungs: Clear to auscultation bilaterally. No wheeze, rales or rhonchi. ABD: soft and nontender. bowel sounds throughout. Musculoskeletal: patient moving all extremities appropriately. Able to transition from bed to standing with assistance. Skin: Pale, warm, dry, no rashes. Neuro: CN II-XII intact. no focal deficits. Psych: appropriate mood and affect. IVs and Medications Medications Reviewed: Medications were reviewed in detail Lab and Diagnostics Item Value Date Time Red Blood Count 3.19 mil/mm3 L 11/05/16 06 Mean Corpuscular Volume 96.6 fL 11/05/16599 Mean Corpuscular Hemoglobin 30.1 pg 11/05/16599 Mean Corpuscular Hemoglobin Concent 31.2 % L 11/05/16599 Red Cell Distribution Width 16.2 % H 11/05/16 06 Total Protein 7.2 g/dL 11/05/16 06 Albumin 3.3 g/dL L 11/05/16 06 Alkaline Phosphatase 81 U/L 11/05/16599 Alanine Aminotransferase (ALT/SGPT) 15 U/L 11/05/16 06 Aspartate Amino Transf (AST/SGOT) 21 U/L 11/05/16 06 Total Bilirubin 0.6 mg/dL 11/05/16599 Calcium Level 8.8 mg/dL 11/05/16 06 Creatinine 1.31 mg/dL H 11/05/16 06 Estimat Glomerular Filtration Rate 56 mL/min 11/05/16 06 Result Diagram: 11/05/1659911/05/16599 Microbiology URINE CULTURE ESCHERICHIA COLI that is stapleton sensitive Blood cultures negative x48h X-Rays, CTs and MRIs CXR 10/27 IMPRESSION: Enlarged cardiac mediastinal silhouette with interstitial pulmonary opacities and pleural effusions left greater than right may represent congestive heart failure exacerbation. Superimposed infection is possible. Recommend radiographic followup to resolution to exclude underlying mass lesion. If findings do not resolve chest CT with contrast will be needed. Dictated by: Fito Umaña M.D. on 10/27/2016 at 10:17 Approved by: Fito Umaña M.D. on 10/27/2016 at 10:21 CXR 10/26 IMPRESSION: Persistent bilateral pulmonary opacities with mild/moderate left- sided pleural effusion. Findings may represent infection and/or fluid imbalance. Dictated by: Fito Umaña M.D. on 10/26/2016 at 9:54 Approved by: Fito Umaña M.D. on 10/26/2016 at 9:56 CXR 10/24 IMPRESSION: 1. Patchy airspace opacities in lungs bilaterally suspicious for pneumonia. 2. Pulmonary edema. Dictated by: Ivon Garcia MD, PhD on 10/24/2016 at 16:17 Approved by: Ivon Garcia MD, PhD on 10/24/2016 at 16:19 CXR 10/20 IMPRESSION: No radiographic evidence of acute cardiopulmonary pathology. Dictated by: Fito Umaña M.D. on 10/20/2016 at 11:50 Approved by: Fito Umaña M.D. on 10/20/2016 at 11:51 X-RAY CHEST ONE VIEW, PORTABLE IMPRESSION: Persistent widespread pulmonary edema with potential areas of superimposed atelectasis and/or pneumonia with minimal effusions. No appreciable interval change. Approved by: Fatuma Sharma M.D. on 10/23/2016 at 16:12 X-RAY CHEST ONE VIEW IMPRESSION: 1. Patchy airspace opacities in lungs bilaterally suspicious for pneumonia. 2. Pulmonary edema. Dictated by: Ivon Garcia MD, PhD on 10/24/2016 at 16:17 Additional Diagnostics Colonoscopy. IMPRESSION: Stapleton diverticulosis. Otherwise normal examination from rectum to terminal ileum. Mei Rudd MD 10/22/16 1028 Assessment & Plan Nyla Priest is an 81 year old female with past medical history significant for CAD with 5 vessel CABG, HTN, HLD, DM2, CHF, PVD, CKD, GERD and PUD who has now developed black tarry stools. GI was consulted for melena with associated drop in hemoglobin and hematocrit. Patient has underwent endoscopy which was unremarkable. Tagged RBC scan was completed and was negative. Capsule endoscopy completed and revealed blood in the stomach. EGD on 11/05 unremarkable. Plan for colonoscopy by Dr. Carey 11/06. Melena with associated drop in H/H, present on admission. - H/H currently stable trending up today. Total units of blood given since admission = 3. - Tagged RBC scan revealed no bleed. Capsule endoscopy revealed blood in the stomach. EGD revealed no identifying source for bleed. Will plan for colonoscopy by Dr. Carey 11/06. - Discussed with Dr. Carey by phone, states that if colonoscopy is unremarkable , patient will be cleared to go home with close follow up with Dr. Rudd. - Diet, Clear liquids. NPO after midnight. Acute Hypoxic Respiratory failure, not present on admission. Improving. - Likely secondary to Pulmonary Edema and fluid overload - Continue O2 at 1L NC. O2 saturation has been stable. Plan for patient to go home with Home Oxygen. RT has been notified. - Stopped Dobutamine drip Dr. Holder plans for close follow up in CHF clinic following dispo. Acute on chronic Systolic Congestive Heart Failure, present on admission. Stable. - Echo on 06/24 showed a LVEF 35% with severely dilated left and right atrium - Continue Metoprolol succinate 25mg daily, hold if patient becomes hypotensive. - Palliative following. Discussion with patient and son regarding plan for home care following discharge. Son states that he will stay with patient once she gets home, and that he has a sister from [place] that will come stay to help out for a few days. - Dr. Holder following. Acute on Chronic Kidney Injury, present on admission. Improving. - Creatinine stable at 1.31. Which is likely patient's baseline. - Avoid nephrotoxic agents Acute Blood Loss Anemia, present on admission. Stable. - History significant for ongoing GI bleeds, GERD/PUD, recent melena. - Patient transfused on (11/01). H/H stable. 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 Not present on admission. Stable. - Hold Seroquel, patient became agitated and more disoriented after evening dose. - Tomazepam 7.5mg PO PRN for insomnia ordered. Patient had some mild confusion overnight. Confusion may be signs of owning as she regains her baseline mental status throughout the day. - Continue Melatonin 5mg PO HS Acute cystitis, present on admission. Resolved. - Urine culture results; stapleton sensitive E. coli - Stopped Amoxicillin 500mg BID - (11/01) - Patient asymptomatic at this time; continue to monitor for ample urine output Dehydration, present on admission. Acute. Resolved. - Patient reports low oral intake as well as excessive diuretic use - Replete electrolytes as necessary Hypotension, present on admission. Acute. Resolved. - Likely due to dehydration, excessive diuretic use Chronic GERD with PUD and GI bleeds, present on admission. Ongoing. - EGD and colonoscopy did not show active bleed - Continue Protonix 40mg BID - Discussed with Dr. Rudd following. Awaiting pill cam report, likely to be ready tomorrow. Diabetes mellitus type 2, insulin requiring, present on admission. Ongoing. - Patient reported she was diabetic but hasn't been on medications for awhile - A1C 7 - Blood glucose on high edge of acceptable; watch as her appetite returns Hypertension - Continue to monitor overnight, avoid IVF as patient has CHF with LVEF of 35% Hyperlipidemia - Continue Pravastatin Glaucoma - Continue Bimatoprost Gout - Continue Allopurinol Hypothyroidism - Continue Levothyroxine Chronic insomnia - Melatonin scheduled Disposition: Patient is stable. Patient will undergo colonoscopy tomorrow morning. Patient will likely go home tomorrow pending results from colonoscopy. The patient at this time is scheduled upon discharge to be discharged home with home health. The patient does have significant support from her children and it is her wishes to go home with home health as opposed to going to a SNF upon discharge. GI Prophylaxis: Proton Pump Inhibitor VTE Prophylaxis: Sub-Q Heparin (Unfractionated) VTE Mechanical Devices: Intermittant Pneumatic CD Resuscitation Status: CPR: Attempt Resuscitation GI Prophylaxis: Proton Pump Inhibitor VTE Prophylaxis: Sub-Q Heparin (Unfractionated) VTE Mechanical Devices: Intermittant Pneumatic CD Resuscitation Status: CPR: Attempt Resuscitation GI Prophylaxis: Proton Pump Inhibitor VTE Prophylaxis: Sub-Q Heparin (Unfractionated) VTE Mechanical Devices: Intermittant Pneumatic CD Resuscitation Status: CPR: Attempt Resuscitation Attending Statement The patient was seen and examined together with Dr. Joshi on 11/05/16 and I agree with the history, exam and plan as outlined in the note above. Heriberto Joshi DO Nov 05, 2016 12:53 Kaylie Khanna DO Nov 06, 2016 15:42
--- NOTE | 2016-11-05 13:25 | NUR ---
Endo Pt went via bed to endo at 0940 Returned at 1005. Pt very sleepy, arouses briefly, not talking. O2 at 2 liters, 1230 pt more awake and able to sit up in chair for lunch. pt feels very anxious, "I don't know if I can do another procedure".
[2016-11-05] MEDS ORDERED: Ketamine 10 mg/mL 20 mL Inj ONE (14:29)
[2016-11-05] MEDS ORDERED: fentaNYL-PF 50 mCg/mL 2 mL Inj ONE (14:29)
[2016-11-05] MEDS ORDERED: Propofol 10,000 mCg/mL 20 mL Inj ONE (14:29)
[2016-11-05] MEDS ORDERED: PEG/Electrolytes 4,000 mL Solution PO ONE (16:00)
--- NOTE | 2016-11-05 18:40 | NUR ---
Mobility/BM Pt ambulated around small loop of MOC. tolerated well, minimal SOB at end of walk. Pt on RA, sats 92 % before and after walk. Colyte started - had 2 lg loose BM. Brown in color.
[2016-11-06] VITALS (7 sets, daily range): BP systolic 114–133; BP diastolic 73–74; PULSE 80–92; RESP 16–20; O2SAT 92–99
[2016-11-06] MEDS: Insulin LISPRO 300 Unit/3 mL Inj SUBQ SCH ×2 (08:00→12:10)
[2016-11-06 08:04] LABS: Mean Corpuscular Volume 95.6 fL (81-100)
--- NOTE | 2016-11-06 08:04 | PCM.HPANE ---
Patient Data Surgeon Admitting Provider:Kaylie Khanna DO Attending Provider:Kaylie Khanna DO Primary Care Physician:Wendy Vance MD Other Provider: Reason for Visit Upper Gi Bleed,Symptamatic Anemia Ht/WT & BMI Height (Feet): 5 Height (Inches): 2.00 Weight (Kilograms): 58.100 Body Mass Index 23.00 Allergies Coded Allergies: Kdacozf-Yyw-Pbe Reductase Inhibitor (Verified Allergy, Mild, sore shoulders, 10/20/16) can tolerate pravastatin rosuvastatin (Verified Allergy, Mild, sore shoulders, 10/20/16) cilostazol (Unverified Allergy, Unknown, 10/20/16) rofecoxib (Verified Allergy, Unknown, 10/20/16) simvastatin (Unverified Allergy, Unknown, sore shoulders, 10/20/16) Past Anesthesia History Anesthesia History: Denies:: Abnormal Airway, Anesthesia Reactions, Difficult Intubation, Fam Anesthesia Reaction, Fam Malignant Hypertherm, Malignant Hyperthermia Diabetes History Hx Diabetes?: Yes Type of Diabetes: Type II Glycemic Control: Diet Controlled Current Bedside Blood Glucose: 201 MRSA MRSA: No Medications Blood Thinner: Plavix Hypertension Medication: Yes Home Meds Incl Beta Qiana: Yes Previous Beta Qiana Dose >24: Dose Not Given, Contraindicated Beta Qiana Contraindicated: Pulse <70 bpm, Systolic BP <110 mmHg, Symptoms of CHF Present, Other (hypotension from GIB & dehydration) Reported Medications Potassium Chloride ER 20 Meq Tablet.er20 Meq PO BID Ref 0 TAKE WITH FOOD 10/20/16 Metoprolol Tartrate 25 Mg Xxqekb42 Mg PO QAM 30 Days Ref 0 10/20/16 Furosemide 80 Mg Fzk846 Mg PO DAILY 10/20/16 Tizanidine 2 Mg Tablet1-2 Mg PO DAILY PRN For Spasm 04/20/16 Metoprolol Tartrate 25 Mg Xykyvr00 Mg PO HS 30 Days Ref 0 04/20/16 Temazepam 30 Mg Cap30 Mg PO HS PRN For Insomnia 30 Days Ref 0 11/11/13 Pravastatin 40 Mg Eghvhz92 Mg PO DAILY 30 Days Ref 0 11/11/13 Clopidogrel Bisulfate (Plavix)75 Mg Bajuyz76 Mg PO DAILY 30 Days Ref 0 11/11/13 Multivitamin (Multivitamins)1 Each Capsule1 Each PO DAILY 11/11/13 Bimatoprost (Lumigan)45 Drop/2.5 Ml Ophsoln1 Drop OD HS #1 BOTTLE each eye 11/11/13 Levothyroxine 25 Mcg Iykxms97 Mcg PO AM 30 Days Ref 0 Take on an empty stomach. 11/11/13 Lansoprazole 30 Mg Capsule.dr30 Mg PO DAILY #30 CAPSULE Ref 0 11/11/13 Allopurinol 300 Mg Dzqomp226 Mg PO DAILY #30 TABLET Ref 0 11/11/13 History History of ENT Problems?: Yes HEENT History: Positive for:: Cataracts Denies:: Abnormal Airway Difficult Intubation Dysphagia Glaucoma Sinus Problem Denture Type: Full- Upper Full- Lower Teeth Condition: No Teeth Hx of Heart Problems?: Yes Cardiovascular History: Positive for:: Cardiac Surgery (05/2001) Congestive Heart Failure Coronary Artery Disease Edema Heart Murmur Hypertension Irregular Heartbeat Denies:: Chest Pain Pacemaker Thrombophlebitis Other Cardiac History: h/o DVT Hx of Respiratory Problem?: Yes Respiratory History: Positive for:: COPD Dyspnea Pneumonia Denies:: Asthma Chest Surgery Emphysema Hemoptysis Tuberculosis Hx Neurologic Problems?: Yes Neurological History: Positive for:: CVA (DURING CABG) Denies:: Alzheimer's Disease Dementia Dizziness Headaches Parkinson's Disease Seizures Hx of GI Problems?: Yes Hx of Problems?: Yes Genitourinary History: Positive for:: Urinary Tract Infection Denies:: HX of Hemodialysis Kidney Stones HX of Peritoneal Dialysis: No Female Hx: Denies:: Currently Endometriosis Pelvic Inflammatory Problems with Breasts? Skin History: Denies:: History Skin Disorders? Pressure Ulcers Hx Musculoskeletal Problems?: Yes Musculoskeletal History: Positive for:: Back Injury (low back pain, occasionally) Musculoskeletal Trauma (RT LEG CAUGHT IN HEAVY DOOR 2010) Denies:: Joint Replacement Hx of Psycho/Social Problems?: No Psycho Social History: Positive for:: Anxiety (sometimes with health problems) Denies:: Bipolar Disorder Hx Depression Hx Surgeries?: Yes (See H&P) Hx Any Other Health Problems?: Yes Other History: Positive for:: Endocrine Disease Hospitalization (see H&P) Thyroid Disease Denies:: Cancer History Blood Transfusions: Positive for:: Accept Blood Products? Blood Transfusions (s/p 1U PRBC) Denies:: Blood Transfuse Reaction Hx Diabetes: YesBedside Blood Glucose: 201 Hx Alcohol Use: Yes (1-2/week)Hx Substance Use: No Smoking Status: Former Smoker Have You Smoked inLast 12 mo: No (Quit many years ago) Stop/Bang Treated for Sleep Apnea?: No Do You Have a CPAP Machine?: No S-Snoring: Do You Snore Loudly: No T-Tired: feel tired, fatigued: No O-Obsered: Observed not breath: No P-Blood Pressure: treated: Yes B- Body Mass Index > 35 kg/m2: No A- Age over 50: Yes N- Neck Large Circumference: No G- Gender Male: No ALAN Total Score: 2 ALAN Risk Assessment: Low Risk, <3 Yes Risk Assessment Category Category 1A: Patient has history of documented sleep apnea, and HAS NOT received any narcotic, sedative or anesthesia administration during this stay. Category 1B: Patient has history of documented sleep apnea, and HAS received any narcotic , sedative or anesthesia administration during this stay Category 2: Patient has SUSPECTED Obstructive Sleep Apnea, and HAS received any narcotic , sedative or anesthesia administration during this stay. Category 3: Patient has SUSPECTED Obstructive Sleep Apnea and HAS NOT received narcotic, sedative or anesthesia administration during this stay. Category 4: Outpatient in Procedural Areas with known sleep apnea or who screen positive for High Risk via the STOP/BANG questionnaire. Low Risk, <3 Yes Exam Exam Vital Signs Vital Signs Date Time Temp Pulse Resp B/P Pulse Ox O2 Delivery O2 Flow Rate FiO2 11/06/16 05:16 36.3 82 16 114/73 93 Nasal Cannula 1.50 11/06/16 04:55 92 General Appearance: Alert, Oriented X3 HEENT/AIRWAY: MP 3, Neck Movement (FROM), Mouth Opening (3), Other (TMD3) Lungs: Normal Air Movement Heart: Normal S1, Normal S2, No Murmurs/Rubs/Gallops, Other (TACHYCARDIC) Meds/Labs/Diagnostics Admission Meds Current Medications Lactated Ringer's (Lr) 1,000 ml @ ud STK-MED ONCE IV Last administered on 11/05 09:56; Start 11/05/16 at 09:56; Stop 11/05/16 at 10:00; Status DC Polyethylene Glycol/ Electrolytes (Colyte) 4,000 ml ONCE ONCE PO Last administered on 11/05/16 17:07; Start 11/05/16 at 16:00; Stop 11/05/16 at 16:01 ; Status DC Bedside Blood Glucose: 201 Labs Test 10/20/16 11:20 10/20/16 12:57 10/21/16 02:40 10/21/16 16:30 Prothrombin Time 10.7sec (8.1-12.5) Prothromb Time International Ratio 1.00ratio Pro-B-Type Natriuretic Peptide 3414pg/mL (0-738) Urine Color Straw (YELLOW) Urine Appearance Cloudy (CLEAR,HAZY) Urine pH 5.5 (5.0-8.0) Urine Specific [place] 1.010 (1.003-1.035) Urine Protein 30mg/dL (NEG,TRACE) Urine Glucose (UA) Negativemg/dL (NEGATIVE) Urine Ketones Negativemg/dL (NEGATIVE) Urine Occult Blood Moderate (NEGATIVE) Urine Nitrite Positive (NEGATIVE) Urine Bilirubin Negative (NEGATIVE) Urine Urobilinogen Normalmg/dL (NORMAL) Urine Leukocyte Esterase Large (NEGATIVE) Urine RBC 0-2/hpf (0-2) Urine WBC Packed/hpf (0-5) Urine Epithelial Cells Occasional/hpf (NONE-MOD) Urine Crystals None seen (NONE SEEN) Urine Bacteria Moderate/hpf (NONE-FEW) Urine Hyaline Casts None/lpf (NONE) Urine Granular Casts None seen (NONE SEEN) Urine Waxy Casts None seen (NONE SEEN) Urine Red Blood Cell Casts None seen (NONE SEEN) Urine White Blood Cell Casts None seen (NONE SEEN) Urine Mucus None seen (None Seen) Urine Trichomonas None seen (NONE SEEN) Urine Yeast None (NONE SEEN) Urinalysis Comment None Urine Culture Reflexed Indicated Hemoglobin A1c 7.0% (4.8-5.6) Vitamin B12 Level 621pg/mL (211-946) Folate > 19.9ng/mL (>3.0) Hold [place] Top Tube Received (Received) Test 10/22/16 03:35 10/29/16 02:15 11/01/16 20:33 11/02/16 02:05 Hold [place] Top Tube Received (Received) Magnesium Level 1.9mg/dL (1.6-2.6) Troponin T 0.049ug/L (0.0-0.011) Neutrophils (%) (Auto) 70.8% (40-74) Lymphocytes (%) (Auto) 17.8% (14-46) Monocytes (%) (Auto) 7.7% (4-12) Eosinophils (%) (Auto) 3.0% (0-5) Basophils (%) (Auto) 0.3% (0-3) Procalcitonin 0.32ng/mL (0.00-0.08) Test 11/05/16 06:00 11/06/16 07:40 Sodium Level 134mEq/L (134-144) Potassium Level 4.8mEq/L (3.5-5.2) Chloride Level 96mEq/L (97-108) Carbon Dioxide Level 26mmol/L (18-29) Blood Urea Nitrogen 25mg/dL (8-27) Creatinine 1.31mg/dL (0.57-1.00) Estimat Glomerular Filtration Rate 56mL/min (>59) Glucose Level 153mg/dL (60-99) Calcium Level 8.8mg/dL (8.5-10.1) Total Bilirubin 0.6mg/dL (0.0-1.2) Aspartate Amino Transf (AST/SGOT) 21U/L (0-50) Alanine Aminotransferase (ALT/SGPT) 15U/L (0-32) Alkaline Phosphatase 81U/L (25-165) Total Protein 7.2g/dL (6.4-8.4) Albumin 3.3g/dL (3.4-5.0) Plan Impression Patient chart reviewed, patient interviewed and anesthestic plan with risks, benefits, and alternatives discussed, and informed consent obtained. NPO per Anesth. Guidelines: Yes ASA Physical Status: ASA3 Severe Disease Anesthetic Plan: MAC Bene/Risks/Altern/Consents: Yes HP Complete Prior to Induction: Yes Justin Llamas MD Nov 06, 2016 08:04
--- NOTE | 2016-11-06 08:25 | PCM.ANEP1 ---
Post Anesthesia PACU Phase 1 Assessment Vital Signs hr 90 sat99 rr22 bp 103/65 awake Vital Signs Date Time Temp Pulse Resp B/P Pulse Ox O2 Delivery O2 Flow Rate FiO2 11/06/16 05:16 36.3 82 16 114/73 93 Nasal Cannula 1.50 11/06/16 04:55 92 Anesthetic Administered: GA, TIVA Level of Alertness: Awake, talking CARL's with Equal Strength: Yes Pain: No Pain Scale Score: 0 Nausea or Vomiting: No CV Function & Hydration Stable: Yes Airway Device: none Oxygen Delivery: Nasal Cannula Lungs: Normal Air Movement Dermatome Level: Full Sensation PACU Phase 2 Assessment Complications: No Follow up Care: No Patient Instructions Provided: N/A Justin Llamas MD Nov 06, 2016 08:25
[2016-11-06] MEDS: Potassium Chloride 20 mEq SR Tablet PO SCH (09:00)
[2016-11-06] MEDS: Pantoprazole 40 mg ER24 Tablet PO SCH (09:00)
--- NOTE | 2016-11-06 09:08 | ENDO ---
[address] [address] ENDOSCOPY PROCEDURE PATIENT: MONTEZ WAKEFIELD : 1935 MR#: [id number] ADMIT: 10/20/2016 JOB ID: [id number] DATE OF SURGERY: 11/06/2016 TYPE OF OPERATIONS: Colonoscopy. PREOPERATIVE DIAGNOSIS: Abnormal capsule endoscopy with gastrointestinal bleed. POSTOPERATIVE DIAGNOSIS: Moderate sigmoid and ascending colon diverticulosis. Otherwise no evidence of overt signs of bleeding. ANESTHESIA: Monitored anesthesia care. COMPLICATIONS: None. ESTIMATED BLOOD LOSS: None. DESCRIPTION OF PROCEDURE: After risks and benefits explained to the patient, informed consent was obtained. After anesthesia administered, colonoscope was inserted per rectum to the terminal ileum. Mucosa carefully examined. Prep of the patient was excellent. After procedure was done, the scope withdrawn and procedure terminated. Upon inspection of the anus, no masses, hemorrhoids, ulcers, or fissures are seen. Throughout the entire examination, there was scattered moderate sigmoid and ascending colon diverticulosis without overt signs of bleeding. Intubation of the terminal ileum revealed no blood. Retroflexion normal. IMPRESSIONS: Sigmoid and ascending colon moderate diverticulosis, otherwise no overt signs of gastrointestinal bleed. RECOMMENDATIONS: High-fiber diet. Okay to discharge home from a GI perspective today.
--- NOTE | 2016-11-06 11:11 | PCM.DIMED ---
Nitin Alves DO 11/06/16 1111: Discharge Instructions Date of Service Nov 06, 2016 Dates of Hospitalization Oct 20, 2016 at 13:17 Discharge Diagnosis Discharge Diagnosis Melena with associated drop in H/H, present on admission. Improved Acute Hypoxic Respiratory failure, not present on admission. Improving. Acute on chronic Systolic Congestive Heart Failure, present on admission. Stable. Acute on Chronic Kidney Injury, present on admission. Improving. Acute Blood Loss Anemia, present on admission. Stable. Acute Delirium most likely secondary to Hospital Psychosis. Not present on admission. Stable. Acute cystitis, present on admission. Resolved. Dehydration, present on admission. Acute. Resolved. Hypotension, present on admission. Acute. Resolved. Chronic GERD with PUD and GI bleeds, present on admission. Ongoing. Diabetes mellitus type 2, insulin requiring, present on admission. Ongoing. Hypertension Hyperlipidemia Glaucoma Gout Hypothyroidism Chronic insomnia . Diet Discharge Diet: Other (High fiber diet) Activity Discharge Activity: Limited until seen by PCP Call your provider Call your provider for: Fever or Chills, Shortness of breath, Bleeding, Chest pain, Vomitting, Excessive diarrhea, Weakness (unilateral), Other (Blood in your stool) Patient Instructions Patient Instructions GI has recommended that you begin to follow a high fiber diet. This means a diet rich in non-starchy vegetables, whole grain breads, and possibly a fiber supplement. Follow-up plan Please follow up with Dr. Vance in 1 week Follow-up Provider: Wendy Vance MD Follow-up with PCP in: 1 week Kaylie Khanna DO 11/06/16 1313: Discharge Instructions Attending's Statement The patient was seen and examined together with Dr. Alves on 11/06/16 and I agree with the history, exam and plan as outlined in the note above. Nitin Alves DO Nov 06, 2016 11:11 Kaylie Khanna DO Nov 06, 2016 13:13
--- NOTE | 2016-11-06 12:17 | NUR ---
Social Work: Readiness for Discharge/Multidisciplinary Rounds D: EMR reviewed. Pt is on day 17 of hospitalization. Per multidisciplinary rounds, pt is medically stable for discharge home today. Pt to discharge home with [facility] RN, PT 3x/week. T/C to Rain at [facility] to confirm Katie can open with pt and pt is discharging today. Rain confirmed she has F2F and Katie will open with pt. Rain requested access, SW provided. Pt requested rx be faxed to [facility] in . SW updated RN and [facility] and both agreeable to fax any new rx to pharmacy. RN confirmed that pt's brother will provide transport home via POV today. SW met with the patient at bedside to review discharge plan. Pt agreeable to discharge plan. No further SW needs identified. No other MD orders received. A: Pt who is independent at baseline. Pt for whom HH has been deemed medically necessary and ordered by MD. Pt to return home with [facility] to open for RN/PT 3x/week. P: Pt's son Livan will provide transport home via POV today. Pt's rx (if any) will be sent to [facility] in [place] by [facility]A sodium chlorite operator - confirmed. SW confirmed with Rain from [facility] that pt will open with [facility] for RN/PT 3x/week. Pt agreeable to discharge plan. No further SW needs identified. No other MD orders received. Pt's daughters are also coming to stay with the pt post-discharge to provide additional support to her during her transition home. DORIAN Miller
--- NOTE | 2016-11-06 12:29 | NUR ---
ROXANE signed by pt at bedside
--- NOTE | 2016-11-06 13:55 | NUR ---
Social Work: Discharge D: EMR reviewed. Pt is on day 17 of hospitalization. RN confirmed that pt's brother will provide transport home via POV today. SW met with the patient at bedside to review discharge plan. Pt agreeable to discharge plan. No further SW needs identified. No other MD orders received. A: Pt who is independent at baseline. Pt for whom HH has been deemed medically necessary and ordered by MD. Pt to return home with [facility] to open for RN/PT 3x/week. P: Pt's son Livan will provide transport home via POV today. Pt's rx (if any) will be sent to [facility] in by [facility] patent prosecution attorney - confirmed. SW confirmed with Rain from [facility] that pt will open with [facility] for RN/PT 3x/week. Pt agreeable to discharge plan. No further SW needs identified. No other MD orders received. Pt's daughters are also coming to stay with the pt post-discharge to provide additional support to her during her transition home. DORIAN Miller
[2016-11-06] MEDS ORDERED: Ketamine 10 mg/mL 20 mL Inj ONE (14:29)
[2016-11-06] MEDS ORDERED: Propofol 10,000 mCg/mL 20 mL Inj ONE (14:29)
--- NOTE | 2016-11-06 14:43 | PCM.DC.MED ---
Discharge Summary Date of Service Nov 06, 2016 Dates of Hospitalization Date of Hospital Admission Oct 20, 2016 at 13:17 Date of Discharge: Nov 06, 2016 Providers: Admitting Physician: Kaylie Khanna DO Primary Care Physician: Wendy Vance MD Attending Physician: Kaylie Khanna DO Diagnosis at Time of Discharge Diagnosis at Time of Discharge Melena with associated drop in H/H, present on admission. Improved Acute Hypoxic Respiratory failure, not present on admission. Improving. Acute on chronic Systolic Congestive Heart Failure, present on admission. Stable. Acute on Chronic Kidney Injury, present on admission. Improving. Acute Blood Loss Anemia, present on admission. Stable. Acute Delirium most likely secondary to Hospital Psychosis. Not present on admission. Stable. Acute cystitis, present on admission. Resolved. Dehydration, present on admission. Acute. Resolved. Hypotension, present on admission. Acute. Resolved. Chronic GERD with PUD and GI bleeds, present on admission. Ongoing. Diabetes mellitus type 2, insulin requiring, present on admission. Ongoing. Hypertension Hyperlipidemia Glaucoma Gout Hypothyroidism Chronic insomnia . Consultations GI with Dr. Carey, Palliative with Dr. Jay, Cardiology with Dr. Holder Procedures XRay, CTs & MRIs CXR 10/27 IMPRESSION: Enlarged cardiac mediastinal silhouette with interstitial pulmonary opacities and pleural effusions left greater than right may represent congestive heart failure exacerbation. Superimposed infection is possible. Recommend radiographic followup to resolution to exclude underlying mass lesion. If findings do not resolve chest CT with contrast will be needed. Dictated by: Fito Umaña M.D. on 10/27/2016 at 10:17 Approved by: Fito Umaña M.D. on 10/27/2016 at 10:21 CXR 10/26 IMPRESSION: Persistent bilateral pulmonary opacities with mild/moderate left- sided pleural effusion. Findings may represent infection and/or fluid imbalance. Dictated by: Fito Umaña M.D. on 10/26/2016 at 9:54 Approved by: Fito Umaña M.D. on 10/26/2016 at 9:56 CXR 10/24 IMPRESSION: 1. Patchy airspace opacities in lungs bilaterally suspicious for pneumonia. 2. Pulmonary edema. Dictated by: Ivon Garcia MD, PhD on 10/24/2016 at 16:17 Approved by: Ivon Garcia MD, PhD on 10/24/2016 at 16:19 CXR 10/20 IMPRESSION: No radiographic evidence of acute cardiopulmonary pathology. Dictated by: Fito Umaña M.D. on 10/20/2016 at 11:50 Approved by: Fito Umaña M.D. on 10/20/2016 at 11:51 X-RAY CHEST ONE VIEW, PORTABLE IMPRESSION: Persistent widespread pulmonary edema with potential areas of superimposed atelectasis and/or pneumonia with minimal effusions. No appreciable interval change. Approved by: Fatuma Sharma M.D. on 10/23/2016 at 16:12 X-RAY CHEST ONE VIEW IMPRESSION: 1. Patchy airspace opacities in lungs bilaterally suspicious for pneumonia. 2. Pulmonary edema. Dictated by: Ivon Garcia MD, PhD on 10/24/2016 at 16:17 Invasive Procedures Capsule endoscopy IMPRESSIONS: Sigmoid and ascending colon moderate diverticulosis, otherwise no overt signs of gastrointestinal bleed. RECOMMENDATIONS: High-fiber diet. Okay to discharge home from a GI perspective today. Nitin Carey MD 11/06/16 0818 <Electronically signed by Nitin Carey MD> 11/06/16 1010 Upper Endoscopy IMPRESSIONS: Normal upper endoscopy, without evidence of overt signs of bleeding. RECOMMENDATIONS: 1. Clear liquid diet today. 2. GoLYTELY prep starting at 5 p.m. for colonoscopy scheduled with anesthesia tomorrow at 9 a.m. Nitin Carey MD 11/05/16 0957 <Electronically signed by Nitin Carey MD> 11/05/16 1147 . . Other Diagnostics Colonoscopy. IMPRESSION: Stapleton diverticulosis. Otherwise normal examination from rectum to terminal ileum. Mei Rudd MD 10/22/16 1028 Brief History Nyla Priest originally presented on 10/20/16 with the complaint of blood in her stool. She had a colonoscopy and endoscopy and this was found to be negative. The patient did receive 3 units of packed red blood cells as her H&H declined. The patient was being resuscitated and then later developed Chest pain and SOB. This was determined to be secondary to a CHF exacerbation likely secondary to UTI and increased volume for resuscitation. The patient responded well to antibiotics and her infection cleared. However, she proved difficult to achieve euvolemia while maintaining kidney function, requiring a Dobutamine drip at times. She then later started to have black tarry stools once again and her H& H and started to drop. GI decided to do a tagged red blood cell scan which was found to be negative and then decided to do it Endoscopy Which Found There to Be Blood in the Stomach. The Patient Was Then Taken for a Follow-Up Endoscopy Which Was Found to Be Negative along with a Follow-Up Colonoscopy Which Only Showed Diverticulitis. The Patient's H&H Is Currently Stable and GI Has Recommended for the Patient to Be Discharged Home on a High-Fiber Diet. The patient should also have close follow-up with her PCP and follow-up H&H to follow her hemoglobin and hematocrit for any further signs of bleeding. The patient is being discharged home with home health and her children stated that they would also stay with her for the next couple of weeks until she gets back on her feet. Hospital Course Nyla Priest is an 81 year old female with past medical history significant for CAD with 5 vessel CABG, HTN, HLD, DM2, CHF, PVD, CKD, GERD and PUD admitted for CHF exacerbation, UTI, and GI bleed. Melena with associated drop in H/H - H/H stable at time of DC. Total units of blood given since admission = 3. - Continued to closely monitor H/H. - Will need outpatient CBC upon follow up - Tagged RBC scan revealed no bleed. Capsule endoscopy also failed to identify source of bleed - GI following Acute Hypoxic Respiratory failure, not present on admission. Improving. - Likely secondary to Pulmonary Edema and fluid overload - O2 was able to be titrated off prior to DC Acute on chronic Systolic Congestive Heart Failure, present on admission. Stable. - Echo on 06/24 showed a LVEF 35% with severely dilated left and right atrium - Continued Metoprolol succinate 25mg daily - Palliative consulted for goals of care conversation, she is open to transitioning to a SNF. - Dr. Holder following. Acute on Chronic Kidney Injury, present on admission. Improving. - Creatinine stable. - Avoided nephrotoxic agents Delirium, not present on admission, acute. Ongoing. - Patient has been confused at nights but is easily redirected, likely due to sundowning as patient clears during waking hours - Clustered care, no lab draws prior to 6am to allow patient to sleep - Melatonin; seroquel PRN if patient was unable to be redirected Acute Blood Loss Anemia, present on admission. Stable. - History significant for ongoing GI bleeds, GERD/PUD, recent melena. - Patient transfused on (11/01). H/H stable. - Continued to trend in pediatric tubes Acute cystitis, present on admission. Resolved. - Urine culture results; stapleton sensitive E. coli - Stopped Amoxicillin 500mg BID - (11/01) - Patient asymptomatic at time of DC Dehydration, present on admission. Acute. Resolved. - Patient reported low oral intake as well as excessive diuretic use - Repleted electrolytes as necessary Hypotension, present on admission. Acute. Resolved. - Likely due to dehydration, excessive diuretic use Chronic GERD with PUD and GI bleeds, present on admission. Ongoing. - EGD and colonoscopy did not show active bleed - Continued Protonix 40mg BID - Discussed with Dr. Rudd Diabetes mellitus type 2, insulin requiring, present on admission. Ongoing. - Patient reported she was diabetic but hasn't been on medications for awhile - A1C 7 Hypertension - Continued to monitor overnight, avoid IVF as patient has CHF with LVEF of 35% Hyperlipidemia - Continued Pravastatin Glaucoma - Continued Bimatoprost Gout - Continued Allopurinol Hypothyroidism - Continued Levothyroxine Chronic insomnia - Melatonin scheduled Exam Vital Signs (Last) Date Time Temp Pulse Resp B/P Pulse Ox O2 Delivery O2 Flow Rate FiO2 11/06/16 11:14 87 18 97 Nasal Cannula 1.50 11/06/16 08:33 37.1 133/74 Exam Constitutional: Awake, Alert and Oriented x3. No acute distress. Head: atraumatic and normocephalic Eyes: no scleral icterus. EOMI. Pale conjunctiva. Heart: Regular rate and rhythm. 2/6 systolic murmur on the right upper sternal border that radiates into the carotid. No peripheral edema. Lungs: Clear to auscultation bilaterally. No wheeze, rales or rhonchi. ABD: soft and nontender. bowel sounds throughout. Musculoskeletal: patient moving all extremities appropriately. Able to transition from bed to standing with assistance. Skin: Pale, warm, dry, no rashes. Neuro: CN II-XII intact. no focal deficits. Psych: appropriate mood and affect. Test 10/20/16 11:20 10/20/16 12:57 10/21/16 02:40 10/21/16 16:30 Prothrombin Time 10.7sec (8.1-12.5) Prothromb Time International Ratio 1.00ratio Pro-B-Type Natriuretic Peptide 3414pg/mL (0-738) Urine Color Straw (YELLOW) Urine Appearance Cloudy (CLEAR,HAZY) Urine pH 5.5 (5.0-8.0) Urine Specific [place] 1.010 (1.003-1.035) Urine Protein 30mg/dL (NEG,TRACE) Urine Glucose (UA) Negativemg/dL (NEGATIVE) Urine Ketones Negativemg/dL (NEGATIVE) Urine Occult Blood Moderate (NEGATIVE) Urine Nitrite Positive (NEGATIVE) Urine Bilirubin Negative (NEGATIVE) Urine Urobilinogen Normalmg/dL (NORMAL) Urine Leukocyte Esterase Large (NEGATIVE) Urine RBC 0-2/hpf (0-2) Urine WBC Packed/hpf (0-5) Urine Epithelial Cells Occasional/hpf (NONE-MOD) Urine Crystals None seen (NONE SEEN) Urine Bacteria Moderate/hpf (NONE-FEW) Urine Hyaline Casts None/lpf (NONE) Urine Granular Casts None seen (NONE SEEN) Urine Waxy Casts None seen (NONE SEEN) Urine Red Blood Cell Casts None seen (NONE SEEN) Urine White Blood Cell Casts None seen (NONE SEEN) Urine Mucus None seen (None Seen) Urine Trichomonas None seen (NONE SEEN) Urine Yeast None (NONE SEEN) Urinalysis Comment None Urine Culture Reflexed Indicated Hemoglobin A1c 7.0% (4.8-5.6) Vitamin B12 Level 621pg/mL (211-946) Folate > 19.9ng/mL (>3.0) Hold [place] Top Tube Received (Received) Test 10/22/16 03:35 10/29/16 02:15 11/01/16 20:33 11/02/16 02:05 Hold Cunningham Top Tube Received (Received) Magnesium Level 1.9mg/dL (1.6-2.6) Troponin T 0.049ug/L (0.0-0.011) Neutrophils (%) (Auto) 70.8% (40-74) Lymphocytes (%) (Auto) 17.8% (14-46) Monocytes (%) (Auto) 7.7% (4-12) Eosinophils (%) (Auto) 3.0% (0-5) Basophils (%) (Auto) 0.3% (0-3) Procalcitonin 0.32ng/mL (0.00-0.08) Test 11/05/16 06:00 11/06/16 07:40 Sodium Level 134mEq/L (134-144) Potassium Level 4.8mEq/L (3.5-5.2) Chloride Level 96mEq/L (97-108) Carbon Dioxide Level 26mmol/L (18-29) Blood Urea Nitrogen 25mg/dL (8-27) Creatinine 1.31mg/dL (0.57-1.00) Estimat Glomerular Filtration Rate 56mL/min (>59) Glucose Level 153mg/dL (60-99) Calcium Level 8.8mg/dL (8.5-10.1) Total Bilirubin 0.6mg/dL (0.0-1.2) Aspartate Amino Transf (AST/SGOT) 21U/L (0-50) Alanine Aminotransferase (ALT/SGPT) 15U/L (0-32) Alkaline Phosphatase 81U/L (25-165) Total Protein 7.2g/dL (6.4-8.4) Albumin 3.3g/dL (3.4-5.0) White Blood Count 6.7th/mm3 (3.8-10.1) Red Blood Count 3.20mil/mm3 (3.90-5.20) Hemoglobin 9.6g/dL (12.0-15.6) Hematocrit 30.6% (35.0-46.0) Mean Corpuscular Volume 95.6fL (81-100) Mean Corpuscular Hemoglobin 30.0pg (27.0-35.0) Mean Corpuscular Hemoglobin Concent 31.4% (32.0-37.0) Red Cell Distribution Width 16.1% (12.3-15.4) Platelet Count 294bil/L (150-400) Microbiology Results URINE CULTURE ESCHERICHIA COLI that is stapleton sensitive Blood cultures negative x48h Discharge Medications Discharge Medications Allopurinol (Allopurinol) 300 Mg Tablet 300 MG PO DAILY (Reported) Bimatoprost (Lumigan) 45 Drop/2.5 Ml Ophsoln 1 DROP OD HS (Reported) each eye Clopidogrel Bisulfate (Plavix) 75 Mg Tablet 75 MG PO DAILY (Reported) Furosemide (Furosemide) 80 Mg Tab 160 MG PO DAILY (Reported) Lansoprazole (Lansoprazole) 30 Mg Capsule.dr 30 MG PO DAILY (Reported) Levothyroxine (Levothyroxine) 25 Mcg Tablet 25 MCG PO AM (Reported) Take on an empty stomach. Metoprolol Tartrate (Metoprolol Tartrate) 25 Mg Tablet 25 MG PO HS (Reported) Metoprolol Tartrate (Metoprolol Tartrate) 25 Mg Tablet 50 MG PO QAM (Reported) Multivitamin (Multivitamins) 1 Each Capsule 1 EACH PO DAILY (Reported) Potassium Chloride ER (Potassium Chloride ER) 20 Meq Tablet.er 20 MEQ PO BID ( Reported) TAKE WITH FOOD Pravastatin (Pravastatin) 40 Mg Tablet 40 MG PO DAILY (Reported) As needed Temazepam (Temazepam) 30 Mg Cap 30 MG PO HS PRN PRN For Insomnia (Reported) Tizanidine (Tizanidine) 2 Mg Tablet 1-2 MG PO DAILY PRN PRN For Spasm (Reported ) Followup Plan Disposition: Home with home health Follow-up plan Please follow up with Dr. Vance in 1 week Discharge Diet: Other (High fiber diet) Discharge Activity: Limited until seen by PCP Patient Instructions GI has recommended that you begin to follow a high fiber diet. This means a diet rich in non-starchy vegetables, whole grain breads, and possibly a fiber supplement. Follow-up Provider: Wendy Vance MD Follow-up with PCP in: 1 week Time spent Time spent planning and coordinating DC > 35 minutes. Attending Statement The patient was seen and examined together with Dr. Alves on 11/06/16 and I have added additional information to the note above. copies to: Wendy Vance MD, David E DO Nov 06, 2016 14:43 Kaylie Khanna DO Nov 06, 2016 16:43
--- NOTE | 2016-11-06 14:58 | NUR ---
Discharge note- Returned from ENDO after colonoscopy. Denies complaints. Tolerating soft diet. Up with standby assist to bathroom. Discharged home with family and personal belongings.
== END 2016-11-06 14:30 | disposition home health service (06) | DRG 377 ==
LOC: EDBD 10:52 → SED 10:52 → CCU 13:17 → PCC 10-21 13:13 → MOC 11-03 23:06
PROVIDERS: ADMIT Neuromusculoskeletal Medicine & OMM; ATTEND Neuromusculoskeletal Medicine & OMM
PROC: 30233N1 Transfusion of Nonautologous Red Blood Cells into Peripheral Vein, Percutaneous Approach (ICD-10-PCS; 2016-10-20)
PROC: 0DJ08ZZ Inspection of Upper Intestinal Tract, Via Natural or Artificial Opening Endoscopic (ICD-10-PCS; 2016-10-21)
PROC: 0DJD8ZZ Inspection of Lower Intestinal Tract, Via Natural or Artificial Opening Endoscopic (ICD-10-PCS; principal; 2016-10-22 10:00)
PROC: 30233N1 Transfusion of Nonautologous Red Blood Cells into Peripheral Vein, Percutaneous Approach (ICD-10-PCS; 2016-10-25)
PROC: 30233N1 Transfusion of Nonautologous Red Blood Cells into Peripheral Vein, Percutaneous Approach (ICD-10-PCS; 2016-10-31)
PROC: 30233N1 Transfusion of Nonautologous Red Blood Cells into Peripheral Vein, Percutaneous Approach (ICD-10-PCS; 2016-11-01)
PROC: 0DJ08ZZ Inspection of Upper Intestinal Tract, Via Natural or Artificial Opening Endoscopic (ICD-10-PCS; 2016-11-05)
PROC: 0DJD8ZZ Inspection of Lower Intestinal Tract, Via Natural or Artificial Opening Endoscopic (ICD-10-PCS; 2016-11-06)
DX: K92.1 Melena (principal); J96.00 Acute respiratory failure, unspecified whether with hypoxia or hypercapnia; J81.0 Acute pulmonary edema; I50.23 Acute on chronic systolic (congestive) heart failure; I50.22 Chronic systolic (congestive) heart failure; D62 Acute posthemorrhagic anemia; N17.9 Acute kidney failure, unspecified; N39.0 Urinary tract infection, site not specified; F05 Delirium due to known physiological condition; I13.0 Hypertensive heart and chronic kidney disease with heart failure and stage 1 through stage 4 chronic kidney disease, or unspecified chronic kidney disease; B96.20 Unspecified Escherichia coli [E. coli] as the cause of diseases classified elsewhere; R41.0 Disorientation, unspecified; I25.10 Atherosclerotic heart disease of native coronary artery without angina pectoris; Z95.1 Presence of aortocoronary bypass graft; Z86.718 Personal history of other venous thrombosis and embolism; N18.9 Chronic kidney disease, unspecified; E11.9 Type 2 diabetes mellitus without complications; Z79.4 Long term (current) use of insulin; E03.9 Hypothyroidism, unspecified; Z87.891 Personal history of nicotine dependence; Z79.02 Long term (current) use of antithrombotics/antiplatelets; E78.5 Hyperlipidemia, unspecified; K21.9 Gastro-esophageal reflux disease without esophagitis; E86.0 Dehydration; K27.9 Peptic ulcer, site unspecified, unspecified as acute or chronic, without hemorrhage or perforation; H40.9 Unspecified glaucoma; M10.9 Gout, unspecified; F51.04 Psychophysiologic insomnia

== ENCOUNTER 2016-11-09 07:31 | Inpatient (IN) | payer MEDICARE ==
[2016-11-09] VITALS (15 sets, daily range): BP systolic 95–128; BP diastolic 42–80; PULSE 73–100; RESP 12–32; O2SAT 94–98
[~2016-11-09 07:31] MED LIST changes: -FERR325C PO; +FRSM80T PO; -FURO40TA4 PO; +POTA-62 PO
--- NOTE | 2016-11-09 07:46 | ED.REPORT ---
HPI-General Illness Date of Service Nov 09, 2016 ED Provider: Jose L Naidu MD An 81 year old female with a history of hypertension, hyperlipidemia, CHF, diabetes and anemia is brought to the ED via EMS due to shortness of breath. The pt woke at 05:00 this morning with shortness of breath, though she had been breathing normally last night. She denies chest pain, fever, chills, diaphoresis , lower extremity edema, nausea or vomiting. The pt states that this feels like her symptoms may be due to congestive heart failure. She was recently admitted for melena with anemia, acute hypoxic respiratory failure, congestive heart failure and chronic kidney injury, and was discharged two days ago. The pt has not been taking any new medications since and has not treated her current symptoms. Nursing Notes Stated Complaint: WEAKNESS Nursing Notes Reviewed: Yes ([facility] Solution not reconciled) Allergies: Coded Allergies: Ouglbzs-Bwv-Qfw Reductase Inhibitor (Verified Allergy, Mild, sore shoulders, 11/09/16) can tolerate pravastatin rosuvastatin (Verified Allergy, Mild, sore shoulders, 11/09/16) cilostazol (Unverified Allergy, Unknown, 11/09/16) rofecoxib (Verified Allergy, Unknown, 11/09/16) simvastatin (Unverified Allergy, Unknown, sore shoulders, 11/09/16) Scheduled Allopurinol (Allopurinol) 300 Mg Tablet 300 MG PO HS Bimatoprost (Lumigan) 45 Drop/2.5 Ml Ophsoln 1 DROP BOTH_EYES HS each eye Clopidogrel Bisulfate (Plavix) 75 Mg Tablet 75 MG PO HS Furosemide (Furosemide) 80 Mg Tab 160 MG PO DAILY Lansoprazole (Lansoprazole) 30 Mg Capsule.dr 30 MG PO DAILY Levothyroxine (Levothyroxine) 25 Mcg Tablet 25 MCG PO AM Take on an empty stomach. Metoprolol Tartrate (Metoprolol Tartrate) 25 Mg Tablet 25 MG PO HS Metoprolol Tartrate (Metoprolol Tartrate) 25 Mg Tablet 50 MG PO QAM Multivitamin (Multivitamins) 1 Each Capsule 1 EACH PO DAILY Potassium Chloride ER (Potassium Chloride ER) 20 Meq Tablet.er 20 MEQ PO BID TAKE WITH FOOD Pravastatin (Pravastatin) 40 Mg Tablet 40 MG PO HS Scheduled PRN Temazepam (Temazepam) 30 Mg Cap 30 MG PO HS PRN PRN For Insomnia Tizanidine (Tizanidine) 2 Mg Tablet 1-2 MG PO DAILY PRN PRN For Spasm General Time Seen by MD: 07:42 Chief Complaint Other (Shortness of breath) Hx Obtained From: Patient, EMS Arrived By: Ambulance Sudden in Onset?: Yes Onset Occurred: 1 - 4 hours ago Symptom Duration: Since onset Recent Healthcare: Recent doctor visit, Recent hospitalization Similar Sx Previous: Yes Past Medical History Past Medical History Notes: PCP: Dr. Vance Obstetrics Nurse: Dr. Cid Echocardiogram EF of 35% in June 2016 Admit October 20 through 11/06/2016 for melena with anemia, acute hypoxic respiratory failure, congestive heart failure, chronic kidney injury, and acute delirium - she received 3 units transfusion, then developed subsequent CHF, she reported dobutamine drip at times patient had a tagged red cell scan which was negative, and an upper endoscopy for she was found to be blood in the stomach, and a follow-up endoscopy was found to be negative, and a follow-up colonoscopy which only showed mild diverticulitis Past Medical History 1. Coronary artery disease, with history of myocardial infarction and bypass grafting 2001. 2. Peripheral vascular disease, status post multiple stenting and angioplasty procedures. 3. Congestive heart failure, diastolic 4. Chronic kidney disease 5. Hypertension. 6. Chronically elevated troponin. 7. Hyperlipidemia. 8. Diabetes mellitus type 2, insulin requiring. 9. Gastroesophageal reflux disease with Schaefer's esophagus. 10. Glaucoma. 11. Carotid stenosis. 12. Gout. 13. Hypothyroidism. 14. Chronic insomnia, on chronic benzodiazepines. 15. Moderate to severe mitral regurgitation by echo February 2013. 16. Bilateral renal artery stenosis. 17. History of peptic ulcer disease. 18. Anemia. 19. prior DVT Past Surgical History Glaucoma surgery. Multiple stents and angioplasty for peripheral vascular disease Endoscopy, colonoscopy October 2016 Reports: CABG, Cataract surgery, Hysterectomy Family History Noncontributory Smoking History Former Smoker Social History Other Social History: Good social support, Local resident Ambulatory Status Independent Review of Systems denies lower extremity edema Full Review of Systems Constitutional: Denies: Chills, Fever Respiratory: Reports: Shortness of breath, Denies: Non-productive cough Cardiovascular: Denies: Chest pain GI: Denies: Abdominal pain, Nausea, Vomiting Skin: Denies Diaphoresis, Denies Rash Complete sys rev & neg: except as marked. Physical Exam Vital Signs Vital Signs Date Time Temp Pulse Resp B/P Pulse Ox O2 Delivery O2 Flow Rate FiO2 11/09/16 13:30 74 17 11/09/16 12:30 81 18 118/48 11/09/16 12:28 79 18 118/48 94 Nasal Cannula 3.00 11/09/16 11:40 82 18 104/48 11/09/16 11:00 82 20 109/57 11/09/16 10:40 75 18 98/42 11/09/16 10:00 75 20 98/54 11/09/16 09:00 84 12 99/56 11/09/16 08:30 73 19 111/56 11/09/16 07:46 36.0 85 26 106/58 94 Nasal Cannula Initial VS: Reviewed, Unavailable (none on chart, ordered) General/Constitutional: Awake, Alert Head / Eyes: Atraumatic, Normocephalic, PERRL, EOMI ENT: Atraumatic, Airway patent, Mucous membranes moist Neck: Atraumatic, Supple, Full range of motion Respiratory / Chest: Atraumatic, Breath sounds = bilat, No respiratory distress dyspneic mildly tachypneic crackles in all lung swenson Cardiovascular: Heart rate NL, Regular rhythm, Heart sounds NL, No murmurs no pitting edema Abdomen: Atraumatic, Soft, Non-tender Back: Atraumatic, Full range of motion Upper Extremities Upper Extremity / MS: Atraumatic, Full range of motion Lower Extremity / Pelvis / MS: Atraumatic, Full range of motion Skin: Atraumatic, Color NL, No rash, Warm, Dry no pallor Neurologic: Oriented X3, Speech NL, No motor deficits, No sensory deficits Psychiatric: Affect NL, Mood NL Interpretation & Diagnostics Lab Results Interpretation Result Diagram: 11/09/16 0759 11/09/16 0759 Test 11/09/16 07:59 11/09/16 08:58 White Blood Count 7.8th/mm3 (3.8-10.1) Red Blood Count 3.30mil/mm3 (3.90-5.20) Hemoglobin 9.8g/dL (12.0-15.6) Hematocrit 31.6% (35.0-46.0) Mean Corpuscular Volume 95.8fL (81-100) Mean Corpuscular Hemoglobin 29.7pg (27.0-35.0) Mean Corpuscular Hemoglobin Concent 31.0% (32.0-37.0) Red Cell Distribution Width 16.0% (12.3-15.4) Platelet Count 361bil/L (150-400) Neutrophils (%) (Auto) 69.6% (40-74) Lymphocytes (%) (Auto) 17.8% (14-46) Monocytes (%) (Auto) 8.9% (4-12) Eosinophils (%) (Auto) 3.0% (0-5) Basophils (%) (Auto) 0.3% (0-3) Sodium Level 133mEq/L (134-144) Potassium Level 3.9mEq/L (3.5-5.2) Chloride Level 94mEq/L (97-108) Carbon Dioxide Level 23mmol/L (18-29) Blood Urea Nitrogen 30mg/dL (8-27) Creatinine 1.60mg/dL (0.57-1.00) Estimat Glomerular Filtration Rate 44mL/min (>59) Glucose Level 148mg/dL (60-99) Calcium Level 8.5mg/dL (8.5-10.1) Total Bilirubin 0.3mg/dL (0.0-1.2) Aspartate Amino Transf (AST/SGOT) 19U/L (0-50) Alanine Aminotransferase (ALT/SGPT) 12U/L (0-32) Alkaline Phosphatase 96U/L (25-165) Troponin T 0.015ug/L (0.0-0.011) Pro-B-Type Natriuretic Peptide 24011ez/mL (0-738) Total Protein 7.3g/dL (6.4-8.4) Albumin 3.3g/dL (3.4-5.0) Lactic Acid Level 0.6mmol/L (0.4-2.0) Lab Results Interpretation: CBC normal - no recurrent anemia CMP renal insufficiency, roughly equivalent to previous values ProBNP severely elevated, markedly worse than last month Troponin marginally positive, but decreased from recent admission ECG Interpretation ECG Interpretation: normal sinus rhythm with a rate of 76 LVH with repolarization abnormality no interval change from previous dated 10/20/2016 premature ventricular contractions Time: 08:02 Interpreted by: ED physician X-Ray Chest Interpretation Chest Xray Interpretation: IMPRESSION: Pulmonary edema and/or diffuse bilateral pneumonia redemonstrated with slight decrease in confluent opacity involving the left lung base. Dictated by: Mickey AZEVEDO Interpreted: Dedrick Jeter MD on 11/09/2016 at 8:28 Approved by: Darryl Jeter M.D. on 11/09/2016 at 12:17 Interpretation / Wet Read by: Interpret - Radiologist Re-Eval/Medical Decision Med Decision/Clinical Course This is a very complicated 81-year-old female that ischemic cardiomyopathy, peripheral vascular disease, EF of 35% there is recently admitted for a GI bleed requiring multiple unit transfusions that provoked congestive heart failure 4 she was followed by the cardiology service. The patient during this hospitalization required a dobutamine infusion for a considerable period. She was discharged in the past couple of days, and developed shortness of breath and dyspnea that brought her back to the ED. She denies any bleeding. She denies fevers chills or cough. Patient does appear visibly dyspneic, tachypneic, and his increased O2 requirement compared to previous. She has bilateral Rales, but no marked lower extremity edema, mild JVD. He has LVH with repolarization abnormalities on the EKG, but no interval changes appreciated. A chest x-ray does suggest significant congestive heart failure, and the patient received furosemide in the department-however again her blood pressures only marginal 110 systolic so that was not significant room for aggressive additional medical management. Bolus of dyspnea, complexity, and hypoxia readmission is indicated. Given she was carefully followed by the cardiology service Source of Hx: Old records Time of Eval: 12:22 Patient Status: Condition improved Re-Evaluation/Progress Note: Pt rechecked, who is comfortable. The diagnosis and plan for admission are discussed. The pt understands and agrees with the plan. All questions are addressed at this time. Consultation #1: Referral / Consult Name: Sandra Pimentel MD Consulted With: Cardiology Call Returned at: 10:29 Template Storage Clerk: Agrees with eval, Agrees with plan Note: Consulted with Dr. Pimentel, filler shaker, regarding pt's case. Dr. Pimentel agrees with the evaluation and plan. Consultation #2: Referral / Consult Name: Александр Howard MD Consulted With: Hospitalist Call Returned at: 15:18 Template Storage Clerk: Agrees with eval, Agrees with plan, Accepts admit Note: Spoke with Dr. Howard, hospitalist, regarding pt's case. Dr. Howard agrees with the evaluation and agrees to admit the pt. Counseled Regarding: Diagnosis, Lab results, Need for admission Discharge & Departure Primary Impression: Congestive heart failure Congestive heart failure type: unspecified congestive heart failure type Congestive heart failure chronicity: unspecified congestive heart failure chronicity Qualified Code: I50.9 - Heart failure, unspecified Disposition: ADMITTED TO HOSPITAL Discharge Condition All VS Reviewed: Yes Condition: Stable Referrals: Wendy Vance MD (PCP) Scribe Attestation Portions of this note were transcribed by Dariel Buckner. I, Dr. Naidu personally performed the history, physical exam and medical decision-making; I reviewed and confirmed the accuracy of the information in the transcribed note. copies to: Wendy Vance MD, Matthew F MD Nov 09, 2016 07:45 DARIEL BUCKNER Nov 09, 2016 07:54
[2016-11-09] MEDS ORDERED: Furosemide 10 mg/mL 4 mL Inj IVPUSH ONE (07:50)
[2016-11-09 08:07] LABS: BASOPHILS % (AUTO) 0.3 % (0-3); MONOCYTES % (AUTO) 8.9 % (4-12); Mean Corpuscular Hemoglobin 29.7 pg (27.0-35.0); Mean Corpuscular Volume 95.8 fL (81-100); NEUTROPHILS % (AUTO) 69.6 % (40-74); Platelet Count 361 bil/L (150-400)
[2016-11-09 08:18] LABS: TROPONIN T 0.015 ug/L (0.0-0.011)
--- NOTE | 2016-11-09 12:20 | DRSVH ---
PROCEDURE: X-RAY CHEST ONE VIEW, PORTABLE ([id number]) INDICATIONS: SOB TECHNIQUE: One view of the chest was acquired. COMPARISON: [facility], CR, XR CHEST 1VW (PORTABLE), 04/20/2016, 14:23. [facility], CR, CHEST 2VW, 03/13/2013, 8:02. [facility], CR, XR CHEST 2VW, 10/27/2016, 9:35. [facility], CR, XR CHEST 1VW (PORTABLE), 10/23/2016, 14:39. FINDINGS: Surgical changes and devices: None. Lungs and pleura: Diffuse, widespread bilateral interstitial and left basilar airspace opacities rede monstrated which has slightly improved involving the left lung base. No pneumothorax. Mediastinum: Mediastinal contours appear normal. Heart size is normal. Bones and chest wall: No suspicious bony lesions. Overlying soft tissues appear unremarkable. IMPRESSION: Pulmonary edema and/or diffuse bilateral pneumonia redemonstrated with slight decrease in confluent opacity involving the left lung base. Dictated by: Mickey AZEVEDO Interpreted: Dedrick Jeter MD on 11/09/2016 at 8:28 Approved by: Darryl Jeter M.D. on 11/09/2016 at 12:17
[2016-11-09] MEDS ORDERED: Alum-Mag Hydrox-Simeth 30 mL Suspension PO PRN (13:15)
[2016-11-09] MEDS ORDERED: Polyethylene Glycol (PEG) 17 Gm Powder PO PRN (13:15)
--- NOTE | 2016-11-09 13:31 | NUR ---
Palliative Care Palliative Care received verbal order from Dr Howard 11/09/16 to assist with goals of care. Patient arrived to [facility] ED 11/09/16. She is a readmit from October 2016. Palliative Care has seen patient during previous admissions. Iris Dinero (daughter) [phone] Livan Priest (son) [phone] Palliative Care to follow. Cheryl Cordon
[2016-11-09] MEDS: Heparin 5,000 Unit/mL Inj SUBQ SCH (16:37)
[2016-11-09] MEDS: Sodium Chloride LOK Flush 10 mL Syringe IVFLUSH SCH (16:38)
[2016-11-09] MEDS ORDERED: Pantoprazole 20 mg ER24 Tablet PO PRN (21:15)
--- NOTE | 2016-11-09 21:18 | PCM.HPMED ---
Subjective Date of Service Nov 09, 2016 Primary Provider: Admitting Physician: Heriberto Joshi DO Primary Care Physician: Wendy Vance MD Attending Physician: Александр Howard MD Admit Status: Full Admit Chief Complaint: Shortness of Breath History of Present Illness: Mrs. Priest is an 81 year old female with past medical history significant for CAD with 5 vessel CABG, HTN, HLD, DM2, CHF, PVD, CKD, GERD and PUD who was recently discharged from this facility on 11/06 for intestinal bleed associated anemia which required transfusions of up to 3 units of blood. Patient went home with family support, and was tolerating well. Patient reports weakness and fatigue yesterday. Patient states that she ate a fast food burger and fries for dinner last night. She awoke from sleep at 0400 this morning short of breath that would not resolve. Patient denies CP, fever, ABD pain, N/V/D, or headache. Review of Systems: Positive for : SOB, weakness Denies: CP, N/V/D, Headache, fevers, muscle ache, urinary incontinence, urinary hesitancy, constipation Remainder ROS negative unless otherwise noted above. Allergies Coded Allergies: Hraxlps-Jvn-Cip Reductase Inhibitor (Verified Allergy, Mild, sore shoulders, 11/09/16) can tolerate pravastatin rosuvastatin (Verified Allergy, Mild, sore shoulders, 11/09/16) cilostazol (Unverified Allergy, Unknown, 11/09/16) rofecoxib (Verified Allergy, Unknown, 11/09/16) simvastatin (Unverified Allergy, Unknown, sore shoulders, 11/09/16) Home Medications Allopurinol (Allopurinol) 300 Mg Tablet 300 MG PO DAILY Bimatoprost (Lumigan) 45 Drop/2.5 Ml Ophsoln 1 DROP OD HS Clopidogrel Bisulfate (Plavix) 75 Mg Tablet 75 MG PO DAILY Furosemide (Furosemide) 80 Mg Tab 160 MG PO DAILY Lansoprazole (Lansoprazole) 30 Mg Capsule.dr 30 MG PO DAILY Levothyroxine (Levothyroxine) 25 Mcg Tablet 25 MCG PO AM Metoprolol Tartrate (Metoprolol Tartrate) 25 Mg Tablet 25 MG PO HS Metoprolol Tartrate (Metoprolol Tartrate) 25 Mg Tablet 50 MG PO QAM Multivitamin (Multivitamins) 1 Each Capsule 1 EACH PO DAILY Potassium Chloride ER (Potassium Chloride ER) 20 Meq Tablet.er 20 MEQ PO BID Pravastatin (Pravastatin) 40 Mg Tablet 40 MG PO DAILY Temazepam (Temazepam) 30 Mg Cap 30 MG PO HS PRN Tizanidine (Tizanidine) 2 Mg Tablet 1-2 MG PO DAILY PRN PMH Coronary artery disease, with history of myocardial infarction x2 and CABG in 2001. Peripheral vascular disease Congestive heart failure, diastolic Chronic kidney disease Hypertension. Chronically elevated troponin. Hyperlipidemia. Diabetes mellitus type 2, insulin requiring. GERD with PUD and Schaefer's esophagus with recent bleeds requiring transfusion. Glaucoma. Carotid stenosis. Gout. Hypothyroidism. Chronic insomnia Bilateral renal artery stenosis.. Anemia. Prior DVT Surgical History Glaucoma surgery Multiple stents and angioplasty for peripheral vascular disease CABG, 5 vessel in 2001 Family History Father: CAD, multiple [place] Mother: CAD Social History Hx Alcohol Use: Yes (1-2/week) Hx Substance Use: No Hx Tobacco Use: Yes (50 years of 1/2 to 1 ppd) Smoking Status: Former Smoker Exam Vital Signs Vital Sign - Last Date Time Temp Pulse Resp B/P Pulse Ox O2 Delivery O2 Flow Rate FiO2 11/09/16 07:46 36.0 85 26 106/58 94 Nasal Cannula Exam Constitutional: Awake, Alert and Oriented x3. Frail. In no acute distress. Head: normocephalic and atraumatic Eyes: EOMI, pupils equal round and reactive to light. Heart: regular rate and rhythm. No peripheral edema. Lungs: Bilateral rales throughout. No wheeze. ABD: soft, nontender. Bowel sounds present throughout. Musculoskeletal: moves all four extremities appropriately. Skin: pale, warm, dry Neuro: CN II-XII intact. No focal deficits. Psych: appropriate mood and affect. Lab and Diagnostics Labs Item Value Date Time Red Blood Count 3.30 mil/mm3 L 11/09/16 075 Mean Corpuscular Volume 95.8 fL 11/09/16 075 Mean Corpuscular Hemoglobin 29.7 pg 11/09/16 075 Mean Corpuscular Hemoglobin Concent 31.0 % L 11/09/16 075 Platelet Count 361 jose guadalupe/L 11/09/16 075 Red Cell Distribution Width 16.0 % H 11/09/16 075 Neutrophils (%) (Auto) 69.6 % 11/09/16 075 Lymphocytes (%) (Auto) 17.8 % 11/09/16 0759 Monocytes (%) (Auto) 8.9 % 11/09/16 075 Eosinophils (%) (Auto) 3.0 % 11/09/16758 Basophils (%) (Auto) 0.3 % 11/09/16758 Estimat Glomerular Filtration Rate 44 mL/min 11/09/16758 Lactic Acid Level 0.6 mmol/L 11/09/16 0858 Calcium Level 8.5 mg/dL 11/09/16758 Total Bilirubin 0.3 mg/dL 11/09/16758 Aspartate Amino Transf (AST/SGOT) 19 U/L 11/09/16 075 Alanine Aminotransferase (ALT/SGPT) 12 U/L 11/09/16758 Alkaline Phosphatase 96 U/L 11/09/16758 Troponin T 0.015 ug/L H 11/09/16758 Pro-B-Type Natriuretic Peptide 61410 pg/mL H 11/09/16758 Total Protein 7.3 g/dL 11/09/16758 Albumin 3.3 g/dL L 11/09/16758 Result Diagram: 11/09/1675811/09/16758 Microbiology Blood cultures pending. X-Rays, CTs and MRIs PROCEDURE: X-RAY CHEST ONE VIEW, PORTABLE IMPRESSION: Pulmonary edema and/or diffuse bilateral pneumonia redemonstrated with slight decrease in confluent opacity involving the left lung base. Dictated by: Mickey Chavarria RRA Interpreted: Dedrick Jeter MD on 11/09/2016 at 8:28 12-lead ECG HR 76 with LVH. No acute change from 10/20 study. Assessment & Plan Mrs. Priest is an 81 year old female with past medical history significant for CAD with 5 vessel CABG, HTN, HLD, DM2, CHF, PVD, CKD, GERD and PUD admitted for acute on chronic CHF exacerbation. Acute Exacerbation of Chronic Diastolic Congestive Heart Failure. POA, Active. Ongoing. -Patient is having exacerbation secondary to increased salt intake. Left ventricular ejection fraction is estimated to be 35% - Dr. Holder on 07/04/16 echocardiogram. - Give 40mg Lasix IV once - Limit fluids as patient is very sensitive to fluid overload. - Cardiology consult in the AM. Dr. Holder has previously worked with patient and is familiar with her case. - Continue home dose of Lopressor 25mg PO - NitroStat available PRN for chest pain Hypertension. Chronic. Not present on Admission. Stable. -Continue home dose of Lopressor Hypothyroidism, Chronic. Stable -Levothyroxine 25mcg daily History of Anemia associated with GI Bleed from an unknown source. Not Present on Admission. Chronic. Stable -Patient has history of GI bleed that required transfusions as recently as . Patient's H&H stable at this time. History of Recent Multiple Hospital Stays. Chronic. Ongoing. - Patient has had increasing hospital visits and admissions regarding her CHF, with the most recent discharge being 11/06. -Palliative consult for Goals of care and progression to Hospice care for management of her end stage CHF. History of Hospital Delirium with Sundowning. Chronic. Ongoing -Patient has a history of hallucinating during night time with increased nighttime activity. -Temazepam 30mg HS PRN insomnia. History of Gout. Chronic. Stable. -Allopurinol 300mg HS PO -Ondansetron PRN nausea - Bowel prep - Miralax Powder -Heparin 5,000unit Q8 for anticoagulation -Tylenol 650mg Q6 PRN pain -Pantoprazole 20mg PRN reflux sxs -Patient is FULL CODE Patient Status: The patient was admitted to the inpatient due to likely stay > 2 midnights due to the severity of presenting symptoms, multiple medical conditions and complex medical work up and treatment plan. Pain Evaluation: Adequate Pain Control GI Prophylaxis: Proton Pump Inhibitor VTE Prophylaxis Indicated: Meets Criteria for Anticoag Therapy VTE Prophylaxis: Sub-Q Heparin (Unfractionated) VTE Mechanical Devices: Intermittant Pneumatic CD Resuscitation Status: CPR: Attempt Resuscitation Attending Statement The patient was seen and examined together with Dr. Joshi on 11/09/2016 and I agree with the history, exam and plan as outlined in the note above. . copies to: Wendy Vance MD, Anthony P DO Nov 09, 2016 11:29 Александр Howard MD Nov 10, 2016 07:50
[2016-11-10] VITALS (12 sets, daily range): BP systolic 93–146; BP diastolic 53–79; PULSE 70–108; RESP 17–20; O2SAT 93–98
[2016-11-10] MEDS: Heparin 5,000 Unit/mL Inj SUBQ SCH ×3 (00:49→17:05)
[2016-11-10] MEDS: Sodium Chloride LOK Flush 10 mL Syringe IVFLUSH SCH ×3 (00:49→16:06)
[2016-11-10 06:54] LABS: BASOPHILS % (AUTO) 0.3 % (0-3); EOSINOPHILS % (AUTO) 4.1 % (0-5); MONOCYTES % (AUTO) 10.6 % (4-12); NEUTROPHILS % (AUTO) 56.4 % (40-74); Platelet Count 335 bil/L (150-400)
[2016-11-10 07:25] LABS: Magnesium 2.2 mg/dL (1.6-2.6); Phosphorus 4.2 mg/dL (2.5-4.9)
--- NOTE | 2016-11-10 12:07 | NUR ---
Case Management: [facility] delivered and explained to patient. Signed original placed in chart. Copy left at bedside. Ayala Contreras RN
--- NOTE | 2016-11-10 14:22 | PCM.PNMED ---
Subjective Date of Service Nov 10, 2016 Subjective breathing improving . had 8 beats of NSVT o/n,asymptomatic Exam Vital Signs Vital Sign - Last Date Time Temp Pulse Resp B/P Pulse Ox O2 Delivery O2 Flow Rate FiO2 11/10/16 12:35 122/69 11/10/16 11:50 37.2 84 17 96 Nasal Cannula 2.50 Intake and Output 11/09/16 11/09/16 11/10/16 Cumulative From/Thru 15:00 23:00 07:00 11/09/16 18:00 - 11/10/16 06:45 Intake Total 350 ml 350 ml Output Total 550 ml 450 ml 1000 ml Balance -550 ml -100 ml -650 ml Intake Oral 350 ml 350 ml Output Urine Total 550 ml 450 ml 1000 ml Exam Constitutional: Awake, Alert and Oriented x3. Frail. In no acute distress. Head: normocephalic and atraumatic Eyes: EOMI, pupils equal round and reactive to light. Heart: regular rate and rhythm. No peripheral edema. Lungs: Bilateral rales on lower chest. No wheeze. ABD: soft, nontender. Bowel sounds present throughout. Musculoskeletal: moves all four extremities appropriately. Skin: pale, warm, dry Neuro: CN II-XII intact. No focal deficits. Psych: appropriate mood and affect. IVs and Medications Medications Reviewed: Medications were reviewed in detail Lab and Diagnostics Result Diagram: 11/10/1662211/10/16622 Microbiology Blood cultures pending. X-Rays, CTs and MRIs PROCEDURE: X-RAY CHEST ONE VIEW, PORTABLE IMPRESSION: Pulmonary edema and/or diffuse bilateral pneumonia redemonstrated with slight decrease in confluent opacity involving the left lung base. Dictated by: Mickey Chavarria RRA Interpreted: Dedrick Jeter MD on 11/09/2016 at 8:28 12-lead ECG HR 76 with LVH. No acute change from 10/20 study. Assessment & Plan Mrs. Priest is an 81 year old female with past medical history significant for CAD with 5 vessel CABG, HTN, HLD, DM2, CHF, PVD, CKD, GERD and PUD admitted for acute on chronic CHF exacerbation. # Acute on Chronic combined systolic and Diastolic Congestive Heart Failure. POA, Active. Ongoing. -Patient is having exacerbation secondary to increased salt intake. Left ventricular ejection fraction is estimated to be 35% - Dr. Holder on 07/04/16 echocardiogram. - received 40mg Lasix IV 11/09,c/w lasix 40mg iv daily - Limit fluids as patient is very sensitive to fluid overload. -patient was on isodil and hydralazine for afterload reduction.will resume as BP tolerates. will start with Isoodil 20 mg bid today and hydrazine - Continue home dose of Lopressor 25mg PO - NitroStat available PRN for chest pain -will consider spironolactone when BP stable # Hypertension. Chronic. Not present on Admission. Stable. -Continue home dose of Lopressor # Hypothyroidism, Chronic. Stable -Levothyroxine 25mcg daily # History of Anemia associated with GI Bleed from an unknown source. Not Present on Admission. Chronic. Stable -Patient has history of GI bleed that required transfusions as recently as . Patient's H&H stable at this time. # History of Recent Multiple Hospital Stays. Chronic. Ongoing. - Patient has had increasing hospital visits and admissions regarding her CHF, with the most recent discharge being 11/06. -Palliative consult for Goals of care and progression to Hospice care for management of her end stage CHF. # History of Hospital Delirium with Sundowning. Chronic. Ongoing -Patient has a history of hallucinating during night time with increased nighttime activity. -Temazepam 30mg HS PRN insomnia. # History of Gout. Chronic. Stable. -Allopurinol 300mg HS PO -Ondansetron PRN nausea - Bowel prep - Miralax Powder -Heparin 5,000unit Q8 for anticoagulation -Tylenol 650mg Q6 PRN pain -Pantoprazole 20mg PRN reflux sxs -Patient is FULL CODE Patient Status: The patient was admitted to the inpatient due to likely stay > 2 midnights due to the severity of presenting symptoms, multiple medical conditions and complex medical work up and treatment plan. GI Prophylaxis: Proton Pump Inhibitor VTE Prophylaxis: Sub-Q Heparin (Unfractionated) VTE Mechanical Devices: Intermittant Pneumatic CD Resuscitation Status: CPR: Attempt Resuscitation Kelvin Guzman MD Nov 10, 2016 14:22
[2016-11-10] MEDS ORDERED: 0.9% Sodium Chloride 250 ML ONE (14:55)
[2016-11-10] MEDS ORDERED: 0.9% Sodium Chloride 250 ML IV ONE (14:55)
--- NOTE | 2016-11-10 15:26 | PCM.CONPAL ---
Date of Service Nov 10, 2016 Date of Hospital Admission: Nov 09, 2016 at 14:38 Date of Palliative Consult: Nov 10, 2016 Requesting Provider: Heriberto Joshi DO Reason Palliative Care Consult: Goals of Care Discussion Hospital Unit @time of consult: Other (MOC) Palliative Care Recommendation 81-year-old female with history of biventricular heart failure, EF 35%, readmitted with dyspnea and pulmonary edema. Palliative medicine consulted to assist patient once again in determination of goals care. Summary of palliative recommendations: -Symptom management (Pain/other)- continued management per medical team -DPOA/Advanced Directives/POLST- patient discussed advanced interventions today and indicated that she wishes to be DO NOT RESUSCITATE/DO NOT INTUBATE, though would want aggressive treatment short of those terminal interventions. Is willing to return to hospital as often as needed for additional care. -Family/emotional support- limited support from family (though patient also unwilling to have any family move in with her). She continues to hope to be able to live at home. I strongly recommended home health nursing and other support, enrollment in CHF clinic, etc. to try to optimize outpatient care and thereby reduce likelihood of readmissions Additional Medical Diagnoses with primary management by Hospitalist team include : # Acute on Chronic combined systolic and Diastolic Congestive Heart Failure. POA, Active. Ongoing. # Hypertension. Chronic. Not present on Admission. Stable. # Hypothyroidism, Chronic. Stable # History of Anemia associated with GI Bleed from an unknown source. Not Present on Admission. Chronic. Stable # History of Recent Multiple Hospital Stays. Chronic. Ongoing. # History of Hospital Delirium with Sundowning. Chronic. Ongoing # History of Gout. Chronic. Stable. Problems: End of Life Preferences DO NOT RESUSCITATE/DO NOT INTUBATE Goals of Care Return home Disposition Hopes to return home Resuscitation Status Resuscitation Status: DNR/DNI:Do Not Resuscitate/Intubate POLST Updates/Changes Previous POLST?: No POLST Review Outcome: No Change . Advanced Care Planning Address: Code status change Pain: None Symptom management: Dyspnea Pt History History of Present Illness Per admission H&P: Mrs. Priest is an 81 year old female with past medical history significant for CAD with 5 vessel CABG, HTN, HLD, DM2, CHF, PVD, CKD, GERD and PUD who was recently discharged from this facility on 11/06 for intestinal bleed associated anemia which required transfusions of up to 3 units of blood. Patient went home with family support, and was tolerating well. Patient reports weakness and fatigue yesterday. Patient states that she ate a fast food burger and fries for dinner last night. She awoke from sleep at 0400 this morning short of breath that would not resolve. Patient denies CP, fever, ABD pain, N/V/D, or headache. Palliative medicine consulted to assist in determination of goals of care. Patient was well-known to this writer technical publications from previous interactions during her last hospitalization. Prior to visiting, reviewed her updated records in the EMR in detail, spoke with her medical team and with her nurse. When I arrived, she was sitting up at side of bed. She appeared comfortable and was oriented and appropriate. We reviewed her history from her last hospitalization through her brief time and then readmission. She feels that her breathing has improved but still is not at baseline. She expresses disappointment that she was unable to stay healthy at home- she admitted to a meal of fast food including hamburger and [place] fries which may have contributed to her exacerbation of CHF, but said "it just tasted so good". She notes modest improvement in her dyspnea since admission. Reviewed in detail earlier conversations about her cardiac status, prognosis, etc. She is slowly assimilating the information about her cardiac status, but continues to focus on her unexpected recovery from OR and bypass surgery a number of years ago as proof that she can survive additional cardiac problems. Interestingly, this time she did open a conversation about advanced interventions such as CPR/defibrillation/intubation, saying that she now does not think she would like to go through those things (though she otherwise wants to continue to receive aggressive medical care, return to hospital as needed, etc.) She certainly said that she is not ready to consider hospice for this reason. Past Medical History Significant PMH Noted: Coronary artery disease, with history of myocardial infarction x2 and CABG in 2001. Peripheral vascular disease Congestive heart failure, diastolic Chronic kidney disease Hypertension. Chronically elevated troponin. Hyperlipidemia. Diabetes mellitus type 2, insulin requiring. GERD with PUD and Schaefer's esophagus with recent bleeds requiring transfusion. Glaucoma. Carotid stenosis. Gout. Hypothyroidism. Chronic insomnia Bilateral renal artery stenosis.. Anemia. Prior DVT Surgical History Glaucoma surgery Multiple stents and angioplasty for peripheral vascular disease CABG, 5 vessel in 2001 Social History Occupation: See palliative note from last admission POLST at Time of Admission Previous POLST?: No Allergy Allergies Reviewed: Yes Medications Current Medications: Current Medications Sodium Chloride 10 ml ANASTACIO IVFLUSH Last administered on 11/10/16 08:30; Admin Dose 10 ML; Start 11/09/16 at 16:30 Al Hydrox/Mg Hydrox/Simethicone 30 ml Q6 PRN PO; Start 11/09/16 at 13:15 Ondansetron HCl 4 mg Q4H PRN IVPUSH; Start 11/09/16 at 13:15 Senna 2 tablet BID PRN PO; Start 11/09/16 at 13:15 Polyethylene Glycol 17 gm DAILY PRN PO; Start 11/09/16 at 13:15 Acetaminophen 650 mg Q6H PRN PO; Start 11/09/16 at 13:15 Nitroglycerin 0.4 mg Q5MIN PRN SL; Start 11/09/16 at 13:15 Temazepam 15 mg 21 PRN PO; Start 11/09/16 at 13:15; Stop 11/09/16 at 15:04; Status DC Heparin Sodium (Porcine) 5,000 unit Q8 SUBQ Last administered on 11/10/16 09:06 ; Admin Dose 5,000 UNIT; Start 11/09/16 at 16:30 Allopurinol 300 mg HS PO Last administered on 11/09/16 20:48; Admin Dose 300 MG ; Start 11/09/16 at 21:00 Latanoprost 1 drop HS BOTH_EYES Last administered on 11/09/16 22:24; Admin Dose 1 DROP; Start 11/09/16 at 21:00 Clopidogrel Bisulfate 75 mg HS PO Last administered on 11/09/16 20:48; Admin Dose 75 MG; Start 11/09/16 at 21:00 Furosemide 160 mg DAILY PO Last administered on 11/10/16 09:05; Admin Dose 160 MG; Start 11/10/16 at 08:30; Stop 11/10/16 at 10:18; Status DC Levothyroxine Sodium 25 mcg DAILYAC PO Last administered on 11/10/16 09:05; Admin Dose 25 MCG; Start 11/10/16 at 07:30 Metoprolol Tartrate 25 mg HS PO Last administered on 11/09/16 22:23; Admin Dose 25 MG; Start 11/09/16 at 21:00 Multivitamins/ Minerals Therapeutic 1 tablet DAILY PO Last administered on 09:05; Admin Dose 1 TABLET; Start 11/10/16 at 08:30 Pravastatin Sodium 40 mg HS PO Last administered on 11/09/16 20:48; Admin Dose 40 MG; Start 11/09/16 at 21:00 Temazepam 30 mg HS PRN PO Last administered on 11/10/16 00:32; Admin Dose 30 MG ; Start 11/09/16 at 14:50 Cyclobenzaprine HCl 5 mg DAILY PRN PO; Start 11/09/16 at 15:05 Pantoprazole 20 mg DAILYAC PRN PO; Start 11/09/16 at 21:15 Furosemide 40 mg DAILY IVPUSH; Start 11/11/16 at 12:00 Isosorbide Dinitrate 20 mg BID PO Last administered on 11/10/16 13:30; Admin Dose 20 MG; Start 11/10/16 at 10:20; Stop 11/10/16 at 14:52; Status DC Scheduled Allopurinol (Allopurinol) 300 Mg Tablet 300 MG PO HS Bimatoprost (Lumigan) 45 Drop/2.5 Ml Ophsoln 1 DROP BOTH_EYES HS each eye Clopidogrel Bisulfate (Plavix) 75 Mg Tablet 75 MG PO HS Furosemide (Furosemide) 80 Mg Tab 160 MG PO DAILY Lansoprazole (Lansoprazole) 30 Mg Capsule.dr 30 MG PO DAILY Levothyroxine (Levothyroxine) 25 Mcg Tablet 25 MCG PO AM Take on an empty stomach. Metoprolol Tartrate (Metoprolol Tartrate) 25 Mg Tablet 25 MG PO HS Metoprolol Tartrate (Metoprolol Tartrate) 25 Mg Tablet 50 MG PO QAM Multivitamin (Multivitamins) 1 Each Capsule 1 EACH PO DAILY Potassium Chloride ER (Potassium Chloride ER) 20 Meq Tablet.er 20 MEQ PO BID TAKE WITH FOOD Pravastatin (Pravastatin) 40 Mg Tablet 40 MG PO HS Scheduled PRN Temazepam (Temazepam) 30 Mg Cap 30 MG PO HS PRN PRN For Insomnia Tizanidine (Tizanidine) 2 Mg Tablet 1-2 MG PO DAILY PRN PRN For Spasm Objective Findings Exam Vital Sign - Last Date Time Temp Pulse Resp B/P Pulse Ox O2 Delivery O2 Flow Rate FiO2 11/10/16 15:13 86 96/59 96 11/10/16 14:25 20 Nasal Cannula 3.00 11/10/16 11:50 37.2 Intake and Output 11/09/16 11/09/16 11/10/16 Cumulative From/Thru 15:00 23:00 07:00 11/09/16 18:00 - 11/10/16 06:45 Intake Total 350 ml 350 ml Output Total 550 ml 450 ml 1000 ml Balance -550 ml -100 ml -650 ml Intake Oral 350 ml 350 ml Output Urine Total 550 ml 450 ml 1000 ml Objective Pleasant elderly lady in no distress. Vital signs noted. Skin pale, warm and dry. Head and neck exam without acute focal findings. Lungs with a few bibasilar crackles, no wheezes. Heart sounds regular with frequent ectopy and a soft 2/6 systolic murmur heard at the left sternal border. Abdomen soft and nontender. Ankles with trace pitting edema. Neurologic intact. Lab/Diagnostics Lab and Imaging results reviewed in detail in EMR. Time spent Total time 60 minutes; >50% face to face with patient and/or family, providing counselling regarding plans and recommendations, and in care coordination with his/her medical teams. Of the above total time, 15 minutes counseling for advanced care planning with the patient copies to: Wendy Vance MD, Nitin Vasquez MD Nov 10, 2016 15:25
--- NOTE | 2016-11-10 16:38 | NUR ---
Social Work- Initial Assessment/Multidisciplinary Rounds Data: See Initial Assessment for additional information. Pt is a 81 y.o. female admitted for CHF per H&P. Pt's insurance is [employer] [facility]. Pt's PCP is is Wendy Vance MD. Pt's readmit risk score is 5- high risk. Pt discussed in multidisciplinary rounds. Pt is a readmit, d/c November 06 with Katie MACKENZIE RN PT services. Katie RN was going to see patient yesterday but pt was admitted prior to intake appointment. Pt has CHF and may benefit from [facility] Telemonitoring Program. notified. SW met with pt and children at bedside regarding d/c plan. Pt's d/c planning contacts are dtr Iris Rosette, , son Livan Priest [phone], and Hilda [phone]. Pt is open with Katie jamison RN PT at this time. Pt is independent at baseline. Pt uses a walker at baseline. Pt has no home O2. Pt has history with hiring [facility] [place] [facility]. Pt has history with [employer]. T/C to Rob Palmer, Katie MACKENZIE liaison, regarding pt's admission. Rbo is agreeable to resumption of services, will keep Katie updated during this admission. Pt is anticipated to return home at d/c, resume Katie services. Pt's daughter will be staying with her for approximately one week at discharge. SW will continue to follow. Assessment: Pt who is open with Katie MACKENZIE RN PT Plan: Pt is anticipated to return home at d/c, resume [facility] services. Pt's daughter will be staying with her for approximately one week at discharge. SW will continue to follow. DORIAN Bautista Addendum: 11/10/16 at 1646 by HUNTER RADER Amended: Links added.
--- NOTE | 2016-11-10 19:31 | NUR ---
hypotension/V-tach At approx. 1445, pt. reporting feeling "very weak, just sitting and eating my lunch." Pt. was short of breath, but denied chest pain. Vitals taken, and BP reading 93/53. Pt. put back into bed. At rest, vitals reading 79/52. This was verified by taking a manual set. Pt. placed in trendelenburg position, oxygen increased to 3L. Sating 93%. paged; received order for one dose of NS 250ml bolus. This administered. Vitals checked frequently post admin. also stated to hold Metoprolol dose for pm. Last pressure checked at 1820 and reading 146/78. Pt. has been ambulatory and denies SOB. At 1803, telemetry monitor called and reported pt. to have had 10 beats of V-tach. Pt. asleep at the time; states that she heard the phone ring, and it startled her awake. Pt. denied CP or SOB. paged. Instructed to monitor pt.; possible EKG this evening. Reported off to IGNACIO Dietz to continue care.
[2016-11-11] VITALS (21 sets, daily range): BP systolic 64–139; BP diastolic 34–79; PULSE 62–89; RESP 16–17; O2SAT 95–98
[2016-11-11] MEDS: Heparin 5,000 Unit/mL Inj SUBQ SCH ×3 (00:30→17:29)
[2016-11-11] MEDS: Sodium Chloride LOK Flush 10 mL Syringe IVFLUSH SCH ×4 (00:37→22:58)
--- NOTE | 2016-11-11 05:40 | NUR ---
Shift Note Assumed pt care at 1900, systolic Bps low 130's throughout night (see vitals), pt able to ambulate x2 around unit halls, no noted cardiac signs/symptom, denies pain and discomfort, call light in reach at all times.
--- NOTE | 2016-11-11 06:35 | CONS ---
[address] [address] CONSULTATION REPORT PATIENT: MONTEZ WAKEFIELD : 1935 MR#: [id number] ADMIT: 11/09/2016 JOB ID: [id number] DATE OF SERVICE: 11/11/2016 CHIEF COMPLAINT: Shortness of breath and weakness. HISTORY OF PRESENT ILLNESS: The patient is an 81-year-old woman with history of coronary artery disease status post CABG, hypertension, recent GI bleed with no identified source who developed severe weakness. In the past, the patient has been admitted to the hospital twice namely October 20 through November 06 and then November 09 on this admission. She says when she was sent home on November 06 she was still feeling somewhat weak and when she got up November 09, 2016, she went to the kitchen and got extremely weak and extremely short of breath to the point where she says she could really even think clearly. She called her daughter who advised emergency department evaluation. The patient denied having chest discomfort but was just short of breath and very weak. She denied awareness of palpitations at that time. PAST MEDICAL HISTORY: 1. Status post CABG 2001. Her last catheterization was performed May 27, 2002 and demonstrated calcification of the circumflex and LAD, chronic total occlusion of right coronary artery ostially, patent vein grafts to LAD, vein graft to diagonal, vein graft to circumflex and vein graft to PDA. 2. Peripheral arterial disease-complicated history with multiple interventions, most recently in 2011. She had left femoral thromboendarterectomy with Hemashield patch angioplasty in 2006. Her last aortogram in May 2011 showed 80-90% bilateral renal artery ostial calcific stenosis, patent previously deployed right external iliac stent. An arteriogram performed by Dr. Milligan in 2011 showed 80-90% bilateral renal artery stenosis, patent previously deployed right external iliac stent, 80% common femoral artery stenosis, 90% right popliteal artery stenosis with popliteal artery occlusion. There is chronic total occlusion of right anterior tibial and right posterior tibial arteries. 3. On the left side, the patient has evidence of prior endarterectomy at the common femoral artery, serial 80-90% distal SFA lesions and chronic total occlusion of the left peroneal artery. Left SFA intervention was attempted but was unsuccessful and was aborted. The patient was seen by Dr. Wright and he advised her against further surgeries and interventions, told her she is not a surgical candidate. 4. Hyperlipidemia. 5. Hypertension. 6. Diabetes. 7. Gout. 8. Carotid disease-most recent carotid ultrasound August 10, 2012 showed 70% left proximal internal carotid artery stenosis with peak velocity of 541 cm/second in systole and diastolic velocities unfortunately were not reported. Less than 50% stenosis in the proximal right coronary artery. Most recent MRA angiogram of the neck with contrast in 2010 demonstrated 70-80% brachiocephalic trunk stenosis, occluded right vertebral, 60-70% occluded stenosis of the left vertebral, 50-60% right subclavian stenosis and bilateral high grade segmental stenoses at the origin of external carotids. Most likely a segmental occlusion on the left. 9. Gastrointestinal bleeding with no obvious source of bleeding based on endoscopy. Endoscopy showed normal terminal ileum and no fresh or old blood seen, scattered diverticular throughout the entire colon. Normal EGD, nothing to explain her melena. She had actually two colonoscopies and two upper GI's during prior admissions. SOCIAL HISTORY: The patient is a former smoker. FAMILY HISTORY: No family history of heart disease. ALLERGIES TO: 1. CILOSTAZOL. 2. SIMVASTATIN. 3. ATORVASTATIN. 4. ROFECOXIB (VIOXX). HOME MEDICATIONS: 1. Pravastatin 40 mg daily. 2. Plavix 75 mg daily. 3. Lasix mg daily. 4. Potassium chloride 20 mEq twice a day. 5. Metoprolol tartrate 25 mg in the morning, 50 mg at night. 6. Allopurinol 300 mg daily. 7. . 8. Levothyroxine 25 mcg daily. 9. Eyedrops. REVIEW OF SYSTEMS: Significant for shortness of breath, weakness, but no chest pain. Otherwise 10 point review of systems is negative. PHYSICAL EXAMINATION: Temperature 36 degrees, pulse 85 beats per minute, saturating 94% on 2 L nasal cannula. Blood pressure 106/58. Thin, frail woman sitting in bed, in no apparent distress. Eyes: No scleral icterus. Neck with a left carotid bruit. Neck veins are at 7 cm of . No lymphadenopathy. Heart: Normal S1, S2. There is a 1/6 systolic ejection murmur at right upper sternal border. Lungs are clear to auscultation anteriorly. Abdomen is soft, positive bowel sounds. No hepatosplenomegaly. Extremities: Warm, well perfused. No clubbing, cyanosis or edema. Skin: No rashes or lesions. Psychiatric exam shows the patient is oriented to time, place, person and situation, has appropriate mood and affect. LABORATORIES: Reviewed. Her lipids in clinic, April 2016 were normal. Her hematocrit in clinic on October 19, 2016 was at 31%. Most recent hematocrit at here 29%. Creatinine is 1.3. Transaminases are normal. Troponin T was elevated at 0.015. Most recent TSH was checked in April was normal at 3.8. Hematocrit 23% on October 31, 2016. Most recent echocardiogram obtained, July 04, 2016, showed ejection fraction of 35% with reduced contractility in particular along the inferior and anterolateral bojorquez. Moderate mitral regurgitation. EKG obtained November 09, 2016 showed a normal sinus rhythm at 76 beats per minute, normal axis, positive left ventricular hypertrophy, [address] depressions in leads V5 and V6. Electrical alternans consistent with cardiomyopathy occasional PVCs. Compared to prior EKG in clinic obtained April 29, 2016, no significant changes have occurred. ASSESSMENT AND PLAN: This is an 81-year-old woman with ischemic cardiomyopathy admitted with severe shortness of breath and weakness. The differential diagnosis was severe shortness of breath and weakness, includes anemia, cardiomyopathy, progressive , among others. PLAN: Cardiomyopathy. I recommend repeating an echocardiogram since from what I gather it has not been done since June. She is not a good interventional candidate due to very difficult vascular access. She has popcorn calcifications in her common femoral arteries bilaterally and prior catheterization was complicated by a small retroperitoneal hematoma. Additionally, vascular access on the right would be a challenge because she has 50-60% right subclavian stenosis and 70-80% brachiocephalic trunk stenosis. I suppose it may be possible to cath her from the left side if the need arose, but this would be very difficult because this is also a graft case. I think technical challenges may for angiogram quite low. Additionally, I think her symptoms are mostly due to pulmonary congestion rather than ischemia. I agree with diuresis, Lasix 40 mg IV daily. I do not think Plavix is a good idea for this patient because of recent hospitalization for GI bleeding requiring 3 units of packed red blood cells. Her most recent stent deployment was over five years ago, but I think it is okay to stop Plavix and start her on aspirin. I recommend taking metoprolol tartrate as a b.i.d. drug, but it should be currently only 25 mg q.h.s. as ordered. I took the liberty of changing it to b.i.d. I also started on low dose lisinopril 2.5 mg daily. After echocardiogram comes back I will have a low threshold to add digoxin to help her with pulmonary congestion. I recommend for the hospitalist team to evaluate her for the need for supplemental oxygen and have a low threshold to send her home with that resource available for her. Thank you very much for the opportunity to participate in this patient's care.
--- NOTE | 2016-11-11 11:49 | PCM.PALLBR ---
Palliative Care Recommendation 81-year-old female with history of biventricular heart failure, EF 35%, readmitted with dyspnea and pulmonary edema. Palliative medicine consulted to assist patient once again in determination of goals care. Summary of palliative recommendations: -Symptom management (Pain/other)- continued management per medical team. -DPOA/Advanced Directives/POLST- discussed advanced interventions with patient on 11/10 and indicated that she wished to be DO NOT RESUSCITATE/DO NOT INTUBATE, though would want aggressive treatment short of those terminal interventions. At this time, remains willing to return to hospital as often as needed for additional care. -Family/emotional support- limited support from family (though patient also unwilling to have any family move in with her). She continues to hope to be able to live at home. I strongly recommended home health nursing and other support, enrollment in CHF clinic, etc. to try to optimize outpatient care and thereby reduce likelihood of readmissions Additional Medical Diagnoses with primary management by Hospitalist team include : # Acute on Chronic combined systolic and Diastolic Congestive Heart Failure. POA, Active. Ongoing. # Hypertension. Chronic. Not present on Admission. Stable. # Hypothyroidism, Chronic. Stable # History of Anemia associated with GI Bleed from an unknown source. Not Present on Admission. Chronic. Stable # History of Recent Multiple Hospital Stays. Chronic. Ongoing. # History of Hospital Delirium with Sundowning. Chronic. Ongoing # History of Gout. Chronic. Stable. Problems: End of Life Preferences DO NOT RESUSCITATE/DO NOT INTUBATE Goals of Care Return home Disposition Hopes to return home Resuscitation Status Resuscitation Status: DNR/DNI:Do Not Resuscitate/Intubate POLST Updates/Changes Previous POLST?: No POLST Review Outcome: No Change Total time 25 minutes; >50% face to face with patient, providing counselling regarding plans and recommendations, and in care coordination with her medical teams. Palliative Brief Note Date of Service Nov 11, 2016 . Returned to reevaluate patient. Prior to visiting, reviewed her updated records in the EMR in detail, spoke with her bedside nurse and reviewed updated chart notes. When I arrived, she is lying in bed. Appears to be mildly dyspneic. She feels her breathing is about the same as when she came in. She denies any chest pain , nausea, abdominal pain or other symptoms. On exam, fatigued-appearing elderly woman lying in bed. Skin warm and dry. Vital signs noted. Intake/output overall negative since admission but by only approximately 1 L. Lungs with dependent crackles, heart sounds regular with occasional ectopy, abdomen soft and benign, ankles do appear to have post- edematous wrinkling and there is no pitting edema today Laboratories reviewed Nitin Jay MD Nov 11, 2016 11:49
[2016-11-11] MEDS: Furosemide 10 mg/mL 4 mL Inj IVPUSH SCH (12:00)
[2016-11-11] MEDS ORDERED: 0.9% Sodium Chloride 500 ML IV ONE (12:45)
--- NOTE | 2016-11-11 13:56 | NUR ---
Hypotension/Transfer to 2001 Pt c/o of dizziness/blurry vision, vitals taken, BP 45-60's, cookpaged to be made aware, order for 500cc NS bolus. Patients legs elevated, trendelenberg not tolerated d/t sob, remained coherent & able to answer questions appropriately. Noon Lasix 40mg withheld. Md order to transfer to [facility], last BP 66/37 before transfer, see "interventions" for recorded BP's, transported in her bed on 2L NC, 500cc bolus continued to infuse @ 400ml/hr in right AC IV. All belongings gathered, nothing left behind. Report given to Eddie Lagnley RN. Chart & eye gtts hand carried by RN.
[2016-11-11] MEDS: Ondansetron 2 mg/mL 2 mL Inj IVPUSH PRN ×3 (13:59→22:53)
--- NOTE | 2016-11-11 15:48 | PROG NOTE ---
[address] [address] PROGRESS NOTE PATIENT: MONTEZ WAKEFIELD : 1935 MR#: [id number] ADMIT: 11/09/2016 JOB ID: [id number] DATE: 11/11/2016 SUBJECTIVE: The patient lying on bed. At present, she is not having any active chest pain or worsening shortness of breath or palpitation or PND, orthopnea or stroke-like symptoms. Hospitalist team called me regarding low blood pressure for which lisinopril was discontinued. The patient was started on isosorbide which was discontinued as well. We checked her blood pressure through the right arm and it was 123 systolic and diastolic 42, but on the left side, 73/42. The patient has significant subclavian artery disease with significant difference in blood pressure in both arms. Hence, the patient does not have any true hypotension. Vitals: Blood pressure as stated above. Heart rate around 70s. Respiratory rate 18. HEENT: Patient appears to be anemic. Neck: Patient has bilateral carotid bruit. I do not appreciate any significant JVD. Chest: Bilateral basilar crepitations. CVS: S1 appears normal. P2 appears prominent. Patient has diffuse bruit on subclavian artery. There is grade 2/26 to 3/6 ejection systolic murmur which appears to be diffuse. Abdomen: Patient has mid abdominal bruit and renal bruit as well. Extremity: At present, no significant pedal edema. Vascular: In lower extremity, there is no evidence of critical limb ischemia. CAR PORTER: The patient is alert, oriented to time, place, and person. EKG: Telemetry revealed sinus rhythm with some nonspecific ST-T changes. Yesterday, patient had about nine-beat run of nonsustained ventricular tachycardia, rate about 160, 170. LABS: Sodium 135, potassium 3.8, BUN 36, creatinine 1.31. Normal AST, ALT. Magnesium 2.2 yesterday. TSH 4.56. Yesterday proBNP 19,154. Hemoglobin 9, which is stable. Platelets 335. ASSESSMENT AND PLAN: Acute on chronic combined systolic and diastolic congestive heart failure due to severe ischemic cardiomyopathy with left ventricular ejection fraction about 35% based on echocardiogram done in June 2016, with known history of bypass surgery in 2001. Significant diffuse atherosclerotic vascular disease involving bilateral carotid arteries, subclavian arteries, brachiocephalic trunk, bilateral renal arteries, as well as circulation of both lower extremities. The patient had arteriogram by Dr. Milligan in 2011. At that time, patient had 80% to 90% bilateral renal artery stenosis with patent right external iliac stent, 80% common femoral artery, 90% right popliteal artery followed by popliteal artery occlusion, chronic total occlusion of right anterior and right posterior tibial, and on the left side evidence of prior endarterectomy at the common femoral artery, serial 80% to 90% distal SFA disease, chronic total occlusion of left peroneal artery. Left SFA intervention was unsuccessful. The patient also has recent GI bleed status post upper GI and lower GI endoscopy with diverticulosis, status post two blood transfusions with known history of diabetes mellitus, gout, hyperlipidemia. Overall, patient is very complicated. She is not truly hypotensive. The low blood pressure in the left upper extremity is due to significant subclavian artery disease. Hence, we will recommend measuring blood pressure in the right arm all the time. She will need afterload reduction. I will put her back on a small dose of isosorbide, hydralazine like 10 mg twice a day. Will change metoprolol tartrate to carvedilol 3.125 mg twice a day. Will try to slowly optimize and maximize afterload reduction as well as carvedilol. Because of recent GI bleed, Plavix was discontinued. We will continue aspirin. If kidney function remains stable, down the road, we can give her trial of spironolactone as well. The only statin she is able to tolerate is pravastatin, which we will continue. We will check lipid profile. As. Dr. Pimentel mentioned yesterday, she is not a candidate for invasive cardiac workup. I kind of agreed with her assessment. Discussed the plan with the patient as well as her daughter. Overall long-term prognosis is poor. Palliative Care already consulted on the patient. Today time spent today, including reviewing her chart, telemetry, as well as talking to the patient's daughter, about 50 minutes.
--- NOTE | 2016-11-11 16:11 | PCM.PNMED ---
Subjective Date of Service Nov 11, 2016 Subjective patient recieved Isodur yesterday and SBP dropped to 75,asymptomatic ,received 250ml NS bolus and improved . Isodurr was switched to low dose lisinopril 2.5mg daily for afterload reduction by Dr Pimentel .SBP dropped to 60's . sxs of dyspnea and dizziness reported by pt.500ml NS bolused , BP and sxs improved . Dr Montes evaluated patient . patient is vasculopathic and she has normal BP on right arm but low BP in left arm . Dr Montes restarted lisinopril low dose and switched metoprolol to coreg . Exam Vital Signs Vital Sign - Last Date Time Temp Pulse Resp B/P Pulse Ox O2 Delivery O2 Flow Rate FiO2 11/11/16 15:40 90/42 11/11/16 14:03 96 Nasal Cannula 2.00 11/11/16 12:35 36.4 89 16 Intake and Output 11/10/16 11/10/16 11/11/16 Cumulative From/Thru 15:00 23:00 07:00 11/09/16 18:00 - 11/11/16 05:36 Intake Total 1286 ml 250 ml 1886 ml Output Total 1550 ml 400 ml 2950 ml Balance -264 ml -150 ml -1064 ml Intake Oral 1036 ml 250 ml 1636 ml IV Total 250 ml 250 ml Output Urine Total 1550 ml 400 ml 2950 ml # Bowel Movements 1 1 Exam Constitutional: Awake, Alert and Oriented x3. Frail. In no acute distress. Head: normocephalic and atraumatic Eyes: EOMI, pupils equal round and reactive to light. Heart: regular rate and rhythm. No peripheral edema. Lungs: Bilateral rales on lower chest. No wheeze. ABD: soft, nontender. Bowel sounds present throughout. Musculoskeletal: moves all four extremities appropriately. Skin: pale, warm, dry Neuro: CN II-XII intact. No focal deficits. Psych: appropriate mood and affect. IVs and Medications Medications Reviewed: Medications were reviewed in detail Lab and Diagnostics Result Diagram: 11/10/1662211/11/16612 Microbiology Blood cultures pending. X-Rays, CTs and MRIs PROCEDURE: X-RAY CHEST ONE VIEW, PORTABLE IMPRESSION: Pulmonary edema and/or diffuse bilateral pneumonia redemonstrated with slight decrease in confluent opacity involving the left lung base. Dictated by: Mickey Chavarria RRA Interpreted: Dedrick Jeter MD on 11/09/2016 at 8:28 12-lead ECG HR 76 with LVH. No acute change from 10/20 study. Assessment & Plan Mrs. Priest is an 81 year old female with past medical history significant for CAD with 5 vessel CABG, HTN, HLD, DM2, CHF, PVD, CKD, GERD and PUD admitted for acute on chronic CHF exacerbation. # Acute on Chronic combined systolic and Diastolic Congestive Heart Failure. POA, Active. Ongoing. -Patient is having exacerbation secondary to increased salt intake. Left ventricular ejection fraction is estimated to be 35% - Dr. Holder on 07/04/16 echocardiogram. - received 40mg Lasix IV 11/09,c/w lasix 40mg iv daily ,now on hold due to low BP - patient was on isodil and hydralazine for afterload reduction.patient recieved Isodur yesterday 11/10 and SBP dropped to 75,asymptomatic ,received 250ml NS bolus and improved . Isodurr was switched to low dose lisinopril 2.5mg daily for afterload reduction by Dr Pimentel .SBP dropped to 60's . sxs of dyspnea and dizziness reported by pt.500ml NS bolused , BP and sxs improved .transferred to [facility]. Dr Montes evaluated patient . patient is vasculopathic and she has normal BP on right arm but low BP in left arm . Dr Montes restarted lisinopril low dose with instruction to use right arm to check BP and switched metoprolol to coreg .she may need pressor /inotrops suport if BP drops again - Lopressor switched to coreg per cardiology - NitroStat available PRN for chest pain -will consider spironolactone when BP stable,may consider dig -repeat echo pending # NSVTs -patient had 8 and 10 beats of NSVTs on 11/10.electrolytes ok . due to ischemic CMP.not sure if she is AICD candidate . echo pending # Hypertension. Chronic. Not present on Admission. Stable. -Continue home dose of Lopressor # Hypothyroidism, Chronic. Stable -Levothyroxine 25mcg daily # History of Anemia associated with GI Bleed from an unknown source. Not Present on Admission. Chronic. Stable -Patient has history of GI bleed that required transfusions as recently as . Patient's H&H stable at this time. # History of Recent Multiple Hospital Stays. Chronic. Ongoing. - Patient has had increasing hospital visits and admissions regarding her CHF, with the most recent discharge being 11/06. -Palliative consult for Goals of care ,patient declines hospice offer # History of Hospital Delirium with Sundowning. Chronic. Ongoing -Patient has a history of hallucinating during night time with increased nighttime activity. -Temazepam 30mg HS PRN insomnia. # History of Gout. Chronic. Stable. -Allopurinol 300mg HS PO -Ondansetron PRN nausea - Bowel prep - Miralax Powder -Heparin 5,000unit Q8 for anticoagulation -Tylenol 650mg Q6 PRN pain -Pantoprazole 20mg PRN reflux sxs -Patient is FULL CODE Patient Status: The patient was admitted to the inpatient due to likely stay > 2 midnights due to the severity of presenting symptoms, multiple medical conditions and complex medical work up and treatment plan. disposition:transferred to [facility] GI Prophylaxis: Proton Pump Inhibitor VTE Prophylaxis: Sub-Q Heparin (Unfractionated) VTE Mechanical Devices: Intermittant Pneumatic CD Resuscitation Status: DNR/DNI:Do Not Resuscitate/Intubate Kelvin Guzman MD Nov 11, 2016 16:11
--- NOTE | 2016-11-11 17:30 | DRSVH ---
[facility] [address] [place] [address] Echocardiogram Report Name: MONTEZ WAKEFIELD te: 11/11/2016 Height: 62 in Hospital Exam Location: [facility] Weight: 128 lb Gender: Female BSA: 1.6 m2 : 1935 Age: 81 yrs BP: 110/61 mmHg Reason For Study: Congestive Heart Failure Ordering Physician: Sandra PimentelPerformed By: Kay Ann Referring Physician: [facility] Interpretation Summary The left ventricle is mildly dilated. The ejection fraction is estimated to be 30-35%. There has been no significant change in LV EF since the previous study. There appears to be severe hypokinesis to akinesis of base to mid inferior wall, base to mid inferoseptum and the posterolateral wall (No significant change from the previous study). Assessment of diastolic parameters suggests a pseudonormalization pattern, consistent with elevated filling pressures. The right ventricle is normal in size and function. Suspect PMD of posterior mitral leaflet. There is moderate mitral regurgitation. Compared to the prior echo study, there has been no change in the severity of mitral regurgitation. There is mild tricuspid regurgitation. Compared to the prior echo exam, there has been an increase in TR severity. The right ventricular systolic pressure is estimated at 45 mmHg assuming a right atrial pressure of 3 mm Hg. Compared to the prior echo exam, there has been an increase in the severity of pulmonary hypertension. Procedure: A two-dimensional transthoracic echocardiogram with color flow and Doppler was performed. The study quality was technically adequate. Comparison is made with the echocardiogram of 07/04/2016. The patient was in normal sinus rhythm during the exam. Left Ventricle: The left ventricle is mildly dilated. Left ventricular wall thickness is borderline increased. There is no thrombus. The ejection fraction is estimated to be 30-35%. There has been no significant change since the previous study. There appears to be severe hypokinesis to akinesis of base to mid inferior wall, base to mid inferoseptum and the posterolateral wall (No significant change from the previous study). Assessment of diastolic parameters suggests a pseudonormalization pattern, consistent with elevated filling pressures. This is unchanged compared to the previous study. Right Ventricle: The right ventricle is normal in size and function. Atria: The left atrium is severely dilated. The left atrium has remained unchanged in size since the prior echo exam. The right atrium is moderately dilated. There has been no significant change since the previous study. The interatrial septum is intact with no evidence for an atrial septal defect. Mitral Valve: The mitral valve leaflets are mildly calcified. There is mild mitral annular calcification. The mitral valve chordae are thickened and/or calcified. There is moderate mitral regurgitation. Suspect PMD of posterior mitral leaflet. Compared to the prior echo study, there has been no change in the severity of mitral regurgitation. Aortic Valve: The aortic valve is trileaflet. The aortic valve is slightly calcified. There is no aortic valve stenosis. No aortic regurgitation is present. Tricuspid Valve: The tricuspid valve is normal. There is mild tricuspid regurgitation. The right ventricular systolic pressure is estimated at 45 mmHg assuming a right atrial pressure of 3 mm Hg. Compared to the prior echo exam, there has been an increase in TR severity. Compared to the prior echo exam, there has been an increase in the severity of pulmonary hypertension. Pulmonic Valve: The pulmonic valve leaflets are thin and pliable; valve motion is normal. There is trace pulmonic regurgitation. Great Vessels: The aortic root is normal size. The ascending aorta is normal in size. The IVC is of normal diameter and collapses greater than 50% with a sniff. This suggests a low right atrial pressure of 3 mm Hg. Pericardium/ Pleura There is no pericardial effusion. There is no pleural effusion. MMode/2D Measurements & Calculations LVIDd: 5.6 cm RA long axis LVOT diam LVIDs: 4.9 cm LA A2 area: 27.7 cm FS: 12.0 % LA A4 area: 24.7 cm RA area Ao root diam IVSd: 1.2 cm LA length (vol): 6.1 cm LVPWd: 0.96 cm LA vol: 95.7 ml : 18.6 cm asc Aorta LA vol index RA vol: 61.5 mlDiam: 2.8 cm RA : 38.9 mm2 IVC diam: 1.8 cm LV ludwig. diameter/BSA LV sys. diameter/BSA TAPSE: 2.2 cm (cm/m^2): 3.6 (cm/m^2): 3.1 Doppler Measurements & Calculations Ao V2 max MV E max abdelrahman MV E/A: 2.7 TR max abdelrahman : 103.0 cm/sec : 108.5 cm/sec : 322.4 cm/sec Ao max PG MV A max abdelrahman TR max P.3 mmHg : 4.2 mmHg : 39.5 cm/sec Ao mean PG LVOT Max Abdelrahman : 77.9 cm/sec BRAEDEN(I,D): 3.0 cm sev ratio MV dec time Ao V2 mean LV V1 max PG BRAEDEN indexed to BSA : 0.17 sec : 79.0 cm/sec (cm^2/m^2): 1.9 Ao V2 VTI: 26.8 cm LV V1 VTI BRAEDEN(V,D): 2.6 cm2 : 22.8 cm Reading Physician:PM
--- NOTE | 2016-11-11 18:10 | NUR ---
BP/Nausea Pt arrived to [facility] room 2001 at ~1400 from [facility], report received from Lainey Espinoza RN. Pt receiving NS bolus at this time. Pt's left arm BPs 60s-70s/30s-40s upon arrival and at completion of 500mL bolus, hanger at bedside assessing Pt, Pt's BP 122/41 when checked on the right at this time. Pt up to BSC with SBA later in the afternoon and denied dizziness. Pt also reporting nausea upon arrival to the floor, given PRN zofran 4mg IV which Pt reported as effective for a few hours before nausea returned, Pt encouraged to attempt some PO intake which she did, Pt also had BM x2 and reported nausea resolving when re-assessing in the early evening.
[2016-11-12] VITALS (12 sets, daily range): BP systolic 77–104; BP diastolic 42–58; PULSE 63–83; RESP 16–24; O2SAT 90–99
[2016-11-12] MEDS: Heparin 5,000 Unit/mL Inj SUBQ SCH ×4 (00:05→23:51)
[2016-11-12] MEDS: Ondansetron 2 mg/mL 2 mL Inj IVPUSH PRN ×3 (04:39→23:51)
--- NOTE | 2016-11-12 05:36 | NUR ---
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 MD notified, new order to discontinue all antihypertensive meds. Around midnight, Pt no longer c/o of dizziness with SBPs now in the 70-80s. MD aware, orders to continue to monitor BPs every 2-3 hours overnight. Pt c/o mild nausea w/o emisis medicated with IV Zofran 4mg twice during the cashier and waiter/waitress, nausea relieved for 4-5 hours each time. Pt c/o bilateral shoulder pain 08/17. Pt medicated with 975mg PO Tylenol with no further c/o pain.
[2016-11-12] MEDS: Furosemide 10 mg/mL 4 mL Inj IVPUSH SCH (08:00)
[2016-11-12] MEDS: Sodium Chloride LOK Flush 10 mL Syringe IVFLUSH SCH ×3 (08:00→20:45)
[2016-11-12] MEDS: MeTOProlol XL 25 mg ER24 Tablet PO SCH (12:09)
--- NOTE | 2016-11-12 12:30 | PROG NOTE ---
[address] [address] PROGRESS NOTE PATIENT: MONTEZ WAKEFIELD : 1935 MR#: [id number] ADMIT: 11/09/2016 JOB ID: [id number] DATE: 11/12/2016 SUBJECTIVE: When I examined this patient in the morning she was having her breakfast. Reviewed last night note. Yesterday evening there was a difference in blood pressure in the right arm and left arm. The right arm blood pressure was 123 systolic, hence I put her on carvedilol 3.125 mg twice a day, as well as combination of isosorbide and hydralazine, but overnight blood pressure dropped to 70s hence those medications were discontinued. At the time of breakfast, she was sitting upright. She was not having any lightheadedness or chest pain or worsening shortness of breath or bleeding or new cardiovascular symptoms. Repeat blood pressure 102/53, heart rate 75, respiratory rate 16. Oxygen saturation on 3 L about 95%. Neck: No apparent JVP. Chest: Decreased air entry with bilateral basal crepitation. CVS: S1 appears normal. P2 appears prominent. The patient has diffuse bruit bilateral subclavian artery, carotid arteries, as well as grade 2/6 to grade 3/6 diffuse ejection systolic murmur. No obvious S3 or S4. Abdomen: Renal bruit as well as mid abdominal bruit present. Extremity: At present no significant pedal edema. Vascular: No critical limb ischemia. SPECIAL MACHINE STITCHER: Alert. Oriented to time, place, and person. Telemetry: Sinus rhythm, without any recurrence of ventricular tachycardia. LABORATORY DATA: Sodium 135, potassium 3.8, BUN 36, creatinine 1.31 yesterday. 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 The patient also had recent GI bleed status post blood transfusion and upper GI and lower GI endoscopy. Plavix was discontinued. She is very sensitive to afterload reduction. She had echocardiogram yesterday which revealed mildly dilated left ventricle with LV ejection fraction 30% to 35% which is not changed from the previous study. No new wall motion abnormalities. The patient has pseudonormalization type of diastolic dysfunction. There is a moderate mitral regurgitation with suspicion of papillary muscle dysfunction of posterior mitral leaflet, mild TR, pulmonary artery systolic pressure about 45 mmHg with right atrial pressure about 3 mmHg. At this point of time, I will try a different kind of beta troy. We will start with metoprolol succinate 12.5 mg daily. If she is able to tolerate a reasonable dose of beta troy, then we can try vasodilators again and see how she does. As mentioned in our previous notes, including Dr. Pimentel, considering her overall medical conditions, significant diffuse atherosclerotic vascular disease, and GI bleed, at present she is not a candidate for invasive workup. Medical management is challenging as well. Her overall prognosis is poor. TIME: Total time spent today about 40 minutes.
--- NOTE | 2016-11-12 14:08 | NUR ---
NUTRITION ASSESSMENT: ASSESS: 81 YO F admitted with CHF exacerbation. Pt recently admitted for GI bleed, s/p transfusion, upper and lower endoscopy. Consult received to evaluate BMI (height used from previous admit and currently no height available) and nutrition status. PMHx: CAD, PVD, CHF, CKD, HTN, HLD, type 2 diabetes, GERD, Schaefer's esophagus, carotid stenosis, gout, hypothyroid, bilateral renal artery stenosis, anemia, DVT, GI Bleed DIET: Heart Healthy, Consistent Carb, PO 100% x 1 meal. LABS: Reviewed. BUN 36, Cr 1.31, Glu 146, Ca 8.4, Alb 3.3, PNP 66384. MEDICATIONS: Reviewed. GI: BM X 3 (11/11) SKIN: no major issues ANTHROPOMETRICS: Current Wt: 58.3 kg, BMI: 23.5. Admit wt: 57.6 kg. Wt appears fairly stable stable since Apr 2016, with slight downward trend but weight difficult to assess due to CHF exacerbation. ESTIMATED NEEDS: Calories: 9591-4895 kcal/day (25-30 kcal/kg BW) Protein: 70-85 g/day (1.2-1.5 g/kg BW) NUTRITION DIAGNOSIS: 1.) No nutritional diagnosis at this time. INTERVENTION: 1.) Continue current diet as current PO intake is adequate to meet pt est. needs and wt appears stable at this time. 2.) Consider adding supplements if weight trends downward with treatment of CHF exacerbation and/or po intake does not remain adequate to meet pt est. needs. MONITOR/EVALUATE: PO intake, labs, weights, nutrition status. Follow per low nutrition risk guidelines.
--- NOTE | 2016-11-12 17:11 | PCM.PNMED ---
Subjective Date of Service Nov 12, 2016 Subjective Mrs. Priest is an 81 year old female with past medical history significant for CAD with 5 vessel CABG, HTN, HLD, DM2, CHF, PVD, CKD, GERD and PUD admitted for acute on chronic CHF exacerbation. Hospital Day 3. Nursing reports no acute events overnight. Patient seen and examined. Has no complaints at this time. Denies CP, SOB, ABD pain, N/V/D, or headache. Exam Vital Signs Vital Sign - Last Date Time Temp Pulse Resp B/P Pulse Ox O2 Delivery O2 Flow Rate FiO2 11/12/16 16:14 36.6 79 16 88/54 93 Nasal Cannula 2.00 Intake and Output 11/11/16 11/11/16 11/12/16 Cumulative From/Thru 15:00 23:00 07:00 11/09/16 18:00 - 11/12/16 06:15 Intake Total 300 ml 500 ml 350 ml 3036 ml Output Total 600 ml 3550 ml Balance 300 ml 500 ml -250 ml -514 ml Intake Oral 300 ml 300 ml 2236 ml IV Total 500 ml 50 ml 800 ml Output Urine Total 600 ml 3550 ml # Voids 2 2 4 # Bowel Movements 2 3 Exam Constitutional: awake. alert and oriented x3. no acute distress. Head: normocephalic and atraumatic Eyes: EOMI, Pupils equal round and reactive to light Heart: 2/6 systolic murmur on the right upper sternal border. regular rate and rhythm. No peripheral edema. Lungs: clear to auscultation bilaterally. no wheeze, rales, or rhonchi. ABD: soft, nontender, bowel sounds present throughout Musculoskeletal: frail musculature. moves all four extremities appropriately. Neuro: CN II-XII intact. no focal deficits. Psych: appropriate mood and affect. IVs and Medications Medications Reviewed: Medications were reviewed in detail Lab and Diagnostics Item Value Date Time Red Blood Count 3.00 mil/mm3 L 11/10/16 0623 Mean Corpuscular Volume 97.0 fL 11/10/16 0623 Mean Corpuscular Hemoglobin 30.0 pg 11/10/16 0623 Mean Corpuscular Hemoglobin Concent 30.9 % L 11/10/16 0623 Platelet Count 335 jose guadalupe/L 11/10/16 0623 Red Cell Distribution Width 15.9 % H 11/10/16 0623 Neutrophils (%) (Auto) 56.4 % 11/10/16622 Lymphocytes (%) (Auto) 28.3 % 11/10/16622 Monocytes (%) (Auto) 10.6 % 11/10/16622 Eosinophils (%) (Auto) 4.1 % 11/10/16622 Basophils (%) (Auto) 0.3 % 11/10/16622 Hemoglobin 8.8 g/dL L 11/12/16 1654 Hematocrit 27.7 % L 11/12/16 1654 White Blood Count 6.1 th/mm3 11/10/16622 Estimat Glomerular Filtration Rate 56 mL/min 11/11/16612 Calcium Level 8.4 mg/dL L 11/11/16612 Triglycerides Level 119 mg/dL 11/12/165 Cholesterol Level 146 mg/dL 11/12/16234 LDL Cholesterol, Calculated 82.200 mg/dL 11/12/16234 VLDL Cholesterol 23.800 mg/dL 11/12/16234 HDL Cholesterol 40 mg/dL 11/12/16 023 Cholesterol/HDL Ratio 3.65 11/12/16234 Thyroid Stimulating Hormone (TSH) 4.560 uIU/mL H 11/11/16612 Free Thyroxine 1.09 ng/dL 11/11/16612 Result Diagram: 11/12/16165311/11/16612 Microbiology Blood cultures pending. X-Rays, CTs and MRIs PROCEDURE: X-RAY CHEST ONE VIEW, PORTABLE IMPRESSION: Pulmonary edema and/or diffuse bilateral pneumonia redemonstrated with slight decrease in confluent opacity involving the left lung base. Dictated by: Mickey Chavarria RRA Interpreted: Dedrick Jeter MD on 11/09/2016 at 8:28 12-lead ECG HR 76 with LVH. No acute change from 10/20 study. Assessment & Plan Mrs. Priest is an 81 year old female with past medical history significant for CAD with 5 vessel CABG, HTN, HLD, DM2, CHF, PVD, CKD, GERD and PUD admitted for acute on chronic CHF exacerbation. Acute on Chronic combined systolic and Diastolic Congestive Heart Failure. POA , Active. Ongoing. -Patient is having exacerbation secondary to increased salt intake. Left ventricular ejection fraction is estimated to be 35% - Dr. Holder on 07/04/16 echocardiogram. - patient was on isodil and hydralazine for afterload reduction.patient recieved Isodur yesterday 11/10 and SBP dropped to 75,asymptomatic ,received 250ml NS bolus and improved . Isodurr was switched to low dose lisinopril 2.5mg daily for afterload reduction by Dr Pimentel .SBP dropped to 60's . sxs of dyspnea and dizziness reported by pt.500ml NS bolused , BP and sxs improved .transferred to [facility]. Dr Montes evaluated patient . patient is vasculopathic and she has normal BP on right arm but low BP in left arm . Dr Montes restarted lisinopril low dose with instruction to use right arm to check BP and switched metoprolol to coreg .she may need pressor /inotrops suport if BP drops again - Lopressor switched to coreg per cardiology - NitroStat available PRN for chest pain -LV ejection fraction 30% to 35% which is not changed from the previous study. - Dr. Montes 11/12/16 -Start metoprolol succinate 12.5 mg daily per Cardiology recommendation. - Overall prognosis is poor. Discussed with family the goals of Hospice care in this stage of CHF, and patient and family would like to speak with Hospice quality assurance representative. NSVTs -patient had 8 and 10 beats of NSVTs on 11/10.electrolytes ok . due to ischemic CMP.not sure if she is AICD candidate . echo pending Hypertension. Chronic. Not present on Admission. Stable. -metoprolol succinate 12.5 mg daily as above. Hypothyroidism, Chronic. Stable -Levothyroxine 25mcg daily History of Anemia associated with GI Bleed from an unknown source. Not Present on Admission. Chronic. Stable -Patient has history of GI bleed that required transfusions as recently as . Patient's H&H stable at this time. History of Recent Multiple Hospital Stays. Chronic. Ongoing. - Patient has had increasing hospital visits and admissions regarding her CHF, with the most recent discharge being 11/06. -Palliative consult for Goals of care ,patient declines hospice offer History of Hospital Delirium with Sundowning. Chronic. Ongoing -Patient has a history of hallucinating during night time with increased nighttime activity. -Temazepam 30mg HS PRN insomnia. History of Gout. Chronic. Stable. -Allopurinol 300mg HS PO -Ondansetron PRN nausea - Bowel prep - Miralax Powder -Heparin 5,000unit Q8 for anticoagulation -Tylenol 650mg Q6 PRN pain -Pantoprazole 20mg PRN reflux sxs -Patient is DNR/DNI Patient Status: Patient is being medically managed for end stage combined systolic and diastolic congestive heart failure. Family would like to speak with Hospice care for further information. Given the schedule for the Hospice quality assurance representative, discharge will likely be in the next 2 days. Pain Evaluation: Adequate Pain Control GI Prophylaxis: Proton Pump Inhibitor VTE Prophylaxis: Sub-Q Heparin (Unfractionated) VTE Mechanical Devices: Intermittant Pneumatic CD Resuscitation Status: DNR/DNI:Do Not Resuscitate/Intubate Attending Statement The patient was seen and examined together with Dr. Joshi on 11/12/2016 and I agree with the history, exam and plan as outlined in the note above. . Heriberto Joshi DO Nov 12, 2016 17:11 Александр Howard MD Nov 12, 2016 18:10
--- NOTE | 2016-11-12 17:31 | NUR ---
ROXANE Signed DORIAN Carrion
--- NOTE | 2016-11-12 17:31 | NUR ---
Social Work Note: Continued Discharge Planning Data& Assessment: Per MD order, SW met with pt at bedside to discuss hospice informational visit. Pt is agreeable to learning more about this service and after speaking with MD, has come to terms that her CHF is not going to be cured but the symptoms can be managed. SW presented pt with Hospice Choice list. Pt has preference for [facility], SW [facility] to [facility] who will notify SW of soonest availability for a informational visit. Pt states that if she chooses not to open with Hospice then she will go back to her original discharge plan of going home with mabel MACKENZIE RN. Pt denies any other needs at this time. SW to continue to follow. Plan: Anticipated discharge home with Hospice vs. home with mabel MACKENZIE RN. Hospice to notify SW of soonest available slot for informational visit. t denies any other needs at this time. SW to continue to follow. DORIAN Carrion
[2016-11-12 18:24] LABS: APPEARANCE,URINE CLEAR (CLEAR,HAZY); COLOR,URINE YELLOW (YELLOW); OCCULT BLOOD,URINE NEGATIVE (NEGATIVE); UROBILINOGEN,URINE NORMAL (NORMAL)
--- NOTE | 2016-11-12 19:05 | NUR ---
O2 Pt's SPO2 sat 99% on 3L via nasal cannula, O2 decreased to 1L and SPO2 sats in the mid 90s on 1L, O2 removed and SPO2 sats dropped to the upper 80s. Pt placed back on 1L via nasal cannula, aid reported SPO2 sat in the upper 80s later in the shift and Pt's O2 increased to 2L with SPO2 sats in the mid 90s.
[2016-11-13] VITALS (10 sets, daily range): BP systolic 92–136; BP diastolic 49–73; PULSE 80–92; RESP 17–20; O2SAT 90–98
[2016-11-13 02:35] LABS: MONOCYTES % (AUTO) 6.5 % (4-12); Mean Corpuscular Volume 96.3 fL (81-100); NEUTROPHILS % (AUTO) 73.5 % (40-74); Platelet Count 303 bil/L (150-400)
[2016-11-13 02:36] LABS: BASOPHILS % (AUTO) 0.2 % (0-3); EOSINOPHILS % (AUTO) 1.9 % (0-5)
[2016-11-13] MEDS: MeTOProlol XL 25 mg ER24 Tablet PO SCH ×2 (08:12→20:06)
[2016-11-13] MEDS: Sodium Chloride LOK Flush 10 mL Syringe IVFLUSH SCH ×2 (08:12→16:26)
[2016-11-13] MEDS: Furosemide 10 mg/mL 4 mL Inj IVPUSH SCH (08:13)
[2016-11-13] MEDS: Heparin 5,000 Unit/mL Inj SUBQ SCH ×2 (08:13→16:27)
--- NOTE | 2016-11-13 12:52 | NUR ---
Evaluation completed. Please go to "Notes" then click on "Assessments and Notes" (bottom left corner of screen). Then select appropriate discipline tab on top of screen.
--- NOTE | 2016-11-13 14:03 | PCM.PNMED ---
Subjective Date of Service Nov 13, 2016 Subjective Mrs. Priest is an 81 year old female with past medical history significant for CAD with 5 vessel CABG, HTN, HLD, DM2, CHF, PVD, CKD, GERD and PUD admitted for acute on chronic CHF exacerbation. She states that she feels much better today, and that her breathing and strength are much improved. No significant overnight events Comprehensive ROS negative except as listed above. Exam Vital Signs Vital Sign - Last Date Time Temp Pulse Resp B/P Pulse Ox O2 Delivery O2 Flow Rate FiO2 11/13/16 12:02 37.0 82 18 110/66 90 Nasal Cannula 2.00 11/13/16 02:13 92 Intake and Output 11/12/16 11/12/16 11/13/16 Cumulative From/Thru 15:00 23:00 07:00 11/09/16 18:00 - 11/13/16 05:18 Intake Total 636 ml 200 ml 3872 ml Output Total 900 ml 200 ml 4650 ml Balance -264 ml 0 ml -778 ml Intake Oral 636 ml 200 ml 3072 ml IV Total 800 ml Output Urine Total 900 ml 200 ml 4650 ml # Voids 4 # Bowel Movements 0 3 Exam Gen: A/O x3 pleasant cooperative woman in NAD Neck: supple, non tender, no JVD HEENT: PERRL, EOMI, no scleral icterus CV: RRR, 2/6 systolic ejection murmur Resp: Lungs with mild bibasilar rales, no rhonchi Abd: Soft, non tender, no rebound guarding or tenderness Neuro: CN 2-12 grossly intact, no focal neurologic deficit Psych: Pleasant and appropriate mood and affect. IVs and Medications Medications Reviewed: Medications were reviewed in detail Lab and Diagnostics Item Value Date Time Red Blood Count 2.73 mil/mm3 L 11/13/16214 Mean Corpuscular Volume 96.3 fL 11/13/16214 Mean Corpuscular Hemoglobin 30.0 pg 11/13/16214 Mean Corpuscular Hemoglobin Concent 31.2 % L 11/13/16214 Red Cell Distribution Width 15.4 % 11/13/16 021 Neutrophils (%) (Auto) 73.5 % 11/13/16 021 Lymphocytes (%) (Auto) 17.7 % 11/13/16214 Monocytes (%) (Auto) 6.5 % 11/13/16214 Eosinophils (%) (Auto) 1.9 % 11/13/16214 Basophils (%) (Auto) 0.2 % 11/13/16214 Estimat Glomerular Filtration Rate 58 mL/min 11/13/16214 Calcium Level 9.2 mg/dL 11/13/16214 Total Bilirubin 0.3 mg/dL 11/13/16214 Aspartate Amino Transf (AST/SGOT) 18 U/L 11/13/16214 Alanine Aminotransferase (ALT/SGPT) 9 U/L 11/13/16214 Alkaline Phosphatase 85 U/L 11/13/16214 Total Protein 6.2 g/dL L 11/13/16214 Albumin 3.3 g/dL L 11/13/16214 Result Diagram: 11/13/1621411/13/16214 Microbiology Blood cultures pending. X-Rays, CTs and MRIs PROCEDURE: X-RAY CHEST ONE VIEW, PORTABLE IMPRESSION: Pulmonary edema and/or diffuse bilateral pneumonia redemonstrated with slight decrease in confluent opacity involving the left lung base. Dictated by: Mickey Chavarria RRA Interpreted: Dedrick Jeter MD on 11/09/2016 at 8:28 12-lead ECG HR 76 with LVH. No acute change from 10/20 study. Cardiac Echo Impressions Interpretation Summary The left ventricle is mildly dilated. The ejection fraction is estimated to be 30-35%. There has been no significant change in LV EF since the previous study. There appears to be severe hypokinesis to akinesis of base to mid inferior wall, base to mid inferoseptum and the posterolateral wall (No significant change from the previous study). Assessment of diastolic parameters suggests a pseudonormalization pattern, consistent with elevated filling pressures. The right ventricle is normal in size and function. Suspect PMD of posterior mitral leaflet. There is moderate mitral regurgitation. Compared to the prior echo study, there has been no change in the severity of mitral regurgitation. There is mild tricuspid regurgitation. Compared to the prior echo exam, there has been an increase in TR severity. The right ventricular systolic pressure is estimated at 45 mmHg assuming a right atrial pressure of 3 mm Hg. Compared to the prior echo exam, there has been an increase in the severity of pulmonary hypertension. Reading Physician:PM . Assessment & Plan Mrs. Priest is an 81 year old female with past medical history significant for CAD with 5 vessel CABG, HTN, HLD, DM2, CHF, PVD, CKD, GERD and PUD admitted for acute on chronic CHF exacerbation. Acute on Chronic combined systolic and Diastolic Congestive Heart Failure. POA , Active. Ongoing. -Patient is having exacerbation secondary to increased salt intake. Left ventricular ejection fraction is estimated to be 35% - Dr. Holder on 07/04/16 echocardiogram. - Lopressor switched to coreg per cardiology - NitroStat available PRN for chest pain -LV ejection fraction 30% to 35% which is not changed from the previous study. - Dr. Montes 11/12/16 -Start metoprolol succinate 12.5 mg daily per Cardiology recommendation. - Overall prognosis is poor. Discussed with family the goals of Hospice care in this stage of CHF, and patient and family would like to speak with Hospice national account representative. NSVTs -patient had 8 and 10 beats of NSVTs on 11/10.electrolytes ok . due to ischemic CMP.not sure if she is AICD candidate . echo with results as above. Hypertension. Chronic. Not present on Admission. Stable. -metoprolol succinate 12.5 mg daily as above. -Coreg as above Hypothyroidism, Chronic. Stable -Levothyroxine 25mcg daily History of Anemia associated with GI Bleed from an unknown source. Not Present on Admission. Chronic. Stable -Patient has history of GI bleed that required transfusions as recently as . Patient's H&H stable at this time. History of Recent Multiple Hospital Stays. Chronic. Ongoing. - Patient has had increasing hospital visits and admissions regarding her CHF, with the most recent discharge being 11/06. -Palliative consult for Goals of care History of Hospital Delirium with Sundowning. Chronic. Ongoing -Patient has a history of hallucinating during night time with increased nighttime activity. -Temazepam 30mg HS PRN insomnia. History of Gout. Chronic. Stable. -Allopurinol 300mg HS PO -Ondansetron PRN nausea - Bowel prep - Miralax Powder -Heparin 5,000unit Q8 for anticoagulation -Tylenol 650mg Q6 PRN pain -Pantoprazole 20mg PRN reflux sxs -Patient is DNR/DNI Patient Status: Patient is being medically managed for end stage combined systolic and diastolic congestive heart failure. Family would like to speak with Hospice care for further information. Given the schedule for the Hospice national account representative, discharge will likely be in the next 1-2 days. Pain Evaluation: Adequate Pain Control GI Prophylaxis: Proton Pump Inhibitor VTE Prophylaxis: Sub-Q Heparin (Unfractionated) VTE Mechanical Devices: Intermittant Pneumatic CD Resuscitation Status: DNR/DNI:Do Not Resuscitate/Intubate Attending Statement The patient was seen and examined together with Dr. Alves on 11/13/2016 and I agree with the history, exam and plan as outlined in the note above. . Nitin Alves DO Nov 13, 2016 14:03 Александр Howard MD Nov 13, 2016 15:55
--- NOTE | 2016-11-13 14:10 | PROG NOTE ---
[address] [address] PROGRESS NOTE PATIENT: MONTEZ WAKEFIELD : 1935 MR#: [id number] ADMIT: 11/09/2016 JOB ID: [id number] DATE: 11/13/2016 SUBJECTIVE: Patient sitting on the bed. At present she is not having active chest pain or worsening shortness of breath or PND, orthopnea, palpitation. Yesterday I started her on metoprolol succinate 12.5 mg daily which she is tolerating. No significant hypotension. OBJECTIVE: Blood pressure 110/66, heart rate 82, respiratory rate 18, oxygen saturation 90%. Neck: No apparent JVD. Chest: Decreased air entry with some bilateral basilar crepitations. CVS: S1 appears normal. P2 appears prominent. No obvious S3-S4. Patient has bilateral carotid artery bruit as well as subclavian artery bruit. Grade 2/6 ejection systolic murmur at the apex and today grade 3/6 ejection systolic murmur at the left parasternal area. Today murmur does not appear to be diffuse. Abdomen: Midabdominal bruit as well as renal bruit present. Extremities: No significant pedal edema. Vascular: No evidence of critical limb ischemia. DISPENSARY CLERK: Alert. Oriented to time, place, and person. Telemetry: Sinus rhythm with some PVCs and ventricular couplets without any obvious recurrence of ventricular tachycardia. LABORATORY: Hemoglobin 8.2, platelets 303. Sodium 135, potassium 4.3, BUN 36. Creatinine 1.26, yesterday creatinine 1.31. Normal AST, ALT. ASSESSMENT AND PLAN: Acute on chronic combined systolic and diastolic congestive heart failure with severe ischemic cardiomyopathy with LV ejection fraction 30% to 35%, pseudonormalization type of diastolic dysfunction, ischemic moderate mitral regurgitation, pulmonary artery systolic pressure about 45 mmHg with right atrial pressure about 3 mmHg on recent echocardiogram, recent GI bleed status post blood transfusion, diffuse significant atherosclerotic vascular disease involving bilateral carotid arteries, subclavian artery, brachiocephalic trunk, bilateral renal arteries, as well as lower extremity circulation. She is very sensitive to vasodilators. She could not tolerate isosorbide, hydralazine, as well as lisinopril. She could not tolerate carvedilol. There is a significant pressure difference between right and left upper extremities. However, she is tolerating metoprolol succinate 12.5 mg daily. I will increase metoprolol succinate to 12.5 mg twice a day and see how she does. Will continue tolerable dose of Lasix. She is on a statin as well. Tomorrow my associate, Dr. Cid, will be available to see the patient. Dr. Cid is her regular internal grinder tender as well. Discussed the plan with the patient. TIME: Total time spent today about 35 minutes.
[2016-11-13] MEDS: Ondansetron 2 mg/mL 2 mL Inj IVPUSH PRN ×2 (16:26→20:13)
--- NOTE | 2016-11-13 16:26 | NUR ---
Social Work: Brief Note APPLICATION CONSULTANT called [facility] . They have not contacted family regarding an info visit yet and state they probably won't be able to until tomorrow. APPLICATION CONSULTANT notified of this. APPLICATION CONSULTANT requested a call back as soon as they have this set up with family. APPLICATION CONSULTANT will call [facility] on 11/14 to confirm this has been set up. DORIAN Gage
--- NOTE | 2016-11-13 18:46 | NUR ---
GI Pt reporting appetite changes and mild ongoing nausea this shift, Pt reported nausea to be tolerable until later in the afternoon, Pt given PRN IV zofran at that time, Pt reported as "helping". No BM observed this shift.
[2016-11-14] VITALS (9 sets, daily range): BP systolic 92–126; BP diastolic 50–74; PULSE 82–91; RESP 16–20; O2SAT 92–99
[2016-11-14 02:47] LABS: BASOPHILS % (AUTO) 0.2 % (0-3); EOSINOPHILS % (AUTO) 2.1 % (0-5); MONOCYTES % (AUTO) 7.9 % (4-12); Mean Corpuscular Hemoglobin 29.8 pg (27.0-35.0); Mean Corpuscular Volume 96 fL (81-100); NEUTROPHILS % (AUTO) 67.2 % (40-74); Platelet Count 289 bil/L (150-400)
[2016-11-14 03:07] LABS: Magnesium 2.1 mg/dL (1.6-2.6); Phosphorus 3.3 mg/dL (2.5-4.9)
[2016-11-14] MEDS: Heparin 5,000 Unit/mL Inj SUBQ SCH ×3 (03:27→17:29)
[2016-11-14] MEDS: Sodium Chloride LOK Flush 10 mL Syringe IVFLUSH SCH ×3 (03:27→17:29)
[2016-11-14] MEDS: Furosemide 10 mg/mL 4 mL Inj IVPUSH SCH (08:43)
[2016-11-14] MEDS: MeTOProlol XL 25 mg ER24 Tablet PO SCH ×2 (08:44→20:53)
[2016-11-14] MEDS ORDERED: 0.9% Sodium Chloride 250 ML ONE (09:05)
--- NOTE | 2016-11-14 11:17 | NUR ---
Ambulate w/Nsg Pt is released and encouraged to ambulate w/nsg 3x/day w/FWW SBA; PT will cont to see pt 2x/week to progress ambulation distance.
[2016-11-14] MEDS: MetoCLOpramide 5 mg/mL 2 mL Inj IVPUSH PRN (13:11)
--- NOTE | 2016-11-14 13:16 | NUR ---
Anemia H&H 7.5/24.2 this morning. 1 unit PRBC was ordered. Blood bank called in the late morning and notify nursing that the blood will be sent to [facility] due to further cross and match (antibody). Dr. Joshi aware of the delay. Repeat H&H was ordered. Repeat H&H resulted 8.4/.9.
--- NOTE | 2016-11-14 13:21 | PCM.PALLBR ---
Palliative Care Recommendation 81-year-old female with history of biventricular heart failure, EF 35%, readmitted with dyspnea and pulmonary edema. Palliative medicine consulted to assist patient once again in determination of goals care. Summary of palliative recommendations: -Symptom management (Pain/other)- continued management per medical team. -DPOA/Advanced Directives/POLST- discussed advanced care interventions with patient on 11/10 and she indicated that she wished to be DO NOT RESUSCITATE/DO NOT INTUBATE, though would want aggressive treatment short of those terminal interventions. Did have hospice informational visit this morning- will confirm with hospice that patient has signed on and then plan on setting up new POLST prior to discharge that reflects her wishes. Will await cardiology and medicine input today regarding further medication adjustments and plans for timing of discharge. -Family/emotional support- daughter Iris now tells me that all of the patient's children are committed to assisting with her care at home. Daughter Hilda is returning from [place] to move in and assist, and Iris and her brother (who lives in [place]) will also be available to provide support. Additional Medical Diagnoses with primary management by Hospitalist team include : # Acute on Chronic combined systolic and Diastolic Congestive Heart Failure. POA, Active. Ongoing. # Hypertension. Chronic. Not present on Admission. Stable. # Hypothyroidism, Chronic. Stable # History of Anemia associated with GI Bleed from an unknown source. Not Present on Admission. Chronic. Stable # History of Recent Multiple Hospital Stays. Chronic. Ongoing. # History of Hospital Delirium with Sundowning. Chronic. Ongoing # History of Gout. Chronic. Stable. Problems: End of Life Preferences DO NOT RESUSCITATE/DO NOT INTUBATE Goals of Care Return home Disposition Hopes to return home Resuscitation Status Resuscitation Status: DNR/DNI:Do Not Resuscitate/Intubate POLST Updates/Changes Previous POLST?: No POLST Review Outcome: No Change . Pain: None Symptom management: Dyspnea Total time 40 minutes; >50% face to face with patient and family, providing counselling regarding plans and recommendations, and in care coordination with her medical teams. Of the above total time, 10 minutes counseling for advanced care planning with the patient and her daughter, reviewing discharge plans and care wishes. copies to: Wendy Vance MD Palliative Brief Note Date of Service Nov 14, 2016 . Returned to reevaluate patient. Prior to visiting, reviewed updated records in EMR in detail and spoke with her bedside nurse. Earlier in day had reviewed status with her hospitalist. When I arrived today, she was seated at side of bed with her daughter in the room. She said that her breathing is a little bit better. She continues to feel quite fatigued. She says that she is not sleeping well- she says it would help a lot if she was ambulated each night at around 10 PM and that this helps to settle her restless legs so she can thereafter fall asleep. She has not seen her patient advocate yet today- she is hoping to be discharged home in the next several days. She and her daughter spoke with hospice this morning and it sounds as if they have signed on to begin hospice follow-up once she returns home. She refuses to consider SNF placement. On exam, elderly woman in no distress. Vital signs noted. Modest diuresis since admission but weight remains stable. Head and neck exam without acute findings. Lungs coarse sounding diffusely with bibasilar crackles. No wheezes. Heart sounds regular with occasional ectopy. Soft systolic murmur as before. Abdomen benign. Ankles without pitting edema. Laboratories reviewed Nitin Jay MD Nov 14, 2016 13:21
--- NOTE | 2016-11-14 15:26 | PROG NOTE ---
[address] [address] PROGRESS NOTE PATIENT: MONTEZ WAKEFIELD : 1935 MR#: [id number] ADMIT: 11/09/2016 JOB ID: [id number] DATE: 11/14/2016 The patient is a very pleasant, 81-year-old patient that I have known for over the last 15 years who has a history of previous coronary artery bypass graft surgery with probable occlusion of all of her [place] coronary anatomy. Over the past several years, she has developed ventricular dysfunction in the distribution of the right coronary artery, suggesting that her right coronary bypass graft is occluded or severely stenosed. In the last year, she has had moderately severe chronic functional class 3 exertional dyspnea. In August of this year, her furosemide was increased from 80-160 mg a day and with that, her symptoms of dyspnea fairly dramatically improved. Subsequently, she was seen again in early October, and at that time, she had reduced her dose of furosemide to 120 mg and then 80 mg daily and her symptoms of exertional dyspnea and weakness and fatigue worsened. Within a couple of days, she was admitted to the hospital and was found to have evidence of GI bleeding with fairly severe anemia. She underwent a fairly extensive GI evaluation without an obvious bleeding source identified. Three or four days after she was discharged home on her previous heart medication regime, she came back to the emergency department on November 09 with continued symptoms of fairly severe exertional dyspnea, weakness and fatigue, and was admitted for further investigation. A repeat echocardiogram was performed. Ejection fraction was reported to be 30% to 35%. On my review of the echocardiogram, I would likely have suggested that her ejection fraction was closer to 40%. She does have significant wall motion abnormality in the base of the inferior wall, the basal two-thirds of the posterior wall, and the basal third of the lateral wall. Again, I think likely consistent with right coronary ischemia or infarction. She has moderate mitral insufficiency, normal right ventricular function with mild pulmonary hypertension. Because of her severe peripheral arterial disease, it is difficult to know what her central arterial pressure is. Based on an echocardiographic ejection fraction of 30% to 35%, afterload reduction therapy was attempted but resulted in significant hypotension. Over the past couple of days, she has been aware of increasing anorexia and nausea, and it is notable as well that her hematocrit, which was 31.6 on admission dropped to the range of 24% to 26%. For reasons that remain a bit unclear to me, hospice was discussed with the patient and family, and because the patient has been hospitalized on a couple of occasions in recent months, the family would like her to be discharged home with the hope that she would not require repeated hospitalizations, and therefore, they seem interested in considering hospice. This patient was described as having "end-stage heart failure." However, she does not have end-stage heart failure and, in fact, her ventricular function I think is only moderately and not severely impaired. For symptoms of diastolic dysfunction and dyspnea, I think are related to a combination of ischemia and ischemic related diastolic dysfunction combined with significant anemia, and the etiology of her recurrent anemia and GI blood loss remains elusive. As I review the patient's hospital records today, I note that she really has not diuresed significantly since she has been admitted to the hospital. She continues to note fairly significant symptoms of exertional dyspnea but has no complaints of nocturnal pulmonary congestion. PHYSICAL EXAMINATION: The patient looks well. There may be some moderate degree of pallor noted and she looks tired and weak. She does not appear in any kind of respiratory distress and has an O2 saturation of 99% on 2 L nasal cannula. Jugular venous pressure does not appear significantly increased. Lung swenson are clear without evidence of rales or rhonchi or pleural effusions. Cardiac auscultation is notable for a grade 2/6 systolic ejection murmur. She has a soft mitral murmur as well and diffuse vascular bruits under both subclavians, both carotids, and distally. IMPRESSION: I think the patient was doing reasonably well on her previous medication regime which included 160 mg of furosemide daily, in addition to metoprolol tartrate. I think she should be able to tolerate metoprolol succinate fine. I also think it is reasonable for her to discontinue Plavix therapy which she was on, primarily related to her diffuse vascular disease. She is listed to have an allergy to STATIN DRUGS, but she has been intolerant to a number of them other than pravastatin, which has done a reasonably good job managing her dyslipidemia. At this point, I would conclude that this patient is not a candidate for hospice care and that she really does not have end-stage heart failure, and I suspect that her long-term prognosis is certainly greater than six months. I would encourage regular home health care to ensure that she is compliant with her salt restriction and medications. I might recommend that we change to torsemide 40 mg daily, which might be more predictable in terms of its effectiveness and agree that metoprolol succinate is a reasonable option. I suspect that there is some degree of ischemia and therefore I would probably try to augment the patient's metoprolol as tolerated. She has not tolerated long-acting nitrates well in the outpatient setting. Complicating all of this is, of course, her recurrent anemia, and I just wonder if her current symptoms of nausea do not reflect a gastrointestinal issue that remains somewhat elusive. I will leave this for the hospitalist and perhaps Gastroenterology to follow up on. I am in the hospital until and will plan to see her on a regular basis and be happy to leave further recommendations.
--- NOTE | 2016-11-14 18:18 | PCM.PNMED ---
Subjective Date of Service Nov 14, 2016 Subjective Mrs. Priest is an 81 year old female with past medical history significant for CAD with 5 vessel CABG, HTN, HLD, DM2, CHF, PVD, CKD, GERD and PUD admitted for acute on chronic CHF exacerbation. No acute events overnight. Patient seen and examined laying in bed. Patient c/o nausea and weakness. Denies CP, SOB, ABD pain, Vomiting, Diarrhea, and headache. ROS reviewed and is otherwise negative. Exam Vital Signs Vital Sign - Last Date Time Temp Pulse Resp B/P Pulse Ox O2 Delivery O2 Flow Rate FiO2 11/14/16 16:41 36.5 83 17 92/50 92 Nasal Cannula 2.00 11/13/16 02:13 92 Intake and Output 11/13/16 11/13/16 11/14/16 Cumulative From/Thru 15:00 23:00 07:00 11/09/16 18:00 - 11/14/16 06:09 Intake Total 737 ml 537 ml 5146 ml Output Total 1300 ml 800 ml 6750 ml Balance -563 ml -263 ml -1604 ml Intake Oral 737 ml 537 ml 4346 ml IV Total 800 ml Output Urine Total 1300 ml 800 ml 6750 ml # Voids 2 6 # Bowel Movements 0 3 Exam Constitutional: Awake, alert and oriented x3. Frail. No acute distress. Head: Normocephalic and atraumatic Eyes: EOMI. no scleral icterus Heart: 2/6 systolic murmur on the upper right sternal border radiating in to the carotids. No peripheral edema. Lungs: clear to auscultation bilaterally. no wheeze, rales, or rhonchi ABD: soft, nontender, bowel sounds present throughout Musculoskeletal: moves all four extremities appropriately. Neuro: CN II-XII intact. no focal deficits. Skin: pale, warm, dry, Psych: appropriate mood and affect. IVs and Medications Medications Reviewed: Medications were reviewed in detail Lab and Diagnostics Item Value Date Time Red Blood Count 3.00 mil/mm3 L 11/10/16622 Mean Corpuscular Volume 97.0 fL 11/10/16622 Mean Corpuscular Hemoglobin 30.0 pg 11/10/16622 Mean Corpuscular Hemoglobin Concent 30.9 % L 11/10/16622 Platelet Count 335 jose guadalupe/L 11/10/16 0623 Red Cell Distribution Width 15.9 % H 11/10/16 0623 Neutrophils (%) (Auto) 56.4 % 11/10/16 0623 Lymphocytes (%) (Auto) 28.3 % 11/10/16 06 Monocytes (%) (Auto) 10.6 % 11/10/16 06 Eosinophils (%) (Auto) 4.1 % 11/10/16 06 Basophils (%) (Auto) 0.3 % 11/10/16 0623 Hemoglobin 8.8 g/dL L 11/12/16 1654 Hematocrit 27.7 % L 11/12/16 1654 White Blood Count 6.1 th/mm3 11/10/16 0623 Estimat Glomerular Filtration Rate 56 mL/min 11/11/16 0613 Calcium Level 8.4 mg/dL L 11/11/16 0613 Triglycerides Level 119 mg/dL 11/12/16 0235 Cholesterol Level 146 mg/dL 11/12/16 0235 LDL Cholesterol, Calculated 82.200 mg/dL 11/12/16 0235 VLDL Cholesterol 23.800 mg/dL 11/12/16 0235 HDL Cholesterol 40 mg/dL 11/12/16 0235 Cholesterol/HDL Ratio 3.65 11/12/16 0235 Thyroid Stimulating Hormone (TSH) 4.560 uIU/mL H 11/11/16 0613 Free Thyroxine 1.09 ng/dL 11/11/16 0613 Red Blood Count 2.52 mil/mm3 L 11/14/16 0230 Hemoglobin 8.4 g/dL L 11/14/16 1111 Hematocrit 26.9 % L 11/14/16 1111 Hemoglobin 8.1 g/dL L 11/14/16 1626 Hematocrit 26.3 % L 11/14/16 1626 Mean Corpuscular Volume 96 fL 11/14/16 0230 Mean Corpuscular Hemoglobin 29.8 pg 11/14/16 0230 Mean Corpuscular Hemoglobin Concent 31.0 % L 11/14/16 0230 Hemoglobin 7.5 g/dL L 11/14/16 0230 Hematocrit 24.2 % L 11/14/16 0230 Red Cell Distribution Width 15.5 % H 11/14/16 0230 Neutrophils (%) (Auto) 67.2 % 11/14/16 023 Lymphocytes (%) (Auto) 22 % 11/14/16 023 Monocytes (%) (Auto) 7.9 % 11/14/16 023 Eosinophils (%) (Auto) 2.1 % 11/14/16 023 Basophils (%) (Auto) 0.2 % 11/14/16 023 Band Neutrophils % 1 % 11/14/16 023 Estimat Glomerular Filtration Rate 62 mL/min 11/14/16 023 Calcium Level 9.1 mg/dL 11/14/16 023 Phosphorus Level 3.3 mg/dL 11/14/16 023 Magnesium Level 2.1 mg/dL 11/14/16 023 Total Bilirubin 0.3 mg/dL 11/14/16 023 Aspartate Amino Transf (AST/SGOT) 19 U/L 11/14/16 023 Alanine Aminotransferase (ALT/SGPT) 9 U/L 11/14/16 023 Alkaline Phosphatase 80 U/L 11/14/16 023 Total Protein 6.2 g/dL L 11/14/16 023 Albumin 3.3 g/dL L 11/14/16 023 Result Diagram: 11/14/16 1626 11/14/16229 Microbiology Blood cultures pending. X-Rays, CTs and MRIs PROCEDURE: X-RAY CHEST ONE VIEW, PORTABLE IMPRESSION: Pulmonary edema and/or diffuse bilateral pneumonia redemonstrated with slight decrease in confluent opacity involving the left lung base. Dictated by: Mickey Chavarria RR Interpreted: Dedrick Jeter MD on 11/09/2016 at 8:28 12-lead ECG HR 76 with LVH. No acute change from 10/20 study. Cardiac Echo Impressions Interpretation Summary The left ventricle is mildly dilated. The ejection fraction is estimated to be 30-35%. There has been no significant change in LV EF since the previous study. There appears to be severe hypokinesis to akinesis of base to mid inferior wall, base to mid inferoseptum and the posterolateral wall (No significant change from the previous study). Assessment of diastolic parameters suggests a pseudonormalization pattern, consistent with elevated filling pressures. The right ventricle is normal in size and function. Suspect PMD of posterior mitral leaflet. There is moderate mitral regurgitation. Compared to the prior echo study, there has been no change in the severity of mitral regurgitation. There is mild tricuspid regurgitation. Compared to the prior echo exam, there has been an increase in TR severity. The right ventricular systolic pressure is estimated at 45 mmHg assuming a right atrial pressure of 3 mm Hg. Compared to the prior echo exam, there has been an increase in the severity of pulmonary hypertension. Reading Physician:PM . Assessment & Plan Mrs. Priest is an 81 year old female with past medical history significant for CAD with 5 vessel CABG, HTN, HLD, DM2, CHF, PVD, CKD, GERD and PUD admitted for acute on chronic CHF exacerbation. Acute on Chronic combined systolic and Diastolic Congestive Heart Failure. POA , Active. Ongoing. -Patient is having exacerbation secondary to increased salt intake. Left ventricular ejection fraction is estimated to be 35% - Dr. Holder on 07/04/16 echocardiogram. - NitroStat available PRN for chest pain -LV ejection fraction 30% to 35% which is not changed from the previous study. - Dr. Montes 11/12/16 - Overall prognosis is poor. Discussed with family the goals of Hospice care in this stage of CHF, family deciding whether Hospice will be appropriate or if patient will go home with home health. Non sustained SVTs, not present on admission, stable. 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 not sure if she is an AICD candidate . echo with results as above. Hypertension. Chronic. Not present on Admission. Stable. -Continue 12.5mg BID of Metoprolol Tartrate -Continue IV BID 40mg of Furosemide Hypothyroidism, Chronic. Stable -Continue Levothyroxine 25mcg daily History of Anemia associated with GI Bleed from an unknown source. Not Present on Admission. Chronic. Stable -Patient has history of GI bleed that required transfusions as recently as . Patient's H&H stable at this time. History of Recent Multiple Hospital Stays. Chronic. Ongoing. - Patient has had increasing hospital visits and admissions regarding her CHF, with the most recent discharge being 11/06. -Palliative consult for Goals of care History of Hospital Delirium with Sundowning. Chronic. Ongoing -Patient has a history of hallucinating during night time with increased nighttime activity. -Temazepam 30mg HS PRN insomnia. History of Gout. Chronic. Stable. -Allopurinol 300mg HS PO -Ondansetron PRN nausea - Bowel prep - Miralax Powder -Heparin 5,000unit Q8 for anticoagulation -Tylenol 650mg Q6 PRN pain -Pantoprazole 20mg PRN reflux sxs -Patient is DNR/DNI Patient Status: Patient is being medically managed for end stage combined systolic and diastolic congestive heart failure. Family would like to speak with Hospice care for further information as she may qualify for further CHF management. Pending patient placement, discharge will likely be in the next 1-2 days. GI Prophylaxis: Proton Pump Inhibitor VTE Prophylaxis: Sub-Q Heparin (Unfractionated) VTE Mechanical Devices: Intermittant Pneumatic CD Resuscitation Status: DNR/DNI:Do Not Resuscitate/Intubate Attending Statement The patient was seen and examined together with Dr. Joshi on 11/14/16 and I have added additional information to the note above. Heriberto Joshi DO Nov 14, 2016 18:18 Kaylie Khanna DO Nov 18, 2016 16:57
[2016-11-15] VITALS (11 sets, daily range): BP systolic 91–115; BP diastolic 51–69; PULSE 83–104; RESP 16–20; O2SAT 85–96
[2016-11-15] MEDS: Heparin 5,000 Unit/mL Inj SUBQ SCH ×3 (00:45→17:02)
[2016-11-15] MEDS: Sodium Chloride LOK Flush 10 mL Syringe IVFLUSH SCH ×3 (00:45→17:02)
--- NOTE | 2016-11-15 01:26 | NUR ---
Mentation On initial assessment, patient appeared alert and oriented. At approximately 0030, patient out of bed, pulled off oxygen and stated that "she did not want to be deported." Patient repeated this several times. Explain to patient she was at the hospital in [place]. Will check patient often. VSS. Call light within reach. Care continues.
[2016-11-15 02:34] LABS: BASOPHILS % (AUTO) 0.2 % (0-3); EOSINOPHILS % (AUTO) 2.6 % (0-5); MONOCYTES % (AUTO) 8.6 % (4-12); Mean Corpuscular Hemoglobin 29.7 pg (27.0-35.0); Mean Corpuscular Volume 96.2 fL (81-100); NEUTROPHILS % (AUTO) 61.6 % (40-74); Platelet Count 304 bil/L (150-400)
[2016-11-15] MEDS ORDERED: Glucose 40% Oral Gel 15 Gm Tube PO PRN (06:20)
[2016-11-15] MEDS: Furosemide 10 mg/mL 4 mL Inj IVPUSH SCH (08:30)
[2016-11-15] MEDS: Insulin LISPRO 300 Unit/3 mL Inj SUBQ SCH ×4 (08:47→22:00)
[2016-11-15] MEDS: MeTOProlol XL 25 mg ER24 Tablet PO SCH ×2 (08:47→21:16)
[2016-11-15] MEDS: MetoCLOpramide 5 mg/mL 2 mL Inj IVPUSH PRN (08:47)
--- NOTE | 2016-11-15 10:31 | PCM.PALLBR ---
Palliative Care Recommendation 81-year-old female with history of biventricular heart failure, EF 35%, readmitted with dyspnea and pulmonary edema. Showing slow improvement, but still very weak. Palliative medicine consulted to assist patient once again in determination of goals care. Summary of palliative recommendations: -Symptom management (Pain/other)- continued management per medical team. -DPOA/Advanced Directives/POLST- discussed advanced care interventions with patient on 11/10 and she indicated that she wished to be DO NOT RESUSCITATE/DO NOT INTUBATE, though would want aggressive treatment short of those terminal interventions. Did have hospice informational visit 11/14, but chose not to sign paperwork on advise of her manager stone Dr. Cid. Dr. Chen will contact daughter today to see if family wants to meet to complete new POLST prior to discharge that reflects her wishes. Will await cardiology and medicine input today regarding further medication adjustments and plans for timing of discharge. -Family/emotional support- patient tells me that all of the patient's children are committed to assisting with her care at home. Daughter Hilda is returning from [place] to move in and assist, and Iris (Ne Wiley) and her brother Livan,( Josefa Navarrete) will also be available to provide support. No family in her room with her today. Additional Medical Diagnoses with primary management by Hospitalist team include : # Acute on Chronic combined systolic and Diastolic Congestive Heart Failure. POA, Active. Ongoing. # Hypertension. Chronic. Not present on Admission. Stable. # Hypothyroidism, Chronic. Stable # History of Anemia associated with GI Bleed from an unknown source. Not Present on Admission. Chronic. Stable # History of Recent Multiple Hospital Stays. Chronic. Ongoing. # History of Hospital Delirium with Sundowning. Chronic. Ongoing # History of Gout. Chronic. Stable. Problems: End of Life Preferences DO NOT RESUSCITATE/DO NOT INTUBATE Goals of Care Return home Disposition Hopes to return home Resuscitation Status Resuscitation Status: DNR/DNI:Do Not Resuscitate/Intubate POLST Updates/Changes Previous POLST?: No POLST Review Outcome: No Change Total time 25 minutes; >50% face to face with patient and/or family, providing counselling regarding plans and recommendations, and in care coordination with his/her medical teams. I also spent an additional [ ] minutes counseling for advanced care planning with the patient/the patients family/the surrogate decision maker. Palliative Brief Note Date of Service Nov 15, [address]. Chen covering for Pall Care Team and reviewed pt's EMR prior to meeting with her. When I arrived today, she was seated at side of bed and states she is feeling nauseated, which has been going on for 2-3 days, but she is trying to eat breakfast anyway. She remembers having a vivid dream last night about being [place], how she forgot her green card and was going to be kept in [place]. In the past, she was a [place] citizen and had a green card, but no longer. She and her became [place] citizens a long time ago. She is aware she was confused when she woke up and spoke to the nurse last night. She has not seen her manager stone yet today- she is hoping to be discharged home in the next several days. She and her daughter spoke with hospice 11/14 and she tells me she thought hospice would be a good service for her at home, but that Dr. Cid disagreed , so since he has been her manager stone for many years, she was not going to sign paperwork and think about this further. She still is not interested in SNF placement. She feels her children are able and willing to help her live at home. On exam, elderly woman in no distress. Vital signs stable on 1.5 O2 LPM by nasal cannula. She has had 1500ml diuresis overnight. Head and neck exam without acute findings. Lungs coarse sounding diffusely with bibasilar crackles. No wheezes. Heart sounds regular with occasional ectopy. Soft systolic murmur as before. Abdomen benign. Ankles without pitting edema. Magdalena Chen MD Nov 15, 2016 10:30
--- NOTE | 2016-11-15 10:40 | PROG NOTE ---
[address] [address] PROGRESS NOTE PATIENT: MONTEZ WAKEFIELD : 1935 MR#: [id number] ADMIT: 11/09/2016 JOB ID: [id number] DATE: 11/15/2016 SUBJECTIVE: The patient continues to have symptoms of [id number] nausea. She denies any abdominal discomfort. She is not complaining of significant dyspnea at this time. She has no complaints of nocturnal pulmonary congestion, angina or edema. Vital signs are stable with heart rates in the 80s and 90s and she has been diuresing over the past couple of days to a moderate extent. On examination, no significant changes are noted. Her laboratory continues to demonstrate significant anemia with a hemoglobin of 7.8. Her creatinine has varied considerably but is within a fairly stable range. IMPRESSION: The patient has chronic ischemic heart disease and evidence of significant diastolic dysfunction and intermittent symptoms of pulmonary congestion. On my review of her echocardiogram, I think that her ejection fraction is in the range of 40% and she has an inferior posterior lateral wall motion abnormality which suggests that the vein bypass graft of her right coronary artery is likely stenotic or occluded with ischemic ventricular dysfunction in the territory of the right coronary artery. Her dyspnea has generally been well controlled. She has been functional class three with exertional dyspnea for a long time and then improved several months ago with more aggressive diuretic therapy and she did not tolerate long-acting nitrate therapy well. My recommendations from a cardiac standpoint are that we change her to torsemide at 40 mg a day and adjust that as necessary to achieve continued diuresis. Her metoprolol has been changed to metoprolol succinate in part because of her ventricular dysfunction and I think that is not unreasonable. I will followup on this patient's care tomorrow and will make arrangements for followup in my office at the time of discharge. Though this patient has advanced peripheral arterial disease as well as a history of chronic ischemic heart disease, her estimated prognosis is certainly longer than six months which would be the expected requirement eligibility for hospice care. Currently she lives alone but has somebody come in and do cleaning for her and she does not feel comfortable in terms of taking a shower without somebody there and family seems to be willing to provide some support and I talked with her some about considering an assisted living environment, not necessarily a [facility]ci facility. Other options include continued Home Health care. Maybe bathing care or [facility] might be a solution to her outpatient needs and I think again that I would not consider her eligible for hospice care and I think that it would be counterproductive to have her change from regular Medicare to hospice Medicare and have limited access to specialty providers. Additionally I think that it is important to continue to followup on her complaints of nausea, anemia and GI bleeding. I wonder if this might be related to ischemic bowel disease given her advanced atherosclerosis and perhaps this could be or should be discussed with Gastroenterology.
--- NOTE | 2016-11-15 18:04 | PCM.PNMED ---
Subjective Date of Service Nov 15, 2016 Subjective Mrs. Priest is an 81 year old female with past medical history significant for CAD with 5 vessel CABG, HTN, HLD, DM2, CHF, PVD, CKD, GERD and PUD admitted for acute on chronic CHF exacerbation. No acute events overnight. Patient seen and examined laying in bed. Has no complaints at this time. Denies N/V/D, CP, SOB, ABD pain, and Headache. Has had good urine output and has had a bowel movement. ROS reviewed and is otherwise negative unless noted above. Exam Vital Signs Vital Sign - Last Date Time Temp Pulse Resp B/P Pulse Ox O2 Delivery O2 Flow Rate FiO2 11/15/16 16:05 89 16 93/56 92 Nasal Cannula 1.50 11/15/16 14:26 36.5 11/13/16 02:13 92 Intake and Output 11/14/16 11/14/16 11/15/16 Cumulative From/Thru 15:00 23:00 07:00 11/09/16 18:00 - 11/15/16 06:05 Intake Total 600 ml 700 ml 6446 ml Output Total 450 ml 1500 ml 8700 ml Balance 150 ml -800 ml -2254 ml Intake Oral 600 ml 700 ml 5646 ml IV Total 800 ml Output Urine Total 450 ml 1500 ml 8700 ml # Voids 3 9 # Bowel Movements 3 Exam Constitutional: awake, alert, and oriented x3. Frail. In no acute distress. Head: normocephalic and atraumatic Eyes: pale conjunctiva, EOMI, no slceral icterua Heart: 2/6 systolic murmur on the upper right sternal border radiating into the carotid. No peripheral edema. Lungs: clear to auscultation, no wheeze, rales, or rhonchi. ABD: soft, nontender, bowel sounds present throughout. Musculoskeletal: moves all four extremities appropriately Neuro: CN II-XII intact. No focal deficits Skin: Pale, warm, dry Psych: appropriate mood and affect. IVs and Medications Medications Reviewed: Medications were reviewed in detail Lab and Diagnostics Item Value Date Time Red Blood Count 3.00 mil/mm3 L 11/10/16 0623 Mean Corpuscular Volume 97.0 fL 11/10/16 0623 Mean Corpuscular Hemoglobin 30.0 pg 11/10/16 06 Mean Corpuscular Hemoglobin Concent 30.9 % L 11/10/16 0623 Platelet Count 335 jose guadalupe/L 11/10/16 0623 Red Cell Distribution Width 15.9 % H 11/10/16 06 Neutrophils (%) (Auto) 56.4 % 11/10/16 06 Lymphocytes (%) (Auto) 28.3 % 11/10/16622 Monocytes (%) (Auto) 10.6 % 11/10/16622 Eosinophils (%) (Auto) 4.1 % 11/10/16622 Basophils (%) (Auto) 0.3 % 11/10/16622 Hemoglobin 8.8 g/dL L 11/12/16 1654 Hematocrit 27.7 % L 11/12/16 1654 White Blood Count 6.1 th/mm3 11/10/16 0623 Estimat Glomerular Filtration Rate 56 mL/min 11/11/16 0613 Calcium Level 8.4 mg/dL L 11/11/16 0613 Triglycerides Level 119 mg/dL 11/12/16 0235 Cholesterol Level 146 mg/dL 11/12/16 0235 LDL Cholesterol, Calculated 82.200 mg/dL 11/12/16 0235 VLDL Cholesterol 23.800 mg/dL 11/12/16 0235 HDL Cholesterol 40 mg/dL 11/12/16 0235 Cholesterol/HDL Ratio 3.65 11/12/16 0235 Thyroid Stimulating Hormone (TSH) 4.560 uIU/mL H 11/11/16 06 Free Thyroxine 1.09 ng/dL 11/11/16 0613 Red Blood Count 2.63 mil/mm3 L 11/15/16209 Mean Corpuscular Volume 96.2 fL 11/15/16209 Mean Corpuscular Hemoglobin 29.7 pg 11/15/16 021 Mean Corpuscular Hemoglobin Concent 30.8 % L 11/15/16 021 Red Cell Distribution Width 16.0 % H 11/15/16 021 Neutrophils (%) (Auto) 61.6 % 11/15/16 021 Lymphocytes (%) (Auto) 26.6 % 11/15/16209 Monocytes (%) (Auto) 8.6 % 11/15/16209 Eosinophils (%) (Auto) 2.6 % 11/15/16209 Basophils (%) (Auto) 0.2 % 11/15/16209 Estimat Glomerular Filtration Rate 52 mL/min 11/15/16209 Calcium Level 9.7 mg/dL 11/15/16209 Total Bilirubin 0.3 mg/dL 11/15/16209 Alanine Aminotransferase (ALT/SGPT) 11 U/L 11/15/16209 Aspartate Amino Transf (AST/SGOT) 23 U/L 11/15/16209 Alkaline Phosphatase 87 U/L 11/15/16209 Total Protein 6.6 g/dL 11/15/16209 Albumin 3.5 g/dL 11/15/16209 Result Diagram: 11/15/1620911/15/16209 Microbiology Blood cultures pending. X-Rays, CTs and MRIs PROCEDURE: X-RAY CHEST ONE VIEW, PORTABLE IMPRESSION: Pulmonary edema and/or diffuse bilateral pneumonia redemonstrated with slight decrease in confluent opacity involving the left lung base. Dictated by: Mickey Chavarria RRA Interpreted: Dedrick Jeter MD on 11/09/2016 at 8:28 12-lead ECG HR 76 with LVH. No acute change from 10/20 study. Cardiac Echo Impressions Interpretation Summary The left ventricle is mildly dilated. The ejection fraction is estimated to be 30-35%. There has been no significant change in LV EF since the previous study. There appears to be severe hypokinesis to akinesis of base to mid inferior wall, base to mid inferoseptum and the posterolateral wall (No significant change from the previous study). Assessment of diastolic parameters suggests a pseudonormalization pattern, consistent with elevated filling pressures. The right ventricle is normal in size and function. Suspect PMD of posterior mitral leaflet. There is moderate mitral regurgitation. Compared to the prior echo study, there has been no change in the severity of mitral regurgitation. There is mild tricuspid regurgitation. Compared to the prior echo exam, there has been an increase in TR severity. The right ventricular systolic pressure is estimated at 45 mmHg assuming a right atrial pressure of 3 mm Hg. Compared to the prior echo exam, there has been an increase in the severity of pulmonary hypertension. Reading Physician:PM . Assessment & Plan Mrs. Priest is an 81 year old female with past medical history significant for CAD with 5 vessel CABG, HTN, HLD, DM2, CHF, PVD, CKD, GERD and PUD admitted for acute on chronic CHF exacerbation. Acute on Chronic combined systolic and Diastolic Congestive Heart Failure. POA , Active. Ongoing. -Patient is having exacerbation secondary to increased salt intake. LVEF 35% from echo on 07/04/16 -NitroStat available PRN for chest pain -EF 30-35% unchanged from previous study -Continue lasix 40mg IV daily - One time dose of Torsemide 40mg PO -Continue Metoprolol Tartrate 25mg PO QHS - Cardiology following (Dr Cid) case was discussed at length today with cardiology. Non sustained V tach, not present on admission, stable. 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 not sure if she is AICD candidate . -Echo: EF 30-35%, severe mitral regurge, mild tricuspid regurge, with severe hypokinesis to akinesis of the base to mid inferior wall, base to mid inferoseptum and the posterolateral wall (unchanged from previous study) Hypertension. Chronic. Not present on Admission. Stable. -Continue home dose of 25mg QHS PO Metoprolol Tartrate -Continue Furosemide IV 40mg BID Hypothyroidism, Chronic. Stable -Continue Levothyroxine 25mcg daily History of Anemia associated with GI Bleed from an unknown source. Not Present on Admission. Chronic. Stable -Patient has a history of GI bleed that required transfusions as recently as . Patient's H&H stable at this time. -Patient received 1U PRBCs today (11/15) patient's H/H currently downtrending 7.8 today 8.1 yesterday History of Recent Multiple Hospital Stays. Chronic. Ongoing. -Patient has had increasing hospital visits and admissions regarding her CHF, with the most recent discharge being 11/06. -Palliative consulted for Goals of care and recommend hospice management for CHF History of Hospital Delirium with . Chronic. Ongoing -Patient has a history of hallucinating at night time with increased nighttime activity. -Temazepam 30mg HS PRN insomnia. History of Gout. Chronic. Stable. -Allopurinol 300mg HS PO -Ondansetron PRN nausea - Bowel prep: Miralax Powder -Heparin 5,000unit Q8 for anticoagulation -Tylenol 650mg Q6 PRN pain -Pantoprazole 20mg PRN reflux sxs -Patient is DNR/DNI Patient Status: Patient is being medically managed for end stage combined systolic and diastolic congestive heart failure. Patient's overall prognosis is tenuous. The case was discussed further with Palliative (Dr. Jay) who agree that she would be a good canbdidate for Hospice for CHF management. It is believed that the patient would benefit from Hospice care, as their nursing care would come and weigh the patient 2-3x per week, adjust her fluid medications accordingly, and manage any other current medical needs from the home. Hospice has an incredibly strong program in managing patients with decompensated CHF. Further care would tend to her ADL needs such as bath and meals. The patient would still be able to follow up, and have her medications adjusted with her driver utility worker. This care would be appropriate in allowing the patient to live at home as this is her wish, and decrease the risk of further hospitalizations in a patient with compounding conditions. We will further discuss placement with Palliative as well as Cardiology to confer the best possible disposition for the patient's care. The patient's family would like to speak with Hospice care for further information. Pending patient placement, discharge will likely be in the next 1- 2 days. GI Prophylaxis: Proton Pump Inhibitor VTE Prophylaxis: Sub-Q Heparin (Unfractionated) VTE Mechanical Devices: Intermittant Pneumatic CD Resuscitation Status: DNR/DNI:Do Not Resuscitate/Intubate Attending Statement The patient was seen and examined together with Dr. Joshi on 11/15/16 and I have added additional information to the note above. Heriberto Joshi DO Nov 15, 2016 18:04 Kaylie Khanna DO Nov 16, 2016 16:27
--- NOTE | 2016-11-15 18:16 | NUR ---
Blood Per shift report, Pt due to receive 1 unit of PRBCs pending arrival from [facility] blood bank called informing RN of blood arrival, Pt received 1 unit of PRBCs without issues, updated.
[2016-11-15] MEDS: Ondansetron 2 mg/mL 2 mL Inj IVPUSH PRN (21:21)
[2016-11-16] VITALS (8 sets, daily range): BP systolic 84–111; BP diastolic 50–70; PULSE 73–92; RESP 17–24; O2SAT 84–97
[2016-11-16] MEDS: Sodium Chloride LOK Flush 10 mL Syringe IVFLUSH SCH ×3 (00:23→17:29)
[2016-11-16] MEDS: Heparin 5,000 Unit/mL Inj SUBQ SCH ×3 (01:14→17:30)
[2016-11-16 03:39] LABS: Mean Corpuscular Hemoglobin 29.8 pg (27.0-35.0); Mean Corpuscular Volume 94.6 fL (81-100)
--- NOTE | 2016-11-16 04:25 | NUR ---
Pain/nausea/insomnia/mentation Pt c/o headache 07/18 and nausea. Tylenol 650mg and Zofran 4mg IVP given and helpful per pt. Pt also c/o insomnia receiving Temazepam 30mg without effect as of yet. Pt was alert and oriented x3 in the beginning of the shift;however during late HS pt got out of bed ambulating with fww and without NC. "I'm looking for my black walker." Pt had noted confusion. Pt redirected back into room and educated on time and place. A couple hours later pt stated, "I'm going for a walk" standing in her room with FWW. Pt insisted on going for a walk at 0400 and made half a loop around the unit since returning to bed. Pt appears to have tolerated the ambulation while wearing O2 well. Care continues. Addendum: 11/16/16 at 0607 by BETO BRAND RN Tele: SR hr 85 per environmental monitoring specialist.
--- NOTE | 2016-11-16 06:57 | NUR ---
Constipation Pt c/o constipation and was given Miralax this early morning babysitter. Care continues.
[2016-11-16] MEDS: Senna-Docusate 8.6-50 mg Tablet PO PRN ×2 (08:54→20:26)
[2016-11-16] MEDS: MeTOProlol XL 25 mg ER24 Tablet PO SCH ×2 (08:54→19:45)
[2016-11-16] MEDS: Furosemide 10 mg/mL 4 mL Inj IVPUSH SCH (08:55)
[2016-11-16] MEDS: Insulin LISPRO 300 Unit/3 mL Inj SUBQ SCH ×3 (09:11→17:39)
--- NOTE | 2016-11-16 14:16 | PROG NOTE ---
[address] [address] PROGRESS NOTE PATIENT: MONTEZ WAKEFIELD : 1935 MR#: [id number] ADMIT: 11/09/2016 JOB ID: [id number] DATE: 11/16/2016 SUBJECTIVE: The patient states that she is doing a little bit better today. She has continued on oxygen therapy but was able to walk with the aid of a walker in the rangel in the health teacher hours this morning. She has no complaints of angina-like chest discomfort and feels that her breathing is back to baseline. Her primary complaint today is continued mild nausea as well as constipation. She was able to get a blood transfusion during the night last night for her significant anemia. She denies any complaints of abdominal discomfort. Her appetite is relatively poor. Blood pressures are ranging in the 90-107 range but again her central arterial pressure is probably better than that based on the fact that she has bilateral subclavian lesions. She has not diuresed significantly since hospital admission although she put out close to 2 L yesterday, though her weight shows a fairly stable weight of around 58 kg. She continues to show some degree of pallor related to her anemia. Her examination is otherwise unremarkable. LABORATORY DATA: Shows a hemoglobin of 8.9 this morning. Her kidney function is fairly stable with a creatinine of 1.38 this morning. Potassium level is good. She has developed a mild metabolic alkalosis presumably from her diuresis yesterday. PLAN: I had a long discussion with the patient today regarding her long-term desires and wishes. I want to make it very clear that it is my expectation that her expected survival is greater than six months, that I believe she is not a good candidate for hospice care. The patient is interested in having Home Health services so that she can stay at home and have assistance with her activities of daily living as necessary. She would want to followup with me as her support merchandiser and would also want to be hospitalized if she developed a recurrent acute illness. Her expectation is that she wishes to live several more years and remain in her home. Currently she is on low-dose metoprolol at 25 mg b.i.d. of metoprolol succinate in addition to 40 mg of torsemide which she received yesterday afternoon and it appears that did a nice job with diuresis. She is also on pravastatin 40 mg a day. It is my impression that once she is stable from a gastrointestinal standpoint and once we know that she is not bleeding, she could be discharged home with Home Health services as needed. Once again, I have spoken with the patient. In addition, I have spoken with Dr. Desiree Rea, one of the hospice physicians, who is not familiar with the patient but we discussed the services available through hospice and I have also spoken at length with Dr. Quintero and suggested that it is my strong belief that hospice care is unnecessary and counterproductive at this point. I will ask my office to make arrangements for the patient to be seen for followup within the next couple of weeks.
--- NOTE | 2016-11-16 14:27 | PCM.PALLBR ---
Palliative Care Recommendation 81-year-old female with history of ischemic CMP and recurrent pulmonary congestion due to this, EF 35%, readmitted with dyspnea. Showing slow improvement, but still very weak. Palliative medicine consulted to assist patient once again in determination of goals care. Summary of palliative recommendations: -Symptom management (Pain/other)- continued management per medical team. -DPOA/Advanced Directives/POLST- discussed advanced care interventions with patient on 11/10 and she indicated that she wished to be DO NOT RESUSCITATE/DO NOT INTUBATE, though would want aggressive treatment short of those terminal interventions. Did have hospice informational visit 11/14, but chose not to sign paperwork on advise of her outpatient surgery rn Dr. Cid. Not able to meet with daughter today. Palliative Care hopes to complete new POLST with pt and family prior to discharge. Will await cardiology and medicine input today regarding further medication adjustments and plans for timing of discharge. Discussed pt's overall condition with her outpatient surgery rn, Dr. Cid, who wants to see her in his office in a few weeks for outpatient follow-up. He is optimistic about her recovery prospects and feels he can manage her cardiac condition appropriately with the assistance of home health services and avoid recurrent hospitalizations. -Family/emotional support- patient tells me that all of the patient's children are committed to assisting with her care at home. Daughter Hilda is returning from [place] to move in and assist, and Iris (Ne Wiley) and her brother Livan,( Josefa Navarrete) will also be available to provide support. No family in her room with her today. Problems: End of Life Preferences DO NOT RESUSCITATE/DO NOT INTUBATE Goals of Care Return home Disposition Hopes to return home Resuscitation Status Resuscitation Status: DNR/DNI:Do Not Resuscitate/Intubate POLST Updates/Changes Previous POLST?: No POLST Review Outcome: No Change Total time 35 minutes; >50% face to face with patient and/or family, providing counselling regarding plans and recommendations, and in care coordination with his/her medical teams. Palliative Brief Note Date of Service Nov 16, [address]. Chen covering for Pall Care Team and reviewed pt's EMR and discussed her clinical situation with her hospitalist team prior to rounding on her today. When I arrived today, she was seated at side of bed eating breakfast. She has no pain, nausea or SOB. She still feels pretty fatigued. On exam, elderly woman in no distress. Pulso ox is 95% on 2 O2 LPM by nasal cannula. Head and neck exam without acute findings. Lungs coarse, no crackles or wheezes. Heart sounds regular with occasional ectopy. Soft systolic murmur as before. Abdomen benign. Ankles without pitting edema. Magdalena Chen MD Nov 16, 2016 14:27 Magdalena Chen MD Nov 16, 2016 14:27 Nov 16, [address] Chen covering for Pall Care Team and reviewed pt's EMR and discussed her clinical situation with her hospitalist team prior to rounding on her today. When I arrived today, she was seated at side of bed eating breakfast. She has no pain, nausea or SOB. She still feels pretty fatigued. On exam, elderly woman in no distress. Pulso ox is 95% on 2 O2 LPM by nasal cannula. Head and neck exam without acute findings. Lungs coarse, no crackles or wheezes. Heart sounds regular with occasional ectopy. Soft systolic murmur as before. Abdomen benign. Ankles without pitting edema. Magdalena Chen MD Nov 16, 2016 14:27
--- NOTE | 2016-11-16 14:43 | PCM.DIMED ---
Heriberto Joshi DO 11/16/16 1443: Discharge Instructions Date of Service Nov 16, 2016 Dates of Hospitalization Nov 09, 2016 at 14:38 Discharge Diagnosis Discharge Diagnosis Acute on Chronic combined systolic and Diastolic Congestive Heart Failure NSVTs Hypertension Hypothyroidism History of Anemia associated with GI Bleed from an unknown source History of Recent Multiple Hospital Stays History of Hospital Delirium with [place] History of Gout Medication Instructions Additional med instructions We will continue your cardiac medications under the instruction of your linseed oil press tender. I have written for Metoprolol Succinate 25mg tablet to take twice a day. I have written for Torsemide 40mg tablet to take daily. Continue taking your Pravastatin 40mg tablet daily. Diet Discharge Diet: Low fat, Low Sodium Activity Discharge Activity: No restrictions Call your provider Call your provider for: Fever or Chills, Shortness of breath, Bleeding, Chest pain, Vomitting, Excessive diarrhea, Weakness (unilateral) Patient Instructions Patient Instructions Please limit your salt intake to less than 2,500mg of sodium per day, or 35mg of sodium per serving. Please make sure your fluid intake is no more than 1.5-2L per day. You may use a 1 Liter or 2 Liter bottle to keep track of how much fluids you are drinking throughout the day. Please follow up with your linseed oil press tender in one week to optimize your medications. If you have any questions regarding your heart medications or managing your symptoms, call your linseed oil press tender's office or you may come back in to the hospital if you feel you need to be seen sooner. Please follow up with your frame stylist in one week to follow up on your recent GI bleed and anemia. Home with home health will continue to see you 3 times per week to manage your medications and do periodic weights to track your fluid status and adjust your fluid pills to ensure that you are not retaining fluid. You will need your H/H checked once a week with home health. We will continue 3 times per week PT for the next few weeks to help you get your strength back. Respiratory will come to your house to provide you with home oxygen. Social work has provided you with contacts for a Private Caregiver to help you when the home nurse is not there. Follow-up plan Please follow up with your Pumping Station Engineer in one week. Please follow up with your Gastroenterology specialist in one week. Follow-up Provider: Ney Cid MD Follow-up with PCP in: 1 week Provider: Mei Rudd MD Follow-up in: 1 week CHF Clinic: 1 week Kaylie Khanna DO 11/17/16 1423: Discharge Instructions Discharge Diagnosis Discharge Diagnosis Non sustained Supraventricular tachycardia Patient Instructions Follow-up with PCP in: 1 week Follow-up in: 1 week CHF Clinic: 1 week Attending's Statement The patient was seen and examined together with Dr. Joshi on 11/16/16 and I have added additional information to the note above. Heriberto Joshi DO Nov 16, 2016 14:43 Kaylie Khanna DO Nov 17, 2016 14:23
--- NOTE | 2016-11-16 14:58 | NUR ---
Social Work: Readiness for Discharge/Multidisciplinary Rounds D: Pt discussed in multidisciplinary rounds. Pt is likely not a candidate for hospice at this time based on recommendations from cardiology. Pt will likely be discharging home with resumed home health through [facility]. Providers have concern about pt's readmission risk and would like a nurse to come out the day after discharge to assess. Providers would like weight checks at every RN visit along with nutrition and medication education/assessments. SOURCING ANALYST informed providers to include these written orders in the discharge summary. t/c to Rob Palmer with [facility]; he states that they can have an RN out to see the patient the day after discharge and to notify him as soon as possible if the pt is to discharge today. SOURCING ANALYST updated provider of this. Pt has been working with PT, ambulating [id number], SBA with FWW. Pt is not a candidate for skilled rehab and the patient and family had been resident to this in the past. SOURCING ANALYST met with the patient at bedside to confirm discharge plan and assess for unmet needs. Pt agrees with this plan to go home with resumed [facility] for RN, and PT. Pt states her family will transport her. A: Pt who lives at [facility]. P: Anticipate pt to discharge back home with resumed [facility] for RN, PT. SOURCING ANALYST to continue to follow to coordinate home health for patient's discharge. DORIAN Rangel
[2016-11-16] MEDS ORDERED: TORS20TA PO (17:16)
[2016-11-16] MEDS ORDERED: METO25TA99 PO (17:16)
--- NOTE | 2016-11-16 18:31 | NUR ---
Constipation Pt reported this am that appetite changes and tenderness in abdomen continue. Pt reported flatus present. Pt given PRN senna/doc tablets and prune juice this am. Pt had two very small/smear BMs this shift.
--- NOTE | 2016-11-16 20:00 | PCM.DC.MED ---
Discharge Summary Date of Service Nov 16, 2016 Dates of Hospitalization Date of Hospital Admission Nov 09, 2016 at 14:38 Date of Discharge: Nov 16, 2016 Providers: Admitting Physician: Александр Howard MD Primary Care Physician: Wendy Vance MD Attending Physician: Kaylie Khanna DO Diagnosis at Time of Discharge Diagnosis at Time of Discharge Acute on Chronic combined systolic and Diastolic Congestive Heart Failure NSVTs Hypertension Hypothyroidism History of Anemia associated with GI Bleed from an unknown source History of Recent Multiple Hospital Stays History of Hospital Delirium with Sundowning History of Gout Consultations Cardiology - Dr. Cid Palliative - Dr. Chen Procedures XRay, CTs & MRIs PROCEDURE: X-RAY CHEST ONE VIEW, PORTABLE IMPRESSION: Pulmonary edema and/or diffuse bilateral pneumonia redemonstrated with slight decrease in confluent opacity involving the left lung base. Dictated by: Mickey Chavarria RRA Interpreted: Dedrick Jeter MD on 11/09/2016 at 8:28 ECG 12 Lead HR 76 with LVH. No acute change from 10/20 study. Cardiac Echo Impression Interpretation Summary The left ventricle is mildly dilated. The ejection fraction is estimated to be 30-35%. There has been no significant change in LV EF since the previous study. There appears to be severe hypokinesis to akinesis of base to mid inferior wall, base to mid inferoseptum and the posterolateral wall (No significant change from the previous study). Assessment of diastolic parameters suggests a pseudonormalization pattern, consistent with elevated filling pressures. The right ventricle is normal in size and function. Suspect PMD of posterior mitral leaflet. There is moderate mitral regurgitation. Compared to the prior echo study, there has been no change in the severity of mitral regurgitation. There is mild tricuspid regurgitation. Compared to the prior echo exam, there has been an increase in TR severity. The right ventricular systolic pressure is estimated at 45 mmHg assuming a right atrial pressure of 3 mm Hg. Compared to the prior echo exam, there has been an increase in the severity of pulmonary hypertension. Reading Physician:PM . Brief History Mrs. Priest is an 81 year old female with past medical history significant for CAD with 5 vessel CABG, HTN, HLD, DM2, CHF, PVD, CKD, GERD and PUD admitted for acute on chronic CHF exacerbation. Patient was diuresed with IV Lasix 40mg and placed on a 40mg PO Lasix regimen. Patient began to become hypotensive and [place] [facility] [place] [facility] for closer observation. Cardiology was consulted and it was determined that the patient had low blood pressure readings in the left upper extremity secondary to significant subclavian artery disease. BP showed more normalized readings when she had it checked with her right arm. Cardiology changed her metoprolol succinate to 12.5 mg twice a day and the patient tolerated this well along with the daily Lasix. The patient had a morning Hgb of 7.5 on 11/14 and an order for 1U PRBC transfusion was ordered. Due to rare antibodies, the patient needed to have blood sent up from [place] for transfusion which took an extra day. The patient did not receive a transfusion until 11/15. The patient requires E and C negative red cells for transfusion. Discussion was held with the family, patient, and consulting teams (Cardiology and Palliative) in regards for a proper placement for the patient after discharge. Based on the patient's cardiac status, and suggested by the consulting team, patient was able to be discharged home with home health and PT services. Case management provided the family with contacts for private caregivers, and a clear day to day management plan was provided to patient's family and home health nursing team for management of her CHF. Patient will have a close followup with Cardiology on 11/21/16 as well as a close followup with GI to continue her care for the previous GI bleed. Hospital Course Mrs. Priest is an 81 year old female with past medical history significant for CAD with 5 vessel CABG, HTN, HLD, DM2, CHF, PVD, CKD, GERD and PUD admitted for acute on chronic CHF exacerbation. Acute on Chronic combined systolic and Diastolic Congestive Heart Failure -NitroStat given PRN for chest pain -EF 30-35% unchanged from previous study -Continued lasix 40mg IV daily -Gave One time dose of Torsemide 40mg PO -Continued Metoprolol Tartrate 25mg PO QHS - Consulted Cardiology(Dr Cid) who was involved with her care throughout her stay. -Consulted respiratory for home oxygen. Non sustained V tach -Monitored Hypertension. Chronic -Continued home dose of 25mg QHS PO Metoprolol Tartrate -Patient's furosemide was discontinued in torsemide 40 mg by mouth daily was started Hypothyroidism -Continued Levothyroxine 25mcg daily History of Anemia associated with GI Bleed from an unknown source -Patient received 1U PRBCs today (11/15) patient's H/H currently downtrending 7.8 today 8.1 yesterday Hyperglycemia -Insulin sliding scale History of Recent Multiple Hospital Stays. -Palliative consulted for Goals of care and recommend hospice management for CHF History of Hospital Delirium with ing -Patient has a history of hallucinating at night time with increased nighttime activity. -Gave Temazepam 30mg HS PRN insomnia. History of Gout. Chronic. Stable. -Gave Allopurinol 300mg HS PO -Consulted Case Management for continuing Home health and PT Exam Vital Signs (Last) Date Time Temp Pulse Resp B/P Pulse Ox O2 Delivery O2 Flow Rate FiO2 11/16/16 19:40 36.6 92 17 84/54 92 Nasal Cannula 2.00 11/13/16 02:13 92 Exam Constitutional: awake, alert, and oriented x3. Frail. In no acute distress. Head: normocephalic and atraumatic Eyes: pale conjunctiva, EOMI, no slceral icterua Heart: 2/6 systolic murmur on the upper right sternal border radiating into the carotid. No peripheral edema. Lungs: clear to auscultation, no wheeze, rales, or rhonchi. ABD: soft, nontender, bowel sounds present throughout. Musculoskeletal: moves all four extremities appropriately Neuro: CN II-XII intact. No focal deficits Skin: Pale, warm, dry Psych: appropriate mood and affect. Test 11/09/16 07:59 11/09/16 08:58 11/11/16 06:13 11/12/16 02:35 Troponin T 0.015ug/L (0.0-0.011) Pro-B-Type Natriuretic Peptide 87317uq/mL (0-738) Lactic Acid Level 0.6mmol/L (0.4-2.0) Thyroid Stimulating Hormone (TSH) 4.560uIU/mL (0.450-4.500) Free Thyroxine 1.09ng/dL (0.82-1.77) Triglycerides Level 119mg/dL (0-149) Cholesterol Level 146mg/dL (100-199) LDL Cholesterol, Calculated 82.200mg/dL (0-99) VLDL Cholesterol 23.800mg/dL HDL Cholesterol 40mg/dL (>39) Cholesterol/HDL Ratio 3.65 (0.0-4.4) Test 11/12/16 17:53 11/14/16 02:30 11/15/16 02:10 11/16/16 02:55 Urine Color Yellow (YELLOW) Urine Appearance Clear (CLEAR,HAZY) Urine pH 5.0 (5.0-8.0) Urine Specific [place] 1.020 (1.003-1.035) Urine Protein Tracemg/dL (NEG,TRACE) Urine Glucose (UA) Negativemg/dL (NEGATIVE) Urine Ketones Negativemg/dL (NEGATIVE) Urine Occult Blood Negative (NEGATIVE) Urine Nitrite Negative (NEGATIVE) Urine Bilirubin Negative (NEGATIVE) Urine Urobilinogen Normalmg/dL (NORMAL) Urine Leukocyte Esterase Moderate (NEGATIVE) Urine RBC 0-2/hpf (0-2) Urine WBC 11-50/hpf (0-5) Urine Epithelial Cells Few/hpf (NONE-MOD) Urine Crystals None seen (NONE SEEN) Urine Bacteria Few/hpf (NONE-FEW) Urine Hyaline Casts None/lpf (NONE) Urine Granular Casts None seen (NONE SEEN) Urine Waxy Casts None seen (NONE SEEN) Urine Red Blood Cell Casts None seen (NONE SEEN) Urine White Blood Cell Casts None seen (NONE SEEN) Urine Mucus None seen (None Seen) Urine Trichomonas None seen (NONE SEEN) Urine Yeast None (NONE SEEN) Urinalysis Comment None Urine Culture Reflexed Indicated Band Neutrophils % 1% (1-5) Phosphorus Level 3.3mg/dL (2.5-4.9) Magnesium Level 2.1mg/dL (1.6-2.6) Neutrophils (%) (Auto) 61.6% (40-74) Lymphocytes (%) (Auto) 26.6% (14-46) Monocytes (%) (Auto) 8.6% (4-12) Eosinophils (%) (Auto) 2.6% (0-5) Basophils (%) (Auto) 0.2% (0-3) White Blood Count 8.9th/mm3 (3.8-10.1) Red Blood Count 2.99mil/mm3 (3.90-5.20) Hemoglobin 8.9g/dL (12.0-15.6) Hematocrit 28.3% (35.0-46.0) Mean Corpuscular Volume 94.6fL (81-100) Mean Corpuscular Hemoglobin 29.8pg (27.0-35.0) Mean Corpuscular Hemoglobin Concent 31.4% (32.0-37.0) Red Cell Distribution Width 16.3% (12.3-15.4) Platelet Count 275bil/L (150-400) Sodium Level 136mEq/L (134-144) Potassium Level 4.3mEq/L (3.5-5.2) Chloride Level 88mEq/L (97-108) Carbon Dioxide Level 33mmol/L (18-29) Blood Urea Nitrogen 45mg/dL (8-27) Creatinine 1.38mg/dL (0.57-1.00) Estimat Glomerular Filtration Rate 53mL/min (>59) Glucose Level 191mg/dL (60-99) Calcium Level 9.4mg/dL (8.5-10.1) Total Bilirubin 0.4mg/dL (0.0-1.2) Aspartate Amino Transf (AST/SGOT) 23U/L (0-50) Alanine Aminotransferase (ALT/SGPT) 12U/L (0-32) Alkaline Phosphatase 90U/L (25-165) Total Protein 6.4g/dL (6.4-8.4) Albumin 3.2g/dL (3.4-5.0) Microbiology Results Blood cultures pending. Discharge Medications Discharge Medications Allopurinol (Allopurinol) 300 Mg Tablet 300 MG PO HS (Reported) Bimatoprost (Lumigan) 45 Drop/2.5 Ml Ophsoln 1 DROP BOTH_EYES HS (Reported) each eye Clopidogrel Bisulfate (Plavix) 75 Mg Tablet 75 MG PO HS (Reported) Lansoprazole (Lansoprazole) 30 Mg Capsule.dr 30 MG PO DAILY (Reported) Levothyroxine (Levothyroxine) 25 Mcg Tablet 25 MCG PO AM (Reported) Take on an empty stomach. Metoprolol Succinate ER (Metoprolol Succinate ER) 25 Mg Tab.er.24h 25 MG PO BID Prescribed by: Praneeth ELLIOTT Multivitamin (Multivitamins) 1 Each Capsule 1 EACH PO DAILY (Reported) Potassium Chloride ER (Potassium Chloride ER) 20 Meq Tablet.er 20 MEQ PO BID ( Reported) TAKE WITH FOOD Pravastatin (Pravastatin) 40 Mg Tablet 40 MG PO HS (Reported) Torsemide (Demadex) 20 Mg Tablet 40 MG PO DAILY Prescribed by: Praneeth ELLIOTT As needed Temazepam (Temazepam) 30 Mg Cap 30 MG PO HS PRN PRN For Insomnia (Reported) Tizanidine (Tizanidine) 2 Mg Tablet 1-2 MG PO DAILY PRN PRN For Spasm (Reported ) Additional med instructions We will continue your cardiac medications under the instruction of your coffee break attendant. I have written for Metoprolol Succinate 25mg tablet to take twice a day. I have written for Torsemide 40mg tablet to take daily. Continue taking your Pravastatin 40mg tablet daily. Followup Plan Disposition: Home with Home Health Follow-up plan Please follow up with your Instructional Developer in one week. Please follow up with your Gastroenterology specialist in one week. Discharge Diet: Low fat, Low Sodium Discharge Activity: No restrictions Patient Instructions Please limit your salt intake to less than 2,500mg of sodium per day, or 35mg of sodium per serving. Please make sure your fluid intake is no more than 1.5-2L per day. You may use a 1 Liter or 2 Liter bottle to keep track of how much fluids you are drinking throughout the day. Please follow up with your coffee break attendant in one week to optimize your medications. If you have any questions regarding your heart medications or managing your symptoms, call your coffee break attendant's office or you may come back in to the hospital if you feel you need to be seen sooner. Please follow up with your cardiothoracic anesthesia technician in one week to follow up on your recent GI bleed and anemia. Home with home health will continue to see you 3 times per week to manage your medications and do periodic weights to track your fluid status and adjust your fluid pills to ensure that you are not retaining fluid. You will need your H/H checked once a week with home health. We will continue 3 times per week PT for the next few weeks to help you get your strength back. Respiratory will come to your house to provide you with home oxygen. Social work has provided you with contacts for a Private Caregiver to help you when the home nurse is not there. Follow-up Provider: Ney Cid MD Follow-up with PCP in: 1 week Provider: Mei Rudd MD Follow-up in: 1 week CHF Clinic: 1 week Time spent Greater than 35 minutes coordinating disposition, preparing discharge, and talking with family regarding discharge. Attending Statement The patient was seen and examined together with Dr. Joshi on 11/16/16 and I have added additional information to the note above. copies to: Mei Rudd MD; Ney Cid MD, Anthony P DO Nov 16, 2016 20:00 Kaylie Khanna DO Nov 17, 2016 14:50
--- NOTE | 2016-11-16 22:13 | NUR ---
Discharge: Dr. Joshi at floor. States pt can DC tonight. States he will notify son. aware of recent vital and low BP, still okay with DC. per MD home 02 set up, son confirms. Reviewed with pt new perceptions for Torsemide and Metoprolol. Reviewed with pt to stop taking old script for Metoprolol and Lasix, and continue all other medications. Follow up with GI and cardiology within one week. Care notes provided on CHF, heart healthy diet, Anemia and new medications. Pt verbalized understanding. no questions at this time. Pt escorted out via wheel chair by hospital staff on 2L NC. Son to drive pt home.
== END 2016-11-16 22:10 | disposition home health service (06) | DRG 291 ==
LOC: EDBD 07:31 → SED 07:31 → OBSVTOIN 14:38 → MOC 14:38 → PCC 11-11 13:55
PROVIDERS: ADMIT Internal Medicine; ATTEND Neuromusculoskeletal Medicine & OMM
PROC: 30233N1 Transfusion of Nonautologous Red Blood Cells into Peripheral Vein, Percutaneous Approach (ICD-10-PCS; principal; 2016-11-15)
DX: I50.43 Acute on chronic combined systolic (congestive) and diastolic (congestive) heart failure (principal); J96.21 Acute and chronic respiratory failure with hypoxia; F05 Delirium due to known physiological condition; I47.1 Supraventricular tachycardia; I10 Essential (primary) hypertension; E78.5 Hyperlipidemia, unspecified; E11.9 Type 2 diabetes mellitus without complications; I25.10 Atherosclerotic heart disease of native coronary artery without angina pectoris; I73.9 Peripheral vascular disease, unspecified; M10.9 Gout, unspecified; E03.9 Hypothyroidism, unspecified; G47.00 Insomnia, unspecified; I25.5 Ischemic cardiomyopathy; I34.0 Nonrheumatic mitral (valve) insufficiency; I27.2 Other secondary pulmonary hypertension; Z66 Do not resuscitate; D64.9 Anemia, unspecified; I25.2 Old myocardial infarction; Z95.1 Presence of aortocoronary bypass graft; Z95.828 Presence of other vascular implants and grafts; Z79.4 Long term (current) use of insulin; Z87.11 Personal history of peptic ulcer disease

== ENCOUNTER 2016-11-27 11:35 | Inpatient (IN) | payer MEDICARE ==
[~2016-11-27] VITALS: Ht 157.5 cm; Wt 57.8 kg
[2016-11-27] VITALS (14 sets, daily range): BP systolic 91–124; BP diastolic 50–100; PULSE 76–94; RESP 16–30; O2SAT 92–99
[~2016-11-27 11:35] MED LIST changes: -FRSM80T PO; -METO25TA6 PO; +METO25TA99 PO; +TORS20TA PO
[2016-11-27 12:03] LABS: BASOPHILS % (AUTO) 0.2 % (0-3); EOSINOPHILS % (AUTO) 0.9 % (0-5); MONOCYTES % (AUTO) 5.6 % (4-12); Mean Corpuscular Hemoglobin 28.7 pg (27.0-35.0); Mean Corpuscular Volume 96.1 fL (81-100); NEUTROPHILS % (AUTO) 80.2 % (40-74); Platelet Count 319 bil/L (150-400)
--- NOTE | 2016-11-27 12:03 | ED.REPORT ---
HPI-General Illness Date of Service Nov 27, 2016 ED Provider: Jose L Naidu MD The pt is a 81 y/o female w/ a hx of HTN, CHF, hyperlipidemia, hypothyroidism, and anemia presenting to the ED via EMS due to increasing weakness onset 0700 this morning. She has also been experiencing neck pain for the last month, SOB w / exertion, low BP, and one episode of black stool. Denies fever, peripheral edema, vomiting, or nausea. The pt is on 2.5 L of home O2 usually but her daughter reports the pt taking her off her oxygen sometime during the night. The pt was last hospitalized 18 days ago for CHF and her last blood transfusion was 9-10 days ago. EMR indicates hx of plavix use, patient reports it was DC'd. Nursing Notes Stated Complaint: WEAKNESS Chief Complaint: Weakness Nursing Notes Reviewed: Yes (Highlighter not reconciled) Allergies: Coded Allergies: Amalacj-Jyj-Vdh Reductase Inhibitor (Verified Allergy, Mild, sore shoulders, 11/09/16) can tolerate pravastatin rosuvastatin (Verified Allergy, Mild, sore shoulders, 11/09/16) cilostazol (Unverified Allergy, Unknown, 11/09/16) rofecoxib (Verified Allergy, Unknown, 11/09/16) simvastatin (Unverified Allergy, Unknown, sore shoulders, 11/09/16) Scheduled Allopurinol (Allopurinol) 300 Mg Tablet 300 MG PO HS Bimatoprost (Lumigan) 45 Drop/2.5 Ml Ophsoln 1 DROP BOTH_EYES HS each eye Clopidogrel Bisulfate (Plavix) 75 Mg Tablet 75 MG PO HS Lansoprazole (Lansoprazole) 30 Mg Capsule.dr 30 MG PO DAILY Levothyroxine (Levothyroxine) 25 Mcg Tablet 25 MCG PO AM Take on an empty stomach. Metoprolol Succinate ER (Metoprolol Succinate ER) 25 Mg Tab.er.24h 25 MG PO BID Multivitamin (Multivitamins) 1 Each Capsule 1 EACH PO DAILY Potassium Chloride ER (Potassium Chloride ER) 20 Meq Tablet.er 20 MEQ PO BID TAKE WITH FOOD Pravastatin (Pravastatin) 40 Mg Tablet 40 MG PO HS Torsemide (Demadex) 20 Mg Tablet 40 MG PO DAILY Scheduled PRN Temazepam (Temazepam) 30 Mg Cap 30 MG PO HS PRN PRN For Insomnia Tizanidine (Tizanidine) 2 Mg Tablet 1-2 MG PO DAILY PRN PRN For Spasm General Time Seen by MD: 11:45 Chief Complaint Weakness Hx Obtained From: Patient, EMS Arrived By: Ambulance Sudden in Onset?: Yes Onset Occurred: 5 - 8 hours ago Symptom Duration: Since onset Recent Healthcare: Recent doctor visit, Recent hospitalization Past Medical History Past Medical History Notes: PCP: Dr. Vance Board Certified Family Physician: Dr. iCd Echocardiogram EF of 35% in June 2016 Patient just D/C after admit for GI bleed, severe anemia Past Medical History 1. Coronary artery disease, with history of myocardial infarction and bypass grafting 2001. 2. Peripheral vascular disease, status post multiple stenting and angioplasty procedures. 3. Congestive heart failure, diastolic 4. Chronic kidney disease 5. Hypertension. 6. Chronically elevated troponin. 7. Hyperlipidemia. 8. Diabetes mellitus type 2, insulin requiring. 9. Gastroesophageal reflux disease with Schaefer's esophagus. 10. Glaucoma. 11. Carotid stenosis. 12. Gout. 13. Hypothyroidism. 14. Chronic insomnia, on chronic benzodiazepines. 15. Moderate to severe mitral regurgitation by echo February 2013. 16. Bilateral renal artery stenosis. 17. History of peptic ulcer disease. 18. Anemia. 19. prior DVT Past Surgical History Glaucoma surgery. Multiple stents and angioplasty for peripheral vascular disease Endoscopy, colonoscopy October 2016 Reports: CABG, Cataract surgery, Hysterectomy Family History Noncontributory Smoking History Former Smoker Social History Other Social History: Good social support, Local resident Ambulatory Status Independent Review of Systems "Low" BP; Black stool; Full Review of Systems Constitutional: Denies: Fever Respiratory: Reports: Shortness of breath (w/ exertion ) Cardiovascular: Denies: Edema GI: Denies: Nausea, Vomiting Musculoskeletal: Reports: Neck pain Neurologic: Reports: Weakness Complete sys rev & neg: except as marked. Physical Exam Vital Signs Vital Signs Date Time Temp Pulse Resp B/P Pulse Ox O2 Delivery O2 Flow Rate FiO2 11/27/16 12:53 79 17 98/61 11/27/16 11:41 36.6 80 24 93/50 92 Nasal Cannula 2 Initial VS: Reviewed, Vital signs abnormal (however - BP's similar to recent hospitalizaiton) Head / Eyes: Atraumatic, Normocephalic, PERRL ENT: Mucous membranes moist, Conjunctiva normal, No scleral icterus Neck: Supple, Non-tender, Full range of motion Respiratory: Breath sounds normal, Clear to auscultation, No respiratory distress Neurologic: Alert, Oriented, Nonfocal Psychiatric: Mood/affect normal, Behavior normal, Normal thought content General/Constitutional: Awake, Alert, No acute distress Fatigued Cardiovascular: Heart rate NL, Regular rhythm, Heart sounds NL Trace edema of ankles Skin: No rash, Warm, Dry Extremely pale Interpretation & Diagnostics Lab Results Interpretation Result Diagram: 11/27/16 1150 11/27/16 1150 Test 11/27/16 11:50 11/27/16 12:54 White Blood Count 11.6th/mm3 (3.8-10.1) Red Blood Count 2.30mil/mm3 (3.90-5.20) Hemoglobin 6.6g/dL (12.0-15.6) Hematocrit 22.1% (35.0-46.0) Mean Corpuscular Volume 96.1fL (81-100) Mean Corpuscular Hemoglobin 28.7pg (27.0-35.0) Mean Corpuscular Hemoglobin Concent 29.9% (32.0-37.0) Red Cell Distribution Width 16.4% (12.3-15.4) Platelet Count 319bil/L (150-400) Neutrophils (%) (Auto) 80.2% (40-74) Lymphocytes (%) (Auto) 12.6% (14-46) Monocytes (%) (Auto) 5.6% (4-12) Eosinophils (%) (Auto) 0.9% (0-5) Basophils (%) (Auto) 0.2% (0-3) Sodium Level 136mEq/L (134-144) Potassium Level 5.3mEq/L (3.5-5.2) Chloride Level 98mEq/L (97-108) Carbon Dioxide Level 25mmol/L (18-29) Blood Urea Nitrogen 65mg/dL (8-27) Creatinine 1.16mg/dL (0.57-1.00) Estimat Glomerular Filtration Rate 64mL/min (>59) Glucose Level 240mg/dL (60-99) Calcium Level 8.6mg/dL (8.5-10.1) Magnesium Level 2.0mg/dL (1.6-2.6) Total Bilirubin 0.3mg/dL (0.0-1.2) Aspartate Amino Transf (AST/SGOT) 14U/L (0-50) Alanine Aminotransferase (ALT/SGPT) 7U/L (0-32) Alkaline Phosphatase 78U/L (25-165) Total Creatine Kinase 23U/L (21-215) Troponin T 0.010ug/L (0.0-0.011) Pro-B-Type Natriuretic Peptide 74928jy/mL (0-738) Total Protein 6.6g/dL (6.4-8.4) Albumin 3.1g/dL (3.4-5.0) Urine Color Yellow (YELLOW) Urine Appearance Cloudy (CLEAR,HAZY) Urine pH 5.0 (5.0-8.0) Urine Specific [place] 1.010 (1.003-1.035) Urine Protein Negativemg/dL (NEG,TRACE) Urine Glucose (UA) Negativemg/dL (NEGATIVE) Urine Ketones Negativemg/dL (NEGATIVE) Urine Occult Blood Moderate (NEGATIVE) Urine Nitrite Negative (NEGATIVE) Urine Bilirubin Negative (NEGATIVE) Urine Urobilinogen Normalmg/dL (NORMAL) Urine Leukocyte Esterase Large (NEGATIVE) Urine RBC 0-2/hpf (0-2) Urine WBC Packed/hpf (0-5) Urine Epithelial Cells Few/hpf (NONE-MOD) Urine Crystals None seen (NONE SEEN) Urine Bacteria Many/hpf (NONE-FEW) Urine Hyaline Casts None/lpf (NONE) Urine Granular Casts None seen (NONE SEEN) Urine Waxy Casts None seen (NONE SEEN) Urine Red Blood Cell Casts None seen (NONE SEEN) Urine White Blood Cell Casts None seen (NONE SEEN) Urine Mucus None seen (None Seen) Urine Trichomonas None seen (NONE SEEN) Urine Yeast None (NONE SEEN) Urinalysis Comment None Urine Culture Reflexed Indicated Lab Results Interpretation: C trace leukocytosis, anemia has worsened down 6 points from recent transfusion CMP mild hyperglycemia, nonspecific hyperkalemia UA abnormal with markers of UTI Blood cultures pending BNP elevated ECG Interpretation ECG Interpretation: NSR LVH w/ repolarization Unchanged from 11/09/16 Time: 08:02 Interpreted by: ED physician Re-Eval/Medical Decision Med Decision/Clinical Course This is an 81-year-old complicated female who spent the last few months in the hospital. She has recurrent anemia from a GI bleed of uncertain etiology has had extensive workup including upper endoscopy, colonoscopy, Endoscopy, Tagged Red Cell Scan Has Required Multiple Transfusions, but has an Antibody Require Ascitic Blood off and Sent up from [facility]. She Is Recently I Also Admitted for Congestive Heart Failure Has a Complicated Cardiac Condition. Please See Recent Admission and Discharge. Please Also See the Palliative Care Consultations Are Discussed and about Hospice, However the Patient Is Not Currently on Hospice. She Is DNR/DNI, Does Not Want Heroic Measures Performed, but Does Want Transfusions Continued Care. She Presents Reporting of Increasing Fatigue, Some Black Stools, and Today Was Too Weak to Get up. Medics Found Her Hypotensive-Although Records Indicate throughout Her Previous Hospitalization Recently She Is Chronically Hypotensive. She Denies Any Chest Pain, Reports She Is Chronically Short of Breath and That Has Not Changed. She Denies Fevers Chills. She Does Report Just Feeling Lousy, and, since That Is Somewhat Similar to the Time That She Got a "Inappropriate Statin" as well. On exam the patient's mildly hypotensive, but again in the similar territory where she was during her last hospitalization. She is however quite pale with a concern for worsening anemia. Her lungs are clear, she socks draining adequately although requires so to at baseline. Abdomen is soft nontender, she has trace edema in the legs, this too is generally improved. Lab work is notable for recurrent, severe anemia. Transfusion is warranted for symptomatic anemia in the setting of a difficult to GI bleed. Patient's not on any anticoagulants. Transfusion is planned, but again with her antibody were working on getting blood from [facility] take some considerable time. Distal urinalysis is abnormal and suggests a probable UTI, the patient's been covered with ceftriaxone. Appreciate evidence of acute coronary syndrome, EKG is normal. Patient is being admitted for transfusion and continued care. I touched base with GI given the patient's had an extensive GI workup, and that they commented that a red cell tagged scan could be considered. At this point since patient just had one that was not useful I am not ordering this from the ED and will let the hospitalist see the patient to decide if a repeat study warranted. At this point the focus is on supportive management with transfusion , and if the hospitalist would does want to GI consultation and a vast to be contacted directly. The patient will some leg cramping which she received fentanyl for the department. I am waiting for the blood transfusion rather given fluids, and the patient sees be tolerating the hypotension-given her complicated congestive heart failure rather not administer large volume crystalloid, followed by a blood transfusion and then precipitated significant volume overload. Source of Hx: Old records Time of Eval: 12:57 Re-Evaluation/Progress Note: Pt rechecked. Informed pt of need for admission. Pt understands and agrees with plan for admission. All questions addressed. Time of Eval: 13:02 Re-Evaluation/Progress Note: Rechecked pt. Pt states that will like more blood transfusions and is not enrolled in hospice care. Consultation #1: Referral / Consult Name: Monty Meza MD Call Returned at: 12:56 Note: Discussed pt's case w/ Dr. Meza, medical reimbursement manager. Consultation #2: Referral / Consult Name: Kaylie Khanna DO Consulted With: Hospitalist Call Returned at: 12:59 Change Of Address Clerk: Will see patient, Agrees with eval, Agrees with plan, Accepts admit Differential Diagnosis: Positive: Urinary tract infection, Negative: Abdominal pain, Acute coronary syndrome, Neutropenia Counseled Regarding: Diagnosis, Lab results, Need for admission Discharge & Departure Primary Impression: Symptomatic anemia Additional Impressions: Gastrointestinal bleed GI bleed type/associated pathology: unspecified gastrointestinal hemorrhage type Qualified Code: K92.2 - Gastrointestinal hemorrhage, unspecified Hypotension Disposition: ADMITTED TO HOSPITAL Discharge Condition All VS Reviewed: Yes Condition: Stable Referrals: Wendy Vance MD (PCP) Scribe Attestation Portions of this note were transcribed by Deshawn Prado. I, Dr. Naidu personally performed the history, physical exam and medical decision-making; I reviewed and confirmed the accuracy of the information in the transcribed note. copies to: Wendy Vance MD, Matthew F MD Nov 27, 2016 12:03 Deshawn Prado Nov 27, 2016 12:17
[2016-11-27 12:27] LABS: TROPONIN T 0.01 ug/L (0.0-0.011)
[2016-11-27 13:06] LABS: APPEARANCE,URINE CLOUDY (CLEAR,HAZY); COLOR,URINE YELLOW (YELLOW); OCCULT BLOOD,URINE MODERATE (NEGATIVE); UROBILINOGEN,URINE NORMAL (NORMAL)
[2016-11-27] MEDS ORDERED: cefTRIAXone Inj 2,000 MG in Dextrose 5% Minibag Plus 50 ML IV ONE (13:20)
[2016-11-27] MEDS ORDERED: fentaNYL-PF 50 mCg/mL 2 mL Inj IVPUSH PRN (13:40)
[2016-11-27] MEDS ORDERED: fentaNYL-PF 50 mCg/mL 2 mL Inj IVPUSH ONE ×2 (13:40→23:25)
[2016-11-27] MEDS ORDERED: Alum-Mag Hydrox-Simeth 30 mL Suspension PO PRN (13:50)
[2016-11-27] MEDS ORDERED: Ondansetron 2 mg/mL 2 mL Inj IVPUSH PRN (13:50)
[2016-11-27] MEDS ORDERED: 0.9% Sodium Chloride 250 ML ONE ×2 (14:56)
--- NOTE | 2016-11-27 15:30 | PCM.HPMED ---
Subjective Date of Service Nov 27, 2016 Primary Provider: Admitting Physician: Kaylie Khanna DO Primary Care Physician: Wendy Vance MD Attending Physician: Kaylie Khanna DO Allergies Coded Allergies: Zcwdost-Iep-Wly Reductase Inhibitor (Verified Allergy, Mild, sore shoulders, 11/09/16) can tolerate pravastatin rosuvastatin (Verified Allergy, Mild, sore shoulders, 11/09/16) cilostazol (Unverified Allergy, Unknown, 11/09/16) rofecoxib (Verified Allergy, Unknown, 11/09/16) simvastatin (Unverified Allergy, Unknown, sore shoulders, 11/09/16) PMH Social History Hx Alcohol Use: Yes (1-2/week) Hx Substance Use: No Hx Tobacco Use: Yes (50 years of 1/2 to 1 ppd) Smoking Status: Former Smoker Exam Vital Signs Vital Sign - Last Date Time Temp Pulse Resp B/P Pulse Ox O2 Delivery O2 Flow Rate FiO2 11/27/16 14:51 82 11/27/16 14:43 36.5 16 91/55 97 11/27/16 14:31 Nasal Cannula 2 Lab and Diagnostics Result Diagram: 11/27/16 1150 11/27/16 1150 Assessment & Plan CC: Black tarry stools HPI: Mrs. Priest is an 81-year-old female with past medical history of CAD with 5 vessel CABG, hypertension, hyperlipidemia, diabetes, CHF, peripheral vascular disease, chronic kidney disease, GERD and PUD who presents to the emergency room with complaint of increased weakness and lethargy. The patient states that since she was discharged on 11/16/2016 she felt that she would progressively get better however she states that she has progressively gotten worse. This morning she woke up and felt weak and thought that if she ate something her strength would return but this was not the case. The patient later had a bowel movement and noticed that she had a black stools and then decided to go to the emergency room. When the patient arrived to the emergency room it was found that her hemoglobin was 6.6 with a hematocrit of 22.1. Dr. Meza from GI was consulted from the ED and the patient was admitted for a GI bleed. Patient currently denies any chest pain, abdominal pain, nausea, vomiting, diarrhea but does admit to black tarry stools. Home medications: Allopurinol 300 mg by mouth daily at bedtime Lumigan 1 drop both eyes Lansoprazole 30 mg daily Levothyroxine 25 g daily Metoprolol succinate ER 25 mg by mouth twice a day Multivitamin daily Potassium 20 mEq by mouth twice a day Pravastatin by mouth daily at bedtime Temazepam 30 mg by mouth daily daily at bedtime when necessary insomnia Nazarene 1-2 mg by mouth daily when necessary spasms Torsemide 40 mg daily Allergies: Statins PMHx: Coronary artery disease, with history of myocardial infarction x2 and CABG in 2001. Peripheral vascular disease Congestive heart failure, diastolic Chronic kidney disease Hypertension. Chronically elevated troponin. Hyperlipidemia. Diabetes mellitus type 2, insulin requiring. GERD with PUD and Schaefer's esophagus with recent bleeds requiring transfusion. Glaucoma. Carotid stenosis. Gout. Hypothyroidism. Chronic insomnia Bilateral renal artery stenosis.. Anemia. Prior DVT SHx: Glaucoma surgery Multiple stents and angioplasty for peripheral vascular disease CABG 5 vessel in 2001 FHx: Father: CAD, multiple MIs Mother: CAD SocHx: Occupation: Tobacco history: Former smoker, smoked half a pack to a pack per day for 50 years Alcohol use: 1-2 glasses of wine a week Drug use: Patient denies ROS: A complete review of systems was performed or attempted to be performed. Please see HPI for pertinent positives, all other systems are negatives. Physical Exam: GEN: Patient was awake, alert, responding appropriately to questions HEENT: Pupils equal round and reactive to light, extraocular eye muscles intact , Neck soft supple, trachea midline, nomocephalic/atraumatic CV: +S1/S2, regular rate and rhythm, no murmur auscultated Respiratory: CTAB, no wheezes, rales, rhonchi GI: +bowel sounds x4, soft, compressible, nontender to palpation EXT: no clubbing, cyanosis, edema Neuro: Cranial nerves II-XII grossly intact Psych: mood and affect were appropriate Assessment and Plan 81-year-old female with past medical history of CAD with 5 vessel CABG, hypertension, hyperlipidemia, diabetes type II, CHF, PVD, CAD, GERD and peptic ulcer disease admitted for GI bleed Acute blood loss anemia secondary to GI bleed, present on admission, active -Transfuse 2 units PRBC -GI has been consulted (Dr. Meza) -Protonix 40 mg twice a day -Clear liquid diet -Continue to monitor Diastolic CHF chronic, present on admission, stable -Continue torsemide 40 mg daily -Continue to monitor patient's fluid intake -Continue metoprolol succinate 25 mg twice a day -Nitrostat when necessary Hypothyroidism, chronic, stable -Continue patient's home dose of levothyroxine 25 g daily Hypertension, chronic, active -Continue patient's home dose of metoprolol succinate 25 mg twice a day -Continue to monitor History of gout, chronic, stable -Continue allopurinol 300 mg by mouth daily at bedtime History of hospital delirium with sundowning, chronic -Patient does have a history of hallucinating and sundowning during hospitalization -Temazepam 30 mg daily at bedtime when necessary insomnia Diet: Clear liquid DVT prophylaxis: SCDs as the patient currently has a GI bleed we will not do any medication DVT prophylaxis Code Status: Patient is a DNR/DNI however would like to continue with full interventions of blood transfusions, medications, IV fluids, and BiPAP if necessary. The patient's younger daughter Hilda understands and is in agreement with this plan however the older daughter Iris is not in agreement with this. As the patient is still completely competent and aware of her own decisions we will continue to follow the patient's wishes and keep her DNR/DNI with limitations. The patient explicitly stated that she does not want to have chest compressions were to be intubated/mechanically ventilated, but is okay with IV fluids, medications, blood transfusions, and BiPAP and all other measures up to the point of CPR and intubation. Disposition: Due to the nature of the patient's current diagnosis anticipated stay is greater than 2 midnight Time spent 60 minutes Kaylie Khanna DO Nov 27, 2016 15:30
[2016-11-27] MEDS ORDERED: TORS20TA3 PO (15:36)
--- NOTE | 2016-11-27 15:49 | PCM.ADCARE ---
Advance Care Planning Note Plan: Date: 11/27/2016 Purpose of encounter: Goals of care Parties in attendance: The patient, her daughters Hilda and Iris, the nurse Dr. Jey Josue Decisional capacity: Good Diagnosis: Acute blood loss anemia secondary to GI bleed CHF Hypertension CAD CABG with 5 vessel disease PVD GERD with peptic ulcer disease Plan: The patient is aware of the current diagnosis and would like to be DO NOT RESUSCITATE/DO NOT INTUBATE. The patient understands that no chest compressions will be done and the patient will not be intubated. The patient and family understands that no form of CPR will be attempted. Patient is a DNR/ DNI however would like to continue with full interventions of blood transfusions , medications, IV fluids, and BiPAP if necessary. The patient's younger daughter Hilda understands and is in agreement with this plan however the older daughter Iris is not in agreement with this. As the patient is still completely competent and aware of her own decisions we will continue to follow the patient's wishes and keep her DNR/DNI with limitations. The patient explicitly stated that she does not want to have chest compressions nor to be intubated/mechanically ventilated, but is okay with IV fluids, medications, blood transfusions, and BiPAP and all other measures up to the point of CPR and intubation.and are in agreement with this. CODE STATUS: DO NOT RESUSCITATE/DO NOT INTUBATE Time spent with advanced care planning: Greater than 16 minutes Kaylie Khanna DO Nov 27, 2016 15:49
[2016-11-27] MEDS ORDERED: Glucose 40% Oral Gel 15 Gm Tube PO PRN (16:15)
[2016-11-27] MEDS ORDERED: Dextrose 10% 250 ML IV PRN (16:15)
[2016-11-27] MEDS: Insulin LISPRO Low-Dose Scale SUBQ SCH ×2 (17:30→21:22)
[2016-11-27] MEDS: Pantoprazole 40 mg ER24 Tablet PO SCH (17:38)
--- NOTE | 2016-11-27 18:12 | NUR ---
Admission and Blood Admit to room 3016 from ER via gurney with 2 daughters at bedside. 2L O2 NC and ABX infusing, Very SOB with movement. Provider notified of arrival assessed. Consented for blood administration, Initiated 1 of 2 units PRBCs, tolerating at this time with adverse effects. Attempted multiple times to communicate with present family and received no eye contact or conversation. Pt comfortable with plan of care at this time.
[2016-11-27] MEDS: MeTOProlol XL 25 mg ER24 Tablet PO SCH (20:30)
[2016-11-28] VITALS (8 sets, daily range): BP systolic 110–131; BP diastolic 68–75; PULSE 77–97; RESP 18–20; O2SAT 90–95
--- NOTE | 2016-11-28 01:11 | NUR ---
NEURO/BEHAVIOR: PT. CONFUSED TONIGHT, KEEPS CALLING OUT FOR PEOPLE WHO ARENT THERE, DISORIENTED TO PLACE AND TIME, WRIST RESTRAINTS ON FOR SAFETY AND TO PROTECT IV. PT. GIVEN TEMAZEPAM AND FEBTANYL FOR RESTLESS LEGS, PT. STILL UNABLE TO SLEEP, PULSE OX ON, SATS LOW 90'S, PT. ON 2lO2. BLOOD TRANSFUSION COMPLETE.
[2016-11-28] MEDS ORDERED: Furosemide 10 mg/mL 2 mL Inj IVPUSH ONE (05:30)
--- NOTE | 2016-11-28 06:37 | NUR ---
resp/CHF: pt. c/o sob, pt. has chf, received 2 units rbc's, pt. appears to be working at breathing, needing to sit at edge of bed, 02 requirments increased from 2Lo2 to 4Lo2. hospitalist kajal, pt. given 20mg iv lasix, pt. voided, stated breathing was improved now on 3l oxymask sats 96%
[2016-11-28 06:44] LABS: BASOPHILS % (AUTO) 0.2 % (0-3); MONOCYTES % (AUTO) 6.4 % (4-12); Mean Corpuscular Hemoglobin 29.7 pg (27.0-35.0); Mean Corpuscular Volume 88.8 fL (81-100); NEUTROPHILS % (AUTO) 81.5 % (40-74); Platelet Count 297 bil/L (150-400)
[2016-11-28 06:57] LABS: Magnesium 2.2 mg/dL (1.6-2.6)
[2016-11-28] MEDS ORDERED: Potassium Chloride 20 mEq SR Tablet PO SCH (08:00)
[2016-11-28] MEDS: Pantoprazole 40 mg ER24 Tablet PO SCH ×2 (08:33→17:42)
[2016-11-28] MEDS: MeTOProlol XL 25 mg ER24 Tablet PO SCH ×2 (08:36→21:55)
[2016-11-28] MEDS: Insulin LISPRO Low-Dose Scale SUBQ SCH ×4 (08:37→22:00)
[2016-11-28] MEDS ORDERED: Furosemide 10 mg/mL 4 mL Inj IVPUSH ONE (08:50)
--- NOTE | 2016-11-28 15:23 | NUR ---
Social Work-initial assessment/ multidisciplinary rounds: Data:See initial assessment. Pt is a 81 y/o female who was admitted on 11/27/16 for symptomatic anemia per H&P. Pt's insurance is [employer] and PCP is Wendy Vance MD.EMR Reviewed. Pt's readmission score is 2. SW placed a call to daughter Iris Dinero, to discuss discharge planning, SW role explained. Pt has been residing at home with daughter Hilda [phone] who has been providing care. Daughter is from [place] and will need to be returning home soon. Pt uses a [facility] at baseline and does not drive. Pt is currently open with [facility] for Rn and Pt services, SW awaiting an MD order for resume HH. Pt has SNF history at [facility]. Pt has no longterm care insurance or VA benefits. SW discussed DPOA/ advanced directive, this has been completed this, encouraged a copy to be brought in. Pt is on Home O2 through . Pt also has local son Livan Priest [phone] who helps take pt to appointments,etc. Daughter states they feel like pt has been progressively getting weaker and feel like pt may need a higher level of care. SW explained that PT could see pt and then SW could follow up. SW explained that family may need to start looking into higher level of care for pt, BONNY,etc. SW provided them with discharge planning checklist and encouraged them to call with any questions,phone number provided. SW will continue to follow. Assessment:pt who is independent at baseline. Plan:Pt to discharge home when medically stable. Pt to likely benefit from PT evaluation. SW to await MD order for HH Services resumed. SW will continue to follow. DORIAN Rollins Addendum: 11/28/16 at 1537 by TAY PAZ Amended: Links added.
--- NOTE | 2016-11-28 16:30 | PCM.PNMED ---
Subjective Date of Service Nov 28, 2016 Subjective Patient was seen and examined at bedside today. Patient denies any chest pain, nausea, vomiting, diarrhea. Patient currently on oxygen mask 4 L and stated that she felt more short of breath and did not understand why. Overnight events: Patient received blood overnight however started to feel more fluid overloaded in short of breath. Patient got her dose of torsemide at 4 in the morning Exam Vital Signs Vital Sign - Last Date Time Temp Pulse Resp B/P Pulse Ox O2 Delivery O2 Flow Rate FiO2 11/28/16 13:03 36.5 89 19 110/75 92 Nasal Cannula 3.00 Intake and Output 11/27/16 11/27/16 11/28/16 Cumulative From/Thru 15:00 23:00 07:00 11/27/16 11:41 - 11/28/16 02:24 Intake Total 500 ml 400 ml 900 ml Output Total 100 ml 100 ml Balance 400 ml 400 ml 800 ml Intake Oral 500 ml 500 ml IV Total 100 ml 100 ml Packed Cells 300 ml 300 ml Output Urine Total 100 ml 100 ml # Voids 2 2 # Bowel Movements 2 2 Exam Physical Exam: GEN: Patient was awake, alert, responding appropriately to questions, mild distress HEENT: Pupils equal round and reactive to light, extraocular eye muscles intact , Neck soft supple, trachea midline, nomocephalic/atraumatic CV: Tachycardic, no murmur auscultated Respiratory: +wheezes, no rales or rhonchi, decreased lung sounds positive crackles in the lung bases GI: +bowel sounds x4, soft, compressible, nontender to palpation EXT: no clubbing, cyanosis, edema Neuro: Cranial nerves II-XII grossly intact Psych: mood and affect were appropriate IVs and Medications Medications Reviewed: Medications were reviewed in detail Lab and Diagnostics Result Diagram: 11/28/16 0600 11/28/16 0600 Assessment & Plan 81-year-old female with past medical history of CAD with 5 vessel CABG, hypertension, hyperlipidemia, diabetes type II, CHF, PVD, CAD, GERD and peptic ulcer disease admitted for GI bleed Acute blood loss anemia secondary to GI bleed, present on admission, active -Transfuse 2 units PRBC (11/27/16) -GI has been consulted (Dr. Meza) -Protonix 40 mg twice a day -Clear liquid diet -Continue to monitor Diastolic CHF chronic, present on admission, stable -Continue torsemide 60 mg daily -Continue to monitor patient's fluid intake -Continue metoprolol succinate 25 mg twice a day -Patient received 60 mg of Lasix one-time dose today -Nitrostat when necessary Hypothyroidism, chronic, stable -Continue patient's home dose of levothyroxine 25 g daily Hypertension, chronic, active -Continue patient's home dose of metoprolol succinate 25 mg twice a day -Continue to monitor History of gout, chronic, stable -Continue allopurinol 300 mg by mouth daily at bedtime History of hospital delirium with sundowning, chronic -Patient does have a history of hallucinating and sundowning during hospitalization -Temazepam 30 mg daily at bedtime when necessary insomnia Diet: Clear liquid DVT prophylaxis: SCDs as the patient currently has a GI bleed we will not do any medication DVT prophylaxis Code Status: Patient is a DNR/DNI however would like to continue with full interventions of blood transfusions, medications, IV fluids, and BiPAP if necessary. The patient's younger daughter Hilda understands and is in agreement with this plan however the older daughter Iris is not in agreement with this. As the patient is still completely competent and aware of her own decisions we will continue to follow the patient's wishes and keep her DNR/DNI with limitations. The patient explicitly stated that she does not want to have chest compressions were to be intubated/mechanically ventilated, but is okay with IV fluids, medications, blood transfusions, and BiPAP and all other measures up to the point of CPR and intubation. Disposition: This morning the patient needed to have an increase in her oxygen needs and she went from nasal cannula 2 L to 4 L of oxygen mask. This is most likely secondary to volume overload from the blood transfusion that she received yesterday. The patient was given an extra dose of Lasix today and seems to be improving since this dose. We will continue to monitor the patient. The patient also had a mildly elevated white blood cell count which could be stress reaction. We will follow-up with a procalcitonin and trend her white blood cell count. VTE Mechanical Devices: Intermittant Pneumatic CD Kaylie Khanna DO Nov 28, 2016 16:30
--- NOTE | 2016-11-28 17:16 | NUR ---
O2 Needs/Activity Pt on 3L oxymask this AM with CPOX satting around 93% Pt reporting some SOB with audible crackles in bases of lungs. paged to update -new order for Lasix IV. Pt later reports improvement in breathing, denies SOB at rest, no audible crackles - lung sounds clear, SpO2 improved to around 97%. O2 titrated down to 1.5L via NC, satting at 94%. Pt requested to go on short walk. Assisted with FWW, steady on feet with device. SpO2 decreasing down to 85%. Increased O2 to 3L, satting at 88%. Pt reports being SOB and tired. Placed pt in chair in hallway. WC escort back to room. Pt back to 2L for comfort, SOB resolved, satting at 92%.
[2016-11-28] MEDS: Multivit-Miner-Folic Acid-Iron Tablet PO SCH (17:42)
--- NOTE | 2016-11-28 17:50 | NUR ---
Assumed care of pt Assumed care of pt from IGNACIO Salguero. Pt sleeping, appears comfortable and in no distress. 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
[2016-11-29] VITALS (9 sets, daily range): BP systolic 110–136; BP diastolic 61–75; PULSE 75–86; RESP 18–21; O2SAT 94–99
[2016-11-29 03:20] LABS: Mean Corpuscular Hemoglobin 29.1 pg (27.0-35.0); Mean Corpuscular Volume 89.7 fL (81-100)
--- NOTE | 2016-11-29 06:30 | NUR ---
Activity/O2 demand Patient at 1.5-2L O2/NC through night. Crackles to RLL. Sitter remains at bedside. Patient confused and restless for a couple hours between [id number], reoriented by morning. Consider half dose or holding tamazepam and giving tylenol and flexeril to help with restless legs and facilitate sleep. BG 135 at bedtime, no coverage given. Ambulating in hallway with walker and sitter x3 times through shift.
[2016-11-29] MEDS: Insulin LISPRO Low-Dose Scale SUBQ SCH ×4 (08:00→21:29)
[2016-11-29] MEDS: Pantoprazole 40 mg ER24 Tablet PO SCH ×2 (09:40→17:21)
[2016-11-29] MEDS: MeTOProlol XL 25 mg ER24 Tablet PO SCH ×2 (09:40→21:22)
[2016-11-29 13:01] LABS: BASOPHILS % (AUTO) 0.1 % (0-3); EOSINOPHILS % (AUTO) 2.4 % (0-5); MONOCYTES % (AUTO) 7.2 % (4-12); Mean Corpuscular Hemoglobin 29.2 pg (27.0-35.0); Mean Corpuscular Volume 91.1 fL (81-100); NEUTROPHILS % (AUTO) 74.1 % (40-74); Platelet Count 284 bil/L (150-400)
--- NOTE | 2016-11-29 13:15 | PCM.CHPMED ---
Subjective Date of Service: Nov 29, 2016 Provider requesting consult: Kaylie Khanna DO Primary Physician: Admitting Physician: Kaylie Khanna DO Primary Care Physician: Wendy Vance MD Attending Physician: Kaylie Khanna DO Chief Complaint: Chief Complaint: Black tarry stools History of Present Illness: Mrs. Priest is an 81-year-old female with a history of CAD with CABG, hypertension , diabetes, combined diastolic and systolic heart failure, chronic kidney disease, GERD and PUD who presented to the emergency room with the complaint of black colored stool for 2-3 days. Associated symptoms include generalized weakness, fatigue, shortness of breath, and dizziness. Patient has had multiple admissions in the last few months including admissions in October where two EGDs and two colonoscopies were negative for a source for the bleeding. Additionally a tagged RBC scan on 11/01 was negative. She states that her symptoms have improved and she feels that her shortness of breath is at baseline. She reports leg cramps and feelings of restlessness that are intolerable at times. She denies a history or similar symptoms in the past but states that she can barely stand it. She denies recent changes in diet or medications and does not take NSAIDs. Of note she was admitted recently for acute exacerbation of heart failure and discharged on 11/16. She states that she was feeling better until two days ago when she developed dizziness and fatigue associated with black stool. At the time of admission she was found to have a hemoglobin of 6.6 and received two units of pRBCs after which her hemoglobin improved. GI consulted for further evaluation of acute on chronic upper GI bleed. Review of Systems: A comprehensive review of systems was conducted with the patient and found to be negative except as above in the History of Present Illness. PMH Past Medical History Coronary artery disease, with history of myocardial infarction x2 and CABG in 2001. Peripheral vascular disease Combined systolic and diastolic congestive heart failure, NYHA class 4 Ischemic cardiomyopathy Chronic kidney disease Hypertension. Chronically elevated troponin. Hyperlipidemia. Diabetes mellitus type 2, insulin requiring. GERD with PUD and Schaefer's esophagus with recent bleeds requiring transfusion. Glaucoma. Carotid stenosis. Gout. Hypothyroidism. Chronic insomnia Bilateral renal artery stenosis.. Anemia. Prior DVT . Bedside Blood Glucose: 135 Surgical History Glaucoma surgery Multiple stents and angioplasty for peripheral vascular disease CABG 5 vessel in 2001 . Home Medications Allopurinol 300 mg by mouth daily at bedtime Lumigan 1 drop both eyes Lansoprazole 30 mg daily Levothyroxine 25 g daily Metoprolol succinate ER 25 mg by mouth twice a day Multivitamin daily Potassium 20 mEq by mouth twice a day Pravastatin by mouth daily at bedtime Temazepam 30 mg by mouth daily daily at bedtime when necessary insomnia Nazarene 1-2 mg by mouth daily when necessary spasms Torsemide 40 mg daily . Allergies: Coded Allergies: simvastatin (Unverified Allergy, Unknown, sore shoulders, 11/09/16) clopidogrel (Verified Adverse Reaction, Intermediate, GI BLEED X 2, ) rofecoxib (Verified Adverse Reaction, Intermediate, DIARRHEA, 11/27/16) Boopyff-Cqe-Tlb Reductase Inhibitor (Verified Adverse Reaction, Mild, SORE SHOULDERS - TOLERATES PRAVASTATIN, 11/27/16) can tolerate pravastatin rosuvastatin (Verified Adverse Reaction, Mild, SORE SHOULDERS - TOLERATES PRAVASTATIN, 11/27/16) cilostazol (Unverified Adverse Reaction, Unknown, HEADACHE, DIZZINESS, DIARRHEA, 11/27/16) Family History Family History . Father: CAD, multiple MIs Mother: CAD . Social History Hx Alcohol Use: Yes (1-2/week)Hx Substance Use: NoHx Tobacco Use: Yes (50 years of 1/2 to 1 ppd) Smoking Status: Former Smoker Exam Vital Signs Vital Sign - Last Date Time Temp Pulse Resp B/P Pulse Ox O2 Delivery O2 Flow Rate FiO2 11/29/16 07:14 36.6 78 18 136/75 99 Nasal Cannula 2.00 Intake and Output 11/28/16 11/28/16 11/29/16 Cumulative From/Thru 15:00 23:00 07:00 11/27/16 11:41 - 11/29/16 03:36 Intake Total 550 ml 720 ml 2170 ml Output Total 675 ml 1400 ml 2175 ml Balance -125 ml -680 ml -5 ml Intake Oral 550 ml 720 ml 1770 ml IV Total 100 ml Packed Cells 300 ml Output Urine Total 675 ml 1400 ml 2175 ml # Voids 3 5 # Bowel Movements 1 1 4 General: Elderly female sitting up in bed in no acute distress. Appropriately interactive HEENT: Normocephalic, atraumatic. PERRLA, Anicteric sclerae. Mucosa moist/pink. Cardiovascular: Regular rate and rhythm with no murmurs, rubs, or gallops Pulmonary: Bibasilar crackles, no wheezing or rhonchi. Normal respiratory effort with no use of accessory muscles. Abdomen: Bowel tones present. Soft, nontender, nondistended. No masses. Extremities: No edema or cyanosis. Distal pulses equal/intact bilaterally. Skin: Warm, dry. No rash or ulcerations. Neurological: Cranial nerves grossly intact. No focal motor or sensory deficit. Alert and oriented x3. Psychiatric: Normal mood and affect. Lab and Diagnostics Labs Laboratory Tests Test 11/29/16 03:05 White Blood Count 9.0th/mm3 (3.8-10.1) Red Blood Count 3.30mil/mm3 (3.90-5.20) Hemoglobin 9.6g/dL (12.0-15.6) Hematocrit 29.6% (35.0-46.0) Mean Corpuscular Volume 89.7fL (81-100) Mean Corpuscular Hemoglobin 29.1pg (27.0-35.0) Mean Corpuscular Hemoglobin Concent 32.4% (32.0-37.0) Red Cell Distribution Width 16.0% (12.3-15.4) Platelet Count 274bil/L (150-400) Sodium Level 134mEq/L (134-144) Potassium Level 3.9mEq/L (3.5-5.2) Chloride Level 91mEq/L (97-108) Carbon Dioxide Level 28mmol/L (18-29) Blood Urea Nitrogen 45mg/dL (8-27) Creatinine 1.36mg/dL (0.57-1.00) Estimat Glomerular Filtration Rate 53mL/min (>59) Glucose Level 127mg/dL (60-99) Calcium Level 8.7mg/dL (8.5-10.1) Total Bilirubin 0.5mg/dL (0.0-1.2) Aspartate Amino Transf (AST/SGOT) 17U/L (0-50) Alanine Aminotransferase (ALT/SGPT) 7U/L (0-32) Alkaline Phosphatase 78U/L (25-165) Total Protein 6.9g/dL (6.4-8.4) Albumin 2.9g/dL (3.4-5.0) Procalcitonin 0.17ng/mL (0.00-0.08) Microbiology 11/27/16 Blood Culture - NO GROWTH AFTER 24 HOURS 11/27/16 Urine Culture - Enterobacter Cloacae Complex Result Diagram: 11/29/16 0305 11/29/16 0305 Additional Diagnostics: 11/05/2016 EGD: Normal upper endoscopy, without evidence of overt signs of bleeding 11/06/2016 Colonoscopy.Sigmoid and ascending colon moderate diverticulosis, otherwise no overt signs of gastrointestinal bleed. 10/21/2016 EDG: Normal upper endoscopy exam to second portion of duodenum. No findings to explain anemia and melena. 10/22/2016 Colonoscopy. Normal appearing terminal ileum. No old or fresh blood was seen in the terminal ileum. Scattered diverticula were seen throughout the entire colon. No old or fresh blood was seen in the colon. Retroflexed views in the rectum were unremarkable. 11/01/16 tagged RBC- negative scan for active bleeding at this time. No abnormal scintigraphic foci are seen. No appearing or disappearing foci of scintigraphic activity. Assessment & Plan Assessment 81-year-old female with a history of CAD with CABG, hypertension, diabetes, combined diastolic and systolic heart failure, chronic kidney disease, GERD and PUD who presented to the emergency room with the complaint of black colored stool for 2-3 days. Patient with multiple hospital admissions in the last several months with tagged RBC scan as well as EGD and colonsocopy x2 negative for source of bleeding. She is status post 2 units of pRBCs on 11/27 for a hemoglobin of 6.6 and H/H has remained stable. GI consulted for further evaluation of acute on chronic upper GI bleed. Acute on chronic upper GI bleeding. -Unknown source for bleeding in patient with two EGDs and colonosopies recently that were negative. -Differential includes but is not limited to: gastric and/or duodenal ulcers, erosive gastritis, H. pylori infection, neoplasms and/or vascular ectasias. -It is likely that the patient has intermittent bleeding from the small bowel, not visualized via endoscopy. -Due to patient significant comorbidities and recent multiple negative endoscopies last month do no recommend repeat EGD at this time. Discussed the potential information to be gained from a tagged RBC scan while the patient is actively bleeding and the patient declined. RECOMMENDATIONS: -Continue protonix 40mg bid -Discussed the possibility of repeat tagged RBC scan with the patient while she is having melena and patient refusing at this time. She states that when she had this test done in October something happened to her mentally and she really does not think she can stand that again. -For now will monitor H/H, repeat CBC ordered. At this point another EGD is questionable. With 2 prior negative EGDs, he will for finding something would be quite low. We will review the PillCam again. -Clear liquid diet Acute blood loss anemia secondary to GI bleed -s/p 2 units pRBCs and Hb/Hct stable -Management as above I saw and examined the patient. Agree with above. Problems: VTE Mechanical Devices: Intermittant Pneumatic CD Marina Carroll DO Nov 29, 2016 07:36 Monty Meza MD Nov 30, 2016 08:31 Marina Carroll DO Nov 29, 2016 07:36
--- NOTE | 2016-11-29 13:26 | PCM.PNMED ---
Subjective Date of Service Nov 29, 2016 Subjective Patient was seen and examined at bedside today. Patient denies any chest pain, shortness of breath, nausea, vomiting, diarrhea. The patient states that she has not had any further tarry stools but reports that she has not had a bowel movement today or yesterday. The patient also has some concerns that she may not be strong enough to return home and potentially would like a prison facility. Some of this information is coming from her daughter however we will further explore with the patient privately to see if this is what she wants. The patient states that she is no longer short of breath as she was yesterday and feels that her CHF seems to be more under control today. Overnight events: Patient had some owning overnight and needed a sitter. Exam Vital Signs Vital Sign - Last Date Time Temp Pulse Resp B/P Pulse Ox O2 Delivery O2 Flow Rate FiO2 11/29/16 11:53 36.4 83 20 114/61 94 Nasal Cannula 2.00 Intake and Output 11/28/16 11/28/16 11/29/16 Cumulative From/Thru 15:00 23:00 07:00 11/27/16 11:41 - 11/29/16 03:36 Intake Total 550 ml 720 ml 2170 ml Output Total 675 ml 1400 ml 2175 ml Balance -125 ml -680 ml -5 ml Intake Oral 550 ml 720 ml 1770 ml IV Total 100 ml Packed Cells 300 ml Output Urine Total 675 ml 1400 ml 2175 ml # Voids 3 5 # Bowel Movements 1 1 4 Exam Physical Exam: GEN: Patient was awake, alert, responding appropriately to questions HEENT: Pupils equal round and reactive to light, extraocular eye muscles intact , Neck soft supple, trachea midline, nomocephalic/atraumatic CV: +S1/S2, regular rate and rhythm, no murmurs auscultated Respiratory: CTAB, no wheezes, rales, rhonchi GI: +bowel sounds x4, soft, compressible, nontender to palpation EXT: no clubbing, cyanosis, edema Neuro: Cranial nerves II-XII grossly intact Psych: mood and affect were appropriate IVs and Medications Medications Reviewed: Medications were reviewed in detail Lab and Diagnostics Result Diagram: 11/29/16 1257 11/29/16 4833 Assessment & Plan 81-year-old female with past medical history of CAD with 5 vessel CABG, hypertension, hyperlipidemia, diabetes type II, CHF, PVD, CAD, GERD and peptic ulcer disease admitted for GI bleed Acute blood loss anemia secondary to GI bleed, present on admission, active -Transfuse 2 units PRBC (11/27/16) -GI has been consulted (Dr. Meza) -Protonix 40 mg twice a day -Clear liquid diet -Continue to monitor Diastolic CHF chronic, present on admission, stable -Continue torsemide 60 mg daily -Continue to monitor patient's fluid intake -Continue metoprolol succinate 25 mg twice a day -Patient received 60 mg of Lasix one-time dose (11/29/16) -Nitrostat when necessary Hypothyroidism, chronic, stable -Continue patient's home dose of levothyroxine 25 g daily Hypertension, chronic, active -Continue patient's home dose of metoprolol succinate 25 mg twice a day -Continue to monitor History of gout, chronic, stable -Continue allopurinol 300 mg by mouth daily at bedtime History of hospital delirium with sundowning, chronic -Patient does have a history of hallucinating and sundowning during hospitalization -Temazepam 30 mg daily at bedtime when necessary insomnia Diet: Clear liquid DVT prophylaxis: SCDs as the patient currently has a GI bleed we will not do any medication DVT prophylaxis Code Status: Patient is a DNR/DNI however would like to continue with full interventions of blood transfusions, medications, IV fluids, and BiPAP if necessary. Correction to the previous statement the patient's younger daughter Hilda is not in agreement with this treatment however the older daughter Iris is in agreement with her mother's decision and Iris is the one who would make any medical decisions should the patient not be able to decide on her own. As the patient is still completely competent and aware of her own decisions we will continue to follow the patient's wishes and keep her DNR/DNI with limitations. The patient explicitly stated that she does not want to have chest compressions or to be intubated/mechanically ventilated, but is okay with IV fluids, medications, blood transfusions, and BiPAP and all other measures up to the point of CPR and intubation. Disposition: At this time the patient seems to be stabilizing. GI has proposed performing a few tests for the patient and she will decide if she is going to go through with these tests. The patient does state that she is feeling a little weak and may need to have a short stay at a prison facility. The family is concerned as the patient does have sundowning and they may need to have nighttime caregivers for her but she does very well during the day. At this time the patient will have a sitter at night but will be fine during the day not to have sitter. Patient is currently progressing well and is on as her H&H remained stable she should be ready to be discharged in the next 1-2 days. VTE Mechanical Devices: Intermittant Pneumatic CD Kaylie Khanna DO Nov 29, 2016 13:26
--- NOTE | 2016-11-29 15:00 | NUR ---
Evaluation completed. Please go to "Notes" then click on "Assessments and Notes" (bottom left corner of screen). Then select appropriate discipline tab on top of screen.
--- NOTE | 2016-11-29 16:39 | NUR ---
Social Work-continued d/c planning: Data:EMR reviewed. Pt is on day 2 of hospitalization for symtomatic anemia per H&P. Pt is not medically stable for discharge. MD has placed order for PT. PT has seen pt and recommended home with HH services, pt ambulated 150ft. SW awaiting MD order for resume HH services. SW to follow up with pt and family tomorrow. SW will continue to follow. Assessment:Pt who would benefit from resume HH. Plan:Pt to discharge home when medically stable via POV. SW to follow up with pt and family tomorrow. SW to wait on MD orders for resume HH services. SW will continue to follow. DORIAN Rollins
[2016-11-29] MEDS: Multivit-Miner-Folic Acid-Iron Tablet PO SCH (17:21)
--- NOTE | 2016-11-29 18:42 | NUR ---
Activity Pt reported having a little restless leg syndrome during the AM. Asked to go on some walks. O2 kept on/increased to 3L when ambulating. Pt gets tired easily, recommend keeping WC ready in case pt gets tired. Pt tolerated getting up several times during day shift and reported being up several times during night - all without incident. Pt weak but steady with FWW, no SOB exacerbations. Sitter relieved/DCd for day shift at 1400 per orders. Pt cooperative during day w/o incident. Sitter to return for NOC shift.
[2016-11-29] MEDS ORDERED: SODIUM CHLORIDE 0.9% IV ONE (22:10)
[2016-11-29] MEDS ORDERED: IRON SUCROSE IV ONE (22:10)
[2016-11-29] MEDS ORDERED: SODIUM CHLORIDE IV ONE ×2 (22:10)
[2016-11-29] MEDS ORDERED: SODIUM FERRIC GLUCONATE COMPLEX IV ONE ×2 (22:10)
[2016-11-29] MEDS ORDERED: 0.9% Sodium Chloride 250 ML ONE (22:55)
[2016-11-30] VITALS (10 sets, daily range): BP systolic 91–128; BP diastolic 54–72; PULSE 79–89; RESP 14–20; O2SAT 85–98
--- NOTE | 2016-11-30 05:52 | NUR ---
Ambulation / Mentation Walked in hallway x3 or 900ft. Steady on 2L O2 and fww. Oriented x3, able to sleep 4 hours
[2016-11-30 07:19] LABS: Mean Corpuscular Hemoglobin 29.2 pg (27.0-35.0); Mean Corpuscular Volume 91.4 fL (81-100)
[2016-11-30] MEDS ORDERED: Potassium Chloride 20 mEq SR Tablet PO ONE (08:45)
[2016-11-30] MEDS ORDERED: KCl 40 mEq/D5W 500 mL 40 MEQ in IV Premix 1 EACH IV ONE (08:45)
[2016-11-30] MEDS: Insulin LISPRO Low-Dose Scale SUBQ SCH ×4 (09:01→20:23)
[2016-11-30] MEDS: Pantoprazole 40 mg ER24 Tablet PO SCH ×2 (09:01→16:53)
[2016-11-30] MEDS: MeTOProlol XL 25 mg ER24 Tablet PO SCH ×2 (09:30→20:20)
[2016-11-30] MEDS: cefTRIAXone Inj 2,000 MG in Dextrose 5% Minibag Plus 50 ML IV SCH (09:47)
--- NOTE | 2016-11-30 11:00 | NUR ---
Ectopy MD aware of occassional PVCs and trigeminy. No new orders. Monitor. VSS.
--- NOTE | 2016-11-30 11:51 | PCM.PNMED ---
Subjective Date of Service Nov 30, 2016 Subjective GASTROENTEROLOGY PROGRESS NOTE: Attending Physician: Monty Meza MD Resident Physician: Marina Carroll DO No acute events overnight. Patient states that she is feeling much better. She is sitting at the side of the bed and denies chest pain, shortness of breath, abdominal pain, nausea, vomiting, diarrhea or constipation. Exam Vital Signs Vital Sign - Last Date Time Temp Pulse Resp B/P Pulse Ox O2 Delivery O2 Flow Rate FiO2 11/30/16 10:17 84 11/30/16 09:10 36.6 20 96 Nasal Cannula 2.00 11/30/16 08:55 114/58 Intake and Output 11/29/16 11/29/16 11/30/16 Cumulative From/Thru 15:00 23:00 07:00 11/27/16 11:41 - 11/30/16 06:30 Intake Total 450 ml 1400 ml 990 ml 5010 ml Output Total 900 ml 1625 ml 400 ml 5100 ml Balance -450 ml -225 ml 590 ml -90 ml Intake Oral 450 ml 1400 ml 880 ml 4500 ml IV Total 110 ml 210 ml Packed Cells 300 ml Output Urine Total 900 ml 1625 ml 400 ml 5100 ml # Voids 4 9 # Bowel Movements 0 0 4 Exam General: Elderly female sitting up in bed in no acute distress. Appropriately interactive HEENT: Normocephalic, atraumatic. PERRLA. Mucosa moist/pink. Cardiovascular: Regular rate and rhythm with no murmurs, rubs, or gallops Pulmonary: Bibasilar crackles, no wheezing or rhonchi. Normal respiratory effort with no use of accessory muscles. Abdomen: Bowel tones present. Soft, nontender, nondistended. No masses. Extremities: No edema or cyanosis. Distal pulses equal/intact bilaterally. Skin: Warm, dry. No rash or ulcerations. IVs and Medications Medications Reviewed: Medications were reviewed in detail Lab and Diagnostics Laboratory Tests Test 11/29/16 12:57 11/30/16 06:42 White Blood Count 7.5th/mm3 (3.8-10.1) 7.1th/mm3 (3.8-10.1) Red Blood Count 3.25mil/mm3 (3.90-5.20) 3.25mil/mm3 (3.90-5.20) Hemoglobin 9.5g/dL (12.0-15.6) 9.5g/dL (12.0-15.6) Hematocrit 29.6% (35.0-46.0) 29.7% (35.0-46.0) Mean Corpuscular Volume 91.1fL (81-100) 91.4fL (81-100) Mean Corpuscular Hemoglobin 29.2pg (27.0-35.0) 29.2pg (27.0-35.0) Mean Corpuscular Hemoglobin Concent 32.1% (32.0-37.0) 32.0% (32.0-37.0) Red Cell Distribution Width 16.0% (12.3-15.4) 16.0% (12.3-15.4) Platelet Count 284bil/L (150-400) 262bil/L (150-400) Neutrophils (%) (Auto) 74.1% (40-74) Lymphocytes (%) (Auto) 15.5% (14-46) Monocytes (%) (Auto) 7.2% (4-12) Eosinophils (%) (Auto) 2.4% (0-5) Basophils (%) (Auto) 0.1% (0-3) Sodium Level 135mEq/L (134-144) Potassium Level 3.3mEq/L (3.5-5.2) Chloride Level 93mEq/L (97-108) Carbon Dioxide Level 27mmol/L (18-29) Blood Urea Nitrogen 29mg/dL (8-27) Creatinine 1.16mg/dL (0.57-1.00) Estimat Glomerular Filtration Rate 64mL/min (>59) Glucose Level 136mg/dL (60-99) Calcium Level 8.5mg/dL (8.5-10.1) Total Bilirubin 0.4mg/dL (0.0-1.2) Aspartate Amino Transf (AST/SGOT) 18U/L (0-50) Alanine Aminotransferase (ALT/SGPT) 7U/L (0-32) Alkaline Phosphatase 76U/L (25-165) Pro-B-Type Natriuretic Peptide 9771pg/mL (0-738) Total Protein 6.3g/dL (6.4-8.4) Albumin 3.2g/dL (3.4-5.0) Procalcitonin 0.14ng/mL (0.00-0.08) Microbiology 11/27/16 Blood Culture - No growth at 2 days 11/27/16 Urine Culture - Enterobacter Cloacae Complex Result Diagram: 11/30/16 0642 11/30/16 0642 Assessment & Plan 81-year-old female with a history of CAD with CABG, hypertension, diabetes, combined diastolic and systolic heart failure, chronic kidney disease, GERD and PUD who presented to the emergency room with the complaint of black colored stool for 2-3 days. Patient with multiple hospital admissions in the last several months with tagged RBC scan as well as EGD and colonsocopy x2 negative for source of bleeding. She is status post 2 units of pRBCs on 11/27 for a hemoglobin of 6.6 and H/H has remained stable. GI consulted for further evaluation of acute on chronic upper GI bleed. Acute on chronic upper GI bleeding. -Unknown source for bleeding in patient with two EGDs and colonosopies recently that were negative. -It is likely that the patient has intermittent bleeding from the small bowel, not visualized via endoscopy. I told the patient about going down to [facility] and pain other workup including double balloon enteroscopy. -At this point, EGD I think would be very low yield with stable hemoglobin.The patient declined. I think one of the things that we can do this if when or if she comes in with another melena and low hemoglobin, draining a capsule endoscopy immediately during the hospitalization may give us the highest yield. - Patient to follow up with Dr. العلي next week. I saw and examined the patient. Agree with above. Pain Evaluation: Adequate Pain Control VTE Mechanical Devices: Intermittant Pneumatic CD Marina Carroll DO Nov 30, 2016 11:45 Monty Meza MD Nov 30, 2016 13:07 -Discussed the possibility of repeat tagged RBC scan with the patient while she is having melena and patient refusing at this time. She states that when she had this test done in October something happened to her mentally and she really does not think she can stand that again. -For now will monitor H/H, repeat CBC ordered. At this point another EGD is questionable. With 2 prior negative EGDs, he will for finding something would be quite low. We will review the PillCam again. -Clear liquid diet Acute blood loss anemia secondary to GI bleed -s/p 2 units pRBCs and Hb/Hct stable -Management as above Pain Evaluation: Adequate Pain Control VTE Mechanical Devices: Intermittant Pneumatic CD Marina Carroll DO Nov 30, 2016 11:45
--- NOTE | 2016-11-30 13:49 | NUR ---
GI Per GI around noon, pt may eat general diet at this time. Pt alert and oriented but enedina on. Denies pain. VSS. Family at bedside. Will continue to monitor.
--- NOTE | 2016-11-30 14:02 | NUR ---
Social Work-readiness for discharge/multidisciplinary rounds: Data:EMR reviewed. Pt is on day 3 of hospitalization for symptomatic anemia per H&P. Pt is not medically stable anticipate 1-2 more days. Pt resides at home. PT has seen pt and recommended home with HH services, pt ambulating 150ft. order received for resume HH services. MARGARET updated Rob [facility] with [facility] of pt's admission. SW spoke with pt and daughter Hilda at bedside, SW role explained. SW explained recommendation from PT of home with HH services and that pt's insurance will not authorize SNF placement at this time. Pt's daughter Hilda planning on being in town for another week and then will be back in about a month. SW offered [facility] guidebook and informed them private pay caregiving assistance or assisted living. Pt and daughter accepting of resource. Family also wanting SW to call [employer], SW called and transferred call into the room. SW called daughter Iris and also provided her with same update as information above, she is agreeable to plan. Pt will need resume HH orders at discharge. SW will continue to follow. Assessment:Pt who would benefit from resume HH. Plan:Pt to discharge back home with family support when medically stable. Pt will need resume HH orders through [facility]. [facility] guidebook also provided. SW will continue to follow. DORIAN Rollins
--- NOTE | 2016-11-30 15:45 | PCM.PNMED ---
Subjective Date of Service Nov 30, 2016 Subjective Patient feeling better with improved cognition and sitting up at the side of her bed today. She denies shortness of breath, chest pain, abdominal pain, nausea or vomiting. She is ambulating to the bathroom instead of using the bedside commode but didnt have a BM yesterday since she has not been eating much (liquid diet). She still complains of restless legs at night and cramping sensation in her feet, worse on the right compared to the left; walking improves this. When discussing placement with her, she prefers to go home instead of transfer to a SNF but worries about causing any inconvenience to her children who have offered to stay with her overnight. Overnight events: She slept 4 hrs yesterday and no report of . Exam Vital Signs Vital Sign - Last Date Time Temp Pulse Resp B/P Pulse Ox O2 Delivery O2 Flow Rate FiO2 11/30/16 12:50 36.4 79 20 123/68 98 Nasal Cannula 2.00 Intake and Output 11/29/16 11/29/16 11/30/16 Cumulative From/Thru 15:00 23:00 07:00 11/27/16 11:41 - 11/30/16 06:30 Intake Total 450 ml 1400 ml 990 ml 5010 ml Output Total 900 ml 1625 ml 400 ml 5100 ml Balance -450 ml -225 ml 590 ml -90 ml Intake Oral 450 ml 1400 ml 880 ml 4500 ml IV Total 110 ml 210 ml Packed Cells 300 ml Output Urine Total 900 ml 1625 ml 400 ml 5100 ml # Voids 4 9 # Bowel Movements 0 0 4 Exam GEN: Patient was awake, alert, responding appropriately to questions, NAD HEENT: Pupils equal round and reactive to light, extraocular eye muscles intact. Neck soft supple, trachea midline, nomocephalic/atraumatic CV: +S1/S2, regular rate and rhythm, no murmurs auscultated Respiratory: CTAB, no wheezes, rales, rhonchi GI: +bowel sounds x4, soft, compressible, nontender to palpation EXT: no clubbing, cyanosis, edema Neuro: Cranial nerves II-XII grossly intact Psych: mood and affect were appropriate IVs and Medications Medications Reviewed: Medications were reviewed in detail Lab and Diagnostics Result Diagram: 11/30/1664111/30/16641 Assessment & Plan 81-year-old female with past medical history of CAD with 5 vessel CABG, hypertension, hyperlipidemia, diabetes type II, CHF, PVD, CAD, GERD and peptic ulcer disease admitted for GI bleed Acute blood loss anemia secondary to GI bleed, present on admission, active -Transfused 2 units PRBC (11/27/16) -GI has been consulted (Dr. Meza) - patient refuses tagged RBC test due to extended period of immobility. Patient to follow up with Dr. Bradley next week. -Continue Protonix 40 mg twice a day -Advance her diet as tolerated -Continue to monitor Hypokalemia secondary to medication adverse effects -IV potassium and PO replacement -Check electrolytes in morning Diastolic CHF chronic, present on admission, stable -BNP trending down -Continue torsemide 60 mg daily -Continue to monitor patient's fluid intake -Continue metoprolol succinate 25 mg twice a day -Patient received 60 mg of Lasix one-time dose (11/29/16) -Nitrostat when necessary Hypothyroidism, chronic, stable -Continue patient's home dose of levothyroxine 25 g daily Hypertension, chronic, active -Continue patient's home dose of metoprolol succinate 25 mg twice a day -Continue to monitor History of gout, chronic, stable -Continue allopurinol 300 mg by mouth daily at bedtime History of hospital delirium with sundowning, chronic -Patient does have a history of hallucinating and sundowning during hospitalization -Temazepam 30 mg daily at bedtime when necessary insomnia Diet: General DVT prophylaxis: SCDs as the patient currently has a GI bleed we will not do any medication DVT prophylaxis Code Status: Patient is a DNR/DNI however would like to continue with full interventions of blood transfusions, medications, IV fluids, and BiPAP if necessary. The patient's younger daughter Hilda is not in agreement with this treatment however the older daughter Iris is in agreement with her mother's decision and Iris is the one who would make any medical decisions should the patient not be able to decide on her own. As the patient is still completely competent and aware of her own decisions we will continue to follow the patient' s wishes and keep her DNR/DNI with limitations. The patient explicitly stated that she does not want to have chest compressions or to be intubated/ mechanically ventilated, but is okay with IV fluids, medications, blood transfusions, and BiPAP and all other measures up to the point of CPR and intubation. Disposition: The patient continues to improve. She has refused tagged RBC study. The family is concerned as the patient does have sundowning and they may need to have nighttime caregivers for her but she does very well during the day. At this time the patient will have a sitter at night but will be fine during the day not to have sitter. Her H&H remains stable and she should be ready to be discharged tomorrow with home health, RN, PT three times a week. The case was discussed with GI today (Dr. Meza) who states that the patient may need to go down to [facility] for further diagnostic studies as all of the studies that she has had have come up negative. If the patient comes in again after being discharged with active bleeding (hematemesis, black tarry stools) then a camera study should be done immediately at that time. The patient is currently clinically stable and will most likely be discharged home tomorrow with close follow-up with Dr. Bradley, her GI doctor. VTE Mechanical Devices: Intermittant Pneumatic CD Kaylie Khanna DO Nov 30, 2016 15:45
[2016-11-30] MEDS: Multivit-Miner-Folic Acid-Iron Tablet PO SCH (16:53)
--- NOTE | 2016-12-01 03:20 | NUR ---
O2 Sats / Ambulation Sat'ing 94% on 3L. Walking in [place] 150 feet started to drop to 90% bumped up O2 to 4L until back in bed. Pulse went up to 133 while walking.
[2016-12-01 04:42] VITALS: BP 104/62; PULSE 87; RESP 16; O2SAT 92
[2016-12-01 06:14] VITALS: PULSE 88
[2016-12-01 06:28] LABS: Mean Corpuscular Hemoglobin 29.2 pg (27.0-35.0); Mean Corpuscular Volume 92.3 fL (81-100)
[2016-12-01] MEDS: Pantoprazole 40 mg ER24 Tablet PO SCH (07:49)
[2016-12-01] MEDS: Insulin LISPRO Low-Dose Scale SUBQ SCH ×2 (07:50→11:27)
[2016-12-01] MEDS: MeTOProlol XL 25 mg ER24 Tablet PO SCH (08:40)
[2016-12-01 08:42] VITALS: BP 113/66; PULSE 80; RESP 16; O2SAT 95
[2016-12-01] MEDS: cefTRIAXone Inj 2,000 MG in Dextrose 5% Minibag Plus 50 ML IV SCH (08:42)
[2016-12-01 08:59] VITALS: PULSE 82
--- NOTE | 2016-12-01 12:05 | NUR ---
ROXANE signed at [id number]
[2016-12-01] MEDS ORDERED: SACC250C PO (12:15)
[2016-12-01] MEDS ORDERED: LEVO500T79 PO (12:15)
[2016-12-01] MEDS ORDERED: PANT40TA3 PO (12:15)
--- NOTE | 2016-12-01 12:20 | PCM.DIMED ---
Discharge Instructions Date of Service Dec 01, 2016 Dates of Hospitalization Nov 27, 2016 at 13:10 Discharge Diagnosis Discharge Diagnosis Acute blood loss anemia secondary to GI bleed Hypokalemia Diastolic CHF chronic Hypothyroidism Hypertension History of gout History of hospital delirium with sundown Urinary tract infection present on admission Medication Instructions Additional med instructions While you are here he also were diagnosed with a urinary tract infection you have been treated while here in the hospital with IV antibiotics however you will go home on Levaquin 1 pill daily for the next 5 days You have also been given a medication called Florastor which is to help maintain your normal stomach bacteria to help prevent diarrhea while taking this antibiotic. Diet Discharge Diet: Other (please maintain a low-sodium diet) Activity Discharge Activity: Home Health Phyical Therapy Call your provider Call your provider for: Fever or Chills, Shortness of breath, Bleeding, Excessive diarrhea, Weakness (unilateral) Patient Instructions Follow-up plan You will be sent home with home health. If you notice that the home health physical therapy is not coming over to the house to give you therapy please contact home health services immediately. Follow-up Provider: Wendy Vance MD Follow-up with PCP in: 1 week (if the appointment has not been made please call to schedule an appointment) Provider: Steve Bradley MD Follow-up in: 1 week (Please follow up with GI as they may want you to follow up at [facility] for further testing. If an appointment has not been made please call to schedule an appointment) Kaylie Khanna DO Dec 01, 2016 12:20
--- NOTE | 2016-12-01 12:22 | PCM.DC.MED ---
Discharge Summary Date of Service Dec 01, 2016 Dates of Hospitalization Date of Hospital Admission Nov 27, 2016 at 13:10 Date of Discharge: Dec 01, 2016 Providers: Admitting Physician: Kaylie Khanna DO Primary Care Physician: Wendy Vance MD Attending Physician: Kaylie Khanna DO Diagnosis at Time of Discharge Diagnosis at Time of Discharge Acute blood loss anemia secondary to GI bleed Hypokalemia Diastolic CHF chronic Hypothyroidism Hypertension History of gout History of hospital delirium with sundowning Urinary tract infection present on admission Brief History Mrs. Priest is an 81-year-old female with a history of CAD with CABG, hypertension , diabetes, combined diastolic and systolic heart failure, chronic kidney disease, GERD and PUD who presented to the emergency room with the complaint of black colored stool for 2-3 days. Associated symptoms include generalized weakness, fatigue, shortness of breath, and dizziness. Patient has had multiple admissions in the last few months including admissions in October where two EGDs and two colonoscopies were negative for a source for the bleeding. Additionally a tagged RBC scan on 11/01 was negative. She states that her symptoms have improved and she feels that her shortness of breath is at baseline. On admission she was found to have a hemoglobin of 6.6 and received two units of pRBCs after which her hemoglobin improved. GI consulted for further evaluation of acute on chronic upper GI bleed. The patient did receive 2 units of packed red blood cells in her hemoglobin improved however this did cause an exacerbation of her diastolic heart failure as the patient was having increased oxygen needs and shortness of breath. The patient is very sensitive to any type of fluids as well as salt. The patient did receive an extra dose of Lasix the day after her transfusion and this helped to resolve her dyspnea. GI was consulted and offered to do another EGD and/or camera scan however the patient at this time states that she does not want to do either of those exams at this time because they have previously yielded no results. GI has recommended that the patient follow-up in the outpatient clinic however did suggest that she may need to go down to [facility] for further testing, as she may need a 2 balloon endoscopy. When the patient first arrived she was complaining of weakness however as she progressed here her strength improved and she no longer qualified for [facility]. The patient was discharged home with home health services and home health PT. The patient was told to follow up with her PCP within the next 1-2 weeks. At this time we do not have a source of the patient's GI bleed however she could have a chronic iron deficiency anemia as well. The patient was given 50 mg of iron IV and this seemed to help the patient and her H&H remained stable and improved the next day. At this time the patient was not given iron supplements to take at home as if she were to have black stools we would not know if this was from the iron or if this was from an actual bleed. However it was suggested that if the patient comes in again that she should have a camera endoscopy done immediately as this may show where the bleeding could be coming from at the time of the black tarry stools. The patient is being discharged home in stable condition. The patient will now be taking 40 mg of Protonix twice a day. The patient's creatinine should be followed as it has been labile during this hospital course. Hospital Course 81-year-old female with past medical history of CAD with 5 vessel CABG, hypertension, hyperlipidemia, diabetes type II, CHF, PVD, CAD, GERD and peptic ulcer disease admitted for GI bleed Acute blood loss anemia secondary to GI bleed, present on admission, active -Transfused 2 units PRBC (11/27/16) -GI has been consulted (Dr. Meza) - patient refuses tagged RBC test due to extended period of immobility. Patient to follow up with Dr. Bradley next week. -Continue Protonix 40 mg twice a day -Advance her diet as tolerated -Continue to monitor Hypokalemia secondary to medication adverse effects -IV potassium and PO replacement -Check electrolytes in morning Diastolic CHF chronic, present on admission, stable -BNP trending down -Continue torsemide 60 mg daily -Continue to monitor patient's fluid intake -Continue metoprolol succinate 25 mg twice a day -Patient received 60 mg of Lasix one-time dose (11/29/16) -Nitrostat when necessary Hypothyroidism, chronic, stable -Continue patient's home dose of levothyroxine 25 g daily Hypertension, chronic, active -Continue patient's home dose of metoprolol succinate 25 mg twice a day -Continue to monitor History of gout, chronic, stable -Continue allopurinol 300 mg by mouth daily at bedtime History of hospital delirium with sundowning, chronic -Patient does have a history of hallucinating and sundowning during hospitalization -Temazepam 30 mg daily at bedtime when necessary insomnia Diet: General DVT prophylaxis: SCDs as the patient currently has a GI bleed we will not do any medication DVT prophylaxis Code Status: Patient is a DNR/DNI however would like to continue with full interventions of blood transfusions, medications, IV fluids, and BiPAP if necessary. The patient's younger daughter Hilda is not in agreement with this treatment however the older daughter Iris is in agreement with her mother's decision and Iris is the one who would make any medical decisions should the patient not be able to decide on her own. As the patient is still completely competent and aware of her own decisions we will continue to follow the patient' s wishes and keep her DNR/DNI with limitations. The patient explicitly stated that she does not want to have chest compressions or to be intubated/ mechanically ventilated, but is okay with IV fluids, medications, blood transfusions, and BiPAP and all other measures up to the point of CPR and intubation. Disposition: The patient continues to improve. She has refused tagged RBC study. The family is concerned as the patient does have sundowning and they may need to have nighttime caregivers for her but she does very well during the day. At this time the patient will have a sitter at night but will be fine during the day not to have sitter. Her H&H remains stable and she should be ready to be discharged tomorrow with home health, RN, PT three times a week. The case was discussed with GI today (Dr. Meza) who states that the patient may need to go down to [facility] for further diagnostic studies as all of the studies that she has had have come up negative. If the patient comes in again after being discharged with active bleeding (hematemesis, black tarry stools) then a camera study should be done immediately at that time. The patient is currently clinically stable and will most likely be discharged home tomorrow with close follow-up with Dr. Bradley, her GI doctor. Exam Vital Signs (Last) Date Time Temp Pulse Resp B/P Pulse Ox O2 Delivery O2 Flow Rate FiO2 12/01/16 08:59 82 12/01/16 08:42 36.9 16 113/66 95 Nasal Cannula 3.00 Exam Physical Exam: GEN: Patient was awake, alert, responding appropriately to questions HEENT: Pupils equal round and reactive to light, extraocular eye muscles intact , Neck soft supple, trachea midline, nomocephalic/atraumatic CV: +S1/S2, regular rate and rhythm, no murmurs auscultated Respiratory: CTAB, no wheezes, rales, rhonchi GI: +bowel sounds x4, soft, compressible, nontender to palpation EXT: no clubbing, cyanosis, edema Neuro: Cranial nerves II-XII grossly intact Psych: mood and affect were appropriate Test 11/27/16 11:50 11/27/16 12:54 11/28/16 06:00 11/29/16 12:57 Total Creatine Kinase 23U/L (21-215) Troponin T 0.010ug/L (0.0-0.011) Urine Color Yellow (YELLOW) Urine Appearance Cloudy (CLEAR,HAZY) Urine pH 5.0 (5.0-8.0) Urine Specific [place] 1.010 (1.003-1.035) Urine Protein Negativemg/dL (NEG,TRACE) Urine Glucose (UA) Negativemg/dL (NEGATIVE) Urine Ketones Negativemg/dL (NEGATIVE) Urine Occult Blood Moderate (NEGATIVE) Urine Nitrite Negative (NEGATIVE) Urine Bilirubin Negative (NEGATIVE) Urine Urobilinogen Normalmg/dL (NORMAL) Urine Leukocyte Esterase Large (NEGATIVE) Urine RBC 0-2/hpf (0-2) Urine WBC Packed/hpf (0-5) Urine Epithelial Cells Few/hpf (NONE-MOD) Urine Crystals None seen (NONE SEEN) Urine Bacteria Many/hpf (NONE-FEW) Urine Hyaline Casts None/lpf (NONE) Urine Granular Casts None seen (NONE SEEN) Urine Waxy Casts None seen (NONE SEEN) Urine Red Blood Cell Casts None seen (NONE SEEN) Urine White Blood Cell Casts None seen (NONE SEEN) Urine Mucus None seen (None Seen) Urine Trichomonas None seen (NONE SEEN) Urine Yeast None (NONE SEEN) Urinalysis Comment None Urine Culture Reflexed Indicated Magnesium Level 2.2mg/dL (1.6-2.6) Neutrophils (%) (Auto) 74.1% (40-74) Lymphocytes (%) (Auto) 15.5% (14-46) Monocytes (%) (Auto) 7.2% (4-12) Eosinophils (%) (Auto) 2.4% (0-5) Basophils (%) (Auto) 0.1% (0-3) Test 12/01/16 05:45 White Blood Count 7.7th/mm3 (3.8-10.1) Red Blood Count 3.39mil/mm3 (3.90-5.20) Hemoglobin 9.9g/dL (12.0-15.6) Hematocrit 31.3% (35.0-46.0) Mean Corpuscular Volume 92.3fL (81-100) Mean Corpuscular Hemoglobin 29.2pg (27.0-35.0) Mean Corpuscular Hemoglobin Concent 31.6% (32.0-37.0) Red Cell Distribution Width 16.5% (12.3-15.4) Platelet Count 283bil/L (150-400) Sodium Level 138mEq/L (134-144) Potassium Level 5.2mEq/L (3.5-5.2) Chloride Level 96mEq/L (97-108) Carbon Dioxide Level 23mmol/L (18-29) Blood Urea Nitrogen 34mg/dL (8-27) Creatinine 1.46mg/dL (0.57-1.00) Estimat Glomerular Filtration Rate 49mL/min (>59) Glucose Level 163mg/dL (60-99) Calcium Level 8.9mg/dL (8.5-10.1) Total Bilirubin 0.2mg/dL (0.0-1.2) Aspartate Amino Transf (AST/SGOT) 29U/L (0-50) Alanine Aminotransferase (ALT/SGPT) 9U/L (0-32) Alkaline Phosphatase 90U/L (25-165) Pro-B-Type Natriuretic Peptide 72657lw/mL (0-738) Total Protein 6.9g/dL (6.4-8.4) Albumin 3.3g/dL (3.4-5.0) Procalcitonin 0.12ng/mL (0.00-0.08) Discharge Medications Discharge Medications Allopurinol (Allopurinol) 300 Mg Tablet 300 MG PO HS (Reported) Bimatoprost (Lumigan) 45 Drop/2.5 Ml Ophsoln 1 DROP BOTH_EYES HS (Reported) each eye Levofloxacin (Levofloxacin) 500 Mg Tablet 500 MG PO DAILY Prescribed by: KAYLIE KHANNA DO Levothyroxine (Levothyroxine) 25 Mcg Tablet 25 MCG PO AM (Reported) Take on an empty stomach. Metoprolol Succinate ER (Metoprolol Succinate ER) 25 Mg Tab.er.24h 25 MG PO BID Prescribed by: Praneeth ELLIOTT Multivitamin (Multivitamins) 1 Each Capsule 1 EACH PO DAILYWD (Reported) Pantoprazole DR (Pantoprazole DR) 40 Mg Tablet.dr 40 MG PO BIDAC Prescribed by: KAYLIE KHANNA DO Potassium Chloride ER (Potassium Chloride ER) 20 Meq Tablet.er 20 MEQ PO BIDWM ( Reported) TAKE WITH FOOD Pravastatin (Pravastatin) 40 Mg Tablet 40 MG PO HS (Reported) Saccharomyces Boulardii (Florastor) 250 Mg Capsule 250 MG PO BID Prescribed by: KAYLIE KHANNA DO Temazepam (Temazepam) 30 Mg Cap 30 MG PO HS (Reported) Torsemide (Torsemide) 20 Mg Tablet 60 MG PO QAM (Reported) As needed Tizanidine (Tizanidine) 2 Mg Tablet 1-2 MG PO DAILY PRN PRN For Spasm (Reported ) Additional med instructions While you are here he also were diagnosed with a urinary tract infection you have been treated while here in the hospital with IV antibiotics however you will go home on Levaquin 1 pill daily for the next 5 days You have also been given a medication called Florastor which is to help maintain your normal stomach bacteria to help prevent diarrhea while taking this antibiotic. Followup Plan Follow-up plan You will be sent home with home health. If you notice that the home health physical therapy is not coming over to the house to give you therapy please contact home health services immediately. Please follow up with your doctor for monitoring of your creatinine Discharge Diet: Other (please maintain a low-sodium diet) Discharge Activity: Home Health Phyical Therapy Follow-up Provider: Wendy Vance MD Follow-up with PCP in: 1 week (if the appointment has not been made please call to schedule an appointment) Provider: Steve Bradley MD Follow-up in: 1 week (Please follow up with GI as they may want you to follow up at [facility] for further testing. If an appointment has not been made please call to schedule an appointment) Time spent Greater than 35 minutes copies to: RajivWendy hernandez MD, Precious L DO Dec 01, 2016 12:22
[2016-12-01 13:05] VITALS: BP 97/63; PULSE 76; RESP 16; O2SAT 96
--- NOTE | 2016-12-01 13:44 | NUR ---
Social Work-discharge: Data:EMR reviewed. Pt is on day 4 of hospitalization for symtomatic anemia per H&P. Pt is medically stable for discharge. PT has seen pt and cleared pt for home with HH. Pt's family aware that pt is not eligible for SNF at this time. SW updated [facility] that pt is being discharged today and provided them with resume HH orders for RN,Pt, and [employer]. Senior Resource guidebook has been provided to pt and family to work on hiring extra help at home once daughter Hilda returns to [place]. MARGARET spoke with pt at [facility] and confirmed plan. Pt states her son is providing transport home and all of her children know she is leaving today. Pt states she got Meals on Wheels set up yesterday for her at home. Pt to continue on her home O2 through . All updated and agreeable to plan. Assessment:pt to benefit from resume HH. Plan:Pt to discharge home today via POV. Resume HH orders have been provided to [facility]. Pt to continue with Home O2 and Senior Resource guidebook has been provided to pt and family to work on hiring extra help at home. All updated and agreeable to plan. DORIAN Rollins
--- NOTE | 2016-12-01 14:03 | NUR ---
Discharge Note Pt expressed understanding of all discharge instructions, medications/Rx, and follow up appts. Care Notes provided. Pt ready to discharge home with all belongings, waiting for ride home.
== END 2016-12-01 14:55 | disposition home health service (06) | DRG 378 ==
LOC: EDBD 11:35 → EDUNIT# 11:35 → SED 11:35 → MPC 13:10
PROVIDERS: ADMIT Neuromusculoskeletal Medicine & OMM; ATTEND Neuromusculoskeletal Medicine & OMM
PROC: 30233N1 Transfusion of Nonautologous Red Blood Cells into Peripheral Vein, Percutaneous Approach (ICD-10-PCS; principal; 2016-11-27)
DX: K92.2 Gastrointestinal hemorrhage, unspecified (principal); D62 Acute posthemorrhagic anemia; I50.32 Chronic diastolic (congestive) heart failure; N39.0 Urinary tract infection, site not specified; F05 Delirium due to known physiological condition; E87.70 Fluid overload, unspecified; I10 Essential (primary) hypertension; E03.9 Hypothyroidism, unspecified; I25.10 Atherosclerotic heart disease of native coronary artery without angina pectoris; E78.5 Hyperlipidemia, unspecified; M10.9 Gout, unspecified; E11.9 Type 2 diabetes mellitus without complications; Z66 Do not resuscitate; G47.00 Insomnia, unspecified; E87.6 Hypokalemia; Z95.820 Peripheral vascular angioplasty status with implants and grafts; Z95.1 Presence of aortocoronary bypass graft; Z79.4 Long term (current) use of insulin; Z87.891 Personal history of nicotine dependence

== ENCOUNTER 2016-12-23 17:13 | Inpatient (IN) | payer MEDICARE ==
[~2016-12-23] VITALS: Ht 157.5 cm; Wt 54.0 kg
[~2016-12-23 17:13] MED LIST changes: -CLOP75TA3 PO; -LANS30CA PO; +LEVO500T79 PO; +METO-386 PO; -METO25TA99 PO; +PANT40TA3 PO; +SACC250C PO; -TORS20TA PO; +TORS20TA3 PO
[2016-12-23 17:16] VITALS: BP 162/80; PULSE 94; RESP 18; O2SAT 91
[2016-12-23 18:03] LABS: BASOPHILS % (AUTO) 0.1 % (0-3); EOSINOPHILS % (AUTO) 1.9 % (0-5); MONOCYTES % (AUTO) 7.1 % (4-12); Mean Corpuscular Hemoglobin 29.7 pg (27.0-35.0); Mean Corpuscular Volume 95.1 fL (81-100); NEUTROPHILS % (AUTO) 72.3 % (40-74); Platelet Count 246 bil/L (150-400)
--- NOTE | 2016-12-23 18:07 | ED.REPORT ---
HPI-Dyspnea / Wheezing Date of Service Dec 23, 2016 ED Provider: John Heredia DO An 81 year old female with a history of CAD, NV, CHF, hypertension, hyperlipidemia, anemia, diabetes, peripheral vascular disease, hypothyriodism and recent admission presents to the ED complaining of shortness of breath. The pt was admitted twice since 11/09/2016 for CHF and symptomatic anemia, lasting 18 and four days respectively. The pt was discharged to an assisted living facility on 12/01/2016 and had been feeling progressively better, but noticed increased shortness of breath three days ago. This has gradually worsened since , and is most pronounced with exertion. The pt has been attempting to get off of home oxygen, but has required 2 L for the last two days. She also notes that her diuretic was changed from Lasix to Torsemide during her admission, and she has not been urinating as much as normal since that point. The pt's last echocardiogram was one month ago, indicating an EF of 30-35%. Nursing Notes Stated Complaint: SOB Chief Complaint: Respiratory Distress Nursing Notes Reviewed: Yes Allergies: Coded Allergies: simvastatin (Verified Allergy, Unknown, sore shoulders, 12/23/16) clopidogrel (Verified Adverse Reaction, Intermediate, GI BLEED X 2, ) rofecoxib (Verified Adverse Reaction, Intermediate, DIARRHEA, 11/27/16) Lduwmex-Fsr-Tjq Reductase Inhibitor (Verified Adverse Reaction, Mild, SORE SHOULDERS - TOLERATES PRAVASTATIN, 11/27/16) can tolerate pravastatin rosuvastatin (Verified Adverse Reaction, Mild, SORE SHOULDERS - TOLERATES PRAVASTATIN, 11/27/16) cilostazol (Verified Adverse Reaction, Unknown, HEADACHE, DIZZINESS, DIARRHEA, 12/23/16) Scheduled Allopurinol (Allopurinol) 300 Mg Tablet 300 MG PO HS Bimatoprost (Lumigan) 45 Drop/2.5 Ml Ophsoln 1 DROP BOTH_EYES HS each eye Levothyroxine (Levothyroxine) 25 Mcg Tablet 25 MCG PO AM Take on an empty stomach. Metoprolol Succinate ER (Metoprolol Succinate ER) 25 Mg Tab.er.24h 25 MG PO BID Multivitamin (Multivitamins) 1 Each Capsule 1 EACH PO DAILYWD Pantoprazole DR (Pantoprazole DR) 40 Mg Tablet.dr 40 MG PO BIDAC Potassium Chloride ER (Potassium Chloride ER) 20 Meq Tablet.er 20 MEQ PO BIDWM TAKE WITH FOOD Pravastatin (Pravastatin) 40 Mg Tablet 40 MG PO HS Saccharomyces Boulardii (Florastor) 250 Mg Capsule 250 MG PO BIDWM Temazepam (Temazepam) 30 Mg Cap 30 MG PO HS Torsemide (Torsemide) 20 Mg Tablet 40 MG PO QAM TORSEMIDE 40 MG IN AM & 20 MG IN AFTERNOON Torsemide (Torsemide) 20 Mg Tablet 20 MG PO DAILYWD TORSEMIDE 40 MG IN AM & 20 MG IN AFTERNOON Scheduled PRN Tizanidine (Tizanidine) 2 Mg Tablet 1-2 MG PO DAILY PRN PRN For Spasm General Time Seen by MD: 17:48 Chief Complaint Shortness of breath Hx Obtained From: Patient Arrived By: Walk-in Sudden in Onset?: No Onset Occurred: 3 days ago Symptom Duration: Since onset Recent Healthcare: Recent doctor visit, Recent hospitalization Similar Sx Previous: Yes Past Medical History Past Medical History Notes: PCP: Dr. Vance Topography Technician: Dr. Cid Echocardiogram EF of 35% in June 2016 Patient just D/C after admit for GI bleed, severe anemia Past Medical History 1. Coronary artery disease, with history of myocardial infarction and bypass grafting 2001. 2. Peripheral vascular disease, status post multiple stenting and angioplasty procedures. 3. Congestive heart failure, diastolic 4. Chronic kidney disease 5. Hypertension. 6. Chronically elevated troponin. 7. Hyperlipidemia. 8. Diabetes mellitus type 2, insulin requiring. 9. Gastroesophageal reflux disease with Schaefer's esophagus. 10. Glaucoma. 11. Carotid stenosis. 12. Gout. 13. Hypothyroidism. 14. Chronic insomnia, on chronic benzodiazepines. 15. Moderate to severe mitral regurgitation by echo February 2013. 16. Bilateral renal artery stenosis. 17. History of peptic ulcer disease. 18. Anemia. 19. prior DVT Past Surgical History Glaucoma surgery. Multiple stents and angioplasty for peripheral vascular disease Endoscopy, colonoscopy October 2016 Reports: CABG, Cataract surgery, Hysterectomy Family History Noncontributory Smoking History Former Smoker Social History Other Social History: Good social support, Local resident Ambulatory Status Independent Review of Systems Review of Systems Note: decreased urination Respiratory: Reports: Shortness of breath, Denies: Non-productive cough Cardiovascular: Reports: Dyspnea on exertion Musculoskeletal: Denies: Back pain, Neck pain Skin: Denies Rash Complete sys rev & neg: except as marked. GI: Denies: Abdominal pain, Vomiting Physical Exam Initial Vital Signs Vital Signs (First) Date Time Temp Pulse Resp B/P Pulse Ox O2 Delivery O2 Flow Rate FiO2 12/23/16 17:16 36.1 94 18 162/80 91 Nasal Cannula 2 Initial VS: Reviewed General/Constitutional: Awake, Alert on 2 L of oxygen Neck: Atraumatic, Supple, Full range of motion JVD present Respiratory / Chest: Atraumatic, Breath sounds = bilat, No respiratory distress bibasilar rales Cardiovascular: Heart rate NL, Regular rhythm 3/6 holosystolic murmur, right upper sternal border ENT: Atraumatic, Airway patent, Mucous membranes moist Abdomen: Atraumatic, Soft, Non-tender Back: Atraumatic, Full range of motion Lower Extremity / Pelvis / MS: Atraumatic, Full range of motion trace left lower extremity edema Skin: Color NL, No rash, Warm, Dry Neurologic: Oriented X3, Speech NL, No motor deficits, No sensory deficits Head / Eyes: Atraumatic, Normocephalic, PERRL, EOMI Upper Extremity / MS: Atraumatic, Full range of motion Psychiatric: Affect NL, Mood NL Interpretation & Diagnostics Lab Results Interpretation Result Diagram: 12/23/16 1750 12/23/16 1750 Test 12/23/16 17:50 12/23/16 20:00 White Blood Count 7.5th/mm3 (3.8-10.1) Red Blood Count 3.06mil/mm3 (3.90-5.20) Hemoglobin 9.1g/dL (12.0-15.6) Hematocrit 29.1% (35.0-46.0) Mean Corpuscular Volume 95.1fL (81-100) Mean Corpuscular Hemoglobin 29.7pg (27.0-35.0) Mean Corpuscular Hemoglobin Concent 31.3% (32.0-37.0) Red Cell Distribution Width 17.3% (12.3-15.4) Platelet Count 246bil/L (150-400) Neutrophils (%) (Auto) 72.3% (40-74) Lymphocytes (%) (Auto) 18.2% (14-46) Monocytes (%) (Auto) 7.1% (4-12) Eosinophils (%) (Auto) 1.9% (0-5) Basophils (%) (Auto) 0.1% (0-3) Sodium Level 137mEq/L (134-144) Potassium Level 4.2mEq/L (3.5-5.2) Chloride Level 94mEq/L (97-108) Carbon Dioxide Level 27mmol/L (18-29) Blood Urea Nitrogen 32mg/dL (8-27) Creatinine 1.51mg/dL (0.57-1.00) Estimat Glomerular Filtration Rate 47mL/min (>59) Glucose Level 132mg/dL (60-99) Calcium Level 9.4mg/dL (8.5-10.1) Magnesium Level 2.2mg/dL (1.6-2.6) Total Bilirubin 0.5mg/dL (0.0-1.2) Aspartate Amino Transf (AST/SGOT) 20U/L (0-50) Alanine Aminotransferase (ALT/SGPT) 8U/L (0-32) Alkaline Phosphatase 106U/L (25-165) Troponin T 0.014ug/L (0.0-0.011) Pro-B-Type Natriuretic Peptide 46974ku/mL (0-738) Total Protein 8.3g/dL (6.4-8.4) Albumin 3.7g/dL (3.4-5.0) Procalcitonin 0.14ng/mL (0.00-0.08) Hold Cunningham Top Tube Received (Received) Hold Urine Received (Received) ECG Interpretation ECG Interpretation: normal sinus rhythm with a rate of 88 LVH with repolarization abnormality incomplete LBBB when compared with prior dated 12/04/2016, no significant changes Time: 18:02 Interpreted by: ED physician X-Ray Chest Interpretation Chest Xray Interpretation: IMPRESSION: Suspect pneumonia left lower lobe. Prominent increased interstitial markings are present diffusely. Dictated by: Yusuf Hoskins M.D. on 12/23/2016 at 18:16 Approved by: Yusuf Hoskins M.D. on 12/23/2016 at 18:19 Interpretation / Wet Read by: Interpret - Radiologist Re-Eval/Medical Decision Med Decision/Clinical Course 81-year-old female with a complex medical history presenting with acute on chronic shortness of breath worsening over the past 3 days. She has an infiltrate on chest x-ray which is new as well as an elevated pro-calcitonin, suggestive of pneumonia. She was started on Levaquin 750 mg once here. Also her proBNP is more elevated than previous at 20,000, and her troponin is mildly elevated. She has a history of diastolic heart failure with an ejection fraction of 30-35% when last checked in November 2016. She notes that she was recently switched from Lasix to torsemide and she is not urinating as much as she was before. She was given 40 mg of Lasix in the ER and had not urinated after this. Given her pneumonia and heart failure exacerbation she was admitted for further treatment and workup. Source of Hx: Old records Re-Evaluation/Progress #1: Time of Eval: 19:29 Patient Status: Condition improved Re-Evaluation/Progress Note: Pt rechecked, who is comfortable. The possibility of admission is discussed, and the pt would prefer discharge. Re-Evaluation/Progress #2: Time of Eval: 21:18 Patient Status: Condition improved Re-Evaluation/Progress Note: Pt rechecked, who has not urinated significantly since being given Lasix. The diagnosis and plan for admission are discussed. The pt understands and agrees with the plan. All questions are addressed at this time. Consultation : Referral / Consult Name: Liz Woo DO Consulted With: Hospitalist Call Returned at: 22:35 Contracts Advisor: Agrees with eval, Agrees with plan, Accepts admit Note: Spoke with Dr. Woo, hospitalist, regarding pt's case. Dr. Woo agrees with the evaluation and agrees to admit the pt. Counseled Regarding: Diagnosis, Lab results, Need for admission Discharge & Departure Impression: Primary Impression: Pneumonia Pneumonia type: due to unspecified organism Laterality: left Lung location : lower lobe of lung Qualified Code: J18.1 - Lobar pneumonia, unspecified organism Additional Impressions: CHF (congestive heart failure) Congestive heart failure type: unspecified congestive heart failure type Congestive heart failure chronicity: unspecified congestive heart failure chronicity Qualified Code: I50.9 - Heart failure, unspecified Anemia Anemia type: unspecified type Qualified Code: D64.9 - Anemia, unspecified Disposition: ADMITTED TO HOSPITAL Discharge Condition All VS Reviewed: Yes Condition: Stable Referrals: Wendy Vance MD (PCP) Scribe Attestation Portions of this note were transcribed by Dariel Buckner. I, Dr. Heredia personally performed the history, physical exam and medical decision-making; I reviewed and confirmed the accuracy of the information in the transcribed note. copies to: Wendy Vance MD, Gary R DO Dec 23, 2016 18:07 DARIEL BUCKNER Dec 23, 2016 18:15
--- NOTE | 2016-12-23 18:21 | DRSVH ---
PROCEDURE: X-RAY CHEST ONE VIEW, PORTABLE ([id number]) INDICATIONS: dyspnea, rales TECHNIQUE: One view of the chest was acquired. COMPARISON: [facility], CR, XR CHEST 2VW, 10/27/2016, 9:35. [facility], CR, CHEST 2VW, 03/13/2013, 8:02. [facility], CR, XR CHEST 1VW (PORTABLE), 11/09/2016, 7:56. FINDINGS: Surgical changes and devices: Sternotomy wires are present. There is a stent in the region of the gre at vessels or superior vena cava. Lungs and pleura: There are prominent increased chronic markings. There is thickening of the fissures is more suggestion of effusions is seen for certain. Minimal effusion may be present on the left we appearance would suggest possible infiltrate in the retrocardiac region at the lung base on the left. A prominent markings in the lungs could discuss other smaller infiltrates elsewhere. Mediastinum: Mediastinal contours appear normal. Heart size is normal. Bones and chest wall: No suspicious bony lesions. Overlying soft tissues appear unremarkable. IMPRESSION: Suspect pneumonia left lower lobe. Prominent increased interstitial markings are present diffusely. Dictated by: Yusfu Hoskins M.D. on 12/23/2016 at 18:16 Approved by: Yusuf Hoskins M.D. on 12/23/2016 at 18:19
[2016-12-23 18:27] LABS: TROPONIN T 0.014 ug/L (0.0-0.011)
[2016-12-23 18:38] LABS: Magnesium 2.2 mg/dL (1.6-2.6)
[2016-12-23] MEDS ORDERED: Furosemide 10 mg/mL 4 mL Inj IVPUSH ONE (19:35)
[2016-12-23] MEDS ORDERED: levoFLOXacin 750 mg Tablet PO ONE (19:35)
[2016-12-23] MEDS ORDERED: PANT40TA3 PO (22:27)
[2016-12-23] MEDS ORDERED: SACC250C PO (22:27)
[2016-12-23 22:39] VITALS: BP 137/74; PULSE 104; RESP 28; O2SAT 95
[2016-12-23] MEDS ORDERED: TORS20TA3 PO (22:44)
[2016-12-23] MEDS ORDERED: Senna-Docusate 8.6-50 mg Tablet PO PRN (22:45)
[2016-12-23] MEDS ORDERED: Alum-Mag Hydrox-Simeth 30 mL Suspension PO PRN (22:45)
[2016-12-23] MEDS ORDERED: Ondansetron 2 mg/mL 2 mL Inj IVPUSH PRN (22:45)
[2016-12-23] MEDS ORDERED: Polyethylene Glycol (PEG) 17 Gm Powder PO PRN (22:45)
[2016-12-24] VITALS (12 sets, daily range): BP systolic 103–146; BP diastolic 60–80; PULSE 94–107; RESP 20–28; O2SAT 89–98
--- NOTE | 2016-12-24 00:21 | PCM.HPMED ---
Subjective Date of Service Dec 24, 2016 Primary Provider: Admitting Physician: Liz Woo DO Primary Care Physician: Wendy Vance MD Attending Physician: Liz Woo DO Chief Complaint: Dyspnea/wheezing History of Present Illness: 81-year-old female with a history of CAD with SC and multivessel CABG, peripheral vascular disease, CHF with an EF of 30%, hypertension, hyperlipidemia , recent anemia from GI bleed, type II diabetes who presents emergency department due to worsening shortness of breath over the last 3 days. Patient states that the issues been getting progressively worse, is constant, and is unrelieved with 2 L of home O2. She also states that she has a decreased exercise tolerance, as she cannot walk as far as usual, orthopnea, and is having difficulty "getting air out." She is also having difficulty with ADLs. Patient denies ongoing fever or chills, nausea or vomiting, edema or chest pain. The patient was recently discharged on November 09 for CHF exacerbation and anemia. She was last discharged to an assisted living center on December 01 and had been feeling progressively better on her last admit her Lasix was changed to torsemide and she states that since that change was made she has had decreased urine output. The patient contacted her primary care doctor's office and was advised to go to urgent care. At urgent care the patient was given a chest x-ray which has a possible consolidation and increased vascular markings. In the ED the patient was given 40 mg of IV Lasix. On lab work patient has a persistent anemia, chronic kidney disease, and a mildly elevated pro- calcitonin. Was also notable that the patient has a very mild troponin bump of 0.014, but has a BNP of 20,000. Review of Systems: Complete review of systems performed; pertinent positives and negatives per history of present illness, all other systems reviewed and are negative Allergies Coded Allergies: simvastatin (Verified Allergy, Unknown, sore shoulders, 12/23/16) clopidogrel (Verified Adverse Reaction, Intermediate, GI BLEED X 2, ) rofecoxib (Verified Adverse Reaction, Intermediate, DIARRHEA, 11/27/16) Kpzitwh-Kmp-Inx Reductase Inhibitor (Verified Adverse Reaction, Mild, SORE SHOULDERS - TOLERATES PRAVASTATIN, 11/27/16) can tolerate pravastatin rosuvastatin (Verified Adverse Reaction, Mild, SORE SHOULDERS - TOLERATES PRAVASTATIN, 11/27/16) cilostazol (Verified Adverse Reaction, Unknown, HEADACHE, DIZZINESS, DIARRHEA, 12/23/16) Home Medications Allopurinol (Allopurinol) 300 Mg Tablet 300 MG PO HS Bimatoprost (Lumigan) 45 Drop/2.5 Ml Ophsoln 1 DROP BOTH_EYES HS each eye Levothyroxine (Levothyroxine) 25 Mcg Tablet 25 MCG PO AM Take on an empty stomach. Metoprolol Succinate ER (Metoprolol Succinate ER) 25 Mg Tab.er.24h 25 MG PO BID Multivitamin (Multivitamins) 1 Each Capsule 1 EACH PO DAILYWD Pantoprazole DR (Pantoprazole DR) 40 Mg Tablet.dr 40 MG PO BIDAC Potassium Chloride ER (Potassium Chloride ER) 20 Meq Tablet.er 20 MEQ PO BIDWM TAKE WITH FOOD Pravastatin (Pravastatin) 40 Mg Tablet 40 MG PO HS Saccharomyces Boulardii (Florastor) 250 Mg Capsule 250 MG PO BIDWM Temazepam (Temazepam) 30 Mg Cap 30 MG PO HS Torsemide (Torsemide) 20 Mg Tablet 60 MG PO QAM PMH 1. Coronary artery disease, with history of myocardial infarction and bypass grafting 2001. 2. Peripheral vascular disease, status post multiple stenting and angioplasty procedures. 3. Congestive heart failure, systolic with ED 30% 11/24 4. Chronic kidney disease 5. Hypertension. 6. Chronically elevated troponin. 7. Hyperlipidemia. 8. Diabetes mellitus type 2, insulin requiring. 9. Gastroesophageal reflux disease with Schaefer's esophagus. 10. Glaucoma. 11. Carotid stenosis. 12. Gout. 13. Hypothyroidism. 14. Chronic insomnia, on chronic benzodiazepines. 15. Moderate to severe mitral regurgitation by echo February 2013. 16. Bilateral renal artery stenosis. 17. History of peptic ulcer disease. 18. Anemia. 19. prior DVT Surgical History Glaucoma surgery. Multiple stents and angioplasty for peripheral vascular disease Endoscopy, colonoscopy October 2016 Multivessel CABG Cataract surgery Hysterectomy Family History Family history of heart disease Social History Hx Alcohol Use: Yes (occasional) Hx Substance Use: No Hx Tobacco Use: Yes (50 years of 1/2 to 1 ppd) Smoking Status: Former Smoker Exam Vital Signs Vital Sign - Last Date Time Temp Pulse Resp B/P Pulse Ox O2 Delivery O2 Flow Rate FiO2 12/23/16 22:39 36.8 104 28 137/74 95 Nasal Cannula 2 Exam General: Pleasant female in NAD HEENT: PERRLA, EOMI, nonicteric, membranes moist Lymph: No lymphadenopathy Cardio: Regular rate and rhythm 1/6 murmurs Respiratory: CTA bilaterally; crackles much greater on R than L Abdomen: Soft, positive bowel sounds, nontender, nondistended Extremities: No edema, sensation intact Psych: Anxious Neuro: CN II through XII grossly intact, sensation intact throughout Skin: No rash Lab and Diagnostics Result Diagram: 12/23/16174912/23/161749 X-Rays, CTs and MRIs Chest X-ray IMPRESSION: Suspect pneumonia left lower lobe. Prominent increased interstitial markings are present diffusely. Dictated by: Yusuf Hoskins M.D. on 12/23/2016 at 18:16 Assessment & Plan 81-year-old female with significant history of cardiac disease with systolic heart failure with EF of 30% who presents to the emergency department with 3 days of worsening dyspnea. Acute hypoxic respiratory failure; present on admission; ongoing -Dyspnea for 3 days requiring continuous oxygen supplementation which was to be weaned down after last visit -See below for underlying cause -Continue O2 supplementation Chronic systolic heart failure with an EF of 30%; present on admission; ongoing *exacerbation -Last EF of 30% was evaluated in November; troponin mildly elevated likely related to CHF and CKD -Patient is on metoprolol, do not see an ACEI or ARB; consider after dyspnea is resolved -On torsemide 60 mg am and 40mg pm by mouth every morning -Given Lasix 40 mg IV in the ED -Lasix 80 mg IV scheduled for tomorrow a.m; if response is inadequate can add hydrochlorothiazide -Daily weights -Fluid restriction of 2 L daily -CHF clinic on discharge -Consider contacting Dr. Holder as he is familiar with her case; as well as possible consultation the hospitalization since her second visit in 2 months -Continue metoprolol Possible healthcare acquired pneumonia; present on admission; ongoing -Possible consolidation in left lower lobe; recent admissions and fci -MRSA nasal swab -Vanc, Cefepime, and levofloxacin -Strep urine ag, legionella urine ag -Repeat CBC -No fluids as already overloaded Chronic kidney disease, Stage 3a; present on admission; appears stable -Likely secondary to heart failure, diabetic nephropathy, and reported bilateral renal artery stenosis -Diuresis as above -Appears to be within 0.3 of baseline -BMP in AM Type II diabetes; present on admission; appears stable -Last A1c was 7.0 on12/23 -Home medication: none -Monitor -Low correctional if hyperglycemic > 180 CAD with SC and multi-vessel bypass -Does not appear the patient on aspirin -Med rec says she is on pravastatin although others in this class are listed as allergies Chronic anemia -Continue to monitor Hypertension-continue diuretics and metoprolol Hypothyroidism- levothyroxine 25 g Gout-continue allopurinol GERD- on pantoprazole at home; will continue Chronic spasm- tizanidine Insomnia- continue home temazepam Disposition: Patient is being admitted to inpatient status with expected length of stay greater than two midnights due to to severity of presentation, duration of treatment, and risks of adverse events disposition Pain Evaluation: Adequate Pain Control GI Prophylaxis: Proton Pump Inhibitor VTE Prophylaxis Indicated: Contraindicated VTE Mechanical Devices: Intermittant Pneumatic CD Resuscitation Status: DNR/DNI:Do Not Resuscitate/Intubate Attending Statement The patient was seen and examined together with house staff on 12/23/2016 and I have added additional information to the note above. Oswaldo Gill DO Dec 24, 2016 00:21 Liz Woo DO Dec 24, 2016 05:51
[2016-12-24] MEDS: Heparin 5,000 Unit/mL Inj SUBQ SCH ×3 (01:23→18:06)
[2016-12-24] MEDS: Sodium Chloride LOK Flush 10 mL Syringe IVFLUSH SCH ×3 (01:24→16:30)
--- NOTE | 2016-12-24 02:08 | NUR ---
Admit Patient arrived to room 3010 at 0035 from ED. Alert and oriented. Telemetry connected, IV site patent, 3L nasal cannula. Oriented to room, call light, plan of care, policies, intentional rounding. 2L fluid restriction in place. Med list entered by pharmacist in ED. Nasal MRSA swab sent. Non-skid socks in place, bed alarm on, call light within reach.
[2016-12-24] MEDS ORDERED: Vancomycin Inj 500 MG in 0.9% Sodium Chloride 250 ML IV SCH (02:30)
[2016-12-24 03:24] LABS: APPEARANCE,URINE CLEAR (CLEAR,HAZY); COLOR,URINE YELLOW (YELLOW); OCCULT BLOOD,URINE NEGATIVE (NEGATIVE); PH,URINE 6.5 (5.0-8.0); UROBILINOGEN,URINE NORMAL (NORMAL)
[2016-12-24] MEDS ORDERED: 0.9% Sodium Chloride 250 ML ONE (03:37)
[2016-12-24 05:56] LABS: BASOPHILS % (AUTO) 0.1 % (0-3); EOSINOPHILS % (AUTO) 1.3 % (0-5); MONOCYTES % (AUTO) 6.6 % (4-12); Mean Corpuscular Hemoglobin 29.3 pg (27.0-35.0); Mean Corpuscular Volume 94.7 fL (81-100); NEUTROPHILS % (AUTO) 76.7 % (40-74); Platelet Count 245 bil/L (150-400)
--- NOTE | 2016-12-24 06:45 | PCM.CONPHA ---
Subjective Date of Service: Dec 24, 2016 Requesting Provider: Oswaldo Gill DO Dyspnea/wheezing History of Present Illness possible pneumonia, recent hospitalized Reason for Pharmacy Consult: Vancomycin Dosing Objective Assessment/Plan Assessment/Plan A/ - 81 y/o female patient needed Vancomycin for empirical coverage for worsening dyspnea/wheezing, considering her recent hospital discharge, possible health care associated pneumonia - Afebrile, WBC: 7.5, blood cultures, MRSA nasal swab, strep pneu ag are pending - concurrent abx: Cefepime and Levaquin - Renal risks: high age, DM, CKD stage III - Wt: 56kg, ht: 157.48cm, BMI: 22.5 kg/m2, SCr: 1.51 mg/dL. est. clearance ~ 26ml/min (based on ABW, confirmed with [facility]), t1/2~27hrs, Vd~39L P/ - Give Vancomycin 500mg iv q24h. Trough level ordered before 3rd dose @ 0300 12/26. This regimen would produce a trough of 15 Pharmacy will continue to monitor daily Thank you for consulting clinical pharmacy in the care of this patient Cy Tanner, Jeff Linares Dec 24, 2016 06:45
[2016-12-24] MEDS ORDERED: levoFLOXacin Inj 750 MG in IV Premix 1 EACH IV ONE (07:00)
[2016-12-24] MEDS ORDERED: Pantoprazole 40 mg ER24 Tablet PO SCH (07:30)
[2016-12-24] MEDS ORDERED: CEFEPIME IV ONE (08:30)
[2016-12-24] MEDS ORDERED: DEXTROSE 5% IV ONE (08:30)
[2016-12-24] MEDS ORDERED: Vancomycin Dose per Pharmacist XX SCH (08:30)
[2016-12-24] MEDS ORDERED: Furosemide 10 mg/mL 4 mL Inj IVPUSH SCH (08:30)
[2016-12-24] MEDS: Potassium Chloride 20 mEq SR Tablet PO SCH ×2 (09:01→18:05)
[2016-12-24] MEDS: MeTOProlol XL 25 mg ER24 Tablet PO SCH ×2 (09:01→20:24)
[2016-12-24] MEDS: Pantoprazole 40 mg ER24 Tablet PO SCH ×2 (09:01→18:05)
--- NOTE | 2016-12-24 15:19 | NUR ---
Evaluation completed. Please go to "Notes" then click on "Assessments and Notes" (bottom left corner of screen). Then select appropriate discipline tab on top of screen.
--- NOTE | 2016-12-24 17:53 | PCM.PNMED ---
Subjective Date of Service Dec 24, 2016 Subjective Comfortable at rest but short of breath with slight exertion, she's not sure she 's noted any improvement since admission. Confused as to why we feel her heart is bad when she says Dr. Cid several months ago at her last appointment told her there is very little damage. She feels anxious and having trouble sleeping at night but so far is not wanting any medication for this. Also worried about dying and how it will affect her children. Exam Vital Signs Vital Sign - Last Date Time Temp Pulse Resp B/P Pulse Ox O2 Delivery O2 Flow Rate FiO2 12/24/16 16:18 96 12/24/16 14:45 36.4 22 106/68 91 Nasal Cannula 2.00 12/24/16 05:18 89 Intake and Output 12/23/16 12/23/16 12/24/16 Cumulative From/Thru 15:00 23:00 07:00 12/23/16 17:16 - 12/24/16 05:33 Intake Total 300 ml 300 ml Output Total 800 ml 800 ml Balance -500 ml -500 ml Intake Oral 300 ml 300 ml Output Urine Total 800 ml 800 ml Exam General: Alert and oriented, no acute distress Heart: Regular Lungs: Bibasilar inspiratory crackles, and some decreased breath sounds on the left Abdomen: Soft, non-tender Extremities: No pedal edema IVs and Medications Medications Reviewed: Medications were reviewed in detail Lab and Diagnostics Result Diagram: 12/24/16 0536 12/24/16 0536 X-Rays, CTs and MRIs Chest X-ray IMPRESSION: Suspect pneumonia left lower lobe. Prominent increased interstitial markings are present diffusely. Dictated by: Yusuf Hoskins M.D. on 12/23/2016 at 18:16 Assessment & Plan 81-year-old female with significant history of cardiac disease with systolic heart failure with EF of 30% who presents to the emergency department with 3 days of worsening dyspnea. Acute hypoxic respiratory failure; present on admission; ongoing -Dyspnea for 3 days requiring continuous oxygen supplementation which was to be weaned down after last visit -See below for underlying cause -Continue O2 supplementation, currently O2 saturation 91% on 2 L Chronic systolic heart failure with an EF of 30%; present on admission; ongoing *exacerbation -Last EF of 30% was evaluated in November; troponin mildly elevated likely related to CHF and CKD -Patient is on metoprolol, do not see an ACEI or ARB; consider after diuresed if blood pressure can tolerate it, currently systolic blood pressure 103-106, -On torsemide 60 mg am and 40mg pm by mouth every morning -Given Lasix 40 mg IV in the ED -Lasix 80 mg IV this a.m. Will increase to twice a day, could consider adding metolazone -Daily weights -Fluid restriction of 2 L daily -CHF clinic on discharge -Continue metoprolol -Discussed option of palliative care consult but so far she is not interested Possible healthcare acquired pneumonia; present on admission; ongoing -Possible consolidation in left lower lobe; recent admissions and care home -MRSA nasal swab is negative -Vanc, Cefepime, and levofloxacin initially but does not appear acutely ill, we' ll discontinue the cefepime and vancomycin -Strep urine ag, legionella urine ag are both negative -Repeat CBC today still without leukocytosis -No fluids as already overloaded Chronic kidney disease, Stage 3a; present on admission; appears stable -Likely secondary to heart failure, diabetic nephropathy, and reported bilateral renal artery stenosis -Diuresis as above -Appears to be within 0.3 of baseline -BMP this a.m. shows creatinine has gone from 1.5-1.4 Type II diabetes; present on admission; appears stable -Last A1c was 7.0 on12/23 -Home medication: none -Monitor -Low correctional if hyperglycemic > 180 CAD with [place] and multi-vessel bypass -Does not appear the patient on aspirin -Med rec says she is on pravastatin although others in this class are listed as allergies Chronic anemia -Continue to monitor Hypertension-continue diuretics and metoprolol Hypothyroidism- levothyroxine 25 g Gout-continue allopurinol GERD- on pantoprazole at home; will continue Chronic spasm- tizanidine Insomnia- continue home temazepam Disposition: Patient is being admitted to inpatient status with expected length of stay greater than two midnights due to to severity of presentation, duration of treatment, and risks of adverse events disposition GI Prophylaxis: Proton Pump Inhibitor VTE Mechanical Devices: Intermittant Pneumatic CD Resuscitation Status: DNR/DNI:Do Not Resuscitate/Intubate Hiral Castaneda MD Dec 24, 2016 17:53
[2016-12-24] MEDS: Furosemide 10 mg/mL 10 mL Inj IVPUSH SCH (19:43)
[2016-12-24] MEDS ORDERED: DEXTROSE 5% IV SCH (20:30)
[2016-12-24] MEDS ORDERED: CEFEPIME IV SCH (20:30)
[2016-12-25] VITALS (12 sets, daily range): BP systolic 91–116; BP diastolic 56–68; PULSE 80–98; RESP 16–20; O2SAT 88–92
[2016-12-25] MEDS: Sodium Chloride LOK Flush 10 mL Syringe IVFLUSH SCH ×3 (00:29→15:54)
[2016-12-25] MEDS: Heparin 5,000 Unit/mL Inj SUBQ SCH ×2 (00:29→07:52)
--- NOTE | 2016-12-25 05:01 | NUR ---
NOC shift note Patient reported increase in comfort, said that she is breathing better. Able to walk about 40 feet in hallway with 1PA and her own walker, 3L oxygen in place. One large bowel movement. IV Furosemide given as ordered. Denied pain. Remained alert and oriented and used call light appropriately. Intentional rounding.
[2016-12-25 06:37] LABS: Mean Corpuscular Hemoglobin 29.5 pg (27.0-35.0); Mean Corpuscular Volume 94.7 fL (81-100)
[2016-12-25] MEDS: Furosemide 10 mg/mL 10 mL Inj IVPUSH SCH (07:44)
[2016-12-25] MEDS: Pantoprazole 40 mg ER24 Tablet PO SCH ×2 (07:45→15:55)
[2016-12-25] MEDS: Potassium Chloride 20 mEq SR Tablet PO SCH ×2 (07:45→16:52)
--- NOTE | 2016-12-25 08:08 | PCM.PNMED ---
Subjective Date of Service Dec 25, 2016 Subjective Shortness of breath has improved. Slept well last night. Can now get up to the bathroom without the shortness of breath she was previously having. Has not noted any blood in the stools or dark stools Exam Vital Signs Vital Sign - Last Date Time Temp Pulse Resp B/P Pulse Ox O2 Delivery O2 Flow Rate FiO2 12/25/16 06:35 98 12/25/16 05:46 36.7 16 98/60 91 Nasal Cannula 2.00 12/24/16 05:18 89 Intake and Output 12/24/16 12/24/16 12/25/16 Cumulative From/Thru 15:00 23:00 07:00 12/23/16 17:16 - 12/25/16 05:46 Intake Total 1548 ml 400 ml 2248 ml Output Total 1075 ml 500 ml 2375 ml Balance 473 ml -100 ml -127 ml Intake Oral 860 ml 400 ml 1560 ml IV Total 688 ml 688 ml Output Urine Total 1075 ml 500 ml 2375 ml # Bowel Movements 1 1 Exam General: Alert and oriented, no acute distress Heart: Regular Lungs: Bibasilar inspiratory crackles Abdomen: Soft, non-tender Extremities: No pedal edema IVs and Medications Medications Reviewed: Medications were reviewed in detail Lab and Diagnostics Result Diagram: 12/25/16 0545 12/24/16 0536 X-Rays, CTs and MRIs Chest X-ray IMPRESSION: Suspect pneumonia left lower lobe. Prominent increased interstitial markings are present diffusely. Dictated by: Yusuf Hoskins M.D. on 12/23/2016 at 18:16 Assessment & Plan 81-year-old female with significant history of cardiac disease with systolic heart failure with EF of 30% who presents to the emergency department with 3 days of worsening dyspnea. Acute hypoxic respiratory failure; present on admission; ongoing -Dyspnea for 3 days [facility] requiring continuous oxygen supplementation which was to be weaned down after last visit (patient says home O2 had initially been on 3 L and was weaned to 1 L) -See below for underlying cause -Continue O2 supplementation, currently O2 saturation 91% on 2 L Chronic systolic heart failure with an EF of 30%; present on admission; ongoing *exacerbation -Last EF of 30% was evaluated in November; troponin mildly elevated likely related to CHF and CKD -Patient is on metoprolol, do not see an ACEI or ARB; consider after diuresed if blood pressure can tolerate it, currently systolic blood pressure 98 this a.m. -On torsemide 40 mg am and 20 mg pm by mouth every morning at home, will resume but increased to 60 mg twice a day -Given Lasix 40 mg IV in the ED -Lasix 80 mg IV yesterday increased to twice a day -Weight dropped 1.7 kg although intake and output were matched -We'll DC IV Lasix after this a.m. dose and as above restart torsemide at higher dose -Check labs this afternoon and in the morning -Fluid restriction of 2 L daily -CHF clinic on discharge -Continue metoprolol -Discussed option of palliative care consult yesterday but so far she is not interested Possible healthcare acquired pneumonia; present on admission; ongoing -Possible consolidation in left lower lobe; has had recent admissions and retirement -MRSA nasal swab is negative -Vanc, Cefepime, and levofloxacin initially but does not appear acutely ill, discontinued the cefepime and vancomycin yesterday -Strep urine ag, legionella urine ag are both negative -Repeat CBC yesterday still without leukocytosis Chronic anemia with acute worsening during this hospital stay -Hemoglobin on admission was 9.1, yesterday 8.8, today 8.3 in spite of diuresis -Has had a few admissions the past several months for GI bleed and in spite of EGDs and colonoscopies no source was found -We'll discharged last month she was advised to see supervisor riveting Dr. Bradley but she says his name does not sound familiar and she has not seen him -Also mentioned was the possibility of being evaluated at [facility] for capsule endoscopy but she does not seem to recall this either -Recheck hemoglobin this afternoon and in the morning, if she has further drop she may benefit from transfusion of 1 unit packed red blood cells, this was discussed with her and she is agreeable -We'll DC subcutaneous heparin Chronic kidney disease, Stage 3a; present on admission; appears stable -Likely secondary to heart failure, diabetic nephropathy, and reported bilateral renal artery stenosis -Diuresis as above -Appears to be within 0.3 of baseline -BMP this a.m. shows creatinine has gone from 1.5-1.4 Type II diabetes; present on admission; appears stable -Last A1c was 7.0 on12/23 -Home medication: none -Monitor, glucose was 202 last evening -Low correctional lispro had not yet been ordered so done so this morning CAD with [place] and multi-vessel bypass -Does not appear the patient on aspirin -Med rec says she is on pravastatin although others in this class are listed as allergies r Hypertension-continue diuretics and metoprolol Hypothyroidism- levothyroxine 25 g Gout-continue allopurinol GERD- on pantoprazole at home; will continue Chronic spasm- tizanidine Insomnia- continue home temazepam Disposition: Patient is being admitted to inpatient status with expected length of stay greater than two midnights due to to severity of presentation, duration of treatment, and risks of adverse events disposition GI Prophylaxis: Proton Pump Inhibitor VTE Mechanical Devices: Intermittant Pneumatic CD Resuscitation Status: DNR/DNI:Do Not Resuscitate/Intubate Hiral Castaneda MD Dec 25, 2016 08:08
[2016-12-25] MEDS ORDERED: Glucose 40% Oral Gel 15 Gm Tube PO PRN (08:10)
[2016-12-25] MEDS: MeTOProlol XL 25 mg ER24 Tablet PO SCH ×2 (08:46→20:58)
[2016-12-25] MEDS: Insulin LISPRO 300 Unit/3 mL Inj SUBQ SCH ×3 (11:31→22:00)
--- NOTE | 2016-12-25 14:57 | NUR ---
Social Work: Initial Assessment / Multidisciplinary Rounds Data: See initial assessment. Patient is a 81 year old female who was admitted on 12/23/2016 for pneumonia and heart failure per H&P. Patient's insurance is [facility] [place] Medicare and her PCP is Wendy Vance MD. EMR reviewed. SW met with patient to discuss discharge planning. SW role explained. Patient states that she lives at home alone in [place]. Patient's DPOA is her daughter Iris Dinero and AD have been completed on her behalf. Patient considers her daughter Iris and her son Livan to be her main sources of support. Patient confirms that she uses a 4WW at baseline and has home oxygen provided by [employer]. Patient states that she has been active with [facility] in the past. Patient also states that she has used [employer] in the past but not currently. Patient has a SNF hx at [facility]. Patient informed SW that she has been too weak at home and was recently admitted to [facility] a week ago for rehab. Patient states that upon discharge, she would like to return to continue therapy. SW provided patient with a discharge planning checklist booklet and encouraged to call with any questions or concerns. Phone number provided. Patient was discussed in morning rounds. No concerns were noted by MD or staff. SW called [facility] to confirm that patient would be able to return at discharge. SW spoke with Keren and was advised to call back tomorrow to speak with Gabriela (DNS at [facility]) to confirm if patient could return. SW will continue to follow. Assessment: Patient from [facility] where she was receiving rehab. Plan: Patient will likely return to [facility] when medically stable. SW has been instructed to speak to Gabriela at [facility] tomorrow to confirm acceptance. SW will continue to follow for needs. DORIAN Leonard Addendum: 12/25/16 at 1516 by ADRI DARBY Amended: Links added.
--- NOTE | 2016-12-25 15:33 | NUR ---
Social Work: [facility] SW visited patient's room to present ROXANE. ROXANE has been signed by patient. DORIAN Leonard
--- NOTE | 2016-12-25 17:31 | NUR ---
pt reports improvement pt was able to go on three walks today and reports feeling better. pt states that she is not in any pain and doesn't feel as short of breath.
[2016-12-25 18:35] LABS: Mean Corpuscular Volume 94.5 fL (81-100)
[2016-12-26 00:40] VITALS: BP 114/61; PULSE 88; RESP 18; O2SAT 90
[2016-12-26] MEDS: Sodium Chloride LOK Flush 10 mL Syringe IVFLUSH SCH ×2 (00:59→08:14)
[2016-12-26] MEDS ORDERED: Vancomycin Serum Trough XX ONE (01:30)
--- NOTE | 2016-12-26 04:03 | NUR ---
NOC Activity Pt reports of having restless legs and wouldn't able to sleep. Temazepam administered and flexaril. Pt reports of relief but is still unable to fall asleep. Denies chest pain, sob, n/v or abd discomfort. Pt has been ambulating with 1 person contact assist. Currently on 2LPM nasal canula and has been tolerating well. Pt states that she does not want to be on o2 for a long time. Continuing hourly rounding.
[2016-12-26] MEDS: Insulin LISPRO 300 Unit/3 mL Inj SUBQ SCH ×2 (05:04→07:23)
[2016-12-26 05:39] LABS: Mean Corpuscular Hemoglobin 29.6 pg (27.0-35.0); Mean Corpuscular Volume 94.6 fL (81-100)
[2016-12-26 06:03] VITALS: BP 109/67; PULSE 85; RESP 18; O2SAT 94
[2016-12-26] MEDS: Pantoprazole 40 mg ER24 Tablet PO SCH (07:30)
[2016-12-26] MEDS: Potassium Chloride 20 mEq SR Tablet PO SCH (07:30)
--- NOTE | 2016-12-26 07:35 | PCM.DIMED ---
Discharge Instructions Date of Service Dec 26, 2016 Dates of Hospitalization Dec 23, 2016 at 21:49 Discharge Diagnosis Discharge Diagnosis Acute on Chronic congestive heart failure Possible left lower lobe pneumonia Acute on chronic anemia related to GI bleed from undiagnosed source Diabetes mellitus type 2 Diet Discharge Diet: Low fat, Low Sodium, Heart Healthy, Other (no more than 2 liters of fluid per day) Activity Discharge Activity: No restrictions Call your provider Call your provider for: Shortness of breath, Other (weakness or lightheadedness , blood in the stools) Patient Instructions Patient Instructions Follow up with your garbage collector Make an appointment with Dr Bradley or the ice rink attendant of your choice as recommended during your hospital stay last month. See your primary care physician this week so they can: Check your anemia, if it worsens further you may need a blood transfusion Check your diabetes, your blood glucose was 202 the morning of your discharge Recheck your digestive heart failure and pneumonia Continue your home oxygen at 2 liters Hiral Castaneda MD Dec 26, 2016 07:35
[2016-12-26] MEDS ORDERED: TORS20TA3 PO (07:42)
[2016-12-26] MEDS ORDERED: LEVO500T20 PO (07:42)
--- NOTE | 2016-12-26 07:53 | PCM.DC.MED ---
Discharge Summary Date of Service Dec 26, 2016 Dates of Hospitalization Date of Hospital Admission Dec 23, 2016 at 21:49 Date of Discharge: Dec 26, 2016 Providers: Admitting Physician: Liz Woo DO Primary Care Physician: Wendy Vance MD Attending Physician: Hawk Ayala MD Diagnosis at Time of Discharge Diagnosis at Time of Discharge Acute on Chronic congestive heart failure Possible left lower lobe pneumonia Acute on chronic anemia related to GI bleed from undiagnosed source Diabetes mellitus type 2 Procedures XRay, CTs & MRIs Chest X-ray IMPRESSION: Suspect pneumonia left lower lobe. Prominent increased interstitial markings are present diffusely. Dictated by: Yusuf Hoskins M.D. on 12/23/2016 at 18:16 Brief History 81-year-old female with a history of CAD with CT and multivessel CABG, peripheral vascular disease, CHF with an EF of 30%, hypertension, hyperlipidemia , recent anemia from GI bleed, type II diabetes who presents emergency department due to worsening shortness of breath over the last 3 days. Patient states that the issues been getting progressively worse, is constant, and is unrelieved with 2 L of home O2. She also states that she has a decreased exercise tolerance, as she cannot walk as far as usual, orthopnea, and is having difficulty "getting air out." She is also having difficulty with ADLs. Patient denies ongoing fever or chills, nausea or vomiting, edema or chest pain. The patient was recently discharged on November 09 for CHF exacerbation and anemia. She was last discharged to an assisted living center on December 01 and had been feeling progressively better on her last admit her Lasix was changed to torsemide and she states that since that change was made she has had decreased urine output. The patient contacted her primary care doctor's office and was advised to go to urgent care. At urgent care the patient was given a chest x-ray which has a possible consolidation and increased vascular markings. In the ED the patient was given 40 mg of IV Lasix. On lab work patient has a persistent anemia, chronic kidney disease, and a mildly elevated pro- calcitonin. Was also notable that the patient has a very mild troponin bump of 0.014, but has a BNP of 20,000. 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 requiring continuous oxygen supplementation which was to be weaned down after last visit (patient says home O2 had initially been on 3 L and was weaned to 1 L) -See below for underlying cause -Continue O2 supplementation, currently O2 saturation low 90s on 2 L -Had been on home oxygen prior to admission Chronic systolic heart failure with an EF of 30%; present on admission; ongoing *exacerbation -Last EF of 30% was evaluated in November; troponin mildly elevated likely related to CHF and CKD -Patient is on metoprolol, do not see an ACEI or ARB; consider after diuresed if blood pressure can tolerate it (occasional systolic blood pressures in the 90s) -Given Lasix 40 mg IV in the ED then Lasix 80 mg IV twice a day in hospital the day before discharge changed to torsemide orally -On torsemide 40 mg am and 20 mg pm by mouth every morning at home, will resume but increased to 60 mg twice a day -Weight dropped 1.9 kg and slight increase of the went to 48 and creatinine to 1.6 -Fluid restriction of 2 L daily -early follow-up with primary care then possible CHF clinic on discharge -Also follow up with her usual psychological tests sales agent -Continue metoprolol -Discussed option of palliative care consult but so far she is not interested Possible healthcare acquired pneumonia; present on admission; ongoing -Possible consolidation in left lower lobe; has had recent admissions and longterm so initially -Vanc, Cefepime, and levofloxacin initially -but does not appear acutely ill so discontinued the cefepime and vancomycin -6 more days of Levaquin (orally) home -MRSA nasal swab is negative -Strep urine ag, legionella urine ag are both negative -Initial and Repeat CBC without leukocytosis Chronic anemia with acute worsening during this hospital stay -Hemoglobin on admission was 9.1, next morning 8.8, then 8.3 following morning in spite of diuresis, then remained stable at 8.3 on the morning of discharge -Has had a few admissions the past several months for GI bleed and in spite of EGDs and colonoscopies no source was found -When discharged last month she was advised to see time study observer Dr. Bradley but she says his name does not sound familiar and she has not seen him -Also mentioned was the possibility of being evaluated at [facility] for capsule endoscopy but she does not seem to recall this either -Advised her is important to follow up soon with her primary care physician who should check her CBC, told her that if she has a further drop she may require transfusion Chronic kidney disease, Stage 3a; present on admission; appears stable -Likely secondary to heart failure, diabetic nephropathy, and reported bilateral renal artery stenosis -Diuresis as above resulted in slight rising BUN/creatinine Type II diabetes; present on admission; appears stable -Last A1c was 7.0 on12/23 -Home medication: none -Monitor, glucose as high as 202 -Advised to follow-up with her primary care physician regarding this as she may need to resume medication CAD with CT and multi-vessel bypass -Does not appear the patient on aspirin -Med rec says she is on pravastatin although others in this class are listed as allergies r Hypertension-continue diuretics and metoprolol Hypothyroidism- levothyroxine 25 g Gout-continue allopurinol GERD- on pantoprazole at home; will continue Chronic spasm- tizanidine Insomnia- continue home temazepam Disposition: Patient is being admitted to inpatient status with expected length of stay greater than two midnights due to to severity of presentation, duration of treatment, and risks of adverse events disposition Exam Vital Signs (Last) Date Time Temp Pulse Resp B/P Pulse Ox O2 Delivery O2 Flow Rate FiO2 12/26/16 06:03 36.5 85 18 109/67 94 Nasal Cannula 2.00 12/24/16 05:18 89 Exam General: Alert and oriented, no acute distress Heart: Regular Lungs: Bibasilar inspiratory crackles Abdomen: Soft, non-tender Extremities: No pedal edema Test 12/23/16 17:50 12/23/16 19:50 12/23/16 20:00 12/24/16 02:53 Magnesium Level 2.2mg/dL (1.6-2.6) Troponin T 0.014ug/L (0.0-0.011) Procalcitonin 0.14ng/mL (0.00-0.08) Hold Cunningham Top Tube Received (Received) Urine Legionella pneumophilia Ag Negative (Negative) Hold Urine Received (Received) Urine Color Yellow (YELLOW) Urine Appearance Clear (CLEAR,HAZY) Urine pH 6.5 (5.0-8.0) Urine Specific [place] 1.010 (1.003-1.035) Urine Protein 30mg/dL (NEG,TRACE) Urine Glucose (UA) Negativemg/dL (NEGATIVE) Urine Ketones Negativemg/dL (NEGATIVE) Urine Occult Blood Negative (NEGATIVE) Urine Nitrite Negative (NEGATIVE) Urine Bilirubin Negative (NEGATIVE) Urine Urobilinogen Normalmg/dL (NORMAL) Urine Leukocyte Esterase Trace (NEGATIVE) Urine RBC 0-2/hpf (0-2) Urine WBC 0-5/hpf (0-5) Urine Epithelial Cells Few/hpf (NONE-MOD) Urine Crystals None seen (NONE SEEN) Urine Bacteria Few/hpf (NONE-FEW) Urine Hyaline Casts None/lpf (NONE) Urine Granular Casts None seen (NONE SEEN) Urine Waxy Casts None seen (NONE SEEN) Urine Red Blood Cell Casts None seen (NONE SEEN) Urine White Blood Cell Casts None seen (NONE SEEN) Urine Mucus None seen (None Seen) Urine Trichomonas None seen (NONE SEEN) Urine Yeast None (NONE SEEN) Urinalysis Comment None Urine Culture Reflexed Indicated Test 12/24/16 05:36 12/25/16 05:45 12/26/16 05:22 Neutrophils (%) (Auto) 76.7% (40-74) Lymphocytes (%) (Auto) 15.1% (14-46) Monocytes (%) (Auto) 6.6% (4-12) Eosinophils (%) (Auto) 1.3% (0-5) Basophils (%) (Auto) 0.1% (0-3) Total Bilirubin 0.5mg/dL (0.0-1.2) Aspartate Amino Transf (AST/SGOT) 18U/L (0-50) Alanine Aminotransferase (ALT/SGPT) 7U/L (0-32) Alkaline Phosphatase 97U/L (25-165) Total Protein 7.3g/dL (6.4-8.4) Albumin 3.4g/dL (3.4-5.0) Pro-B-Type Natriuretic Peptide 24379on/mL (0-738) White Blood Count 8.7th/mm3 (3.8-10.1) Red Blood Count 2.80mil/mm3 (3.90-5.20) Hemoglobin 8.3g/dL (12.0-15.6) Hematocrit 26.5% (35.0-46.0) Mean Corpuscular Volume 94.6fL (81-100) Mean Corpuscular Hemoglobin 29.6pg (27.0-35.0) Mean Corpuscular Hemoglobin Concent 31.3% (32.0-37.0) Red Cell Distribution Width 17.2% (12.3-15.4) Platelet Count 246bil/L (150-400) Sodium Level 135mEq/L (134-144) Potassium Level 4.0mEq/L (3.5-5.2) Chloride Level 92mEq/L (97-108) Carbon Dioxide Level 28mmol/L (18-29) Blood Urea Nitrogen 48mg/dL (8-27) Creatinine 1.63mg/dL (0.57-1.00) Estimat Glomerular Filtration Rate 43mL/min (>59) Glucose Level 204mg/dL (60-99) Calcium Level 9.0mg/dL (8.5-10.1) Discharge Medications Discharge Medications Allopurinol (Allopurinol) 300 Mg Tablet 300 MG PO HS (Reported) Bimatoprost (Lumigan) 45 Drop/2.5 Ml Ophsoln 1 DROP BOTH_EYES HS (Reported) each eye Levofloxacin (Levaquin) 500 Mg Tablet 500 MG PO DAILY Prescribed by: HAWK AYALA MD Levothyroxine (Levothyroxine) 25 Mcg Tablet 25 MCG PO AM (Reported) Take on an empty stomach. Metoprolol Succinate ER (Metoprolol Succinate ER) 25 Mg Tab.er.24h 25 MG PO BID Prescribed by: Praneeth ELLIOTT Multivitamin (Multivitamins) 1 Each Capsule 1 EACH PO DAILYWD (Reported) Pantoprazole DR (Pantoprazole DR) 40 Mg Tablet.dr 40 MG PO BIDAC Prescribed by: ANGELA PHILIP DO Potassium Chloride ER (Potassium Chloride ER) 20 Meq Tablet.er 20 MEQ PO BIDWM ( Reported) TAKE WITH FOOD Pravastatin (Pravastatin) 40 Mg Tablet 40 MG PO HS (Reported) Saccharomyces Boulardii (Florastor) 250 Mg Capsule 250 MG PO BIDWM (Reported) Temazepam (Temazepam) 30 Mg Cap 30 MG PO HS (Reported) Torsemide (Torsemide) 20 Mg Tablet 60 MG PO BID TORSEMIDE 40 MG IN AM & 20 MG IN AFTERNOON Prescribed by: HAWK AYALA MD As needed Tizanidine (Tizanidine) 2 Mg Tablet 1-2 MG PO DAILY PRN PRN For Spasm (Reported ) Followup Plan Discharge Diet: Low fat, Low Sodium, Heart Healthy, Other (no more than 2 liters of fluid per day) Discharge Activity: No restrictions Patient Instructions Follow up with your psychological tests sales agent Make an appointment with Dr Bradley or the time study observer of your choice as recommended during your hospital stay last month. See your primary care physician this week so they can: Check your anemia, if it worsens further you may need a blood transfusion Check your diabetes, your blood glucose was 202 the morning of your discharge Recheck your digestive heart failure and pneumonia Continue your home oxygen at 2 liters Hawk Ayala MD Dec 26, 2016 07:53
[2016-12-26] MEDS: MeTOProlol XL 25 mg ER24 Tablet PO SCH (08:13)
[2016-12-26] MEDS ORDERED: Levofloxacin 750 mg/150 mL D5W IV SCH (08:30)
--- NOTE | 2016-12-26 09:50 | NUR ---
Activity Patient ambulated to restroom with help of CARRIAGE FEEDER and walker. After returning to chair, patient stated she felt SOB. Patient was at the time on 1L NC of oxygen. Patient normally wears 2L at home. RN increased O2 to 2L and discussed with patient importance of taking deep breaths. SpO2 read 97%. RN also discussed with patient discharge and asked patient about feelings of anxiety. Patient states she was slightly anxious about being by herself at [facility]. RN and CARRIAGE FEEDER walked with patient out in hallway, patient's gait was steady with walker and after she felt better and stated that she "no longer felt like she was going to fall." Pt escorted back into room.
--- NOTE | 2016-12-26 10:04 | NUR ---
Social Work-discharge: Data:EMR reviewed. Pt is on day 3 of hospitalization for pneumonia per H&P. Pt is medically stable for discharge. MARGARET spoke with Tram at [facility] who states they are agreeable to have pt return today without an assessment. Pt is currently doing respite with them. MARGARET faxed over discharge information to [phone]. order received for resume HH services. MARGARET spoke with Rob from [facility] who confirms they are open with pt, resume HH orders provided. Pt has her portal tank of O2 to take back with her to [facility] today. [facility] has arranged transportation for 1030. MARGARET updated pt's daughter Iris via phone of discharge and she is agreeable. Iris states she will update her siblings. All updated and agreeable to plan. Assessment:pt who would benefit from resume HH. Plan:Pt to discharge back to [facility] today via [facility] transport at 1030. MARGARET provided [facility] with resume HH orders. [facility] agreeable for pt to return today and MARGARET has faxed discharge information. All updated and agreeable to plan. DORIAN Rollins
--- NOTE | 2016-12-26 10:38 | NUR ---
Discharge Patient discharged to [facility]. NAHUN Taveras, took patient down in wheelchair and [facility] to pick patient up in lobby. Report called to [facility] regarding medications and new script for antibiotic. [facility] verbalized understanding and denied any further questions. IV DC'd, intact, dressing applied. Pt showed no s/s of distress on discharge.
== END 2016-12-26 10:39 | DRG 291 ==
LOC: SED 17:13 → MOC 21:49 → MPC 23:52
PROVIDERS: ADMIT Internal Medicine; ATTEND Internal Medicine
DX: I50.23 Acute on chronic systolic (congestive) heart failure (principal); J96.01 Acute respiratory failure with hypoxia; J18.9 Pneumonia, unspecified organism; Y95 Nosocomial condition; D64.9 Anemia, unspecified; I25.10 Atherosclerotic heart disease of native coronary artery without angina pectoris; I25.2 Old myocardial infarction; E78.5 Hyperlipidemia, unspecified; I73.9 Peripheral vascular disease, unspecified; E03.9 Hypothyroidism, unspecified; M10.9 Gout, unspecified; Z87.11 Personal history of peptic ulcer disease